=== PATIENT | female | born 1955 | race Caucasian/White ===

== ENCOUNTER 2020-04-09 13:50 | Emergency (ER) | payer MEDICARE, MEDICAID, SELFPAY ==
[2020-04-09 14:11] VITALS: BP 136/81; PULSE 81; RESP 18; TEMP 36.8; O2SAT 98; BMI 33.0
--- NOTE | 2020-04-09 14:24 | CT_ITS ---
EXAMINATION: CT ABDOMEN AND PELVIS WITH CONTRAST CLINICAL INFORMATION: Diarrhea. COMPARISON: CT abdomen and pelvis 01/27/2018 TECHNIQUE: Multidetector volumetric images were obtained from the superior aspect of the liver through the pubic symphysis following administration 85 mL of Omnipaque 350 intravenous contrast. Sagittal and coronal reformatted images were obtained on the technologist's workstation. Oral contrast: No This CT examination was performed using dose optimization techniques as appropriate, variously including the following: *Automated exposure control *Adjustment of mA and/or kV according to patient size (this includes techniques or standardized protocols for targeted exams where dose is matched to indication/reason for exam; i.e. extremities or head) *Use of iterative reconstruction technique DLP: 720 mGy-cm FINDINGS: LUNG BASES: There is minimal atelectatic changes right lung base. The heart size is normal. LIVER, GALLBLADDER, AND BILIARY TREE: The liver is normal in size, shape, and diffuse hypoattenuation. There is a focal area of fatty sparing around the gallbladder. No additional focal or biliary ductal dilatation is present. The gallbladder is unremarkable with no evidence of radiopaque gallstones, gallbladder wall thickening, or obvious pericholecystic inflammatory changes. PANCREAS: Unremarkable. SPLEEN: Unremarkable. ADRENAL GLANDS: Unremarkable. KIDNEYS AND URETERS: The kidneys are normal in size, shape, and attenuation. No hydronephrosis, hydroureter, or calculi seen. No perinephric stranding. Small bilateral extrarenal kidney pelvises noted. BLADDER: Unremarkable. GASTROINTESTINAL TRACT: There is sigmoid diverticulosis with minimal fat stranding and mild mural thickening suspicious for early diverticulitis.. Rest of colon and the small bowel loops are normal caliber. Appendix is not seen with certainty. ABDOMINAL WALL: A small umbilical hernia containing fat is noted. LYMPH NODES: Small shotty lymph nodes are seen in the retroperitoneum. VASCULAR: Unremarkable. PELVIC VISCERA: No free air or free fluid seen. The uterus is anteverted and appears unremarkable. OSSEOUS STRUCTURES: There is grade 1 anterolisthesis L3 over L4. Rest of vertebral alignment is normal. There is loss of L4-L5, L3-L4, L2-L3 and L1-L2 disc heights. No lytic or sclerotic process seen. There is right sacral sclerosis of the SI joint likely hypertrophic degenerative changes. They are stable since previous study. There is old healed left 12th rib fracture CT/CT abdomen pelvis w con IMPRESSION: Sigmoid diverticulosis with mild early sigmoid diverticulitis suspected. No free air or free fluid. No bowel obstruction. Diffuse fatty liver with focal fatty sparing around the gallbladder.
--- NOTE | 2020-04-09 14:45 | ED.ABDPAIN ---
HPI - Abdominal Pain General Chief Complaint: Abdominal Pain Stated Complaint: abd pain Time Seen by Provider: 04/09/20 14:09 Source: patient Mode of arrival: ambulatory Limitations: no limitations History of Present Illness HPI narrative: 64 yo female with past medical history of asthma, bipolar disease, diverticulitis, GERD here with lower abdominal cramping, diarrhea, nausea x 1 week. H/o diverticulitis and feels similar. Multiple episodes of diarrhea daily (non bloody, non mucousy). No recent antibiotic use or travel. No sick contact. Lives alone. MD elicited complaint: abdominal pain Pertinent past history: none Onset (ago): week(s) (1 week ) Pain Consistency: intermittent Location: RLQ and LLQ Severity: moderate Quality: cramping Radiation: none Migration to: no migration Exacerbating factors: nothing Relieving factors: nothing Associated symptoms: nausea and diarrhea Related Data Previous Rx's Medication Instructions Recorded levofloxacin 750 mg PO DAILY 7 Days #7 tab 04/09/20 metronidazole [Flagyl] 500 mg PO Q8H 7 Days #21 tab 04/09/20 Allergies Allergy/AdvReac Type Severity Reaction Status Date / Time oxcarbazepine Allergy Intermediate HIVES/HALLU Unverified 01/20/20 17:45 [From TRILEPTAL] CINATIONS codeine [Codeine] Allergy Mild RASH Unverified 01/20/20 17:45 trazodone [TRAZODONE] Allergy Unknown UNKNOWN Unverified 01/20/20 17:45 Review of Systems Review of Systems Yes all other systems are reviewed and are negative Constitutional: Reports no additional constitutional complaints, Denies body ache(s), Denies chills, Denies fever(s), Denies headache(s) and Denies weakness Eyes: Reports no additional eye complaints and Denies change in vision Reports system reviewed and no additional complaints, except as documented, Denies dizziness, Denies headache(s), Denies nasal congestion, Denies nasal discharge and Denies neck pain Cardiovascular: Reports no additional cardiovascular complaints, Denies chest pain, Denies leg edema and Denies dyspnea Respiratory: Reports no additional respiratory complaints, Denies cough and Denies dyspnea Gastrointestinal: Reports no additional gastrointestinal complaints, Reports abdominal pain, Reports diarrhea, Reports nausea and Denies vomiting Genitourinary: Reports no additional female genitourinary complaints and Denies urinary incontinence Musculoskeletal: Reports no additional musculoskeletal complaints, Denies back pain, Denies arthralgias, Denies joint swelling, Denies neck pain, Denies numbness and Denies tingling Skin/Breast: Reports system reviewed and no additional complaints, except as docu and Denies rash Reports system reviewed and no additional complaints, except as documented, Denies Abnormal speech present, Denies dizziness, Denies headache(s), Denies numbness, Denies tingling and Denies weakness Physical Exam Vital Signs: Vital Signs: Last Vital Signs Temp 98.2 F 04/09/20 14:11 Pulse 75 04/09/20 16:05 Resp 16 04/09/20 16:05 BP 132/76 04/09/20 16:05 Pulse Ox 100 04/09/20 16:05 Body Mass Index 33.0 Const: General: cooperative, healthy appearing, comfortable and no acute distress Orientation/consciousness: patient oriented x3 Limitations: no limitations HENMT: Head: Yes normal to inspection Ears: hearing grossly normal bilaterally General nose exam: Normal external nose present Face and sinus: Yes normal facial exam Mouth: Normal oral and palatal mucosa present Throat: Yes posterior oropharynx normal Eyes: General: appearance normal, both eyes and all related structures Pupils: Equal, round and reactive pupils present Neck: Neck: Yes normal visual inspection Chest: Chest palpation & inspection: normal inspection of the chest Resp: Effort & Inspection: normal respiratory effort Auscultation: clear to auscultation bilaterally Cardio: Rate: regular rate Rhythm: regular rhythm Peripheral pulses: Peripheral pulses 2+ throughout GI: Inspection: Yes normal to inspection Palpation (GI): Soft to palpation and Tenderness to palpation present (GI) (mild LLQ/RLQ) Auscultation: normal bowel sounds Back/Spine/Pelvis: Thoracic/Lumbar Spine: thoracic and lumbar spine normal to inspection Skin: General skin exam: no rashes or lesions noted Neuro: General: patient oriented x3, no focal motor deficits and normal sensation to monofilament Cranial nerves: Yes Equal, round and reactive pupils present Cognition (Neuro): normal cognition Speech: No Abnormal speech present Gait exam (Neuro): Normal gait present Motor exam (neuro): 5/5 motor strength present throughout Extrem: General: Yes normal to inspection Course Course Course Narrative: 64 yo female here with diarrhea, abdominal cramping, nausea x 1 week. On exam has some mild tenderness in lower abdomen, no rebound of guarding. Will need labs, UA, stool samples, Ct A/P. Place PIV and give NSB. 1640-Ct c/w with mild diverticulitis. No leukocytosis, fever and patient did not require any analgesia in the ED. Tolerating PO. She did not have diarrhea while in the emergency department and was unable to provide a stool sample. She does tell me this feels similar to her diverticulitis. She is aware antibiotics may make c diff worse and she will provide outpatient stool studies and follow-up with her PCP. Shared decision to start antibiotics for diverticulitis. Reviewed worrisome signs/symptoms with patient and when to return to ED. Comfortable with discharge home. MDM - Abdominal Pain MDM Narrative Medical decision making narrative: diverticulitis, cdiff, gastroenteritis, appendicitis, infectious diarrhea Medical Records Attestation: I reviewed the patient's medical records. Lab Data Attestation: I reviewed the patient's lab results. Result diagrams: 04/09/20 14:43 04/09/20 14:43 Labs: Lab Results 04/09/20 04/09/20 04/09/20 Range/Units 14:43 14:43 14:43 WBC 7.8 (4.8-10.8) X10*3/uL RBC 3.97 L (4.20-5.50) X10*6/uL Hgb 13.0 (12.0-16.0) g/dl Hct 38.7 (37-47) % MCV 97.5 (80-98) fL MCH 32.7 (27.0-33.0) pg MCHC 33.6 (31.0-35.0) g/dl RDW 11.5 (11.0-16.0) % Plt Count 347 (160-400) X10*3/uL MPV 9.0 L (9.4-12.3) fL Immature Gran % (Auto) 0.4 (0.0-0.4) % Neut % (Auto) 65.3 (45-73) % Lymph % (Auto) 19.4 L (20-40) % [place] % (Auto) 7.7 (2-11) % Eos % (Auto) 6.7 H (0-4) % Baso % (Auto) 0.5 (0-2) % Lymph # (Auto) 1.5 (1.2-4.9) X10*3/uL [place] # (Auto) 0.6 (0.1-1.2) X10*3/uL Eos # (Auto) 0.5 H (0.0-0.4) X10*3/uL Baso # (Auto) 0.0 (0.0-0.2) X10*3/uL Abs Immat Gran (auto) 0.03 (0.00-0.03) X10*3/uL Absolute Neuts (auto) 5.1 (2.0-8.3) X10*3/uL Absolute Nucleated RBC 0.000 (0.0-0.012) X10*3/uL Nucleated RBC % (auto) 0.0 (0.0-0.2) /100WBC Sodium 139 (135-145) mmol/L Potassium 4.1 (3.3-5.1) mmol/l Chloride 104 (96-108) mmol/L Carbon Dioxide 27 (22-29) mmol/L Anion Gap 12 (12-20) BUN 12 (9-16) mg/dL Creatinine 0.71 (0.5-1.4) mg/dL Estim Creat Clear Calc 86.4 Estimated GFR > 60 Random Glucose 86 (60-115) mg/dL Lactic Acid 1.4 (0.5-2.0) mmol/L Calcium 9.2 (8.4-10.2) mg/dL Magnesium 2.0 (1.6-2.6) mg/dL Total Bilirubin 0.3 (0.0-1.0) mg/dL Direct Bilirubin < 0.2 (0.0-0.5) mg/dL AST 17 (5-31) U/L ALT 22 (0-31) U/L Alkaline Phosphatase 83 (39-117) U/L Total Protein 6.7 (6.5-8.0) g/dL Albumin 4.3 (3.5-5.0) g/dL Urine Color Urine Appearance Urine pH (5.0-8.0) Ur Specific [place] (1.005-1.025) Urine Protein (NEG-TRACE) MG/DL Urine Glucose (UA) (NEG) MG/DL Urine Ketones (NEG) MG/DL Urine Blood (NEG) Urine Nitrite (NEG) Ur Leukocyte Esterase (NEG) Urine RBC (0) /HPF Urine WBC (0-4) /HPF Ur Squamous Epith Cells /LPF Urine Bacteria /LPF 04/09/20 Range/Units 16:03 WBC (4.8-10.8) X10*3/uL RBC (4.20-5.50) X10*6/uL Hgb (12.0-16.0) g/dl Hct (37-47) % MCV (80-98) fL MCH (27.0-33.0) pg MCHC (31.0-35.0) g/dl RDW (11.0-16.0) % Plt Count (160-400) X10*3/uL MPV (9.4-12.3) fL Immature Gran % (Auto) (0.0-0.4) % Neut % (Auto) (45-73) % Lymph % (Auto) (20-40) % [place] % (Auto) (2-11) % Eos % (Auto) (0-4) % Baso % (Auto) (0-2) % Lymph # (Auto) (1.2-4.9) X10*3/uL [place] # (Auto) (0.1-1.2) X10*3/uL Eos # (Auto) (0.0-0.4) X10*3/uL Baso # (Auto) (0.0-0.2) X10*3/uL Abs Immat Gran (auto) (0.00-0.03) X10*3/uL Absolute Neuts (auto) (2.0-8.3) X10*3/uL Absolute Nucleated RBC (0.0-0.012) X10*3/uL Nucleated RBC % (auto) (0.0-0.2) /100WBC Sodium (135-145) mmol/L Potassium (3.3-5.1) mmol/l Chloride (96-108) mmol/L Carbon Dioxide (22-29) mmol/L Anion Gap (12-20) BUN (9-16) mg/dL Creatinine (0.5-1.4) mg/dL Estim Creat Clear Calc Estimated GFR Random Glucose (60-115) mg/dL Lactic Acid (0.5-2.0) mmol/L Calcium (8.4-10.2) mg/dL Magnesium (1.6-2.6) mg/dL Total Bilirubin (0.0-1.0) mg/dL Direct Bilirubin (0.0-0.5) mg/dL AST (5-31) U/L ALT (0-31) U/L Alkaline Phosphatase (39-117) U/L Total Protein (6.5-8.0) g/dL Albumin (3.5-5.0) g/dL Urine Color STRAW Urine Appearance CLEAR Urine pH 7.5 (5.0-8.0) Ur Specific [place] 1.010 (1.005-1.025) Urine Protein NEG (NEG-TRACE) MG/DL Urine Glucose (UA) NEG (NEG) MG/DL Urine Ketones NEG (NEG) MG/DL Urine Blood NEG (NEG) Urine Nitrite NEG (NEG) Ur Leukocyte Esterase TRACE H (NEG) Urine RBC 0 (0) /HPF Urine WBC 5-9 H (0-4) /HPF Ur Squamous Epith Cells 2+ /LPF Urine Bacteria NONE /LPF Imaging Data CT scan - abdomen: Attestation: I personally reviewed and interpreted this imaging study as follows: Radiologist's impression: EXAMINATION: CT ABDOMEN AND PELVIS WITH CONTRAST CLINICAL INFORMATION: Diarrhea. COMPARISON: CT abdomen and pelvis 01/27/2018 TECHNIQUE: Multidetector volumetric images were obtained from the superior aspect of the liver through the pubic symphysis following administration 85 mL of Omnipaque 350 intravenous contrast. Sagittal and coronal reformatted images were obtained on the technologist's workstation. Oral contrast: No This CT examination was performed using dose optimization techniques as appropriate, variously including the following: *Automated exposure control *Adjustment of mA and/or kV according to patient size (this includes techniques or standardized protocols for targeted exams where dose is matched to indication/reason for exam; i.e. extremities or head) *Use of iterative reconstruction technique DLP: 720 mGy-cm FINDINGS: LUNG BASES: There is minimal atelectatic changes right lung base. The heart size is normal. LIVER, GALLBLADDER, AND BILIARY TREE: The liver is normal in size, shape, and diffuse hypoattenuation. There is a focal area of fatty sparing around the gallbladder. No additional focal or biliary ductal dilatation is present. The gallbladder is unremarkable with no evidence of radiopaque gallstones, gallbladder wall thickening, or obvious pericholecystic inflammatory changes. PANCREAS: Unremarkable. SPLEEN: Unremarkable. ADRENAL GLANDS: Unremarkable. KIDNEYS AND URETERS: The kidneys are normal in size, shape, and attenuation. No hydronephrosis, hydroureter, or calculi seen. No perinephric stranding. Small bilateral extrarenal kidney pelvises noted. BLADDER: Unremarkable. GASTROINTESTINAL TRACT: There is sigmoid diverticulosis with minimal fat stranding and mild mural thickening suspicious for early diverticulitis.. Rest of colon and the small bowel loops are normal caliber. Appendix is not seen with certainty. ABDOMINAL WALL: A small umbilical hernia containing fat is noted. LYMPH NODES: Small shotty lymph nodes are seen in the retroperitoneum. VASCULAR: Unremarkable. PELVIC VISCERA: No free air or free fluid seen. The uterus is anteverted and appears unremarkable. OSSEOUS STRUCTURES: There is grade 1 anterolisthesis L3 over L4. Rest of vertebral alignment is normal. There is loss of L4-L5, L3-L4, L2-L3 and L1-L2 disc heights. No lytic or sclerotic process seen. There is right sacral sclerosis of the SI joint likely hypertrophic degenerative changes. They are stable since previous study. There is old healed left 12th rib fracture CT/CT abdomen pelvis w con IMPRESSION: Sigmoid diverticulosis with mild early sigmoid diverticulitis suspected. No free air or free fluid. No bowel obstruction. Diffuse fatty liver with focal fatty sparing around the gallbladder. Discharge Plan Discharge Clinical Impression: Diverticulitis, Diarrhea, Acute UTI Patient Disposition: Home, Self-Care Instructions: Diverticulitis (ED) Additional Instructions: See lab slip for stool studies Low residue diet You will be notified if the cdiff is positive Prescriptions: New metronidazole [Flagyl] 500 mg tablet 500 mg PO Q8H 7 Days Qty: 21 RF: 0 levofloxacin 750 mg tablet 750 mg PO DAILY 7 Days Qty: 7 RF: 0 Referrals: Teena Araujo MD [Primary Care Provider] - 2 days Interventions: ED Discharge Assessment Last Done: 04/09/20 16:41 Discharge Date/Time: 04/09/20 16:42 [facility] Past Medical History Attestation statement: The following information was validated with the patient. Source: old records reviewed and nursing notes reviewed Medical History (Updated 04/09/20 @ 16:42 by Poppy Villanueva NP) Asthma Bipolar disorder Diverticulitis GERD (gastroesophageal reflux disease) Surgical History (Updated 04/09/20 @ 14:56 by Leonila Clarke) History of colonoscopy Social History Social History Alcohol intake: current Alcohol intake frequency: holidays/special occasions only Smoked in Last 30 Days: No Use of substances other than those prescribed or required for medical reasons: No Advance Directives: No Advance Directives Information Provided: No
[2020-04-09] MEDS: 0.9 % Sodium Chloride 1,000 ML 999 ML IV (14:46)
[2020-04-09 14:50] LABS: Basophils Percent Auto 0.5 % (0-2); Eosinophils Absolute Auto 0.5 X10*3/uL (0.0-0.4); Eosinophils Percent Auto 6.7 % (0-4); Hematocrit 38.7 % (37-47); Imm Gran Abs Auto 0.03 X10*3/uL (0.00-0.03); Imm Gran Pct Auto 0.4 % (0.0-0.4); Lymphocytes Absolute Auto 1.5 X10*3/uL (1.2-4.9); Lymphocytes Percent Auto 19.4 % (20-40); MANUAL DIFF FLAG NO; Mean Corpuscular HGB Conc 33.6 g/dl (31.0-35.0); Mean Corpuscular Hemoglobin 32.7 pg (27.0-33.0); Mean Corpuscular Volume 97.5 fL (80-98); Monocytes Absolute Auto 0.6 X10*3/uL (0.1-1.2); Monocytes Percent Auto 7.7 % (2-11); Neutrophils Absolute Auto 5.1 X10*3/uL (2.0-8.3); Neutrophils Percent Auto 65.3 % (45-73); Platelet Count 347 X10*3/uL (160-400); Red Blood Count 3.97 X10*6/uL (4.20-5.50); Red Cell Distribution Width 11.5 % (11.0-16.0); White Blood Count 7.8 X10*3/uL (4.8-10.8)
[2020-04-09 15:24] LABS: Lactic Acid 1.4 mmol/L (0.5-2.0)
[2020-04-09 15:26] LABS: Alanine Aminotransferase 22 U/L (0-31); Albumin Level 4.3 g/dL (3.5-5.0); Alkaline Phosphatase 83 U/L (39-117); Anion Gap 12 (12-20); Aspartate Amino Transferase 17 U/L (5-31); Bilirubin Direct < 0.2 mg/dL (0.0-0.5); Bilirubin Total 0.3 mg/dL (0.0-1.0); Blood Urea Nitrogen 12 mg/dL (9-16); Calcium 9.2 mg/dL (8.4-10.2); Carbon Dioxide 27 mmol/L (22-29); Chloride 104 mmol/L (96-108); Creatinine Clr Calc Pharmacy 86.4; Estimated Glomerular Filt Rate > 60; Glucose Random 86 mg/dL (60-115); Potassium 4.1 mmol/l (3.3-5.1); Sodium 139 mmol/L (135-145); Total Protein 6.7 g/dL (6.5-8.0)
[2020-04-09] MEDS: iohexoL 350 MG/ML 100 ML INFUS..BTL IV (15:55)
[2020-04-09 16:05] VITALS: BP 132/76; PULSE 75; RESP 16; O2SAT 100
[2020-04-09 16:15] LABS: Glucose Urine UA NEG (NEG); Leukocyte Esterase Urine TRACE (NEG); Nitrite Urine NEG (NEG); PH 7.5 (5.0-8.0); Urine Blood NEG (NEG); Urine Ketones NEG (NEG); Urine Protein NEG (NEG-TRACE)
[2020-04-09 16:16] LABS: Appearance Urine CLEAR; Color Urine STRAW
[2020-04-09 16:24] LABS: RBC Urine 0 /HPF (0); Squamous Epithelial Cell Urine 2+ /LPF
--- NOTE | 2020-04-09 16:39 | PC.NURSE ---
PT A&O, DENIES SOB OR CHEST PAIN. NO N/V. PT ABLE TO AMBULATE TO BATHROOM WITH A STEADY GAIT. PROVIDER IN TO DISCUSS PLAN OF CARE AND DISCHARGE INSTRUCTIONS.
--- NOTE | 2020-04-09 16:41 | PC.NURSE ---
LAB SLIP GIVEN FOR STOOL COLLECTION OUT PT.
== END 2020-04-09 16:42 | disposition home or self-care (01) ==
PROVIDERS: Nurse Practitioner Family; Emergency Provider Internal Medicine; PCP Internal Medicine
DX: K57.32 Diverticulitis of large intestine without perforation or abscess without bleeding (principal); N39.0 Urinary tract infection, site not specified; R10.32 Left lower quadrant pain; Z79.899 Other long term (current) drug therapy
CPT/HCPCS: 36415; 74177; 80048; 80076; 81001; 83605; 83735; 85025; 87040; 87086; 96360; 99284; Q9967

== ENCOUNTER 2020-04-10 17:02 | Outpatient (REF) | payer MEDICARE, MEDICAID, SELFPAY ==
[2020-04-10 17:51] LABS: Leukocytes Stool Qualitative NEGATIVE (NEGATIVE)
[2020-04-11 09:44] LABS: CDIFF Ag Negative (Negative); CDiff Toxin Negative (Negative)
[2020-04-11 09:45] LABS: CDIFF Internal ctrl Dots and bkg OK (V)
== END 2020-04-10 17:03 | disposition home or self-care (01) ==
LOC: HO.LNP 17:02
PROVIDERS: Visit Provider Nurse Practitioner Family
DX: R19.7 Diarrhea, unspecified (principal)
CPT/HCPCS: 36415; 87324; 87449; 89055

== ENCOUNTER 2020-04-13 17:01 | Outpatient (REF) | payer MEDICARE, MEDICAID, SELFPAY | END 2020-04-13 17:02 | disposition home or self-care (01) | LOC: HO.LNP 17:01 | PROVIDERS: Visit Provider Nurse Practitioner Family | DX: R19.7 Diarrhea, unspecified (principal) | CPT/HCPCS: 87045; 87046; 87177; 87209 ==

== ENCOUNTER → 2020-05-12 11:36 | Outpatient (BNVA) | payer MEDICARE, MEDICAID, SELFPAY | PROVIDERS: PCP Internal Medicine; Visit Provider Internal Medicine Gastroenterology | DX: Z13.89 Encounter for screening for other disorder (principal) | CPT/HCPCS: Q3014 ==

== ENCOUNTER 2020-07-11 14:31 | Outpatient (REF) | payer MEDICARE, MEDICAID, SELFPAY ==
[2020-07-11 15:46] LABS: Lithium 1.14 mmol/L (0.60-1.20)
[2020-07-11 15:50] LABS: Estimated Glomerular Filt Rate > 60
[2020-07-11 16:14] LABS: Thyroid Stimulating Hormone 3.07 uIU/mL (0.32-4.0)
== END 2020-07-11 14:32 | disposition home or self-care (01) ==
LOC: HO.LAB 14:31
PROVIDERS: PCP Internal Medicine; Visit Provider Psychiatry & Neurology Psychiatry
DX: F31.0 Bipolar disorder, current episode hypomanic (principal)
CPT/HCPCS: 36415; 80178; 82565; 84443

== ENCOUNTER 2020-12-03 18:40 | Emergency (ER) | payer MEDICARE, MEDICAID, SELFPAY ==
--- NOTE | ~2020-12-03 | CT_ITS ---
EXAMINATION: CT ABDOMEN AND PELVIS WITH CONTRAST CLINICAL INFORMATION: Left lower quadrant pain COMPARISON: 04/09/2020 TECHNIQUE: Multidetector volumetric images were obtained from the superior aspect of the liver through the pubic symphysis following administration 85 mL of Omnipaque 350 intravenous contrast. Sagittal and coronal reformatted images were obtained on the technologist's workstation. Oral contrast: No This CT examination was performed using dose optimization techniques as appropriate, variously including the following: *Automated exposure control *Adjustment of mA and/or kV according to patient size (this includes techniques or standardized protocols for targeted exams where dose is matched to indication/reason for exam; i.e. extremities or head) *Use of iterative reconstruction technique DLP: 709 mGy-cm FINDINGS: LUNG BASES: The visualized lung bases are unremarkable. LIVER, GALLBLADDER, AND BILIARY TREE: Liver normal in size, contour and morphology. Diffuse hepatic steatosis. No focal liver lesions. No intra or extrahepatic biliary dilatation. Gallbladder unremarkable. PANCREAS: Unremarkable. SPLEEN: Unremarkable. ADRENAL GLANDS: Unremarkable. KIDNEYS AND URETERS: The kidneys are normal in size, shape, and attenuation. No hydronephrosis, hydroureter, or calculi seen. No perinephric stranding. BLADDER: Unremarkable. GASTROINTESTINAL TRACT: There is left colonic diverticulosis, most concentrated within the sigmoid colon. There is segmental edematous wall thickening of the mid sigmoid colon and pericolic fat stranding centered around an inflamed diverticulum. No pericolic fluid collection to suggest abscess formation. No intraperitoneal free air to suggest luc perforation. Normal appendix. ABDOMINAL WALL: No significant hernia is appreciated. LYMPH NODES: Normal. VASCULAR: Aorta is mildly atherosclerotic but normal caliber. PELVIC VISCERA: Uterus and adnexa unremarkable. OSSEOUS STRUCTURES: Degenerative changes present throughout the lower thoracic and lumbar spine. CT/CT abdomen pelvis w con IMPRESSION: Acute uncomplicated sigmoid diverticulitis. Diffuse hepatic steatosis.
[2020-12-03 18:42] VITALS: BP 161/91; PULSE 95; RESP 18; TEMP 37; O2SAT 96; BMI 31.6
[2020-12-03 22:01] LABS: MANUAL DIFF FLAG NO
[2020-12-03 22:06] LABS: Basophils Absolute Auto 0.1 X10*3/uL (0.0-0.2); Basophils Percent Auto 0.4 % (0-2); Eosinophils Absolute Auto 0.5 X10*3/uL (0.0-0.4); Eosinophils Percent Auto 2.7 % (0-4); Hematocrit 39.7 % (37-47); Hemoglobin 13.4 g/dl (12.0-16.0); Imm Gran Abs Auto 0.12 X10*3/uL (0.00-0.03); Imm Gran Pct Auto 0.7 % (0.0-0.4); Lymphocytes Absolute Auto 1.8 X10*3/uL (1.2-4.9); Lymphocytes Percent Auto 11.2 % (20-40); Mean Corpuscular HGB Conc 33.8 g/dl (31.0-35.0); Mean Corpuscular Hemoglobin 32.4 pg (27.0-33.0); Mean Corpuscular Volume 96.1 fL (80-98); Monocytes Absolute Auto 1.2 X10*3/uL (0.1-1.2); Neutrophils Absolute Auto 12.8 X10*3/uL (2.0-8.3); Platelet Count 339 X10*3/uL (160-400); Red Blood Count 4.13 X10*6/uL (4.20-5.50); Red Cell Distribution Width 12.4 % (11.0-16.0); White Blood Count 16.4 X10*3/uL (4.8-10.8)
--- NOTE | 2020-12-03 22:14 | ED_ITS ---
HPI - Abdominal Pain General Chief Complaint: Abdominal Pain Stated Complaint: abd pain Time Seen by Provider: 12/03/20 22:12 Source: patient Mode of arrival: ambulatory History of Present Illness HPI narrative: 65-year-old female with history of asthma and diverticulitis presents with 2 days of left lower quadrant pain that she describes as being sharp in nature without radiation but worsens with standing up and patient reports subjective fevers and some nausea but no vomiting, and she has also had diarrhea. Patient states that today she experience some blood mixed with her stool, but states that she also had 2 weeks of constipation prior to having the diarrhea. She denies any urinary pain/burning/frequency, denies any shortness of breath/chest pain/palpitations. Related Data Previous Rx's Medication Instructions Recorded levofloxacin 750 mg tablet 750 mg PO DAILY 7 Days #7 tab 04/09/20 metronidazole 500 mg tablet 500 mg PO Q8H 7 Days #21 tab 04/09/20 (Flagyl) pantoprazole 40 mg tablet,delayed 40 mg PO DAILY #30 tab 06/22/20 release sucralfate 1 gram tablet 2 g PO DAILY 30 Days #60 tab 07/31/20 amoxicillin 875 mg-potassium 1 tab PO Q12H 10 Days #20 tab 12/04/20 clavulanate 125 mg tablet (Augmentin) Allergies Allergy/AdvReac Type Severity Reaction Status Date / Time oxcarbazepine Allergy Intermediate HIVES/HALLU Verified 05/12/20 11:37 [From TRILEPTAL] CINATIONS codeine [Codeine] Allergy Mild RASH Verified 05/12/20 11:37 trazodone [TRAZODONE] Allergy Unknown UNKNOWN Verified 05/12/20 11:37 Review of Systems Review of Systems Pertinent positives and negatives as stated in HPI 10 point review of systems is otherwise negative. Physical Exam Vital Signs: Vital Signs: Last Vital Signs Temp 98.6 F 12/03/20 18:42 Pulse 88 12/03/20 22:55 Resp 16 12/03/20 22:55 BP 167/79 H 12/03/20 22:55 Pulse Ox 95 12/03/20 22:55 Body Mass Index 31.6 VITAL SIGNS: Reviewed. GENERAL: Well developed, well nourished, in no acute distress. HEAD: Normocephalic/atraumatic EYES: PERRLA, EOMI OROPHARYNX: no oral lesions noted, posterior pharynx clear, moist mucosa NECK: Supple, no adenopathy LUNGS: Normal breath sounds. No adventitious sounds or accessory muscle use. S pO2<96> CARDIOVASCULAR: Regular rate and rhythm without noted murmurs ABDOMEN: Soft, tenderness in the left lower quadrant without rebound non- distended with bowel sounds. SKIN: Inspection of the skin reveals no rashes NEUROLOGIC: Alert and oriented x 4. Strength and sensation to light touch were g rossly intact x 4. Course Course Course Narrative: 65-year-old female with history and clinical presentation suggestive of diverticulitis and less likely renal colic/UTI/SBO. Review of all investigations consistent with uncomplicated diverticulitis and patient is tolerating oral intake and has received initial antibiotics here in the emergency department. In addition, patient also has a UTI MDM - Abdominal Pain Lab Data Result diagrams: 12/03/20 21:53 12/03/20 21:53 Labs: Lab Results 12/03/20 12/03/20 12/03/20 Range/Units 21:53 21:53 22:32 WBC 16.4 H (4.8-10.8) X10*3/uL RBC 4.13 L (4.20-5.50) X10*6/uL Hgb 13.4 (12.0-16.0) g/dl Hct 39.7 (37-47) % MCV 96.1 (80-98) fL MCH 32.4 (27.0-33.0) pg MCHC 33.8 (31.0-35.0) g/dl RDW 12.4 (11.0-16.0) % Plt Count 339 (160-400) X10*3/uL MPV 9.0 L (9.4-12.3) fL Immature Gran % (Auto) 0.7 H (0.0-0.4) % Neut % (Auto) 78.0 H (45-73) % Lymph % (Auto) 11.2 L (20-40) % [place] % (Auto) 7.0 (2-11) % Eos % (Auto) 2.7 (0-4) % Baso % (Auto) 0.4 (0-2) % Lymph # (Auto) 1.8 (1.2-4.9) X10*3/uL [place] # (Auto) 1.2 (0.1-1.2) X10*3/uL Eos # (Auto) 0.5 H (0.0-0.4) X10*3/uL Baso # (Auto) 0.1 (0.0-0.2) X10*3/uL Abs Immat Gran (auto) 0.12 H (0.00-0.03) X10*3/uL Absolute Neuts (auto) 12.8 H (2.0-8.3) X10*3/uL Absolute Nucleated RBC 0.000 (0.0-0.012) X10*3/uL Nucleated RBC % (auto) 0.0 (0.0-0.2) /100WBC Sodium 139 (135-145) mmol/L Potassium 3.9 (3.3-5.1) mmol/L Chloride 106 (96-108) mmol/L Carbon Dioxide 22 (22-29) mmol/L Anion Gap 15 (12-20) BUN 13 (9-16) mg/dL Creatinine 0.71 (0.5-1.4) mg/dL Estim Creat Clear Calc 83.3 Estimated GFR > 60 Random Glucose 103 (60-115) mg/dL Lactic Acid (0.5-2.0) mmol/L Calcium 10.0 D (8.4-10.2) mg/dL Total Bilirubin 1.1 H (0.0-1.0) mg/dL AST 18 (5-31) U/L ALT 21 (0-31) U/L Alkaline Phosphatase 83 (39-117) U/L Total Protein 7.0 (6.5-8.0) g/dL Albumin 4.6 (3.5-5.0) g/dL COVID-19 ([facility]) Negative (Negative) COVID-19 Clin Com See Note 12/03/20 Range/Units 22:40 WBC (4.8-10.8) X10*3/uL RBC (4.20-5.50) X10*6/uL Hgb (12.0-16.0) g/dl Hct (37-47) % MCV (80-98) fL MCH (27.0-33.0) pg MCHC (31.0-35.0) g/dl RDW (11.0-16.0) % Plt Count (160-400) X10*3/uL MPV (9.4-12.3) fL Immature Gran % (Auto) (0.0-0.4) % Neut % (Auto) (45-73) % Lymph % (Auto) (20-40) % [place] % (Auto) (2-11) % Eos % (Auto) (0-4) % Baso % (Auto) (0-2) % Lymph # (Auto) (1.2-4.9) X10*3/uL [place] # (Auto) (0.1-1.2) X10*3/uL Eos # (Auto) (0.0-0.4) X10*3/uL Baso # (Auto) (0.0-0.2) X10*3/uL Abs Immat Gran (auto) (0.00-0.03) X10*3/uL Absolute Neuts (auto) (2.0-8.3) X10*3/uL Absolute Nucleated RBC (0.0-0.012) X10*3/uL Nucleated RBC % (auto) (0.0-0.2) /100WBC Sodium (135-145) mmol/L Potassium (3.3-5.1) mmol/L Chloride (96-108) mmol/L Carbon Dioxide (22-29) mmol/L Anion Gap (12-20) BUN (9-16) mg/dL Creatinine (0.5-1.4) mg/dL Estim Creat Clear Calc Estimated GFR Random Glucose (60-115) mg/dL Lactic Acid 1.4 (0.5-2.0) mmol/L Calcium (8.4-10.2) mg/dL Total Bilirubin (0.0-1.0) mg/dL AST (5-31) U/L ALT (0-31) U/L Alkaline Phosphatase (39-117) U/L Total Protein (6.5-8.0) g/dL Albumin (3.5-5.0) g/dL COVID-19 ([facility]) (Negative) COVID-19 Clin Com Discharge Plan Discharge Clinical Impression: Acute UTI, Diverticulitis Patient Disposition: Home, Self-Care Instructions: Diverticulitis (ED), Urinary Tract Infection in Women (ED), Dive rticulitis Diet (ED) Additional Instructions: 1. Resume all home medications as prescribed. 2. Please follow-up with your primary care provider in the next 1-2 days for re- evaluation further outpatient management, specifically you will need to follow- up with gastroenterology in approximately 6 weeks for colonoscopy. 3. Complete the entire course of antibiotics and do not hesitate to return to the ER for any acute worsening of symptoms. Prescriptions: New amoxicillin-pot clavulanate [Augmentin] 875-125 mg tablet 1 tab PO Q12H 10 Days Qty: 20 RF: 0 No Action pantoprazole 40 mg tablet,delayed release (DR/EC) 40 mg PO DAILY Qty: 30 RF: 6 sucralfate 1 gram tablet 2 g PO DAILY 30 Days Qty: 60 RF: 3 metronidazole [Flagyl] 500 mg tablet 500 mg PO Q8H 7 Days Qty: 21 RF: 0 levofloxacin 750 mg tablet 750 mg PO DAILY 7 Days Qty: 7 RF: 0 Referrals: Germain Gonzalez MD [Primary Care Provider] - 2 days (Re-evaluation after patient diagnosed with both diverticulitis as well as UTI on 12/04.) [facility] Past Medical History Source: nursing notes reviewed Medical History Asthma Bipolar disorder Diverticulitis GERD (gastroesophageal reflux disease) Surgical History History of colonoscopy Social History Social History Alcohol intake: current Alcohol intake frequency: 0-2 drinks per day Patient Tobacco Use Status: Never used Tobacco Use of substances other than those prescribed or required for medical reasons: No Advance Directives: No Advance Directives Information Provided: No
[2020-12-03 22:29] LABS: Alanine Aminotransferase 21 U/L (0-31); Albumin Level 4.6 g/dL (3.5-5.0); Alkaline Phosphatase 83 U/L (39-117); Anion Gap 15 (12-20); Aspartate Amino Transferase 18 U/L (5-31); Bilirubin Total 1.1 mg/dL (0.0-1.0); Blood Urea Nitrogen 13 mg/dL (9-16); Carbon Dioxide 22 mmol/L (22-29); Chloride 106 mmol/L (96-108); Creatinine Clr Calc Pharmacy 83.3; Estimated Glomerular Filt Rate > 60; Glucose Random 103 mg/dL (60-115); Potassium 3.9 mmol/L (3.3-5.1); Sodium 139 mmol/L (135-145)
[2020-12-03 22:55] VITALS: BP 167/79; PULSE 88; RESP 16; O2SAT 95
[2020-12-03] MEDS: Piperacillin Sodium/Tazobactam 3.375 GM in 0.9 % Sodium Chloride 50 ML IV (22:55)
[2020-12-03 23:08] LABS: Lactic Acid 1.4 mmol/L (0.5-2.0)
[2020-12-03 23:21] LABS: COVID-19 Test Negative (Negative)
[2020-12-04] MEDS: iohexoL 350 MG/ML 100 ML INFUS..BTL 85 ML IV (00:03)
== END 2020-12-04 01:26 | disposition home or self-care (01) ==
PROVIDERS: Emergency Provider Student in an Organized Health Care Education/Training Program; PCP Internal Medicine
DX: N39.0 Urinary tract infection, site not specified (principal); K57.32 Diverticulitis of large intestine without perforation or abscess without bleeding; R10.32 Left lower quadrant pain; Z79.899 Other long term (current) drug therapy; Z20.822 Contact with and (suspected) exposure to COVID-19
CPT/HCPCS: 36415; 74177; 80053; 83605; 85025; 87040; 87635; 96360; 99284; J2543; Q9967

== ENCOUNTER → 2021-01-30 15:10 | Outpatient (BNVA) | payer MEDICARE, MEDICAID, SELFPAY | PROVIDERS: PCP Internal Medicine; Visit Provider Internal Medicine Gastroenterology | DX: K57.92 Diverticulitis of intestine, part unspecified, without perforation or abscess without bleeding (principal) | CPT/HCPCS: 99212 ==

== ENCOUNTER → 2021-05-29 13:02 | Outpatient (BNVA) | payer MEDICARE, MEDICAID, SELFPAY | PROVIDERS: PCP Internal Medicine; Visit Provider Internal Medicine Gastroenterology | CPT/HCPCS: Q3014 ==

== ENCOUNTER 2021-06-18 18:19 | Emergency (ER) | payer MEDICARE, MEDICAID, SELFPAY ==
--- NOTE | ~2021-06-18 | XR_ITS ---
EXAMINATION: PORTABLE CHEST 1 VIEW CLINICAL INFORMATION: cough . COMPARISON: 04/06/2019. TECHNIQUE: Portable frontal view of the chest was obtained. FINDINGS: The lungs are well expanded. No focal infiltrate, effusion, edema, or pneumothorax. Cardiac and mediastinal silhouettes are within normal limits for technique. No acute bony abnormality seen. Old healed right-sided rib fractures XR/XR chest 1V IMPRESSION: No evidence of acute disease.
[2021-06-18 18:27] VITALS: BP 153/84; PULSE 86; RESP 18; TEMP 36.6; O2SAT 97; BMI 29.9
[2021-06-18 21:50] LABS: MANUAL DIFF FLAG NO
[2021-06-18 21:52] LABS: Basophils Absolute Auto 0.1 X10*3/uL (0.0-0.2); Basophils Percent Auto 0.5 % (0-2); Eosinophils Absolute Auto 0.8 X10*3/uL (0.0-0.4); Eosinophils Percent Auto 8.4 % (0-4); Hemoglobin 13.9 g/dl (12.0-16.0); Imm Gran Abs Auto 0.03 X10*3/uL (0.00-0.03); Imm Gran Pct Auto 0.3 % (0.0-0.4); Lymphocytes Absolute Auto 2.6 X10*3/uL (1.2-4.9); Lymphocytes Percent Auto 26.8 % (20-40); Mean Corpuscular HGB Conc 33.1 g/dl (31.0-35.0); Mean Corpuscular Hemoglobin 32.7 pg (27.0-33.0); Mean Corpuscular Volume 98.8 fL (80.0-98.0); Monocytes Absolute Auto 0.8 X10*3/uL (0.1-1.2); Monocytes Percent Auto 8.2 % (2-11); Neutrophils Absolute Auto 5.4 x10*3/uL (2.0-8.3); Neutrophils Percent Auto 55.8 % (45-73); Platelet Count 400 X10*3/uL (160-400); Red Blood Count 4.25 X10*6/uL (4.20-5.50); Red Cell Distribution Width 11.4 % (11.0-16.0); White Blood Count 9.7 X10*3/uL (4.8-10.8)
[2021-06-18 22:06] LABS: COVID-19 Test Negative (Negative)
[2021-06-18 22:07] LABS: Alanine Aminotransferase 32 U/L (0-31); Albumin Level 4.5 g/dL (3.5-5.0); Alkaline Phosphatase 91 U/L (39-117); Anion Gap 12 (12-20); Aspartate Amino Transferase 24 U/L (5-31); Bilirubin Total 0.4 mg/dL (0.0-1.0); Blood Urea Nitrogen 16 mg/dL (9-16); Calcium 10.4 mg/dL (8.4-10.2); Carbon Dioxide 28 mmol/L (22-29); Chloride 107 mmol/L (96-108); Creatinine Clr Calc Pharmacy 75.7; Estimated Glomerular Filt Rate > 60; Glucose Random 130 mg/dL (60-115); Potassium 4.3 mmol/L (3.3-5.1); Sodium 143 mmol/L (135-145); Total Protein 7.2 g/dL (6.5-8.0)
[2021-06-18 23:00] VITALS: BP 169/84; PULSE 90; RESP 20; O2SAT 97
--- NOTE | 2021-06-19 01:40 | ED.GENADULT ---
HPI - General Adult General Chief complaint: General Medical Stated complaint: cough diff breathing Time Seen by Provider: 06/19/21 01:39 Source: patient Mode of arrival: ambulatory Limitations: no limitations History of Present Illness HPI narrative: 66-year-old female history of asthma, diverticular disease, GERD. Patient was seen by multiple physicians in the past 4 months for coughing, and difficulty breathing. Patient received 1 dose of COVID vaccination. patient presented today with multiple complaints. 1. Persistent of nonproductive cough which is more at nighttime. 2. Urinary incontinence when she coughs. But patient declined any numbness or weakness. Related Data Home Medications Medication Instructions Recorded Confirmed albuterol sulfate 90 mcg/actuation 2 puff PO Q4H PRN 01/30/21 aerosol inhaler amlodipine 2.5 mg tablet 2.5 mg PO DAILY 01/30/21 citalopram 40 mg tablet 40 mg PO DAILY 01/30/21 clonidine HCl 0.3 mg tablet 0.3 mg PO QPM 01/30/21 lithium carbonate 600 mg capsule 600 mg PO BID 01/30/21 montelukast 10 mg tablet 10 mg PO DAILY 01/30/21 pravastatin 80 mg tablet 80 mg PO DAILY 01/30/21 Previous Rx's Medication Instructions Recorded sucralfate 1 gram tablet 2 g PO DAILY 30 Days #60 tab 05/03/21 famotidine 40 mg tablet 40 mg PO BEDTIME #30 tab 05/29/21 pantoprazole 40 mg tablet,delayed 40 mg PO BID #60 tab 05/29/21 release saliva stimulant comb. no.6 1 adina PO .COMPLEX #40 ea 05/29/21 prednisone 20 mg tablet 20 mg PO BID #10 tab 06/19/21 Allergies Allergy/AdvReac Type Severity Reaction Status Date / Time oxcarbazepine Allergy Intermediate HIVES/HALLU Verified 05/29/21 13:05 [From TRILEPTAL] CINATIONS codeine [Codeine] Allergy Mild RASH Verified 05/29/21 13:05 hydromorphone [From Dilaudid] Allergy Mild unknown Verified 05/29/21 13:05 trazodone [TRAZODONE] Allergy Unknown UNKNOWN Verified 05/29/21 13:05 Review of Systems Review of Systems: All other systems are reviewed and are negative Constitutional: Reports as per HPI and Reports no additional constitutional complaints Eyes: Reports as per HPI and Reports no additional eye complaints Reports system reviewed and no additional complaints, except as documented Cardiovascular: Reports as per HPI and Reports no additional cardiovascular complaints Respiratory: Reports as per HPI and Reports no additional respiratory complaints Gastrointestinal: Reports as per HPI and Reports no additional gastrointestinal complaints Genitourinary: Reports no additional female genitourinary complaints Musculoskeletal: Reports no additional musculoskeletal complaints Skin/Breast: Reports system reviewed and no additional complaints, except as docu Psychiatric: Reports no additional psychiatric complaints Endocrine: Reports no additional endocrine complaints Hematologic/Lymphatic: Reports no additional hematologic/lymphatic complaints Allergic/Immunologic: Reports no additional allergic/immunologic complaints Reports system reviewed and no additional complaints, except as documented and Reports Abnormal speech present [facility] Past Medical History Medical History Asthma Bipolar disorder Diverticulitis GERD (gastroesophageal reflux disease) Surgical History History of colonoscopy History of esophagogastroduodenoscopy (EGD) Social History Social History Alcohol intake: current Alcohol intake frequency: 0-2 drinks per day Patient Tobacco Use Status: Never used Tobacco Advance Directives: No Physical Exam ED Vital Signs: Vital Signs - 24 hr 06/18/21 18:27 06/18/21 23:00 06/19/21 01:50 Temperature 97.9 F Pulse Rate 86 90 80 Respiratory Rate 18 20 16 Blood Pressure 153/84 H 169/84 H Pulse Oximetry 97 97 06/19/21 02:00 Temperature 97.8 F Pulse Rate 89 Respiratory Rate 16 Blood Pressure 141/74 H Pulse Oximetry 93 BMI result Body Mass Index 29.9 vital signs have been reviewed as appeared to be correct. Blood pressure normal. Heart rate normal. Respiration rate normal. Temperature normal. Oxygen saturation normal. Appearance: Alert. Oriented X3. No acute distress. Head: Normal external exam. Normocephalic. Atraumatic. No Camacho signs noted. No raccoon eyes noted Eyes: PERRLA. EOMI. Conjunctiva and sclera normal. Eyelids normal. ENT: TM's Normal. Pharynx normal. Uvula midline. Moist mucous membranes. No trismus noted. No drooling noted. No muffled voice noted. Neck: Normal inspection. Neck supple. FROM. No adenopathy. Thyroid Normal. No meningeal signs. No neck mass noted. CVS: Normal heart rate and rhythm. Heart sound normal. No murmurs noted. Pulses normal throughout. Respiratory: No respiratory distress. Painless inspiration. Breath sounds normal. No wheezes/rales/rhonchi noted. Chest nontender. No accessory muscle usage noted or decreased air movement noted. Abdomen: Soft and nontender. Bowel sounds normal in all 4 quadrants. No distention noted. No organomegaly noted. No visible injury noted. Back: No CVA tenderness. Full range of motion noted. Skin: Skin warm and dry. Normal skin color. Normal skin turgor. No rashes/lesions/lacerations noted. Extremities: No lower extremity edema. Extremities exhibit normal range of motion. Extremities nontender. Neuro: Oriented X 3. Cranial nerve exam: II-XII are grossly intact No motor deficit. No sensory deficit. Reflexes normal. Patient is able to ambulate on both heels and toes with steady gait, intact perianal sensation. Course Course Course Narrative: Assessment and plan. 66-year-old female came in with multiple chronic complaints, patient is known to have herniated disc and spinal stenosis, came in with a complain of urinary incontinence, patient had intact neuro exam including perianal sensation with no weakness or numbness making cauda equina syndrome or spinal cord compression is unfavorable. negative for COVID, negative chest x-ray, coughing secondary to chronic bronchitis is the likely diagnosis. 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 Medical Decision Making Medical Records Medical records reviewed: Yes I reviewed the patient's medical records. Lab Data Lab results reviewed: Yes I reviewed the patient's lab results. Result diagrams: 06/18/21 21:39 06/18/21 21:39 Labs: Lab Results 06/18/21 06/18/21 06/18/21 Range/Units 21:39 21:39 21:39 WBC 9.7 (4.8-10.8) X10*3/uL RBC 4.25 (4.20-5.50) X10*6/uL Hgb 13.9 (12.0-16.0) g/dl Hct 42.0 (37.0-47.0) % MCV 98.8 H (80.0-98.0) fL MCH 32.7 (27.0-33.0) pg MCHC 33.1 (31.0-35.0) g/dl RDW 11.4 (11.0-16.0) % Plt Count 400 (160-400) X10*3/uL MPV 9.0 L (9.4-12.3) fL Immature Gran % (Auto) 0.3 (0.0-0.4) % Neut % (Auto) 55.8 (45-73) % Lymph % (Auto) 26.8 (20-40) % [place] % (Auto) 8.2 (2-11) % Eos % (Auto) 8.4 H (0-4) % Baso % (Auto) 0.5 (0-2) % Lymph # (Auto) 2.6 (1.2-4.9) X10*3/uL [place] # (Auto) 0.8 (0.1-1.2) X10*3/uL Eos # (Auto) 0.8 H (0.0-0.4) X10*3/uL Baso # (Auto) 0.1 (0.0-0.2) X10*3/uL Abs Immat Gran (auto) 0.03 (0.00-0.03) X10*3/uL Absolute Neuts (auto) 5.4 (2.0-8.3) x10*3/uL Absolute Nucleated RBC 0.000 (0.0-0.012) X10*3/uL Nucleated RBC % (auto) 0.0 (0.0-0.2) /100WBC Sodium 143 (135-145) mmol/L Potassium 4.3 (3.3-5.1) mmol/L Chloride 107 (96-108) mmol/L Carbon Dioxide 28 (22-29) mmol/L Anion Gap 12 (12-20) BUN 16 (9-16) mg/dL Creatinine 0.75 (0.5-1.4) mg/dL Estim Creat Clear Calc 75.7 Estimated GFR > 60 Random Glucose 130 H (60-115) mg/dL Calcium 10.4 H (8.4-10.2) mg/dL Total Bilirubin 0.4 (0.0-1.0) mg/dL AST 24 (5-31) U/L ALT 32 H (0-31) U/L Alkaline Phosphatase 91 (39-117) U/L Total Protein 7.2 (6.5-8.0) g/dL Albumin 4.5 (3.5-5.0) g/dL Urine Color Urine Appearance Urine pH (5.0-8.0) Ur Specific [place] (1.005-1.025) Urine Protein (NEG-TRACE) MG/DL Urine Glucose (UA) (NEG) MG/DL Urine Ketones (NEG) MG/DL Urine Blood (NEG) Urine Nitrite (NEG) Ur Leukocyte Esterase (NEG) COVID-19 ([facility]) Negative (Negative) COVID-19 Clin Com See Note 06/19/21 Range/Units 03:36 WBC (4.8-10.8) X10*3/uL RBC (4.20-5.50) X10*6/uL Hgb (12.0-16.0) g/dl Hct (37.0-47.0) % MCV (80.0-98.0) fL MCH (27.0-33.0) pg MCHC (31.0-35.0) g/dl RDW (11.0-16.0) % Plt Count (160-400) X10*3/uL MPV (9.4-12.3) fL Immature Gran % (Auto) (0.0-0.4) % Neut % (Auto) (45-73) % Lymph % (Auto) (20-40) % [place] % (Auto) (2-11) % Eos % (Auto) (0-4) % Baso % (Auto) (0-2) % Lymph # (Auto) (1.2-4.9) X10*3/uL [place] # (Auto) (0.1-1.2) X10*3/uL Eos # (Auto) (0.0-0.4) X10*3/uL Baso # (Auto) (0.0-0.2) X10*3/uL Abs Immat Gran (auto) (0.00-0.03) X10*3/uL Absolute Neuts (auto) (2.0-8.3) x10*3/uL Absolute Nucleated RBC (0.0-0.012) X10*3/uL Nucleated RBC % (auto) (0.0-0.2) /100WBC Sodium (135-145) mmol/L Potassium (3.3-5.1) mmol/L Chloride (96-108) mmol/L Carbon Dioxide (22-29) mmol/L Anion Gap (12-20) BUN (9-16) mg/dL Creatinine (0.5-1.4) mg/dL Estim Creat Clear Calc Estimated GFR Random Glucose (60-115) mg/dL Calcium (8.4-10.2) mg/dL Total Bilirubin (0.0-1.0) mg/dL AST (5-31) U/L ALT (0-31) U/L Alkaline Phosphatase (39-117) U/L Total Protein (6.5-8.0) g/dL Albumin (3.5-5.0) g/dL Urine Color YELLOW Urine Appearance CLEAR Urine pH 6.5 (5.0-8.0) Ur Specific [place] 1.025 (1.005-1.025) Urine Protein NEG (NEG-TRACE) MG/DL Urine Glucose (UA) NEG (NEG) MG/DL Urine Ketones NEG (NEG) MG/DL Urine Blood NEG (NEG) Urine Nitrite NEG (NEG) Ur Leukocyte Esterase NEG (NEG) COVID-19 ([facility]) (Negative) COVID-19 Clin Com Imaging Data Chest x-ray: Attestation: I personally reviewed and interpreted this imaging study as follows: Radiologist's impression: No evidence of acute disease. Discharge Plan Discharge Clinical Impression: Bronchitis Patient Disposition: Home, Self-Care Instructions: Chronic Bronchitis (DC) Prescriptions: New prednisone 20 mg tablet 20 mg PO BID Qty: 10 0RF No Action sucralfate 1 gram tablet 2 g PO DAILY 30 Days Qty: 60 3RF Rx Instructions: Take two tablets by mouth daily, okay to grind and dissolve. montelukast 10 mg tablet 10 mg PO DAILY 0RF amlodipine 2.5 mg tablet 2.5 mg PO DAILY 0RF citalopram 40 mg tablet 40 mg PO DAILY 0RF albuterol sulfate 90 mcg/actuation HFA aerosol inhaler 2 puff PO Q4H PRN (Reason: wheezing) 0RF lithium carbonate 600 mg capsule 600 mg PO BID 0RF clonidine HCl 0.3 mg tablet 0.3 mg PO QPM 0RF pravastatin 80 mg tablet 80 mg PO DAILY 0RF pantoprazole 40 mg tablet,delayed release (DR/EC) 40 mg PO BID Qty: 60 2RF famotidine 40 mg tablet 40 mg PO BEDTIME Qty: 30 2RF saliva stimulant comb. no.6 Lozenge 1 adina PO .COMPLEX Qty: 40 2RF Rx Instructions: 1 adina PO; TID Referrals: Physician,Unknown J [Primary Care Provider] - 2 days Interventions: LWBS Worksheet Last Done: 06/18/21 23:40
[2021-06-19] MEDS: Albuterol/Iprat 2.5/0.5MG 3 ML AMPUL.NEB INHALE (01:49)
[2021-06-19 01:50] VITALS: PULSE 80; RESP 16; O2SAT 98
[2021-06-19 02:00] VITALS: BP 141/74; PULSE 89; RESP 16; TEMP 36.6; O2SAT 93
[2021-06-19] MEDS: methylPREDNISolone Sod Succ 125 MG/2 ML VIAL IVPUSH (02:27)
[2021-06-19 03:43] LABS: Appearance Urine CLEAR; Color Urine YELLOW; Glucose Urine UA NEG (NEG); Leukocyte Esterase Urine NEG (NEG); Nitrite Urine NEG (NEG); PH 6.5 (5.0-8.0); Specific Gravity - Urine 1.025 (1.005-1.025); Urine Blood NEG (NEG); Urine Ketones NEG (NEG); Urine Protein NEG (NEG-TRACE)
[2021-06-19 04:00] VITALS: BP 136/69; PULSE 85; RESP 16; TEMP 36.5; O2SAT 94
== END 2021-06-19 04:46 | disposition home or self-care (01) ==
PROVIDERS: Emergency Provider Emergency Medicine
DX: J42 Unspecified chronic bronchitis (principal); Z20.822 Contact with and (suspected) exposure to COVID-19
CPT/HCPCS: 71045; 80053; 81003; 85025; 87635; 94640; 96374; 99283; 99284; J2930

== ENCOUNTER 2021-07-10 16:57 | Outpatient (REF) | payer MEDICARE, MEDICAID, SELFPAY ==
--- NOTE | ~2021-07-10 | XR_ITS ---
EXAMINATION: XR ABDOMEN KUB CLINICAL INDICATION: Constipation COMPARISON: Previous CT of the abdomen and pelvis December 2020 TECHNIQUE: AP view of the abdomen. FINDINGS: There does not appear to be a large amount of stool the colon. The bowel gas pattern is normal. There is no evidence of free air. No suspicious calcifications. There are degenerative changes of the spine. XR/XR KUB IMPRESSION: Normal bowel gas pattern. No evidence of constipation.
[2021-07-10 18:13] LABS: Lithium 1.07 mmol/L (0.60-1.20)
[2021-07-10 18:19] LABS: Anion Gap 11 (12-20); Blood Urea Nitrogen 15 mg/dL (9-16); Calcium 10.2 mg/dL (8.4-10.2); Carbon Dioxide 28 mmol/L (22-29); Chloride 105 mmol/L (96-108); Estimated Glomerular Filt Rate > 60; Potassium 4.8 mmol/L (3.3-5.1); Sodium 139 mmol/L (135-145)
== END 2021-07-10 16:58 | disposition home or self-care (01) ==
LOC: HO.XRAY 16:57
PROVIDERS: Absent Provider Psychiatry & Neurology Psychiatry; PCP Internal Medicine; Visit Provider Internal Medicine Gastroenterology
DX: K59.00 Constipation, unspecified (principal); F31.0 Bipolar disorder, current episode hypomanic; Z79.899 Other long term (current) drug therapy
CPT/HCPCS: 36415; 74018; 80051; 80178; 82310; 82565; 84520

== ENCOUNTER 2021-07-30 12:33 | Outpatient (REF) | payer MEDICARE, MEDICAID, SELFPAY ==
[2021-07-30 12:42] LABS: MANUAL DIFF FLAG NO
[2021-07-30 12:49] LABS: Basophils Percent Auto 0.3 % (0-2); Eosinophils Absolute Auto 1.1 X10*3/uL (0.0-0.4); Hematocrit 40.5 % (37.0-47.0); Hemoglobin 12.9 g/dl (12.0-16.0); Imm Gran Abs Auto 0.06 X10*3/uL (0.00-0.03); Imm Gran Pct Auto 0.5 % (0.0-0.4); Lymphocytes Absolute Auto 1.8 X10*3/uL (1.2-4.9); Lymphocytes Percent Auto 15.2 % (20-40); Mean Corpuscular HGB Conc 31.9 g/dl (31.0-35.0); Mean Corpuscular Hemoglobin 31.5 pg (27.0-33.0); Mean Corpuscular Volume 98.8 fL (80.0-98.0); Mean Platelet Volume 8.8 fL (9.4-12.3); Monocytes Percent Auto 8.3 % (2-11); Neutrophils Absolute Auto 7.9 x10*3/uL (2.0-8.3); Neutrophils Percent Auto 66.7 % (45-73); Platelet Count 372 X10*3/uL (160-400); Red Cell Distribution Width 11.8 % (11.0-16.0); White Blood Count 11.9 X10*3/uL (4.8-10.8)
[2021-07-30 13:24] LABS: Lithium 1.07 mmol/L (0.60-1.20)
[2021-07-30 13:31] LABS: Anion Gap 10 (12-20); Blood Urea Nitrogen 11 mg/dL (9-16); Calcium 9.6 mg/dL (8.4-10.2); Carbon Dioxide 25 mmol/L (22-29); Chloride 106 mmol/L (96-108); Estimated Glomerular Filt Rate > 60; Glucose Random 102 mg/dL (60-115); Potassium 4.1 mmol/L (3.3-5.1); Sodium 137 mmol/L (135-145)
[2021-07-30 13:48] LABS: Thyroid Stimulating Hormone 0.77 uIU/mL (0.32-4.0)
== END 2021-07-30 12:34 | disposition home or self-care (01) ==
LOC: HO.LAB 12:33
PROVIDERS: Visit Provider Psychiatry & Neurology Neurology
DX: G40.909 Epilepsy, unspecified, not intractable, without status epilepticus (principal); Z79.899 Other long term (current) drug therapy
CPT/HCPCS: 36415; 80048; 80178; 84443; 85025

== ENCOUNTER 2021-09-30 10:03 | Emergency (ER) | payer MEDICARE, MEDICAID, SELFPAY ==
--- NOTE | ~2021-09-30 | CT_ITS ---
EXAMINATION: CT HEAD WITHOUT CONTRAST CLINICAL INFORMATION: Fall. COMPARISON: None TECHNIQUE: Contiguous axial imaging was performed from the skull base to vertex without intravenous administration of contrast. This CT examination was performed using dose optimization techniques as appropriate, variously including the following: *Automated exposure control *Adjustment of mA and/or kV according to patient size (this includes techniques or standardized protocols for targeted exams where dose is matched to indication/reason for exam; i.e. extremities or head) *Use of iterative reconstruction technique DLP: 680 mGy-cm FINDINGS: There is no evidence of acute intracranial hemorrhage or territorial infarction. No abnormal mass effect or midline shift is seen. Joseph to white matter differentiation is well preserved. No extra-axial fluid collections are identified. The ventricles are normal in size. There is no abnormal attenuation within the brain parenchyma. The osseous structures and soft tissues are normal. There is diffuse mucoperiosteal thickening bilateral ethmoid, maxillary and splenic sinuses. The mastoid sinuses are well-aerated and clear. CT/CT head/brain wo con IMPRESSION: No acute intracranial process seen. Chronic pansinusitis
--- NOTE | ~2021-09-30 | XR_ITS ---
EXAMINATION: XR CHEST CLINICAL INFORMATION: Shortness of breath COMPARISON: CXR from 06/18/2021 TECHNIQUE: 2 views of the chest were obtained. FINDINGS: Lungs are well expanded and clear. No pleural effusion or pneumothorax. Cardiac silhouette has normal size and contour. Pulmonary vascular pattern is normal. Old healed fractures of right posterolateral sixth and seventh ribs. Multilevel mild and moderate discovertebral degenerative change of the visualized spine. Prior discectomy, anterior fusion of the partially visualized cervical spine. [id number] osteoarthritis of right glenohumeral joint. XR/XR chest 2V IMPRESSION: No acute cardiopulmonary abnormality.
[2021-09-30 10:08] VITALS: BP 124/90; PULSE 82; O2SAT 95
[2021-09-30 10:41] VITALS: BP 87/40; PULSE 79; RESP 19; TEMP 36.8; O2SAT 96
[2021-09-30 11:18] VITALS: BMI 30.1
--- NOTE | 2021-09-30 11:21 | ECG_ITS ---
Test Reason : FALL Blood Pressure : / mmHG Vent. Rate : 069 BPM Atrial Rate : 069 BPM P-R Int : 190 ms QRS Dur : 084 ms QT Int : 414 ms P-R-T Axes : 053 023 050 degrees QTc Int : 443 ms Normal sinus rhythm Normal ECG When compared with ECG of 06-APR-2019 20:05, Minimal criteria for Inferior infarct are no longer Present Nonspecific T wave abnormality no longer evident in Lateral leads Referred By: Generic ED Physician Electronically Signed By:John Ventura
[2021-09-30 12:05] VITALS: BP 99/63; PULSE 70; RESP 12; O2SAT 96
--- NOTE | 2021-09-30 12:08 | ED.FALL ---
HPI - Fall General Chief Complaint: Fall Stated Complaint: diff breathing-Seasonal allergies Time Seen by Provider: 09/30/21 11:37 Source: patient and EMS Mode of arrival: EMS Limitations: no limitations History of Present Illness HPI Narrative: 66 years old female came in for evaluation after had a mechanical fall. Patient is status post cervical spine stenosis surgery 3 weeks ago and patient has been taking Vicodin as needed for pain that make the patient feels slightly high and disoriented, patient been having chronic cough for few months patient had an evaluation by rehabilitation construction specialist for awaiting for further outpatient bronchoscopy. Patient was in hurry to go to the bathroom (patient get stress urinary incontinence with coughing spells) declined LOC, patient do not remember if she hit her head, complaining of mild headache. Related Data Home Medications Medication Instructions Recorded Confirmed albuterol sulfate 90 mcg/actuation 2 puff PO Q4H PRN 01/30/21 aerosol inhaler amlodipine 2.5 mg tablet 2.5 mg PO DAILY 01/30/21 citalopram 40 mg tablet 40 mg PO DAILY 01/30/21 clonidine HCl 0.3 mg tablet 0.3 mg PO QPM 01/30/21 lithium carbonate 600 mg capsule 600 mg PO BID 01/30/21 montelukast 10 mg tablet 10 mg PO DAILY 01/30/21 pravastatin 80 mg tablet 80 mg PO DAILY 01/30/21 Previous Rx's Medication Instructions Recorded saliva stimulant comb. no.6 1 adina PO .COMPLEX #40 ea 05/29/21 prednisone 20 mg tablet 20 mg PO BID #10 tab 06/19/21 ondansetron HCl 4 mg tablet 4 mg PO Q8H #14 tab 07/04/21 gabapentin 100 mg capsule 100 mg PO BEDTIME #60 cap 07/13/21 benzonatate 100 mg capsule 100 mg PO BID-TID PRN #60 cap 07/22/21 sucralfate 1 gram tablet 2 g PO DAILY 30 Days #60 tab 08/27/21 famotidine 40 mg tablet 40 mg PO BEDTIME #30 tab 09/10/21 pantoprazole 40 mg tablet,delayed 40 mg PO BID #60 tab 09/10/21 release azithromycin 250 mg tablet See Rx Instructions PO .COMPLEX #6 09/21/21 tab guaifenesin 600 mg tablet, 1,200 mg PO BID #30 tab 09/21/21 extended release 12 hr (Mucinex) Allergies Allergy/AdvReac Type Severity Reaction Status Date / Time oxcarbazepine Allergy Intermediate HIVES/HALLU Verified 09/30/21 11:18 [From TRILEPTAL] CINATIONS codeine [Codeine] Allergy Mild RASH Verified 09/30/21 11:18 hydromorphone [From Dilaudid] Allergy Mild unknown Verified 09/30/21 11:18 trazodone [TRAZODONE] Allergy Unknown UNKNOWN Verified 09/30/21 11:18 Review of Systems Review of Systems: All other systems are reviewed and are negative Constitutional: Reports as per HPI and Reports no additional constitutional complaints Eyes: Reports as per HPI and Reports no additional eye complaints Reports system reviewed and no additional complaints, except as documented Cardiovascular: Reports as per HPI and Reports no additional cardiovascular complaints Respiratory: Reports as per HPI and Reports no additional respiratory complaints Gastrointestinal: Reports as per HPI and Reports no additional gastrointestinal complaints Genitourinary: Reports no additional female genitourinary complaints Musculoskeletal: Reports no additional musculoskeletal complaints Skin/Breast: Reports system reviewed and no additional complaints, except as docu Psychiatric: Reports no additional psychiatric complaints Endocrine: Reports no additional endocrine complaints Hematologic/Lymphatic: Reports no additional hematologic/lymphatic complaints Allergic/Immunologic: Reports no additional allergic/immunologic complaints Reports system reviewed and no additional complaints, except as documented and Reports Abnormal speech present [facility] Past Medical History Medical History Asthma Bipolar disorder Diverticulitis GERD (gastroesophageal reflux disease) Surgical History History of colonoscopy History of esophagogastroduodenoscopy (EGD) Social History Social History Alcohol intake: current Alcohol intake frequency: 0-2 drinks per day Patient Tobacco Use Status: Never used Tobacco Advance Directives: Yes Advance Directives Information Provided: No Advance Directives on File: No Physical Exam Vital Signs: Vital Signs: Last Vital Signs Temp 98.2 F 09/30/21 10:41 Pulse 78 09/30/21 13:56 Resp 14 09/30/21 13:56 BP 152/64 H 09/30/21 13:56 Pulse Ox 97 09/30/21 13:56 BMI result Body Mass Index 30.1 Vital signs have been reviewed as appeared to be correct. Blood pressure normal. Heart rate normal. Respiration rate normal. Temperature normal. Oxygen saturation normal. Appearance: Alert. Oriented X3. No acute distress. Head: Normal external exam. Normocephalic. Atraumatic. No Camacho signs noted. No raccoon eyes noted Eyes: PERRLA. EOMI. Conjunctiva and sclera normal. Eyelids normal. ENT: TM's Normal. Pharynx normal. Uvula midline. Moist mucous membranes. No trismus noted. No drooling noted. No muffled voice noted. Neck: Normal inspection. Neck supple. FROM. No adenopathy. Thyroid Normal. No meningeal signs. No neck mass noted. CVS: Normal heart rate and rhythm. Heart sound normal. No murmurs noted. Pulses normal throughout. Respiratory: No respiratory distress. Painless inspiration. Breath sounds normal. No wheezes/rales/rhonchi noted. Chest nontender. No accessory muscle usage noted or decreased air movement noted. Abdomen: Soft and nontender. Bowel sounds normal in all 4 quadrants. No distention noted. No organomegaly noted. No visible injury noted. Back: No CVA tenderness. Full range of motion noted. Skin: Skin warm and dry. Normal skin color. Normal skin turgor. No rashes/lesions/lacerations noted. Extremities: No lower extremity edema. Extremities exhibit normal range of motion. Extremities nontender. Neuro: Oriented X 3. Cranial nerve exam: II-XII are grossly intact No motor deficit. No sensory deficit. Reflexes normal. Course Course Course Narrative: Assessment and plan for 66-year-old female states status post mechanical fall this morning, patient has a normal neuro exam with GCS of [address] for acute trauma. Patient also been having dry cough for over 2 months, chest x-ray is unremarkable patient with stable oxygenation on room air. Patient had 1 reading of relatively low blood pressure. While patient in the ED patient remained stable with stable vital signs workup was unremarkable, no sign infection or sepsis. Serial blood pressure reading in the emergency department is at normal patient's range. Patient has been taking Vicodin for postoperative pain control that cause the patient to feel high and disoriented sometimes which could be the reason of patient's fall today. Patient was instructed to use the Vicodin only at bed time MDM - Fall Lab Data Attestation: I reviewed the patient's lab results. Result diagrams: 09/30/21 12:19 09/30/21 12:19 Labs: Lab Results 09/30/21 09/30/21 09/30/21 Range/Units 12:08 12:19 12:19 WBC 6.2 (4.8-10.8) X10*3/uL RBC 3.93 L (4.20-5.50) X10*6/uL Hgb 12.4 (12.0-16.0) g/dl Hct 37.5 (37.0-47.0) % MCV 95.4 (80.0-98.0) fL MCH 31.6 (27.0-33.0) pg MCHC 33.1 (31.0-35.0) g/dl RDW 12.0 (11.0-16.0) % Plt Count 273 D (160-400) X10*3/uL MPV 9.0 L (9.4-12.3) fL Immature Gran % (Auto) 0.2 (0.0-0.4) % Neut % (Auto) 52.8 (45-73) % Lymph % (Auto) 24.2 (20-40) % [place] % (Auto) 9.4 (2-11) % Eos % (Auto) 12.9 H (0-4) % Baso % (Auto) 0.5 (0-2) % Lymph # (Auto) 1.5 (1.2-4.9) X10*3/uL [place] # (Auto) 0.6 (0.1-1.2) X10*3/uL Eos # (Auto) 0.8 H (0.0-0.4) X10*3/uL Baso # (Auto) 0.0 (0.0-0.2) X10*3/uL Abs Immat Gran (auto) 0.01 (0.00-0.03) X10*3/uL Absolute Neuts (auto) 3.3 (2.0-8.3) x10*3/uL Absolute Nucleated RBC 0.000 (0.0-0.012) X10*3/uL Nucleated RBC % (auto) 0.0 (0.0-0.2) /100WBC Sodium 138 (135-145) mmol/L Potassium 4.1 (3.3-5.1) mmol/L Chloride 105 (96-108) mmol/L Carbon Dioxide 25 (22-29) mmol/L Anion Gap 12 (12-20) BUN 15 (9-16) mg/dL Creatinine 0.72 (0.5-1.4) mg/dL Estim Creat Clear Calc 79.1 Estimated GFR > 60 Random Glucose 108 (60-115) mg/dL Lactic Acid (0.5-2.0) mmol/L Calcium 9.8 (8.4-10.2) mg/dL Total Bilirubin 0.7 (0.0-1.0) mg/dL AST 19 (5-31) U/L ALT 21 (0-31) U/L Alkaline Phosphatase 85 (39-117) U/L Total Protein 6.6 (6.5-8.0) g/dL Albumin 4.1 (3.5-5.0) g/dL Urine Color YELLOW Urine Appearance CLEAR Urine pH 6.0 (5.0-8.0) Ur Specific [place] 1.010 (1.005-1.025) Urine Protein NEG (NEG-TRACE) MG/DL Urine Glucose (UA) NEG (NEG) MG/DL Urine Ketones NEG (NEG) MG/DL Urine Blood NEG (NEG) Urine Nitrite NEG (NEG) Ur Leukocyte Esterase NEG (NEG) Urine Opiates Screen (Not Detect) Urine Fentanyl Screen (Not Detect) Ur Barbiturates Screen (Not Detect) Ur Phencyclidine Scrn (Not Detect) Ur Amphetamines Screen (Not Detect) U Benzodiazepines Scrn (Not Detect) Urine Cocaine Screen (Not Detect) U Marijuana (THC) Screen (Not Detect) Influenza Type A (PCR) (Negative) Influenza Type B (PCR) (Negative) RSV RNA Qual (PCR) (Negative) SARS-CoV-2 RNA (RT-PCR) (Negative) 09/30/21 09/30/21 09/30/21 Range/Units 12:19 12:20 12:22 WBC (4.8-10.8) X10*3/uL RBC (4.20-5.50) X10*6/uL Hgb (12.0-16.0) g/dl Hct (37.0-47.0) % MCV (80.0-98.0) fL MCH (27.0-33.0) pg MCHC (31.0-35.0) g/dl RDW (11.0-16.0) % Plt Count (160-400) X10*3/uL MPV (9.4-12.3) fL Immature Gran % (Auto) (0.0-0.4) % Neut % (Auto) (45-73) % Lymph % (Auto) (20-40) % [place] % (Auto) (2-11) % Eos % (Auto) (0-4) % Baso % (Auto) (0-2) % Lymph # (Auto) (1.2-4.9) X10*3/uL [place] # (Auto) (0.1-1.2) X10*3/uL Eos # (Auto) (0.0-0.4) X10*3/uL Baso # (Auto) (0.0-0.2) X10*3/uL Abs Immat Gran (auto) (0.00-0.03) X10*3/uL Absolute Neuts (auto) (2.0-8.3) x10*3/uL Absolute Nucleated RBC (0.0-0.012) X10*3/uL Nucleated RBC % (auto) (0.0-0.2) /100WBC Sodium (135-145) mmol/L Potassium (3.3-5.1) mmol/L Chloride (96-108) mmol/L Carbon Dioxide (22-29) mmol/L Anion Gap (12-20) BUN (9-16) mg/dL Creatinine (0.5-1.4) mg/dL Estim Creat Clear Calc Estimated GFR Random Glucose (60-115) mg/dL Lactic Acid 1.4 (0.5-2.0) mmol/L Calcium (8.4-10.2) mg/dL Total Bilirubin (0.0-1.0) mg/dL AST (5-31) U/L ALT (0-31) U/L Alkaline Phosphatase (39-117) U/L Total Protein (6.5-8.0) g/dL Albumin (3.5-5.0) g/dL Urine Color Urine Appearance Urine pH (5.0-8.0) Ur Specific [place] (1.005-1.025) Urine Protein (NEG-TRACE) MG/DL Urine Glucose (UA) (NEG) MG/DL Urine Ketones (NEG) MG/DL Urine Blood (NEG) Urine Nitrite (NEG) Ur Leukocyte Esterase (NEG) Urine Opiates Screen POSITIVE H (Not Detect) Urine Fentanyl Screen Not Detected (Not Detect) Ur Barbiturates Screen Not Detected (Not Detect) Ur Phencyclidine Scrn Not Detected (Not Detect) Ur Amphetamines Screen Not Detected (Not Detect) U Benzodiazepines Scrn Not Detected (Not Detect) Urine Cocaine Screen Not Detected (Not Detect) U Marijuana (THC) Screen Not Detected (Not Detect) Influenza Type A (PCR) NEGATIVE (Negative) Influenza Type B (PCR) NEGATIVE (Negative) RSV RNA Qual (PCR) NEGATIVE (Negative) SARS-CoV-2 RNA (RT-PCR) NEGATIVE (Negative) Imaging Data Chest x-ray: Attestation: I personally reviewed and interpreted this imaging study as follows: Radiologist's impression: No acute cardiopulmonary abnormalities. Head CT: Attestation: I personally reviewed and interpreted this imaging study as follows: Radiologist's impression: No acute intracranial process seen. ECG Data Attestation: I personally reviewed and interpreted this ECG as follows: Interpretation: Normal sinus rhythm at 69 beats per minutes, left axis deviation, normal intervals, no ST-T changes. Discharge Plan Discharge Clinical Impression: Closed head injury, Accident due to mechanical fall without injury Patient Disposition: Home, Self-Care Instructions: Head Injury (ED) Prescriptions: No Action ondansetron HCl 4 mg tablet 4 mg PO Q8H Qty: 14 0RF gabapentin 100 mg capsule 100 mg PO BEDTIME Qty: 60 1RF benzonatate 100 mg capsule 100 mg PO BID-TID PRN (Reason: cough) Qty: 60 0RF sucralfate 1 gram tablet 2 g PO DAILY 30 Days Qty: 60 3RF Rx Instructions: Take two tablets by mouth daily, okay to grind and dissolve. pantoprazole 40 mg tablet,delayed release (DR/EC) 40 mg PO BID Qty: 60 2RF famotidine 40 mg tablet 40 mg PO BEDTIME Qty: 30 2RF azithromycin 250 mg tablet See Rx Instructions PO .COMPLEX Qty: 6 0RF Rx Instructions: For 250 mg dose pack: take 500 mg today (day 1), then 250 mg for 4 days (days 2-5) PO guaifenesin [Mucinex] 600 mg tablet extended release 12hr 1,200 mg PO BID Qty: 30 0RF prednisone 20 mg tablet 20 mg PO BID Qty: 10 0RF montelukast 10 mg tablet 10 mg PO DAILY 0RF amlodipine 2.5 mg tablet 2.5 mg PO DAILY 0RF citalopram 40 mg tablet 40 mg PO DAILY 0RF albuterol sulfate 90 mcg/actuation HFA aerosol inhaler 2 puff PO Q4H PRN (Reason: wheezing) 0RF lithium carbonate 600 mg capsule 600 mg PO BID 0RF clonidine HCl 0.3 mg tablet 0.3 mg PO QPM 0RF pravastatin 80 mg tablet 80 mg PO DAILY 0RF saliva stimulant comb. no.6 Lozenge 1 adina PO .COMPLEX Qty: 40 2RF Rx Instructions: 1 adina PO; TID Referrals: Physician,Unknown J [Primary Care Provider] -
[2021-09-30 12:18] LABS: Appearance Urine CLEAR; Color Urine YELLOW; Glucose Urine UA NEG (NEG); Leukocyte Esterase Urine NEG (NEG); Nitrite Urine NEG (NEG); Urine Blood NEG (NEG); Urine Ketones NEG (NEG); Urine Protein NEG (NEG-TRACE)
[2021-09-30] MEDS: 0.9 % Sodium Chloride 1,000 ML 999 ML IV (12:24)
[2021-09-30 12:28] LABS: Basophils Percent Auto 0.5 % (0-2); Eosinophils Absolute Auto 0.8 X10*3/uL (0.0-0.4); Eosinophils Percent Auto 12.9 % (0-4); Hematocrit 37.5 % (37.0-47.0); Hemoglobin 12.4 g/dl (12.0-16.0); Imm Gran Abs Auto 0.01 X10*3/uL (0.00-0.03); Imm Gran Pct Auto 0.2 % (0.0-0.4); Lymphocytes Absolute Auto 1.5 X10*3/uL (1.2-4.9); Lymphocytes Percent Auto 24.2 % (20-40); Mean Corpuscular HGB Conc 33.1 g/dl (31.0-35.0); Mean Corpuscular Hemoglobin 31.6 pg (27.0-33.0); Mean Corpuscular Volume 95.4 fL (80.0-98.0); Monocytes Absolute Auto 0.6 X10*3/uL (0.1-1.2); Monocytes Percent Auto 9.4 % (2-11); Neutrophils Absolute Auto 3.3 x10*3/uL (2.0-8.3); Neutrophils Percent Auto 52.8 % (45-73); Platelet Count 273 X10*3/uL (160-400); Red Blood Count 3.93 X10*6/uL (4.20-5.50); White Blood Count 6.2 X10*3/uL (4.8-10.8)
[2021-09-30 12:29] LABS: MANUAL DIFF FLAG NO
[2021-09-30 12:39] LABS: Lactic Acid 1.4 mmol/L (0.5-2.0)
[2021-09-30 12:44] LABS: Alanine Aminotransferase 21 U/L (0-31); Albumin Level 4.1 g/dL (3.5-5.0); Alkaline Phosphatase 85 U/L (39-117); Anion Gap 12 (12-20); Aspartate Amino Transferase 19 U/L (5-31); Bilirubin Total 0.7 mg/dL (0.0-1.0); Blood Urea Nitrogen 15 mg/dL (9-16); Calcium 9.8 mg/dL (8.4-10.2); Carbon Dioxide 25 mmol/L (22-29); Chloride 105 mmol/L (96-108); Creatinine Clr Calc Pharmacy 79.1; Estimated Glomerular Filt Rate > 60; Glucose Random 108 mg/dL (60-115); Potassium 4.1 mmol/L (3.3-5.1); Sodium 138 mmol/L (135-145); Total Protein 6.6 g/dL (6.5-8.0)
[2021-09-30 12:46] LABS: Amphetamine Screen Urine Not Detected (Not Detect); Barbiturates, Urine Not Detected (Not Detect); Benzodiazepines Screen Urine Not Detected (Not Detect); Cannabinoid Screen Urine Not Detected (Not Detect); Cocaine Screen Urine Not Detected (Not Detect); Fentanyl, urine Not Detected (Not Detect); Opiate Screen Urine POSITIVE (Not Detect); Phencyclidine Screen Urine Not Detected (Not Detect)
[2021-09-30 13:14] LABS: Influenza A PCR NEGATIVE (Negative); Influenza B PCR NEGATIVE (Negative); Resp Syncy Virus RNA Qual PCR NEGATIVE (Negative); SARS COV2 PCR INHOUSE NEGATIVE (Negative)
[2021-09-30 13:56] VITALS: BP 152/64; PULSE 78; RESP 14; O2SAT 97
== END 2021-09-30 15:47 | disposition home or self-care (01) ==
PROVIDERS: Emergency Provider Emergency Medicine
DX: S09.90XA Unspecified injury of head, initial encounter (principal); R51.9 Headache, unspecified; N39.3 Stress incontinence (female) (male); M54.2 Cervicalgia; R06.02 Shortness of breath; W01.0XXA Fall on same level from slipping, tripping and stumbling without subsequent striking against object, initial encounter; Y93.9 Activity, unspecified; Y92.9 Unspecified place or not applicable; Y99.9 Unspecified external cause status; Z20.822 Contact with and (suspected) exposure to COVID-19; Z79.899 Other long term (current) drug therapy
CPT/HCPCS: 0241U; 70450; 71046; 80053; 80307; 81003; 83605; 85025; 87040; 93005; 96360; 99283; 99284

== ENCOUNTER 2021-10-15 08:16 | Outpatient (REF) | payer MEDICARE, MEDICAID, SELFPAY ==
--- NOTE | ~2021-10-15 | FL_ITS ---
EXAMINATION: FL BARIUM SWALLOW CLINICAL INFORMATION: Chronic cough and nausea. COMPARISON: None TECHNIQUE: Barium swallow examination is performed using fluoroscopic evaluation in addition to multiple fluoroscopic spot views. The patient is imaged both upright and prone and using both thick and thin sulfate along with effervescent granules. Fluoroscopy time: 1.8 minutes DAP: 12.115 Gy-cm2 Images: 62 FINDINGS: Following oral administration of thick barium, barium-coated turkey in upright view, there is normal propagation of bolus from the oral cavity through the pharynx, esophagus into stomach without any evidence of obstruction, narrowing or stricture. On placing patient prone and oral administration of thin barium, there is normal propagation of bolus from the oral cavity through the normally distended esophagus into stomach. No gastroesophageal reflux or hiatal hernia seen. Incidental finding of C6-C7 and C7-T1 disc fusion with zero profile prosthesis noted. FL/FL barium swallow IMPRESSION: Unremarkable barium swallow exam.
== END 2021-10-15 08:17 | disposition home or self-care (01) ==
LOC: HO.XRAY 08:16
PROVIDERS: Visit Provider Nurse Practitioner
DX: Z13.89 Encounter for screening for other disorder (principal)
CPT/HCPCS: 74220

== ENCOUNTER 2021-12-05 12:50 | Emergency (ER) | payer MEDICARE, MEDICAID, SELFPAY ==
--- NOTE | ~2021-12-05 | CT_ITS ---
EXAMINATION: CT ABDOMEN AND PELVIS WITHOUT CONTRAST CLINICAL INFORMATION: Left lower quadrant abdominal pain. History of diverticulitis. COMPARISON: CT abdomen pelvis 12/03/2020 TECHNIQUE: Multidetector volumetric imaging was performed from the superior aspect of the liver through the pubic symphysis. Sagittal and coronal reformatted images were obtained on the technologist's workstation. This CT examination was performed using dose optimization techniques as appropriate, variously including the following: *Automated exposure control *Adjustment of mA and/or kV according to patient size (this includes techniques or standardized protocols for targeted exams where dose is matched to indication/reason for exam; i.e. extremities or head) *Use of iterative reconstruction technique DLP: 630 mGy-cm FINDINGS: Visualized lung bases demonstrate some mild lingular atelectasis. The liver is normal in size but demonstrates diffusely decreased attenuation. The gallbladder is normal in appearance. The pancreas, spleen and adrenal glands are unremarkable. Symmetrically sized kidneys. No renal calculi or hydronephrosis bilaterally. Tiny hiatal hernia. The stomach is decompressed. Normal caliber loops of small and large bowel. Normal appendix. There is moderate colonic diverticulosis. There is minimal pericolonic stranding adjacent to the proximal sigmoid colon. No complicating abscess. Tiny fat-containing umbilical hernia. Normal caliber abdominal aorta which demonstrates mild atherosclerotic disease. No retroperitoneal lymphadenopathy. The bladder is decompressed but grossly unremarkable. Unremarkable CT appearance of an atrophic uterus. No gross free pelvic fluid. No inguinal lymphadenopathy. Diffuse osteopenia. Mild to moderate degenerative changes of the spine. CT/CT abdomen pelvis wo con IMPRESSION: -CT findings most suggestive of mild active diverticulitis of the proximal sigmoid colon. No complicating abscess. -Diffusely decreased liver attenuation suggesting hepatic steatosis. Correlation with liver enzymes recommended. Fleischner guidelines were followed.
[2021-12-05 13:31] VITALS: BP 137/68; PULSE 77; RESP 18; TEMP 37; O2SAT 96; BMI 31.0
[2021-12-05 13:46] LABS: MANUAL DIFF FLAG NO
[2021-12-05 13:49] LABS: Basophils Percent Auto 0.3 % (0-2); Eosinophils Absolute Auto 0.3 X10*3/uL (0.0-0.4); Eosinophils Percent Auto 3.7 % (0-4); Hematocrit 37.8 % (37.0-47.0); Hemoglobin 12.6 g/dl (12.0-16.0); Imm Gran Abs Auto 0.04 X10*3/uL (0.00-0.03); Imm Gran Pct Auto 0.4 % (0.0-0.4); Lymphocytes Absolute Auto 1.3 X10*3/uL (1.2-4.9); Lymphocytes Percent Auto 13.8 % (20-40); Mean Corpuscular HGB Conc 33.3 g/dl (31.0-35.0); Mean Corpuscular Hemoglobin 30.7 pg (27.0-33.0); Mean Corpuscular Volume 92.2 fL (80.0-98.0); Mean Platelet Volume 8.8 fL (9.4-12.3); Monocytes Absolute Auto 0.8 X10*3/uL (0.1-1.2); Monocytes Percent Auto 9.1 % (2-11); Neutrophils Absolute Auto 6.6 x10*3/uL (2.0-8.3); Neutrophils Percent Auto 72.7 % (45-73); Platelet Count 373 X10*3/uL (160-400); Red Cell Distribution Width 11.9 % (11.0-16.0); White Blood Count 9.1 X10*3/uL (4.8-10.8)
[2021-12-05 14:05] LABS: Alanine Aminotransferase 22 U/L (0-31); Albumin Level 4.3 g/dL (3.5-5.0); Alkaline Phosphatase 100 U/L (39-117); Anion Gap 14 (12-20); Aspartate Amino Transferase 18 U/L (5-31); Bilirubin Total 0.9 mg/dL (0.0-1.0); Blood Urea Nitrogen 9 mg/dL (9-16); Calcium 9.4 mg/dL (8.4-10.2); Carbon Dioxide 27 mmol/L (22-29); Chloride 104 mmol/L (96-108); Creatinine Clr Calc Pharmacy 74.1; Estimated Glomerular Filt Rate > 60; Glucose Random 108 mg/dL (60-115); Potassium 4.2 mmol/L (3.3-5.1); Sodium 141 mmol/L (135-145); Total Protein 6.9 g/dL (6.5-8.0)
[2021-12-05 14:09] LABS: Appearance Urine HAZY; Color Urine YELLOW; Glucose Urine UA NEG (NEG); Leukocyte Esterase Urine 1+ (NEG); Nitrite Urine NEG (NEG); PH 5.5 (5.0-8.0); Specific Gravity - Urine <= 1.005 (1.005-1.025); UACC Culture Trigger YES; Urine Blood NEG (NEG); Urine Ketones NEG (NEG); Urine Protein NEG (NEG-TRACE)
[2021-12-05 14:28] LABS: Bacteria Urine TRACE /LPF; RBC Urine 0-2 /HPF (0); Squamous Epithelial Cell Urine 2+ /LPF
--- NOTE | 2021-12-05 19:15 | PC.NURSE ---
THIS NURSE HAS [facility] ASSUMED CARE OF PT
[2021-12-05 19:45] VITALS: BP 135/80; PULSE 81; RESP 16; TEMP 36.7; O2SAT 98
--- NOTE | 2021-12-05 19:46 | ED.ABDPAIN ---
HPI - Abdominal Pain General Chief Complaint: Abdominal Pain Stated Complaint: abd pain Source: patient Mode of arrival: ambulatory Limitations: no limitations History of Present Illness HPI narrative: 66-year-old female presents diffuse lower abdominal pain and cramping consistent with her prior episodes of diverticulitis. Patient states that she was constipated and then had several episodes of diarrhea with sharp cramping abdominal pain. The pain is 9/10 at its worst, and currently a 6/10. Patient does not report fevers or chills, denies melena, hematochezia, chest pain or pressure, palpitations, shortness of breath, abdominal distention, inability to pass flatus, dysuria, hematuria, dizziness and weakness. MD elicited complaint: abdominal pain Pertinent past history: diverticulitis Onset (ago): day(s) (3) Pain Consistency: constant and colicky Location: RLQ and LLQ Severity: similar to previous episodes Quality: cramping and aching Exacerbating factors: bowel movement and movement Relieving factors: nothing Context: recent antibiotic use, recent surgery/procedure and history of similar episodes Associated symptoms: diarrhea and constipation Related Data Home Medications Medication Instructions Recorded Confirmed albuterol sulfate 90 mcg/actuation 2 puff PO Q4H PRN wheezing 01/30/21 aerosol inhaler amlodipine 2.5 mg tablet 2.5 mg PO DAILY 01/30/21 citalopram 40 mg tablet 40 mg PO DAILY 01/30/21 clonidine HCl 0.3 mg tablet 0.3 mg PO QPM 01/30/21 lithium carbonate 600 mg capsule 600 mg PO BID 01/30/21 montelukast 10 mg tablet 10 mg PO DAILY 01/30/21 pravastatin 80 mg tablet 80 mg PO DAILY 01/30/21 Previous Rx's Medication Instructions Recorded saliva stimulant comb. no.6 1 adina PO .COMPLEX #40 ea 05/29/21 prednisone 20 mg tablet 20 mg PO BID #10 tabs 06/19/21 ondansetron HCl 4 mg tablet 4 mg PO Q8H nausea #14 tabs 07/04/21 gabapentin 100 mg capsule 100 mg PO BEDTIME #60 caps 07/13/21 benzonatate 100 mg capsule 100 mg PO BID-TID PRN cough #60 07/22/21 caps sucralfate 1 gram tablet 2 g PO DAILY 30 days #60 tabs 08/27/21 famotidine 40 mg tablet 40 mg PO BEDTIME #30 tabs 09/10/21 pantoprazole 40 mg tablet,delayed 40 mg PO BID #60 tabs 09/10/21 release azithromycin 250 mg tablet See Rx Instructions PO .COMPLEX #6 09/21/21 tabs guaifenesin 600 mg tablet, 1,200 mg PO BID #30 tabs 09/21/21 extended release 12 hr (Mucinex) Nebulizer with compressor #1 ea 10/03/21 levofloxacin 750 mg tablet 750 mg PO Q24H 6 days #6 tabs 12/05/21 metronidazole 500 mg tablet 500 mg PO Q8H 7 days #21 tabs 12/05/21 Allergies Allergy/AdvReac Type Severity Reaction Status Date / Time oxcarbazepine Allergy Intermediate HIVES/HALLU Verified 12/05/21 13:31 [From TRILEPTAL] CINATIONS codeine [Codeine] Allergy Mild RASH Verified 12/05/21 13:31 hydromorphone [From Dilaudid] Allergy Mild unknown Verified 12/05/21 13:31 trazodone [TRAZODONE] Allergy Unknown UNKNOWN Verified 12/05/21 13:31 Review of Systems Review of Systems Constitutional: No Weight loss, No Fever, No Chills, No Night Sweats, No Fatigue, No Malaise ENT/Mouth: No Hearing loss, No Ear Pain, No Nasal Congestion, No Sinus Pain, No Hoarseness, No sore throat, No Rhinorrhea, No Swallowing Difficulty Eyes: No Eye Pain, No Swelling, No Redness, No Foreign Body, No Discharge, No Vision Changes Cardiovascular: No Chest Pain, No SOB, No Dyspnea on Exertion, No Orthopnea, No Edema, No Palpitations Respiratory: No Cough, No Sputum, No Wheezing, No Smoke Exposure, No Dyspnea Gastrointestinal: Positive Nausea, no Vomiting, positive Diarrhea, positive abdominal Pain, No Hematochezia, No Melena Genitourinary: no irregular bleeding, No Dysuria, No Urinary Frequency, No Hematuria, No Urinary Incontinence, No Urgency, No Flank Pain, No Urinary Flow Changes, No Hesitancy Musculoskeletal: No joint pain, No Myalgias, No Joint Swelling Skin: Positive surgical incision to the lumbar spine, No Skin Lesions, No rash Neuro: No Weakness, No Numbness, No Paresthesias, No Loss of Consciousness, No Dizziness, No Headache Psych: No Anxiety/Panic, No Depression, No SI/HI/AH/VH, No Social Issues Heme/Lymph: No Bruising, No Bleeding,No Lymphadenopathy Endocrine: No Polyuria, No Polydipsia, No Temperature Intolerance Yes all other systems are reviewed and are negative [facility] Past Medical History Attestation statement: The following information was validated with the patient. Source: old records reviewed Medical History Asthma Bipolar disorder Diverticulitis GERD (gastroesophageal reflux disease) Surgical History History of colonoscopy History of esophagogastroduodenoscopy (EGD) Social History Social History Alcohol intake: unknown Patient Tobacco Use Status: Never used Tobacco Use of substances other than those prescribed or required for medical reasons: Unknown Advance Directives: No Advance Directives Information Provided: No Physical Exam ED Vital Signs: Vital Signs - 24 hr 12/05/21 13:31 12/05/21 19:45 12/05/21 21:54 Temperature 98.6 F 98.1 F 96.8 F Pulse Rate 77 81 82 Respiratory Rate 18 16 20 Blood Pressure 137/68 135/80 183/65 H Pulse Oximetry 96 98 98 Oxygen Delivery Method Room Air Room Air Room Air BMI result Body Mass Index 31.0 Appearance: Alert. Oriented X3. Mild distress. Eyes: Pupils equal, round and reactive to light. Sclera nonicteric. ENT: Pharynx normal. Moist mucous membranes. Neck: Normal inspection. Neck supple. CVS: Normal heart rate and rhythm. Pulses normal. Respiratory: No respiratory distress. Breath sounds normal. Abdomen: Soft and diffusely tender to the lower quadrants, negative rigidity rebound or hepatosplenomegaly. Skin: 5 cm incision well approximated healing no indication of infection to the lumbar spine, Skin warm and dry. Normal skin color. Normal skin turgor. Extremities: No lower extremity edema. Moves all extremities as resistance. Neuro: No motor deficit. No sensory deficit. Cranial nerves 2-12 intact Course Course Course Narrative: Patient in the emergency department waiting room for 6 hours and 58 minutes. 66-year-old female presents with multiple complaints. First, complains of abdominal pain consistent with history of diverticulitis. Labs are drawn while patient was in the emergency department waiting room. Physical exam is consistent with possibility of acute abdomen versus appendicitis versus diverticulitis. Will order CT scan of abdomen and pelvis. Will order Zofran, and morphine for pain management. Second, Recently had lumbar spine surgery with a well-approximated noninfected healing surgical wound to the lumbar spine. No further action required for this complaint. 3rd patient is complaining of right ankle pain, has had this pain for several weeks and has had negative x-rays. Patient is ambulatory, has brisk capillary refill. No further action required for this. Incidental findings with lab workup, patient does have a UTI. Will wait for CT scan of abdomen pelvis to return prior to giving antibiotics. Patient is not febrile, appears nontoxic, and has vital signs that are stable and within normal limits. No sepsis indicated. 21:15 CT scan positive for diverticulitis, plan of care is to discharge home with p.o. antibiotics. Antibiotics will be Levaquin and Flagyl. Patient does have pain management prescribed to her, I will not be giving her any further narcotics for this illness. She does understand that she must follow-up with Dr. Nguyen for chronic pain. Referral given. Patient verbalized understanding of and agrees plan of care discharge home. Verbalized understanding of signs and symptoms indicating need for emergent intervention. MDM - Abdominal Pain Differential Diagnosis Differential diagnosis: Likely abdominal pain, acute appendicitis, bowel perforation, calculus of kidney, constipation, diverticulitis and small bowel obstruction Medical Records Attestation: I reviewed the patient's medical records. Lab Data Attestation: I reviewed the patient's lab results. Result diagrams: 12/05/21 13:39 12/05/21 13:39 Labs: Lab Results 12/05/21 12/05/21 12/05/21 Range/Units 13:39 13:39 13:57 WBC 9.1 (4.8-10.8) X10*3/uL RBC 4.10 L (4.20-5.50) X10*6/uL Hgb 12.6 (12.0-16.0) g/dl Hct 37.8 (37.0-47.0) % MCV 92.2 (80.0-98.0) fL MCH 30.7 (27.0-33.0) pg MCHC 33.3 (31.0-35.0) g/dl RDW 11.9 (11.0-16.0) % Plt Count 373 D (160-400) X10*3/uL MPV 8.8 L (9.4-12.3) fL Immature Gran % (Auto) 0.4 (0.0-0.4) % Neut % (Auto) 72.7 (45-73) % Lymph % (Auto) 13.8 L (20-40) % [place] % (Auto) 9.1 (2-11) % Eos % (Auto) 3.7 (0-4) % Baso % (Auto) 0.3 (0-2) % Lymph # (Auto) 1.3 (1.2-4.9) X10*3/uL [place] # (Auto) 0.8 (0.1-1.2) X10*3/uL Eos # (Auto) 0.3 (0.0-0.4) X10*3/uL Baso # (Auto) 0.0 (0.0-0.2) X10*3/uL Abs Immat Gran (auto) 0.04 H (0.00-0.03) X10*3/uL Absolute Neuts (auto) 6.6 (2.0-8.3) x10*3/uL Absolute Nucleated RBC 0.000 (0.0-0.012) X10*3/uL Nucleated RBC % (auto) 0.0 (0.0-0.2) /100WBC Sodium 141 (135-145) mmol/L Potassium 4.2 (3.3-5.1) mmol/L Chloride 104 (96-108) mmol/L Carbon Dioxide 27 (22-29) mmol/L Anion Gap 14 (12-20) BUN 9 (9-16) mg/dL Creatinine 0.78 (0.5-1.4) mg/dL Estim Creat Clear Calc 74.1 Estimated GFR > 60 Random Glucose 108 (60-115) mg/dL Calcium 9.4 (8.4-10.2) mg/dL Total Bilirubin 0.9 (0.0-1.0) mg/dL AST 18 (5-31) U/L ALT 22 (0-31) U/L Alkaline Phosphatase 100 (39-117) U/L Total Protein 6.9 (6.5-8.0) g/dL Albumin 4.3 (3.5-5.0) g/dL Urine Color YELLOW Urine Appearance HAZY Urine pH 5.5 (5.0-8.0) Ur Specific [place] <= 1.005 (1.005-1.025) Urine Protein NEG (NEG-TRACE) MG/DL Urine Glucose (UA) NEG (NEG) MG/DL Urine Ketones NEG (NEG) MG/DL Urine Blood NEG (NEG) Urine Nitrite NEG (NEG) Ur Leukocyte Esterase 1+ H (NEG) Urine RBC 0-2 (0) /HPF Urine WBC 15-29 H (0-4) /HPF Ur Squamous Epith Cells 2+ /LPF Urine Bacteria TRACE /LPF Imaging Data CT abdomen pelvis: Attestation: I personally reviewed and interpreted this imaging study as follows: Radiologist's impression: EXAMINATION: CT ABDOMEN AND PELVIS WITHOUT CONTRAST? CLINICAL INFORMATION: Left lower quadrant abdominal pain. History of diverticulitis.? COMPARISON: CT abdomen pelvis 12/03/2020? TECHNIQUE: Multidetector volumetric imaging was performed from the superior aspect of the liver through the pubic symphysis. Sagittal and coronal reformatted images were obtained on the technologist's workstation.? This CT examination was performed using dose optimization techniques as appropriate, variously including the following: *Automated exposure control *Adjustment of mA and/or kV according to patient size (this includes techniques or standardized protocols for targeted exams where dose is matched to indication/reason for exam; i.e. extremities or head) *Use of iterative reconstruction technique DLP: 630 mGy-cm FINDINGS: Visualized lung bases demonstrate some mild lingular atelectasis. The liver is normal in size but demonstrates diffusely decreased attenuation. The gallbladder is normal in appearance. The pancreas, spleen and adrenal glands are unremarkable. Symmetrically sized kidneys. No renal calculi or hydronephrosis bilaterally. Tiny hiatal hernia. The stomach is decompressed. Normal caliber loops of small and large bowel. Normal appendix. There is moderate colonic diverticulosis. There is minimal pericolonic stranding adjacent to the proximal sigmoid colon. No complicating abscess. Tiny fat-containing umbilical hernia. Normal caliber abdominal aorta which demonstrates mild atherosclerotic disease. No retroperitoneal lymphadenopathy. The bladder is decompressed but grossly unremarkable. Unremarkable CT appearance of an atrophic uterus. No gross free pelvic fluid. No inguinal lymphadenopathy. Diffuse osteopenia. Mild to moderate degenerative changes of the spine. CT/CT abdomen pelvis wo con IMPRESSION: -CT findings most suggestive of mild active diverticulitis of the proximal sigmoid colon. No complicating abscess. -Diffusely decreased liver attenuation suggesting hepatic steatosis. Correlation with liver enzymes recommended.? ? Fleischner guidelines were followed. Discharge Plan Discharge Clinical Impression: Diverticulitis, Acute UTI Patient Disposition: Home, Self-Care Additional Instructions: You were evaluated for abdominal pain. Your CT scan indicates mild sigmoid diverticulitis. We are treating you with Levaquin 750 mg daily and Flagyl 500 mg 3 times a day for 7 days. Your urinalysis is positive for UTI, Levaquin will cover for UTI. Drink plenty of fluids. Follow up with her prior pain management physician, Dr. Nguyen. Thank you for choosing this emergency department for evaluation. Please follow-up with primary care physician as needed. Return to the emergency department for any new, concerning, or worsening symptoms. Prescriptions: New levofloxacin 750 mg tablet 750 mg PO Q24H 6 Days Qty: 6 0RF Rx Instructions: First dose given 12/05/2021 at 21:30. Next dose due 12/06/2021 at 21:30. metronidazole 500 mg tablet 500 mg PO Q8H 7 Days Qty: 21 0RF No Action ondansetron HCl 4 mg tablet 4 mg PO Q8H Qty: 14 0RF gabapentin 100 mg capsule 100 mg PO BEDTIME Qty: 60 1RF benzonatate 100 mg capsule 100 mg PO BID-TID PRN (Reason: cough) Qty: 60 0RF sucralfate 1 gram tablet 2 g PO DAILY 30 Days Qty: 60 3RF Rx Instructions: Take two tablets by mouth daily, okay to grind and dissolve. pantoprazole 40 mg tablet,delayed release (DR/EC) 40 mg PO BID Qty: 60 2RF famotidine 40 mg tablet 40 mg PO BEDTIME Qty: 30 2RF azithromycin 250 mg tablet See Rx Instructions PO .COMPLEX Qty: 6 0RF Rx Instructions: For 250 mg dose pack: take 500 mg today (day 1), then 250 mg for 4 days (days 2-5) PO guaifenesin [Mucinex] 600 mg tablet extended release 12hr 1,200 mg PO BID Qty: 30 0RF (DME) Nebulizer with compressor See Rx Instructions .Route .MEDSUPPLY Qty: 1 0RF Rx Instructions: As directed prednisone 20 mg tablet 20 mg PO BID Qty: 10 0RF montelukast 10 mg tablet 10 mg PO DAILY amlodipine 2.5 mg tablet 2.5 mg PO DAILY citalopram 40 mg tablet 40 mg PO DAILY albuterol sulfate 90 mcg/actuation HFA aerosol inhaler 2 puff PO Q4H PRN (Reason: wheezing) lithium carbonate 600 mg capsule 600 mg PO BID clonidine HCl 0.3 mg tablet 0.3 mg PO QPM pravastatin 80 mg tablet 80 mg PO DAILY saliva stimulant comb. no.6 Lozenge 1 adina PO .COMPLEX Qty: 40 2RF Rx Instructions: 1 adina PO; TID Referrals: Steven Nguyen MD [Physician] - 2 weeks (pain management) Interventions: ED Discharge Assessment Last Done: 12/05/21 22:10 Discharge Date/Time: 12/05/21 22:10
[2021-12-05] MEDS: Morphine Sulfate 4 MG/ML CARTRIDGE IVPUSH (20:24)
[2021-12-05] MEDS: 0.9 % Sodium Chloride 1,000 ML 999 ML IVCONT (20:25)
[2021-12-05] MEDS: ondansetron HCL 4 MG/2 ML VIAL IVPUSH (20:25)
--- NOTE | 2021-12-05 20:25 | PC.NURSE ---
AT THIS TIME PT HAS AN IV ACCESS PLACED, MEDS GIVEN PER [facility] ORDERS FOR LOWER ABD PAIN 01/12 , PT STATES SHE HAS HAD HER CAT SCAN, WILL CONTINUE TO MONITOR PT AT THIS TIME
[2021-12-05 21:54] VITALS: BP 183/65; PULSE 82; RESP 20; TEMP 36; O2SAT 98
[2021-12-05] MEDS: metroNIDAZOLE 500 MG TABLET PO (22:01)
[2021-12-05] MEDS: levoFLOXacin 750 MG TABLET PO (22:01)
--- NOTE | 2021-12-05 22:07 | PC.NURSE ---
D/ EDUCATION PROVIDED, IV ACCESS REMOVED, QUESTIONS ADDRESSED NO FURTHER CONCERNS AT THIS TIME, PT ABLE TO DRESS HERSELF WITH NO ISSUES, PT MEDICATED PER [facility] ORDERS PRIOR TO DEPARTURE OF ER. PT AWARE OF BP READING AND STS SHE IS DUE FOR HER BP MEDICATION.
== END 2021-12-05 22:10 | disposition home or self-care (01) ==
PROVIDERS: Emergency Provider Internal Medicine; PCP Internal Medicine
DX: K57.32 Diverticulitis of large intestine without perforation or abscess without bleeding (principal); N39.0 Urinary tract infection, site not specified; R10.32 Left lower quadrant pain; Z79.899 Other long term (current) drug therapy
CPT/HCPCS: 36415; 74176; 80053; 81001; 85025; 87086; 96361; 96374; 96375; 99284; J2270; J2405

== ENCOUNTER 2022-03-25 11:56 | Outpatient (REF) | payer MEDICARE, MEDICAID, SELFPAY ==
[2022-03-25 14:23] LABS: Valproate 83.8 mcg/mL (50.0-100.0)
== END 2022-03-25 11:57 | disposition home or self-care (01) ==
LOC: HO.LAB 11:56
PROVIDERS: PCP Internal Medicine; Visit Provider Psychiatry & Neurology Neurology
DX: G40.909 Epilepsy, unspecified, not intractable, without status epilepticus (principal); Z79.899 Other long term (current) drug therapy
CPT/HCPCS: 36415; 80164; 86850; 86900; 86901

== ENCOUNTER → 2022-08-30 09:54 | Outpatient (BNVA) | payer MEDICARE, MEDICAID, SELFPAY | PROVIDERS: PCP Internal Medicine; Visit Provider Internal Medicine Gastroenterology | DX: K20.90 Esophagitis, unspecified without bleeding (principal); K22.70 Barrett's esophagus without dysplasia | CPT/HCPCS: Q3014 ==

== ENCOUNTER → 2022-10-24 13:14 | Outpatient (BNVA) | payer MEDICARE, MEDICAID, SELFPAY | PROVIDERS: PCP Internal Medicine; Visit Provider Physician Assistant | DX: M48.062 Spinal stenosis, lumbar region with neurogenic claudication (principal) | CPT/HCPCS: 99212 ==

== ENCOUNTER 2022-11-15 14:22 | Outpatient (REF) | payer MEDICARE, MEDICAID, SELFPAY ==
--- NOTE | ~2022-11-15 | MR_ITS ---
EXAMINATION: MR LUMBAR SPINE WITHOUT AND WITH CONTRAST CLINICAL INFORMATION: Spinal stenosis. Neurogenic claudication. COMPARISON: Lumbar spine MRI from 10/17/2021. CT abdomen and pelvis from 12/05/2021. TECHNIQUE: MRI of the lumbar spine was obtained using routine sequences without and following the administration of 8 mL of Gadavist intravenous contrast. FINDINGS: Minimal right convex curvature of the lumbar spine. Mild degenerative retrolisthesis of L1 on L2. Degenerative grade 1 anterolisthesis of L3 on L4. Mild degenerative retrolisthesis of L4 on L5. Advanced degenerative disc disease from T9-T11 and L1-L5. Mild degenerative disc disease at all additional levels. Associated mixed Modic type discogenic endplate changes including Modic type I discogenic edema from L1-L5. Moderate marrow edema within the posterior elements of L2-L4 consistent with degenerative stress reaction. No additional suspicious marrow edema. Schmorl's nodes from L1-L3. Otherwise, the vertebral body heights are largely maintained. Left hemilaminectomy changes from L1-L4. Mild edema within the left posterior paraspinal musculature below the level of L2. No additional significant abnormalities of the paraspinal musculature. The conus medullaris terminates at the level of L1-L2. The distal spinal cord is normal in appearance. There is mild epidural engorgement from L2-L5. No additional suspicious enhancement. No abnormal contrast enhancement. Limited evaluation of the intra-abdominal structures without significant abnormalities. The abdominal aorta is of normal contour and caliber. AXIAL SPINAL LEVELS: T12-L1: Shallow diffuse disc bulge. There is moderate right and mild left facet joint arthropathy. There is mild left and no right neural foraminal stenosis. There is no spinal canal stenosis. L1-L2: Moderate diffuse disc bulge with posterior osseous ridging. There is moderate bilateral facet joint arthropathy. There is severe bilateral neural foraminal stenosis. Posterior decompression. There is no spinal canal stenosis. L2-L3: Moderate diffuse disc bulge with posterior osseous ridging. There is severe right and moderate left facet joint arthropathy. There is moderate bilateral neural foraminal stenosis. Posterior decompression. There is stenosis of the subarticular zones with mild spinal canal stenosis centrally. L3-L4: Prominent diffuse disc bulge exacerbated by uncovering from anterolisthesis. There is severe bilateral facet joint arthropathy. There is moderate bilateral neural foraminal stenosis. Posterior decompression. There is stenosis of the subarticular zones with moderate spinal canal stenosis centrally. L4-L5: Moderate diffuse disc bulge with posterior osseous ridging. There is moderate bilateral facet joint arthropathy. There is severe right and moderate left neural foraminal stenosis. There is stenosis of the subarticular zones with mild spinal canal stenosis centrally. L5-S1: Mild diffuse disc bulge. There is moderate bilateral facet joint arthropathy. There is no neural foraminal stenosis. There is narrowing of the subarticular zones with no overt spinal canal stenosis centrally. 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 Left hemilaminectomy changes from L1-L4. Most notably, there is moderate spinal canal stenosis at L3-L4. Mild spinal canal stenoses at L2-L3 and L4-L5. Narrowing/stenoses of the subarticular zones from L2-S1. Moderate to severe neural foraminal stenoses from L1-L5.
== END 2022-11-15 14:23 | disposition home or self-care (01) ==
LOC: HO.MRI 14:22
PROVIDERS: PCP Internal Medicine; Visit Provider Physician Assistant
DX: M48.062 Spinal stenosis, lumbar region with neurogenic claudication (principal)
CPT/HCPCS: 72158; A9585

== ENCOUNTER 2023-04-09 04:07 | Inpatient (IN) | payer MEDICARE, MEDICAID, SELFPAY ==
[2023-04-09] VITALS (11 sets, daily range): BP systolic 97–124; BP diastolic 58–81; PULSE 100–126; RESP 16–22; TEMP 36.3–37.1; O2SAT 88–96; BMI 32.2
--- NOTE | ~2023-04-09 | XR_ITS ---
EXAMINATION: XR CHEST CLINICAL INFORMATION: Cough and dyspnea. COMPARISON: None available. TECHNIQUE: Frontal view of the chest was obtained. FINDINGS: No significant abnormality is noted involving the heart, lungs, mediastinum, bony thorax or soft tissues. XR/XR chest 1V IMPRESSION: No evidence for active cardiopulmonary disease.
--- NOTE | 2023-04-09 04:28 | ECG_ITS ---
Test Reason : sob Blood Pressure : / mmHG Vent. Rate : 099 BPM Atrial Rate : 099 BPM P-R Int : 150 ms QRS Dur : 092 ms QT Int : 344 ms P-R-T Axes : 064 049 074 degrees QTc Int : 441 ms Normal sinus rhythm Normal ECG When compared with ECG of 30-SEP-2021 11:59, No significant change was found Referred By: Iliana Desai Electronically Signed By:REGULO BURDEN
--- NOTE | 2023-04-09 04:33 | ED.SOB ---
HPI - SOB/Dyspnea General Chief Complaint: Dyspnea Stated Complaint: Diff breathing Time Seen by Provider: 04/09/23 04:24 Source: patient and old records reviewed Mode of arrival: ambulatory Limitations: no limitations History of Present Illness HPI Narrative: 67 yo female with PMH of asthma, bipolar disorder, HLD, pneumonia, GERD here with about a month of cough and dyspnea - has been on prednisone as well as zpak (03/08) and augmentin (03/13) without relief. She takes mucinex daily. She has pain in the ribs when she coughs. She has not had a fever. She has inhalers but not a nebulizer machine. She has not been on prednisone in a couple of weeks. She was told by her soil conservationist that on a CT scan in the last few weeks she had mucous plugging . She notes her soil conservationist told her that if she gets worse to go to the ED as they cannot help her in the office and she needs IV treatments. The patient states she has been living on mucinex. MD elicited complaint: shortness of breath and cough Pertinent past history: COPD and pneumonia Onset (ago): month(s) (1) Context: recent illness Timing: intermittent Severity: moderate Exacerbating factors: exertion and coughing Relieving factors: nothing Known history of: COPD Associated symptoms: cough and wheezing Treatment prior to arrival: other (steroids, antibiotics) Related Data Home Medications Medication Instructions Recorded Confirmed albuterol sulfate 90 mcg/actuation 2 puff PO Q4H PRN wheezing 01/30/21 aerosol inhaler amlodipine 2.5 mg tablet 2.5 mg PO DAILY 01/30/21 citalopram 40 mg tablet 40 mg PO DAILY 01/30/21 clonidine HCl 0.3 mg tablet 0.3 mg PO QPM 01/30/21 lithium carbonate 600 mg capsule 600 mg PO BID 01/30/21 montelukast 10 mg tablet 10 mg PO DAILY 01/30/21 pravastatin 80 mg tablet 80 mg PO DAILY 01/30/21 Previous Rx's Medication Instructions Recorded saliva stimulant comb. no.6 1 adina PO .COMPLEX #40 ea 05/29/21 prednisone 20 mg tablet 20 mg PO BID #10 tabs 06/19/21 gabapentin 100 mg capsule 100 mg PO BEDTIME #60 caps 07/13/21 benzonatate 100 mg capsule 100 mg PO BID-TID PRN cough #60 07/22/21 caps guaifenesin 600 mg tablet, 1,200 mg (2 x 600 mg) PO BID #30 09/21/21 extended release 12 hr (Mucinex) tabs Nebulizer with compressor #1 ea 10/03/21 levofloxacin 750 mg tablet 750 mg PO Q24H 6 days #6 tabs 12/05/21 metronidazole 500 mg tablet 500 mg PO Q8H 7 days #21 tabs 12/05/21 ondansetron HCl 4 mg tablet 4 mg PO Q8H nausea #14 tabs 05/31/22 famotidine 40 mg tablet 40 mg PO BEDTIME #30 tabs 01/24/23 pantoprazole 40 mg tablet,delayed 40 mg PO BID #60 tabs 03/17/23 release sucralfate 1 gram tablet 2 g (2 x 1 gram) PO DAILY #60 tabs 03/25/23 Allergies Allergy/AdvReac Type Severity Reaction Status Date / Time oxcarbazepine Allergy Intermediate HIVES/HALLU Verified 04/09/23 04:23 [From TRILEPTAL] CINATIONS codeine [Codeine] Allergy Mild RASH Verified 04/09/23 04:23 hydromorphone [From Dilaudid] Allergy Mild unknown Verified 04/09/23 04:23 trazodone [TRAZODONE] Allergy Unknown UNKNOWN Verified 04/09/23 04:23 Review of Systems Review of Systems: Constitutional : No Fever, No Chills ENT/Mouth : No Hoarseness, No sore throat, No Rhinorrhea Eyes: No Redness, No Discharge, No Vision Changes Cardiovascular : No Chest Pain, positive SOB, positive Dyspnea on Exertion, No Edema Respiratory : positive Cough, No Sputum, positive Wheezing, Gastrointestinal : No Nausea, No Vomiting, No Diarrhea, No abdominal Pain Genitourinary : No Dysuria, No Hematuria Musculoskeletal : No joint pain, No Myalgias Skin : No rash Neuro : No Weakness, No Numbness, No Headache Psych : No anxiety, depression Heme/Lymph: No Bruising, No Bleeding Endocrine : No Polyuria, No Polydipsia All other systems reviewed and are negative [facility] Past Medical History Attestation statement: The following information was validated with the patient. Source: old records reviewed Medical History Asthma Bipolar disorder GERD (gastroesophageal reflux disease) Diverticulitis Surgical History History of esophagogastroduodenoscopy (EGD) History of colonoscopy Social History Social History Alcohol intake: unknown Patient Tobacco Use Status: Never used Tobacco Advance Directives: No Advance Directives Information Provided: Yes Physical Exam Vital Signs: Vital Signs: Last Vital Signs Temp 98.7 F 04/09/23 04:23 Pulse 114 H 04/09/23 06:14 Resp 16 04/09/23 06:14 BP 97/70 04/09/23 06:14 Pulse Ox 92 04/09/23 06:14 O2 Del Method Room Air 04/09/23 06:14 BMI result Body Mass Index 32.2 Appearance: Alert. Oriented X3. No acute distress. Eyes: Pupils equal, round and reactive to light. ENT: Pharynx normal. Neck: Normal inspection. Neck supple. CVS: Normal heart rate and rhythm. Pulses normal. Respiratory: No respiratory distress. Breath sounds diffuse wheezes noted exp Abdomen: Soft and nontender. Skin: Skin warm and dry. Normal skin color. Normal skin turgor. Extremities: No lower extremity edema. No calf ttp Neuro: Oriented X 3. No motor deficit. No sensory deficit. Medications Administered Generic Name Dose Route Start Last Admin Trade Name Freq PRN Reason Stop Dose Admin Magnesium Sulfate 2 gm in 50 mls @ 25 mls/hr 04/09/23 04:28 04/09/23 05:56 Magnesium Sulfate/H2o IV 04/09/23 06:27 25 mls/hr ONCE ONE Administration Discontinued Medications Generic Name Dose Route Start Last Admin Trade Name Freq PRN Reason Stop Dose Admin Albuterol Sulfate 2.5 mg/ 0 mg 04/09/23 04:47 04/09/23 04:57 Albuterol/Ipratropium 3 ml INHALE 04/09/23 04:48 5 dose ONCE ONE Administration Ceftriaxone Sodium 1 gm/ 50 mls @ 100 mls/hr 04/09/23 04:29 04/09/23 05:06 Sodium Chloride IV 04/09/23 04:58 100 mls/hr ONCE ONE Administration Methylprednisolone Sodium Succinate 60 mg 04/09/23 04:28 04/09/23 05:05 Methylprednisolone Sod Succ 125 Mg/2 Ml Vial IVPUSH 04/09/23 04:29 60 mg ONCE ONE Administration Medical Decision Making Medical Decision Making [facility] Narrative: 67 yo female with PMH of asthma, bipolar disorder, HLD, pneumonia, GERD here with 1 month of cough, dyspnea not responding to steroids or two courses of antibiotics. She has diffuse wheezes will obtain basic labs, CXR, EKG, start on nebs, IV steroids and IV magnesium - possible COPD, viral syndrome, pneumonia. attempted to get recent CT scan from [facility] but unable to do so. Differential Diagnosis Differential Diagnoses: The differential diagnosis associated with the presentation includes COPD, viral illness, pneumonia Admission/Observation Consideration of admission/observation: Escalation of care including admission/observation considered will admit failed outpatient desats to 88% Consult Healthcare Provider Management of the patient was discussed with: Hospitalist (will admit) Lab Data [facility] Lab Attestation statement: I reviewed the patient's lab results. 04/09/23 04:53 04/09/23 04:53 Labs: Lab Results 04/09/23 04/09/23 Range/Units 04:53 04:58 WBC 5.6 (4.8-10.8) X10*3/uL RBC 4.17 L (4.20-5.50) X10*6/uL Hgb 13.7 (12.0-16.0) g/dl Hct 40.0 (37.0-47.0) % MCV 95.9 (80.0-98.0) fL MCH 32.9 (27.0-33.0) pg MCHC 34.3 (31.0-35.0) g/dl RDW 12.4 (11.0-16.0) % Plt Count 319 (160-400) X10*3/uL MPV 8.6 L (9.4-12.3) fL Immature Gran % (Auto) 0.7 H (0.0-0.4) % Neut % (Auto) 38.4 L (45-73) % Lymph % (Auto) 33.0 (20-40) % [place] % (Auto) 15.0 H (2-11) % Eos % (Auto) 12.4 H (0-4) % Baso % (Auto) 0.5 (0-2) % Lymph # (Auto) 1.8 (1.2-4.9) X10*3/uL [place] # (Auto) 0.8 (0.1-1.2) X10*3/uL Eos # (Auto) 0.7 H (0.0-0.4) X10*3/uL Baso # (Auto) 0.0 (0.0-0.2) X10*3/uL Abs Immat Gran (auto) 0.04 H (0.00-0.03) X10*3/uL Absolute Neuts (auto) 2.1 (2.0-8.3) x10*3/uL Absolute Nucleated RBC 0.000 (0.0-0.012) X10*3/uL Nucleated RBC % (auto) 0.0 (0.0-0.2) /100WBC VBG pH 7.40 (7.32-7.43) VBG pCO2 43 mmHg VBG pO2 79 mmHg VBG HCO3 27 H (22-26) mmol/L VBG O2 Saturation 98.0 % VBG Base Excess 2.0 mmol/L Sodium 144 (135-145) mmol/L Potassium 3.5 (3.3-5.1) mmol/L Chloride 109 H (96-108) mmol/L Carbon Dioxide 25 (22-29) mmol/L Anion Gap 14 (12-20) BUN 16 (9-16) mg/dL Creatinine 0.83 (0.5-1.4) mg/dL Estim Creat Clear Calc 67.4 Estimated GFR > 60 Random Glucose 134 H (60-115) mg/dL Lactic Acid 1.7 (0.5-2.0) mmol/L Calcium 9.4 (8.4-10.2) mg/dL Magnesium 1.7 (1.6-2.6) mg/dL Total Bilirubin 0.3 (0.0-1.0) mg/dL Direct Bilirubin 0.1 (0.0-0.5) mg/dL AST 15 (5-31) U/L ALT 12 (0-31) U/L Alkaline Phosphatase 86 (39-117) U/L Troponin I High Sens < 2.7 (<3.5-17.0) ng/L B-Natriuretic Peptide < 10 (<100) pg/mL Total Protein 6.8 (6.5-8.0) g/dL Albumin 4.1 (3.5-5.0) g/dL Lipase 15 (8-78) U/L Procalcitonin 0.03 ng/mL Valproic Acid 44.2 L (50.0-100.0) mcg/mL [place] < 0.10 L (0.60-1.20) mmol/L Influenza Type A (PCR) NEGATIVE (Negative) Influenza Type B (PCR) NEGATIVE (Negative) RSV RNA Qual (PCR) NEGATIVE (Negative) SARS-CoV-2 RNA (RT-PCR) NEGATIVE (Negative) Independent Interpretation I performed an independent interpretation of an: EKG and Plain X-Ray (no pneumonia) Interpretation: Rate: 99 Rhythm: NSR [place]: normal Normal P waves. Normal QIANA. Normal QRS complex. ST T wave : normal no ANYA qTC: normal prior studies: no acute ischemia The study has been interpreted contemporaneously by me. . Radiology Impression Discussion of test interpretation with radiology: I have reviewed the radiologist's reading. External Record Review External record reviewed: Inpatient record and Outpatient record Discharge Plan Discharge Clinical Impression: Acute exacerbation of chronic obstructive airways disease Patient Disposition: Admitted As Inpatient
[2023-04-09] MEDS: Albuterol Sulfate 2.5 MG, Albuterol/Iprat 2.5/0.5MG 3 ML 3 ML INHALE (04:57)
[2023-04-09 05:00] LABS: MANUAL DIFF FLAG NO
[2023-04-09 05:01] LABS: Basophils Percent Auto 0.5 % (0-2); Eosinophils Absolute Auto 0.7 X10*3/uL (0.0-0.4); Eosinophils Percent Auto 12.4 % (0-4); Hemoglobin 13.7 g/dl (12.0-16.0); Imm Gran Abs Auto 0.04 X10*3/uL (0.00-0.03); Imm Gran Pct Auto 0.7 % (0.0-0.4); Lymphocytes Absolute Auto 1.8 X10*3/uL (1.2-4.9); Mean Corpuscular HGB Conc 34.3 g/dl (31.0-35.0); Mean Corpuscular Hemoglobin 32.9 pg (27.0-33.0); Mean Corpuscular Volume 95.9 fL (80.0-98.0); Mean Platelet Volume 8.6 fL (9.4-12.3); Monocytes Absolute Auto 0.8 X10*3/uL (0.1-1.2); Neutrophils Absolute Auto 2.1 x10*3/uL (2.0-8.3); Neutrophils Percent Auto 38.4 % (45-73); Platelet Count 319 X10*3/uL (160-400); Red Blood Count 4.17 X10*6/uL (4.20-5.50); Red Cell Distribution Width 12.4 % (11.0-16.0); White Blood Count 5.6 X10*3/uL (4.8-10.8)
[2023-04-09 05:03] LABS: Venous Blood Gas Refer to POC result
[2023-04-09 05:03] LABS: VBG HCO3 27 mmol/L (22-26); VBG pCO2 43 mmHg; VBG pO2 79 mmHg
[2023-04-09] MEDS: methylPREDNISolone Sod Succ 125 MG/2 ML VIAL 60 MG IVPUSH (05:05)
[2023-04-09] MEDS: cefTRIAXone sodium 1 GM in 0.9 % Sodium Chloride 50 ML IV (05:06)
[2023-04-09 05:12] LABS: Lactic Acid 1.7 mmol/L (0.5-2.0)
[2023-04-09 05:21] LABS: B Type Natriuretic Peptide < 10 pg/mL (<100)
[2023-04-09 05:24] LABS: Alanine Aminotransferase 12 U/L (0-31); Albumin Level 4.1 g/dL (3.5-5.0); Alkaline Phosphatase 86 U/L (39-117); Anion Gap 14 (12-20); Aspartate Amino Transferase 15 U/L (5-31); Bilirubin Direct 0.1 mg/dL (0.0-0.5); Bilirubin Total 0.3 mg/dL (0.0-1.0); Blood Urea Nitrogen 16 mg/dL (9-16); Calcium 9.4 mg/dL (8.4-10.2); Carbon Dioxide 25 mmol/L (22-29); Chloride 109 mmol/L (96-108); Creatinine Clr Calc Pharmacy 67.4; Estimated Glomerular Filt Rate > 60; Glucose Random 134 mg/dL (60-115); Lipase 15 U/L (8-78); Magnesium 1.7 mg/dL (1.6-2.6); Potassium 3.5 mmol/L (3.3-5.1); Sodium 144 mmol/L (135-145); Total Protein 6.8 g/dL (6.5-8.0)
[2023-04-09 05:30] LABS: Lithium < 0.10 mmol/L (0.60-1.20)
[2023-04-09 05:34] LABS: Valproate 44.2 mcg/mL (50.0-100.0)
[2023-04-09 05:36] LABS: Influenza A PCR NEGATIVE (Negative); Influenza B PCR NEGATIVE (Negative); Resp Syncy Virus RNA Qual PCR NEGATIVE (Negative); SARS COV2 PCR INHOUSE NEGATIVE (Negative)
[2023-04-09 05:39] LABS: Procalcitonin 0.03 ng/mL
[2023-04-09 05:51] LABS: Troponin-I High Sensitivity < 2.7 ng/L (<3.5-17.0)
[2023-04-09] MEDS: Magnesium Sulfate/H2O 2 GM/50 ML PIGGYBACK IV (05:56)
--- NOTE | 2023-04-09 07:27 | PC.NURSE ---
assumed care of pt at 0700. pt a&o x4, pleasant, calm, and cooperative. pt resting quietly on stretcher in no apparent distress. rr even/unlabored. call yu within pt reach. plan of care ongoing.
--- NOTE | 2023-04-09 08:26 | PHA.MEDREC ---
Pharmacy Consult ? Medication Reconciliation Pharmacy has completed the medication reconciliation. PT STATES THEY ARE NO LONGER ON LITHIUM
[2023-04-09] MEDS: Azithromycin 500 MG in 0.9 % Sodium Chloride 250 ML 125 MG IV (08:54)
[2023-04-09] MEDS: 0.9 % Sodium Chloride 1,000 ML 999 ML IV (08:55)
--- NOTE | 2023-04-09 09:23 | PC.NURSE ---
pt sleeping soundly on stretcher, audible snoring. rr even/unlabored. plan of care ongoing.
--- NOTE | 2023-04-09 10:10 | PM.IMHP ---
History of Present Illness Date of Service: 04/09/23 Chief Complaint: COPD exacerbation A 67 years old lady with PMH of GERD, COPD, HTN, HLD among others who presents to the hospital complaining of difficulty breathing and cough. She reports her symptoms have been worsening for the last couple of weeks. required treatment last month for exacerbation treated with Zpak and Prednisone, she also took Augmentin with no significant improvement. have been using the rescue inhalor at least 5-6 times daily. having night symptoms. Denies any fever, chills, chest pain, palpitations, nausea, vomiting, diarrhea or urinary symptoms. In ED dropped her O2 to 88% on RA but recovered to 90s on RA. Admitted to the hospital for further treatment. Review of Systems Review of Systems: No fever, chills or weakness No chest pain, palpitation Having shortness of breath and coughing No abdominal pain, nausea or vomiting No urinary symptoms No any rash or wounds PMFSH Medical History Asthma Bipolar disorder GERD (gastroesophageal reflux disease) Diverticulitis Surgical History History of esophagogastroduodenoscopy (EGD) History of colonoscopy Social History Household Members: None Housing: Apartment Do you presently have visiting nurse or other home services: No Alcohol intake: unknown Patient Tobacco Use Status: Never used Tobacco service: No Meds Allergies Allergy/AdvReac Type Severity Reaction Status Date / Time oxcarbazepine Allergy Intermediate HIVES/HALLU Verified 04/09/23 04:23 [From TRILEPTAL] CINATIONS codeine [Codeine] Allergy Mild RASH Verified 04/09/23 04:23 hydromorphone [From Dilaudid] Allergy Mild unknown Verified 04/09/23 04:23 trazodone [TRAZODONE] Allergy Unknown UNKNOWN Verified 04/09/23 04:23 Active Medications: Current Medications Acetaminophen (Acetaminophen 325 Mg Tablet) 650 mg PO Q6H PRN PRN Reason: Pain, Mild (Pain Scale 1-3) Albuterol Sulfate (Albuterol Sulfate (0.083%) 2.5 Mg/3 Ml Vial.Neb) 2.5 mg INHALE Q4H PRN PRN Reason: Wheezing Albuterol/Ipratropium (Albuterol/Iprat 2.5/0.5mg 3 Ml Ampul.Neb) 3 ml INHALE RQ4H WHILE AWAKE [facility] Amlodipine Besylate (Amlodipine Besylate 5 Mg Tablet) 5 mg PO DAILY KENJI; Protocol Benzonatate (Benzonatate 100 Mg Capsule) 100 mg PO TID [facility] Divalproex Sodium (Divalproex Sodium 500 Mg Tablet.Dr) 500 mg PO BID [facility] Enoxaparin Sodium (Enoxaparin Sodium 40 Mg/0.4 Ml Syringe) 40 mg SUBCUT Q24H KENJI Famotidine (Famotidine 20 Mg Tablet) 40 mg PO BEDTIME [facility] Guaifenesin (Guaifenesin [place] 600 Mg Tab.Er.12h) 600 mg PO BID [facility] Methylprednisolone Sodium Succinate (Methylprednisolone Sod Succ 40 Mg/Ml Vial) 40 mg IVPUSH Q12H [facility] Minoxidil (Minoxidil 2.5 Mg Tablet) 1.25 mg PO DAILY [facility] Montelukast Sodium (Montelukast Sodium 10 Mg Tablet) 10 mg PO BEDTIME [facility] Non-Formulary Medication (Citalopram) 30 mg PO DAILY [facility] Non-Formulary Medication (Pantoprazole) 40 mg PO BID [facility] Non-Formulary Medication (Umeclidinium-Vilanterol [Anoro Ellipta]) 1 each INHALE DAILY [facility] Ondansetron HCl (Ondansetron Hcl 4 Mg/2 Ml Vial) 4 mg IVPUSH Q8H PRN PRN Reason: Nausea and Vomiting Pravastatin Sodium (Pravastatin Sodium 80 Mg Tablet) 80 mg PO BEDTIME [facility] Senna/Docusate Sodium (Sennosides/Docusate Sodium Tablet) 1 tab PO BID [facility] Sodium Chloride (0.9 % Sodium Chloride Flush 3 Ml Syringe) 3 ml IVFLUSH QSHIFT [facility] Sucralfate (Sucralfate 1 Gm Tablet) 2 gm PO DAILY [facility] Home Medications Medication Instructions Recorded Confirmed Last Taken Type albuterol sulfate 90 mcg/actuation 2 puff PO Q4H PRN wheezing 01/30/21 04/09/23 04/09/23 04:00 History aerosol inhaler montelukast 10 mg tablet 10 mg PO BEDTIME 09/04/09/23 04/08/23 History pravastatin 80 mg tablet 80 mg PO BEDTIME 01/30/21 04/09/23 04/08/23 History amlodipine 5 mg tablet 5 mg PO DAILY 04/09/23 04/09/23 04/09/23 04:00 History budesonide 32 mcg/actuation nasal 2 spray intranasal DAILY 04/09/23 04/09/23 04/09/23 04:00 History spray citalopram 20 mg tablet 30 mg PO DAILY 04/09/23 04/09/23 04/09/23 04:00 History divalproex 500 mg tablet,delayed 500 mg PO BID 04/09/23 04/09/23 04/09/23 04:00 History release minoxidil 2.5 mg tablet 1.25 mg PO DAILY alopecia 04/09/23 04/09/23 Unknown History sennosides 8.6 mg-docusate sodium 1 tab PO BID 04/09/23 04/09/23 04/09/23 04:00 History 50 mg tablet (Senexon-S) umeclidinium 62.5 mcg-vilanterol 1 ea inhalation DAILY 04/09/23 04/09/23 04/09/23 04:00 History 25 mcg/actuation powdr for inhalation (Anoro Ellipta) Physical Exam Vital Signs and Narrative: Vital Signs: Last Vital Signs Temp 98.5 F 04/09/23 08:57 Pulse 118 H 04/09/23 08:57 Resp 16 04/09/23 08:57 BP 119/81 04/09/23 08:57 Pulse Ox 94 04/09/23 08:57 O2 Del Method Room Air 04/09/23 08:57 BMI result Body Mass Index 32.2 Const: Other: Constitutional : Awake, interactive, not in distress Neck : Normal inspection, Supple Cardiovascular : RRR, no JVP, no lower extremity edema Respiratory : decreased bilateral air entry, no crackles, expiratory wheezes Gastrointestinal: soft, lax, Normal bowel sounds, Non tender Skin : Warm, Dry Neurological : Alert & oriented x3, No focal deficit Results Labs 04/09/23 04:53 04/10/23 05:28 Labs: Laboratory Results - last 24 hr 04/09/23 04/09/23 04:53 04:58 MCV 95.9 MCH 32.9 MCHC 34.3 RDW 12.4 Plt Count 319 MPV 8.6 L Immature Gran % (Auto) 0.7 H Neut % (Auto) 38.4 L Lymph % (Auto) 33.0 [place] % (Auto) 15.0 H Eos % (Auto) 12.4 H Baso % (Auto) 0.5 Lymph # (Auto) 1.8 [place] # (Auto) 0.8 Eos # (Auto) 0.7 H Baso # (Auto) 0.0 Abs Immat Gran (auto) 0.04 H Absolute Neuts (auto) 2.1 Absolute Nucleated RBC 0.000 Nucleated RBC % (auto) 0.0 VBG pH 7.40 VBG pCO2 43 VBG pO2 79 VBG HCO3 27 H VBG O2 Saturation 98.0 VBG Base Excess 2.0 Anion Gap 14 Estim Creat Clear Calc 67.4 Estimated GFR > 60 Random Glucose 134 H Lactic Acid 1.7 Calcium 9.4 Magnesium 1.7 Total Bilirubin 0.3 Direct Bilirubin 0.1 AST 15 ALT 12 Alkaline Phosphatase 86 B-Natriuretic Peptide < 10 Total Protein 6.8 Albumin 4.1 Lipase 15 Procalcitonin 0.03 Valproic Acid 44.2 L [place] < 0.10 L Influenza Type A (PCR) NEGATIVE Influenza Type B (PCR) NEGATIVE RSV RNA Qual (PCR) NEGATIVE SARS-CoV-2 RNA (RT-PCR) NEGATIVE Imaging Radiologist's Impressions: Impressions Chest X-Ray 04/09/23 05:04 IMPRESSION: No evidence for active cardiopulmonary disease. Assessment and Plan (1) Acute exacerbation of chronic obstructive airways disease: Status: Acute Plan A 67 years old lady with PMH of GERD, COPD, HTN, HLD among others who presents to the hospital complaining of difficulty breathing and cough. Acute COPD exacerbation No hypoxia at rest Duonebs kenji, Albuterol PRN Methylprednisone Q12 Doxycycline HTN amlodipine, minoxidil HLD statin mood disorder escitalopram, valproate GERD famotidine, sucralfate VTE ppx LMWH In my clinical judgment, the patient requires at least 2 overnight inpatient hospitalization for the following reasons: COPD with unrelieved wheezing Quality Stroke Does the patient have a stroke diagnosis?: No VTE Prior VTE?: No VTE Risk Level:: Medical - moderate - high VTE Device Contraindication: Treatment Not Indicated VTE Drug Contraindication: N/A - Med Ordered
[2023-04-09] MEDS: Enoxaparin Sodium 40 MG/0.4 ML SYRINGE SUBCUT (10:42)
[2023-04-09] MEDS: guaiFENesin LA 600 MG TAB.ER.12H PO ×2 (10:42→21:00)
--- NOTE | 2023-04-09 11:08 | PC.NURSE ---
pt medicated per jul. pleasant, engaging in conversation. call yu within reach. makes needs known.
[2023-04-09] MEDS: Albuterol/Iprat 2.5/0.5MG 3 ML AMPUL.NEB INHALE ×3 (11:57→19:27)
--- NOTE | 2023-04-09 13:17 | PC.NURSE ---
pt requesting food. will check with food services on tray. pt asking if daughter can send door dash and go outside to receive it. pt told to hold on and we will get her a tray that matches her diet order.
--- NOTE | 2023-04-09 13:29 | PC.NURSE ---
pt provided with meal tray. pt very happy. sitting up in bed eating lunch. call yu within reach.
[2023-04-09] MEDS: Doxycycline Monohydrate 100 MG CAPSULE PO (13:44)
[2023-04-09] MEDS: 0.9 % Sodium Chloride Flush 3 ML SYRINGE IVFLUSH ×2 (16:51→21:01)
[2023-04-09] MEDS: Omeprazole 20 MG CAPSULE.DR PO (16:51)
[2023-04-09] MEDS: Benzonatate 100 MG CAPSULE PO ×2 (16:51→21:01)
[2023-04-09] MEDS: Sennosides/Docusate Sodium TABLET 1 TAB PO (21:00)
[2023-04-09] MEDS: methylPREDNISolone Sod Succ 40 MG/ML VIAL IVPUSH (21:00)
[2023-04-09] MEDS: Divalproex Sodium 500 MG TABLET.DR PO (21:00)
[2023-04-09] MEDS: Famotidine 20 MG TABLET 40 MG PO (21:00)
[2023-04-09] MEDS: Pravastatin Sodium 80 MG TABLET PO (21:00)
[2023-04-09] MEDS: Montelukast Sodium 10 MG TABLET PO (21:01)
[2023-04-10] MEDS: Doxycycline Monohydrate 100 MG CAPSULE PO ×2 (01:14→14:08)
--- NOTE | 2023-04-10 02:18 | PC.NURSE ---
Patient states respiratory treatments make her shaky. Elevated pulse, patient coughs a lot, is on scheduled Tessalon and Mucinex.
[2023-04-10 03:07] VITALS: BP 110/61; PULSE 108; RESP 18; TEMP 36.3; O2SAT 94
[2023-04-10] MEDS: Omeprazole 20 MG CAPSULE.DR PO ×2 (05:49→16:04)
[2023-04-10 07:46] VITALS: BP 141/73; PULSE 103; RESP 18; TEMP 36.4; O2SAT 93
[2023-04-10 07:46] LABS: Anion Gap 15 (12-20); Blood Urea Nitrogen 19 mg/dL (9-16); Calcium 9.6 mg/dL (8.4-10.2); Carbon Dioxide 23 mmol/L (22-29); Chloride 109 mmol/L (96-108); Creatinine Clr Calc Pharmacy 77.8; Estimated Glomerular Filt Rate > 60; Glucose Random 149 mg/dL (60-115); Potassium 4.3 mmol/L (3.3-5.1); Sodium 143 mmol/L (135-145)
[2023-04-10] MEDS: Divalproex Sodium 500 MG TABLET.DR PO ×2 (08:45→20:31)
[2023-04-10] MEDS: Escitalopram Oxalate 5 MG TABLET 15 MG PO (08:45)
[2023-04-10] MEDS: Sennosides/Docusate Sodium TABLET 1 TAB PO ×2 (08:45→20:30)
[2023-04-10] MEDS: minoxidiL 2.5 MG TABLET 1.25 MG PO (08:45)
[2023-04-10] MEDS: amLODIPine Besylate 5 MG TABLET PO (08:45)
[2023-04-10] MEDS: Sucralfate 1 GM TABLET 2 GM PO (08:46)
[2023-04-10] MEDS: Benzonatate 100 MG CAPSULE PO ×3 (08:46→20:30)
[2023-04-10] MEDS: methylPREDNISolone Sod Succ 40 MG/ML VIAL IVPUSH ×2 (08:46→20:30)
[2023-04-10] MEDS: guaiFENesin LA 600 MG TAB.ER.12H PO ×2 (08:46→20:31)
[2023-04-10] MEDS: Enoxaparin Sodium 40 MG/0.4 ML SYRINGE SUBCUT (08:48)
[2023-04-10] MEDS: 0.9 % Sodium Chloride Flush 3 ML SYRINGE IVFLUSH ×3 (08:48→20:31)
--- NOTE | 2023-04-10 09:29 | MHC.CM.PN ---
Addendum entered by Malena Sanchez 04/10/23 11:35: IMM DELIVERED. Original Note: RAYA DELIVERED PT LIVES ALONE. INDEPENDENT AT BASELINE. PT HAS A NEBULIZER AT HOME BUT STATES IT IS NOT WORKING. UNSURE IF HAS A HCP, WILL DO ONE WHILE HERE. PCP DR. GOMES. DP: HOME, NO SERVICES ANTICIPATED. PT HAS CARE IN [facility]. CM WILL CONTINUE TO FOLLOW FOR ANY CHANGE IN DC PLAN/NEEDS.
[2023-04-10 11:58] VITALS: PULSE 109; RESP 18; O2SAT 94
[2023-04-10] MEDS: Albuterol/Iprat 2.5/0.5MG 3 ML AMPUL.NEB INHALE ×2 (11:58→18:44)
--- NOTE | 2023-04-10 12:00 | HO.PM.IMPN ---
Subjective Subjective Date of Service: 04/10/23 Interval History: c/o dry cough, dyspnea + ongoing wheezing Review of Systems Review of Systems: Yes all other systems are reviewed and are negative Physical Exam Vital Signs: Vital Signs: Last Vital Signs Temp 97.6 F 04/10/23 07:46 Pulse 103 H 04/10/23 07:46 Resp 18 04/10/23 07:46 BP 141/73 H 04/10/23 07:46 Pulse Ox 93 04/10/23 07:46 O2 Del Method Room Air 04/10/23 07:46 BMI result Body Mass Index 32.2 Gen: in no acute distress HEENT: sclera anicteric, moist mucus membranes Neck: supple Lungs: prolonged expiratory phase with diffuse loud wheezing Heart: regular rate and rhythm, no murmurs Abd: soft, non-tender, non-distended Ext: no edema Skin: warm/well-perfused Neuro: alert and oriented x3, no focal findings Psych: appropriate affect Objective Data Active Medications Acetaminophen (Acetaminophen 325 Mg Tablet) 650 mg PO Q6H PRN PRN Reason: Pain, Mild (Pain Scale 1-3) Albuterol Sulfate (Albuterol Sulfate (0.083%) 2.5 Mg/3 Ml Vial.Neb) 2.5 mg INHALE Q4H PRN PRN Reason: Wheezing Albuterol/Ipratropium (Albuterol/Iprat 2.5/0.5mg 3 Ml Ampul.Neb) 3 ml INHALE RQ4H WHILE AWAKE [facility] Last Admin: 04/10/23 11:58 Dose: 3 ml Documented By: TAMAR Amlodipine Besylate (Amlodipine Besylate 5 Mg Tablet) 5 mg PO DAILY [facility]; Protocol Last Admin: 04/10/23 08:45 Dose: 5 mg Documented By: SRUTHI Benzonatate (Benzonatate 100 Mg Capsule) 100 mg PO TID [facility] Last Admin: 04/10/23 08:46 Dose: 100 mg Documented By: SRUTHI Divalproex Sodium (Divalproex Sodium 500 Mg Tablet.Dr) 500 mg PO BID [facility] Last Admin: 04/10/23 08:45 Dose: 500 mg Documented By: SRUTHI Doxycycline Monohydrate (Doxycycline Monohydrate 100 Mg Capsule) 100 mg PO Q12H [facility] Last Admin: 04/10/23 01:14 Dose: 100 mg Documented By: DOROTHY Enoxaparin Sodium (Enoxaparin Sodium 40 Mg/0.4 Ml Syringe) 40 mg SUBCUT Q24H [facility] Last Admin: 04/10/23 08:48 Dose: 40 mg Documented By: SRUTHI Escitalopram Oxalate (Escitalopram Oxalate 5 Mg Tablet) 15 mg PO DAILY [facility] Last Admin: 04/10/23 08:45 Dose: 15 mg Documented By: SRUTHI Famotidine (Famotidine 20 Mg Tablet) 40 mg PO BEDTIME [facility] Last Admin: 04/09/23 21:00 Dose: 40 mg Documented By: DOROTHY Guaifenesin (Guaifenesin La 600 Mg Tab.Er.12h) 600 mg PO BID [facility] Last Admin: 04/10/23 08:46 Dose: 600 mg Documented By: SRUTHI Methylprednisolone Sodium Succinate (Methylprednisolone Sod Succ 40 Mg/Ml Vial) 40 mg IVPUSH Q12H [facility] Last Admin: 04/10/23 08:46 Dose: 40 mg Documented By: SRUTHI Minoxidil (Minoxidil 2.5 Mg Tablet) 1.25 mg PO DAILY [facility] Last Admin: 04/10/23 08:45 Dose: 1.25 mg Documented By: SRUTHI Montelukast Sodium (Montelukast Sodium 10 Mg Tablet) 10 mg PO BEDTIME [facility] Last Admin: 04/09/23 21:01 Dose: 10 mg Documented By: DOROTHY Non-Formulary Medication (Umeclidinium-Vilanterol [Anoro Ellipta]) 1 each INHALE DAILY [facility] Omeprazole (Omeprazole 20 Mg Capsule.) 20 mg PO BID@0630,1630 [facility] Last Admin: 04/10/23 05:49 Dose: 20 mg Documented By: DOROTHY Ondansetron HCl (Ondansetron Hcl 4 Mg/2 Ml Vial) 4 mg IVPUSH Q8H PRN PRN Reason: Nausea and Vomiting Pravastatin Sodium (Pravastatin Sodium 80 Mg Tablet) 80 mg PO BEDTIME [facility] Last Admin: 04/09/23 21:00 Dose: 80 mg Documented By: DOROTHY Senna/Docusate Sodium (Sennosides/Docusate Sodium Tablet) 1 tab PO BID [facility] Last Admin: 04/10/23 08:45 Dose: 1 tab Documented By: SRUTHI Sodium Chloride (0.9 % Sodium Chloride Flush 3 Ml Syringe) 3 ml IVFLUSH QSHIFT [facility] Last Admin: 04/10/23 08:48 Dose: 3 ml Documented By: SRUTHI Sucralfate (Sucralfate 1 Gm Tablet) 2 gm PO DAILY [facility] Last Admin: 04/10/23 08:46 Dose: 2 gm Documented By: SRUTHI Labs 04/09/23 04:53 04/10/23 05:28 Labs: Laboratory Results - last 24 hr 04/10/23 05:28 Hold Purple Top SEE NOTE Anion Gap 15 Estim Creat Clear Calc 77.8 Estimated GFR > 60 Random Glucose 149 H Calcium 9.6 Microbiology Microbiology Results: Microbiology 04/09/23 05:01 Blood Culture - Preliminary Blood - Venous No growth after 24 hours. 04/09/23 04:53 Blood Culture - Preliminary Blood - Venous No growth after 24 hours. 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 Quality Stroke Does the patient have a stroke diagnosis?: No VTE Prior VTE?: No VTE Risk Level:: Medical - moderate - high VTE Device Contraindication: Treatment Not Indicated VTE Drug Contraindication: N/A - Med Ordered
[2023-04-10 15:41] VITALS: BP 128/62; PULSE 113; RESP 18; TEMP 36.7; O2SAT 93
[2023-04-10 18:45] VITALS: PULSE 113; RESP 18; O2SAT 94
[2023-04-10 19:26] VITALS: BP 155/68; PULSE 125; RESP 14; TEMP 37; O2SAT 95
[2023-04-10] MEDS: Pravastatin Sodium 80 MG TABLET PO (20:31)
[2023-04-10] MEDS: Montelukast Sodium 10 MG TABLET PO (20:31)
[2023-04-10] MEDS: Famotidine 20 MG TABLET 40 MG PO (20:31)
[2023-04-11] MEDS: Doxycycline Monohydrate 100 MG CAPSULE PO ×2 (01:38→14:11)
[2023-04-11 03:00] VITALS: BP 132/76; PULSE 93; RESP 14; TEMP 36.3; O2SAT 94
[2023-04-11] MEDS: Omeprazole 20 MG CAPSULE.DR PO (05:56)
[2023-04-11] MEDS: Albuterol/Iprat 2.5/0.5MG 3 ML AMPUL.NEB INHALE ×2 (07:37→11:28)
[2023-04-11] MEDS: Fluticasone/Umeclidinium/Vilanterol 100/62.5/25 BLST.W.DEV 1 PUFF INHALE (07:37)
[2023-04-11 07:43] VITALS: BP 143/79; PULSE 95; RESP 16; TEMP 36; O2SAT 94
[2023-04-11 07:45] VITALS: PULSE 98; RESP 16; O2SAT 95
[2023-04-11] MEDS: Enoxaparin Sodium 40 MG/0.4 ML SYRINGE SUBCUT (08:54)
[2023-04-11] MEDS: methylPREDNISolone Sod Succ 40 MG/ML VIAL IVPUSH (08:54)
[2023-04-11] MEDS: Divalproex Sodium 500 MG TABLET.DR PO (08:55)
[2023-04-11] MEDS: Sucralfate 1 GM TABLET 2 GM PO (08:55)
[2023-04-11] MEDS: 0.9 % Sodium Chloride Flush 3 ML SYRINGE IVFLUSH (08:55)
[2023-04-11] MEDS: Benzonatate 100 MG CAPSULE PO ×2 (08:55→14:10)
[2023-04-11] MEDS: amLODIPine Besylate 5 MG TABLET PO (08:55)
[2023-04-11] MEDS: guaiFENesin LA 600 MG TAB.ER.12H PO (08:55)
[2023-04-11] MEDS: minoxidiL 2.5 MG TABLET 1.25 MG PO (08:55)
[2023-04-11] MEDS: Sennosides/Docusate Sodium TABLET 1 TAB PO (08:55)
[2023-04-11] MEDS: Escitalopram Oxalate 5 MG TABLET 15 MG PO (08:55)
--- NOTE | 2023-04-11 09:53 | P.DS_ITS ---
DS: Providers Provider Date of Service: 04/11/23 Date of admission: 04/10/23 11:27 Date of discharge: 04/11/23 Primary care physician: Guille Allison MD DS: Diagnosis Discharge Diagnosis (1) Acute exacerbation of chronic obstructive airways disease: Status: Acute DS: Summary Hospital Course Hospital Course: From the history and physical by the admitting hospitalist, Rosa Moser MD, 04/09/23: A 67 years old lady with PMH of GERD, COPD, HTN, HLD among others who presents to the hospital complaining of difficulty breathing and cough. She reports her symptoms have been worsening for the last couple of weeks. required treatment last month for exacerbation treated with Zpak and Prednisone, she also took Augmentin with no significant improvement. have been using the rescue inhalor at least 5-6 times daily. having night symptoms. Denies any fever, chills, chest pain, palpitations, nausea, vomiting, diarrhea or urinary symptoms. In ED dropped her O2 to 88% on RA but recovered to 90s on RA. Admitted to the hospital for further treatment. 67yo F with COPD, HTN, HLD, and GERD presenting with dyspnea + cough was admitted to the hospitalist service for COPD exacerbation, treated with doxycycline and methylprednisolone. She improved symptomatically and was discharged on an 8-day prednisone taper along with 3 more days of doxycycline; Anoro was stepped up to Trelegy. She should follow up with her primary care doctor and her voice data communications engineer upon discharge. Time Attestation Total time managing care of this patient today: 35 mintues. Discharge coordination time: Greater than 30 minutes Quality: Safe Use of Opioids Does Pt have an Active Cancer Diagnosis on the Problem List?: No Quality: Stroke Does the patient have a stroke diagnosis?: No Physical Exam Vital Signs: Vital Signs: Last Vital Signs Temp 96.8 F 04/11/23 07:43 Pulse 98 04/11/23 07:45 Resp 16 04/11/23 07:45 BP 143/79 H 04/11/23 07:43 Pulse Ox 94 04/11/23 07:43 O2 Del Method Room Air 04/11/23 07:43 BMI result Body Mass Index 32.2 Gen: in no acute distress HEENT: sclera anicteric, moist mucus membranes Neck: supple Lungs: a few wheezes that clear with coughing Heart: regular rate and rhythm, no murmurs Abd: soft, non-tender, non-distended Ext: no edema Skin: warm/well-perfused Neuro: alert and oriented x3, no focal findings Psych: appropriate affect DS: Data Data Completed and Pending Completed studies during hospitalization [Text1]: Laboratory Results WBC 5.6 X10*3/uL (4.8-10.8) 04/09/23 04:53 RBC 4.17 X10*6/uL (4.20-5.50) L 04/09/23 04:53 Hgb 13.7 g/dl (12.0-16.0) 04/09/23 04:53 Hct 40.0 % (37.0-47.0) 04/09/23 04:53 MCV 95.9 fL (80.0-98.0) 04/09/23 04:53 MCH 32.9 pg (27.0-33.0) 04/09/23 04:53 MCHC 34.3 g/dl (31.0-35.0) 04/09/23 04:53 RDW 12.4 % (11.0-16.0) 04/09/23 04:53 Plt Count 319 X10*3/uL (160-400) 04/09/23 04:53 MPV 8.6 fL (9.4-12.3) L 04/09/23 04:53 Immature Gran % (Auto) 0.7 % (0.0-0.4) H 04/09/23 04:53 Neut % (Auto) 38.4 % (45-73) L 04/09/23 04:53 Lymph % (Auto) 33.0 % (20-40) 04/09/23 04:53 Boundary % (Auto) 15.0 % (2-11) H 04/09/23 04:53 Eos % (Auto) 12.4 % (0-4) H 04/09/23 04:53 Baso % (Auto) 0.5 % (0-2) 04/09/23 04:53 Lymph # (Auto) 1.8 X10*3/uL (1.2-4.9) 04/09/23 04:53 Boundary # (Auto) 0.8 X10*3/uL (0.1-1.2) 04/09/23 04:53 Eos # (Auto) 0.7 X10*3/uL (0.0-0.4) H 04/09/23 04:53 Baso # (Auto) 0.0 X10*3/uL (0.0-0.2) 04/09/23 04:53 Abs Immat Gran (auto) 0.04 X10*3/uL (0.00-0.03) H 04/09/23 04:53 Absolute Neuts (auto) 2.1 x10*3/uL (2.0-8.3) 04/09/23 04:53 Absolute Nucleated RBC 0.000 X10*3/uL (0.0-0.012) 04/09/23 04:53 Nucleated RBC % (auto) 0.0 /100WBC (0.0-0.2) 04/09/23 04:53 Hold Purple Top SEE NOTE 04/10/23 05:28 VBG pH 7.40 (7.32-7.43) 04/09/23 04:58 VBG pCO2 43 mmHg 04/09/23 04:58 VBG pO2 79 mmHg 04/09/23 04:58 VBG HCO3 27 mmol/L (22-26) H 04/09/23 04:58 VBG O2 Saturation 98.0 % 04/09/23 04:58 VBG Base Excess 2.0 mmol/L 04/09/23 04:58 Sodium 143 mmol/L (135-145) 04/10/23 05:28 Potassium 4.3 mmol/L (3.3-5.1) D 04/10/23 05:28 Chloride 109 mmol/L (96-108) H 04/10/23 05:28 Carbon Dioxide 23 mmol/L (22-29) 04/10/23 05:28 Anion Gap 15 (12-20) 04/10/23 05:28 BUN 19 mg/dL (9-16) H 04/10/23 05:28 Creatinine 0.72 mg/dL (0.5-1.4) 04/10/23 05:28 Estim Creat Clear Calc 77.8 04/10/23 05:28 Estimated GFR > 60 04/10/23 05:28 Random Glucose 149 mg/dL (60-115) H 04/10/23 05:28 Lactic Acid 1.7 mmol/L (0.5-2.0) 04/09/23 04:53 Calcium 9.6 mg/dL (8.4-10.2) 04/10/23 05:28 Magnesium 1.7 mg/dL (1.6-2.6) 04/09/23 04:53 Total Bilirubin 0.3 mg/dL (0.0-1.0) 04/09/23 04:53 Direct Bilirubin 0.1 mg/dL (0.0-0.5) 04/09/23 04:53 AST 15 U/L (5-31) 04/09/23 04:53 ALT 12 U/L (0-31) 04/09/23 04:53 Alkaline Phosphatase 86 U/L (39-117) 04/09/23 04:53 Troponin I High Sens < 2.7 ng/L (<3.5-17.0) 04/09/23 04:53 B-Natriuretic Peptide < 10 pg/mL (<100) 04/09/23 04:53 Total Protein 6.8 g/dL (6.5-8.0) 04/09/23 04:53 Albumin 4.1 g/dL (3.5-5.0) 04/09/23 04:53 Lipase 15 U/L (8-78) 04/09/23 04:53 Procalcitonin 0.03 ng/mL 04/09/23 04:53 Valproic Acid 44.2 mcg/mL (50.0-100.0) L 04/09/23 04:53 Kinta < 0.10 mmol/L (0.60-1.20) L 04/09/23 04:53 Influenza Type A (PCR) NEGATIVE (Negative) 04/09/23 04:53 Influenza Type B (PCR) NEGATIVE (Negative) 04/09/23 04:53 RSV RNA Qual (PCR) NEGATIVE (Negative) 04/09/23 04:53 SARS-CoV-2 RNA (RT-PCR) NEGATIVE (Negative) 04/09/23 04:53 Impressions Chest X-Ray 04/09/23 05:04 IMPRESSION: No evidence for active cardiopulmonary disease. Labs on day of discharge: Preliminary micro results at discharge 04/09/23 05:01 Blood Culture - Preliminary Blood - Venous No growth after 48 hours. 04/09/23 04:53 Blood Culture - Preliminary Blood - Venous No growth after 48 hours. Discharge Plan Discharge Anticipated Discharge Date/Time: 04/11/23 09:47 Patient Disposition: Home, Self-Care Discharge Diagnosis: COPD exacerbation Referrals: Guille Allison MD [Primary Care Provider] - 1 Week Discharge Medications: New doxycycline monohydrate 100 mg Capsule 100 mg PO Q12H Qty: 6 0RF prednisone 10 mg tablet See Rx Instructions .ROUTE .COMPLEX Qty: 20 0RF Rx Instructions: 40 mg daily x 2 days, then 30 mg daily x 2 days, then 20 mg daily x 2 days, then 10 mg daily x 2 days Trelegy Ellipta 100-62.5-25 mcg blister with device 1 inh inhalation DAILY Qty: 28 0RF Continued (DME) Nebulizer with compressor See Rx Instructions .Route .MEDSUPPLY Qty: 1 0RF Rx Instructions: As directed famotidine 40 mg tablet 40 mg PO BEDTIME Qty: 30 2RF pantoprazole 40 mg tablet,delayed release (DR/EC) 40 mg PO BID Qty: 60 2RF sucralfate 1 gram tablet 2 g PO DAILY Qty: 60 3RF budesonide 32 mcg/actuation spray,non-aerosol 2 spray intranasal DAILY sennosides-docusate sodium [Senexon-S] 8.6-50 mg tablet 1 tab PO BID amlodipine 5 mg tablet 5 mg PO DAILY divalproex 500 mg tablet,delayed release (DR/EC) 500 mg PO BID citalopram 20 mg tablet 30 mg PO DAILY Anoro Ellipta 62.5-25 mcg/actuation blister with device 1 ea INHALATION DAILY minoxidil 2.5 mg tablet 1.25 mg PO DAILY montelukast 10 mg tablet 10 mg PO BEDTIME albuterol sulfate 90 mcg/actuation HFA aerosol inhaler 2 puff PO Q4H PRN (Reason: wheezing) pravastatin 80 mg tablet 80 mg PO BEDTIME Discharge Orders: Discharge Order (Routine); Ordered 04/11/23 Ordered By: Deloris Gramajo Diet: Advance to usual diet Activity on Discharge: As tolerated Stand Alone Forms: Patient Portal Discharge page, Work/School Release Care Plan Goals: pulmonary health Health Concerns: COPD exacerbation Plan of Treatment: doxycycline 100 mg twice daily for 3 days prednisone 10 mg tabs, taper as follows: 40 mg (4 tabs) daily x 2 days, then 30 mg (3 tabs) daily x 2 days, then 20 mg (2 tabs) daily x 2 days, then 10 mg (1 tab) daily x 2 days replace Anoro with Trelegy Please follow up with your primary care doctor within 1 week. Return to the hospital if you experience recurrent or worsening symptoms. See you voice data communications engineer in 2 weeks as well. Assessment: See Discharge Summary.
[2023-04-11 11:29] VITALS: PULSE 99; RESP 18; O2SAT 94
== END 2023-04-11 15:25 | disposition home or self-care (01) | DRG 192 ==
LOC: HO.ED 07:41 → HO.EDOVER 10:17 → HO.S3 14:00
PROVIDERS: Emergency Medicine; Admitting Provider Student in an Organized Health Care Education/Training Program; Emergency Provider Emergency Medicine Emergency Medical Services; PCP Internal Medicine; Visit Provider Family Medicine
DX: J44.1 Chronic obstructive pulmonary disease with (acute) exacerbation (principal); F31.9 Bipolar disorder, unspecified; I10 Essential (primary) hypertension; E78.5 Hyperlipidemia, unspecified; K21.9 Gastro-esophageal reflux disease without esophagitis; Z20.822 Contact with and (suspected) exposure to COVID-19; Z79.51 Long term (current) use of inhaled steroids; Z79.899 Other long term (current) drug therapy
CPT/HCPCS: 0241U; 36415; 71045; 80048; 80076; 80164; 80178; 82803; 83605; 83690; 83735; 83880; 84145; 84484; 85025; 87040; 93005; 94640; 99221; 99285; J0456; J0696; J1650; J2920; J2930; J3475

== ENCOUNTER → 2023-04-09 04:28 | Outpatient (BNV) | payer MEDICARE, MEDICAID, SELFPAY | PROVIDERS: Admitting Provider Student in an Organized Health Care Education/Training Program; Emergency Provider Emergency Medicine Emergency Medical Services; PCP Internal Medicine; Visit Provider Internal Medicine | DX: R06.02 Shortness of breath (principal) | CPT/HCPCS: 93010 ==

== ENCOUNTER → 2023-04-10 11:27 | Outpatient (BNV) | payer MEDICARE, MEDICAID, SELFPAY | PROVIDERS: Admitting Provider Student in an Organized Health Care Education/Training Program; Emergency Provider Emergency Medicine Emergency Medical Services; PCP Internal Medicine; Visit Provider Family Medicine | DX: J44.1 Chronic obstructive pulmonary disease with (acute) exacerbation (principal) | CPT/HCPCS: 99222; 99232; 99239 ==

== ENCOUNTER → 2023-06-02 15:08 | Outpatient (BNVA) | payer MEDICARE, MEDICAID, SELFPAY | PROVIDERS: PCP Internal Medicine; Visit Provider Internal Medicine Gastroenterology | DX: K21.00 Gastro-esophageal reflux disease with esophagitis, without bleeding (principal) | CPT/HCPCS: 99212 ==

== ENCOUNTER 2023-06-02 15:10 | Outpatient (AMB) | payer MEDICARE, MEDICAID, SELFPAY ==
--- NOTE | 2023-06-02 15:13 | MHC.OFFVIS ---
Intake Vital Signs 06/02/23 15:15 Height 5 ft 4 in Weight 180 lb BMI 30.9 BP 99/64 Blood Pressure Location Lt brachial Position Sitting Pulse 81 Intake Visit Reasons: medication refill follow up Intake Note: Carolin presents in the office as a follow up. CC: She states she is feeling okay other than broken ribs. Allergies oxcarbazepine [From TRILEPTAL] Allergy (Intermediate, Verified 06/02/23 15:13) HIVES/HALLUCINATIONS codeine [Codeine] Allergy (Mild, Verified 06/02/23 15:13) RASH hydromorphone [From Dilaudid] Allergy (Mild, Verified 06/02/23 15:13) unknown trazodone [TRAZODONE] Allergy (Unknown, Verified 06/02/23 15:13) UNKNOWN HPI medication refill follow up HPI Details 68 yr old f here for f/u RECAP: pt of [place] ? she was having ongoing heartburn and reflux. ? colonoscopy at [facility] 3 yrs ago, normal per her report. ? I ordered h pylori stool ag ? she was also educated on correct way to take PPI as she was taking wrongly ? H pylori breath test was neg ? due to ongoing possible GERD changed to protonix, she was c/o chronic sore throat she had a bout of diverticulitis 12/23-- sigmoid, WCC raised she was taking pantoprazole, carafate prn? CT 01/2018- severe diverticulosis, fatty liver ? UGI 07/218 with thickening of stomach and irregular mucosa, reflux observed ? Had EGD 09/2018 w barretts, esophagitis, and moderate gastritis colonoscopy 11/2019--right sided hyperplastic polyp, rept colon 7 yrs, neg for microscopic colitis CT [facility] 2021- fatty liver, hyperinflated lungs, dege spinal disease ? INTERIM: slipped on ice few weeks ago with broken ribs,l recovering slowly coughing attacks have been much better she has been following a helathy diet which helps no swallowing issues still taking PPI and famotidine which helps no n/v appetite is good ? weight stable. EXAM: GENERAL: The patient is well developed and nontoxic. VITAL SIGNS:see workflow HEENT: Nonicteric sclerae, PERRLA, EOMI. Oropharynx clear. Moist mucous membranes. Conjunctivae appear well perfused. No thyroid mass. CHEST: Chest wall is nontender. HEART: Regular rate and rhythm without murmurs. LUNGS: Clear to auscultation bilaterally. ABDOMEN: Soft, positive bowel sounds, nontender, no organomegaly.no flank tenderness SKIN: No rash, no excessive bruising, petechiae, or purpura. NEUROLOGIC: Cranial nerves II-XII intact without motor/sensory deficit. ?? ? Assessments ? 1. Esophagitis with Barretts esophagus, coughing attacks much better now PLAN: 1/ will need EGD, will call to schedule 2/ refilled on PPI 3/ she is taking MV and vit d supplement 4/ periodic check on Mag, ferritin, b12, vit d PFS Medical History Asthma Bipolar disorder GERD (gastroesophageal reflux disease) Diverticulitis Surgical History (Updated 06/02/23 @ 15:14 by RUFINO Ashley) Hx of spinal surgery History of esophagogastroduodenoscopy (EGD) History of colonoscopy Social History Household Members: None Housing: Apartment Do you presently have visiting nurse or other home services: No Alcohol intake: unknown Patient Tobacco Use Status: Never used Tobacco service: No Physical Exam Vital Signs: Last Vital Signs Pulse 81 06/02/23 15:15 BP 99/64 06/02/23 15:15 BMI result Body Mass Index 30.9 Assessment & Plan Assessment & Plan (1) GERD with esophagitis: Code(s): K21.00 - Gastro-esophageal reflux disease with esophagitis, without bleeding Plan: PLAN: 1/ will need EGD, will call to schedule 2/ refilled on PPI 3/ she is taking MV and vit d supplement 4/ periodic check on Mag, ferritin, b12, vit d Medications: Refilled pantoprazole 40 mg PO BID 60 tabs 2RF famotidine 40 mg PO BEDTIME 30 tabs 2RF Coding Level of Care Code Est Pt Level 3 (99857) Diagnoses GERD with esophagitis K21.00
[2023-06-02 15:15] VITALS: BP 99/64; PULSE 81; BMI 30.9
== END 2023-06-02 15:30 | disposition home or self-care (01) ==
PROVIDERS: PCP Internal Medicine; Visit Provider Internal Medicine Gastroenterology
DX: K21.00 Gastro-esophageal reflux disease with esophagitis, without bleeding (principal)
CPT/HCPCS: 99213

== ENCOUNTER 2024-02-02 14:24 | Outpatient (AMB) | payer MEDICARE, MEDICAID, SELFPAY ==
[2024-02-02 14:29] VITALS: BP 122/71; PULSE 81; BMI 34.7
--- NOTE | 2024-02-02 14:29 | A.OFFVIS_ITS ---
Vital Signs 02/02/24 14:29 Height 5 ft 4 in Weight 202 lb 6.15 oz BMI 34.7 BP 122/71 Blood Pressure Location Lt brachial Position Sitting Pulse 81 Intake Visit Reasons: 8 month f/u GERD Intake Note: Carolin presents to in office follow up of GERD. CC: Patient reports that she was having a lot of heartburn and acid reflux that was very consistent for a few weeks but is now better. Denies other GI concerns. Press Secretary Required: No Accompanied by: Self / Same As Patient Allergies oxcarbazepine [From TRILEPTAL] Allergy (Intermediate, Verified 02/02/24 14:32) HIVES/HALLUCINATIONS codeine [Codeine] Allergy (Mild, Verified 02/02/24 14:32) RASH hydromorphone [From Dilaudid] Allergy (Mild, Verified 02/02/24 14:32) unknown trazodone [TRAZODONE] Allergy (Unknown, Verified 02/02/24 14:32) UNKNOWN HPI HPI 8 month f/u GERD: Details: 68 yr old f here for f/u RECAP: pt of [place] she was having ongoing heartburn and reflux. colonoscopy at [facility] 3 yrs ago, normal per her report. I ordered h pylori stool ag she was also educated on correct way to take PPI as she was taking wrongly H pylori breath test was neg due to ongoing possible GERD changed to protonix, she was c/o chronic sore throat she had a bout of diverticulitis 12/23-- sigmoid, WCC raised she was taking pantoprazole, carafate prn CT 01/2018- severe diverticulosis, fatty liver UGI 07/218 with thickening of stomach and irregular mucosa, reflux observed Had EGD 09/2018 w barretts, esophagitis, and moderate gastritis colonoscopy 11/2019--right sided hyperplastic polyp, rept colon 7 yrs, neg for microscopic colitis [facility] 2021- fatty liver, hyperinflated lungs, dege spinal disease INTERIM: she had worsening heartburn but was taking a lot of juices, cut back and feels better no dysphagia breathing is on and off, seasonal coughing attacks are better she is on trelegy and helps a lot appetite is good she is unsure about her meds overall she is happy with heartburn control EXAM: GENERAL: The patient is well developed and nontoxic. VITAL SIGNS:see workflow HEENT: Nonicteric sclerae, PERRLA, EOMI. Oropharynx clear. Moist mucous membranes. Conjunctivae appear well perfused. No thyroid mass. CHEST: Chest wall is nontender. HEART: Regular rate and rhythm without murmurs. LUNGS: Clear to auscultation bilaterally. ABDOMEN: Soft, positive bowel sounds, nontender, no organomegaly.no flank tenderness SKIN: No rash, no excessive bruising, petechiae, or purpura. NEUROLOGIC: Cranial nerves II-XII intact without motor/sensory deficit. Assessments 1. Esophagitis with Barretts esophagus, coughing attacks much better now PLAN: 1/ will need EGD, will call to schedule 2/ she will check on her meds at home, and let me know what she is taking, reviewed how to take ppi correctly 3/ she is taking MV and vit d supplement 4/ periodic check on Mag, ferritin, b12, vit d PFSH Medical History Asthma Bipolar disorder GERD (gastroesophageal reflux disease) Diverticulitis Surgical History Hx of spinal surgery History of esophagogastroduodenoscopy (EGD) History of colonoscopy Social History Household Members: None Housing: Apartment Do you presently have visiting nurse or other home services: No Alcohol intake: unknown Patient Tobacco Use Status: Never used Tobacco service: No Physical Exam Vital Signs: Last Vital Signs Pulse 81 02/02/24 14:29 BP 122/71 02/02/24 14:29 BMI result Body Mass Index 34.7 Assessment & Plan Assessment & Plan (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
== END 2024-02-02 15:13 | disposition home or self-care (01) ==
LOC: HO.HGI 14:25
PROVIDERS: PCP Internal Medicine; Visit Provider Internal Medicine Gastroenterology
DX: K22.70 Barrett's esophagus without dysplasia (principal)
CPT/HCPCS: 99213

== ENCOUNTER → 2024-02-02 14:24 | Outpatient (BNVA) | payer MEDICARE, MEDICAID, SELFPAY | PROVIDERS: PCP Internal Medicine; Visit Provider Internal Medicine Gastroenterology | DX: K22.70 Barrett's esophagus without dysplasia (principal) | CPT/HCPCS: 99212 ==

== ENCOUNTER 2024-02-20 09:05 | Outpatient (REF) | payer MEDICARE, MEDICAID, SELFPAY ==
--- NOTE | ~2024-02-20 | FL_ITS ---
EXAMINATION: XR FLUOROSCOPY UPPER GI WITH AIR CLINICAL INFORMATION: Reflux, dysphasia. COMPARISON: Barium swallow October 2021 TECHNIQUE: Fluoroscopic air contrast upper GI examination was performed utilizing standard techniques with thin and thick barium and effervescent granules. Numerous spot images were obtained. FINDINGS: Dual and single contrast images of the esophagus demonstrate normal caliber and contour. There is felinization of the distal esophageal mucosa. In addition there are multiple very subtle superficial mucosal wall foci of pooling in the mid and distal distal esophagus, suggestive of subtle mucosal ulcerations (RF1-12, image 102,121). No evidence of strictures or mass. Esophageal peristalsis was mildly disorganized. The patient swallowed a 13 mm barium tablet without any difficulty. The tablet passed freely into the stomach without any evidence of stasis. A small to moderate-sized type I hiatal hernia is present. Significant gastroesophageal reflux is seen up to the thoracic inlet. Dual contrast and single contrast images of the stomach demonstrated a normal contour. The gastric rugal folds have a thickened appearance, suggestive of gastritis. There are multiple small foci of contrast pooling in the fundus of the stomach that likely represent small superficial mucosal erosions. No masses are seen. Contrast freely passed into the gastric antrum and duodenal bulb without delay. Single and air-contrast images of the duodenal bulb demonstrate no abnormality. The duodenal sweep has a normal appearance, course, and mucosal fold appearance. The imaged proximal jejunum has a normal fold pattern and caliber. FLUOROSCOPY TIME: 4 minutes 41 seconds DOSE AREA PRODUCT: 3251 uGy-m2 (microgray-meter squared) FL/FL barium swallow with air IMPRESSION: 1. Felinization of the distal esophageal mucosa. This is a benign finding that is typically associated with chronic gastroesophageal reflux. 2. Multiple mucosal wall abnormalities in the distal esophagus with a small amount contrast pooling that suggests ulcerative esophagitis. 3. Mildly disorganized esophageal peristalsis. 4. Small to moderate-sized type I hiatal hernia with significant gastroesophageal reflux. 5. Thickened appearance of the gastric rugal folds. In addition there are multiple small foci of contrast pooling in the fundus of the stomach. These findings are suggestive of erosive gastritis. Recommend correlation with upcoming EGD. This procedure was performed by Steven France PA-C, and supervised by Dr. Hudson Electronically signed by: Anjum Hudson MD 02/20/2024 01:42 PM EDT
== END 2024-02-20 09:06 | disposition home or self-care (01) ==
LOC: HO.XRAY 09:05
PROVIDERS: PCP Internal Medicine; Visit Provider Internal Medicine Gastroenterology
DX: R13.10 Dysphagia, unspecified (principal)
CPT/HCPCS: 74221

== ENCOUNTER → 2024-02-20 09:17 | Outpatient (BNV) | payer MEDICARE, MEDICAID, SELFPAY | PROVIDERS: PCP Internal Medicine; Visit Provider Radiology Diagnostic Radiology | DX: R13.10 Dysphagia, unspecified (principal) | CPT/HCPCS: 74221 ==

== ENCOUNTER 2024-03-18 11:29 | Day surgery (SDC) | payer MEDICARE, MEDICAID, SELFPAY ==
[2024-03-16 14:13] VITALS: BMI 34.7
--- NOTE | 2024-03-17 09:25 | P.CONAN_ITS ---
Documented by User: Sara Ware NP 03/17/24 09:25 HPI - Anesthesia Eval Consult details Narrative: 68yo F for Upper Endoscopy PMF Active Problems Active Problems: All Active Problems Acute exacerbation of chronic obstructive airways disease (Acute) Lumbar stenosis (Acute) Pneumonia (Acute) GERD with esophagitis (Acute) Arango esophagus (Acute) Past Medical History Medical History Elevated cholesterol HTN (hypertension) PTSD (post-traumatic stress disorder) Seizures COPD (chronic obstructive pulmonary disease) Lumbar stenosis Barretts esophagus Asthma Bipolar disorder GERD (gastroesophageal reflux disease) Diverticulitis Surgical History Surgical History Hx of nasal polypectomy Hx of tubal ligation Hx of spinal surgery History of esophagogastroduodenoscopy (EGD) History of colonoscopy Social History Social History Household Members: None Housing: Apartment Do you presently have visiting nurse or other home services: No Alcohol intake: unknown Patient Tobacco Use Status: Never used Tobacco Use of substances other than those prescribed or required for medical reasons: No Are you DNR?: No Advance Directives: No Advance Directives Information Provided: Yes Recently lost weight without trying: No service: No Meds Allergies Allergy/AdvReac Type Severity Reaction Status Date / Time oxcarbazepine Allergy Intermediate HIVES/HALLU Verified 03/18/24 11:37 [From TRILEPTAL] CINATIONS codeine [Codeine] Allergy Mild RASH Verified 03/18/24 11:37 hydromorphone [From Dilaudid] Allergy Mild unknown Verified 03/18/24 11:37 trazodone [TRAZODONE] Allergy Unknown UNKNOWN Verified 03/18/24 11:37 Home Medications ?Medication ?Instructions ?Recorded ?Confirmed ?Last Taken ?Type albuterol sulfate 90 mcg/actuation 2 puff PO Q4H PRN wheezing 01/30/21 03/16/24 04/09/23 04:00 History aerosol inhaler montelukast 10 mg tablet 10 mg PO BEDTIME 01/30/21 03/16/24 04/08/23 History amlodipine 5 mg tablet 5 mg PO DAILY 04/09/23 03/16/24 03/18/24 10:30 History citalopram 20 mg tablet 30 mg PO DAILY 04/09/23 03/16/24 04/09/23 04:00 History divalproex 500 mg tablet,delayed 500 mg PO BID 04/09/23 03/16/24 03/18/24 10:30 History release sennosides 8.6 mg-docusate sodium 1 tab PO BID 04/09/23 03/16/24 04/09/23 04:00 History 50 mg tablet (Senexon-S) fluticasone propionate 50 2 spray intranasal DAILY 06/02/23 03/16/24 Unknown History mcg/actuation nasal spray,suspension cyclobenzaprine 5 mg tablet 5 mg PO BEDTIME 02/02/24 03/16/24 Unknown History fluticasone fur. 100 mcg-umeclid 1 inh inhalation DAILY 03/16/24 03/16/24 03/18/24 10:30 History 62.5 mcg-vilant 25 mcg inhalat.powder (Trelegy Ellipta) rosuvastatin 10 mg tablet 10 mg PO DAILY 03/16/24 03/16/24 Unknown History Exam Height,Weight and Vital Signs: Height 5 ft 4 in Weight 91.626 kg Assessment and Plan Assessment Anesthesia Assessment: Chart Reviewed Documented by User: Cecilia Alvarado MD 03/18/24 12:07 [facility] Past Medical History Medical History Elevated cholesterol HTN (hypertension) PTSD (post-traumatic stress disorder) Seizures COPD (chronic obstructive pulmonary disease) Lumbar stenosis Barretts esophagus Asthma Bipolar disorder GERD (gastroesophageal reflux disease) Diverticulitis Surgical History Surgical History Hx of nasal polypectomy Hx of tubal ligation Hx of spinal surgery History of esophagogastroduodenoscopy (EGD) History of colonoscopy History of Problems with Anesthesia: No Social History Social History Household Members: None Housing: Apartment Do you presently have visiting nurse or other home services: No Alcohol intake: unknown Patient Tobacco Use Status: Never used Tobacco Use of substances other than those prescribed or required for medical reasons: No Are you DNR?: No Advance Directives: No Advance Directives Information Provided: Yes Recently lost weight without trying: No service: No Meds Allergies Allergy/AdvReac Type Severity Reaction Status Date / Time oxcarbazepine Allergy Intermediate HIVES/HALLU Verified 03/18/24 11:37 [From TRILEPTAL] CINATIONS codeine [Codeine] Allergy Mild RASH Verified 03/18/24 11:37 hydromorphone [From Dilaudid] Allergy Mild unknown Verified 03/18/24 11:37 trazodone [TRAZODONE] Allergy Unknown UNKNOWN Verified 03/18/24 11:37 Home Medications ?Medication ?Instructions ?Recorded ?Confirmed ?Last Taken ?Type albuterol sulfate 90 mcg/actuation 2 puff PO Q4H PRN wheezing 01/30/21 03/16/24 04/09/23 04:00 History aerosol inhaler montelukast 10 mg tablet 10 mg PO BEDTIME 01/30/21 03/16/24 04/08/23 History amlodipine 5 mg tablet 5 mg PO DAILY 04/09/23 03/16/24 03/18/24 10:30 History citalopram 20 mg tablet 30 mg PO DAILY 04/09/23 03/16/24 04/09/23 04:00 History divalproex 500 mg tablet,delayed 500 mg PO BID 04/09/23 03/16/24 03/18/24 10:30 History release sennosides 8.6 mg-docusate sodium 1 tab PO BID 04/09/23 03/16/24 04/09/23 04:00 History 50 mg tablet (Senexon-S) fluticasone propionate 50 2 spray intranasal DAILY 06/02/23 03/16/24 Unknown History mcg/actuation nasal spray,suspension cyclobenzaprine 5 mg tablet 5 mg PO BEDTIME 02/02/24 03/16/24 Unknown History fluticasone fur. 100 mcg-umeclid 1 inh inhalation DAILY 03/16/24 03/16/24 03/18/24 10:30 History 62.5 mcg-vilant 25 mcg inhalat.powder (Trelegy Ellipta) rosuvastatin 10 mg tablet 10 mg PO DAILY 03/16/24 03/16/24 Unknown History Exam Airway Mallampati Class: II TM Dist: >3cm Neck ROM: Full Loose/Missing/Broken Teeth: No Heart: RRR Lungs: CTA Assessment and Plan Assessment Anesthesia Assessment: Anesthesia Plan Discussed Final Anesthetic Review History of Problems with Anesthesia: No NPO: Yes ASA Class: III Final Preanesthetic Review: Meds/Allgs Chart Reviewed, Consent Obtained/Reviewed and Anes Risks/Benef Reviewed Patient Risk: Intermediate Procedure Risk: Intermediate Anesthetic Plan Anesthetic Plan: MAC: Disposition: Standard PACU
[2024-03-18 11:43] VITALS: BMI 32.8
--- NOTE | 2024-03-18 11:51 | MHC.SHP ---
Pre-Procedural Eval Section A - 24 Hr Update-Section A only Date of Service: 03/18/24 Section B - Complete if H&P > 30 days Chief Complaint: barretts Relevant Family History (Specify if Yes): No Relevant Social History: None Present Medications: see Short Stay Collaborative assessment Medical History: Significant History (COPD (chronic obstructive pulmonary disease) Lumbar stenosis Barretts esophagus Asthma Bipolar disorder GERD (gastroesophageal reflux disease) Diverticulitis) History of Previous Operations: Relevant previous surgery/procedure and date(s) (Hx of spinal surgery History of esophagogastroduodenoscopy (EGD) History of colonoscopy) Allergies: Allergies Allergy/AdvReac Type Severity Reaction Status Date / Time oxcarbazepine Allergy Intermediate HIVES/HALLU Verified 03/18/24 11:37 [From TRILEPTAL] CINATIONS codeine [Codeine] Allergy Mild RASH Verified 03/18/24 11:37 hydromorphone [From Dilaudid] Allergy Mild unknown Verified 03/18/24 11:37 trazodone [TRAZODONE] Allergy Unknown UNKNOWN Verified 03/18/24 11:37 Review of Systems Sugical H&P ROS: Negative: Constitution, Cardiovascular, Respiratory, Neurological, Psychiatric, Hem-Onc, Allergic/Immunologic, Gastrointestinal, Genitourinary, Musculoskeletal, Integumentary, Endocrine and Eyes/Ears/Nose/Throat Exam Surgical H&P Exam: Normal: HEENT, Normal: Heart, Normal: Lungs, Normal: Extremities, Normal: Abdomen, Normal: Skin and Normal: Neurological Plan Diagnosis/Plan: Unchanged I have reviewed the history and physical and performed a pertinent physical examination on my patient. No changes have occurred unless specified. Time Spent With Patient Time: Total time managing care of this patient today ____ minutes.
--- NOTE | 2024-03-18 12:28 | W.PM.OPN ---
Operative Note Operative Note Date of Service: 03/18/24 Narrative: Procedure Description: EGD Indication: Barretts Anesthesia: MAC FLEXIBLE TRANSORAL UPPER GASTROINTESTINAL ENDOSCOPY UPPER ENDOSCOPY Consent: Indications for the procedure and potential complications of bleeding, perforation, reaction to medications and missed diagnosis were discussed with the patient and informed consent was obtained. Instrument: Olympus GIF H 190 J mid size upper endoscope Monitoring: Vital signs and clinical assessment, continuous EKG monitoring, Pulse oximetry, Carbon Dioxide monitoring and blood pressure monitoring were done throughout the procedure. Procedure: The patient was placed in the left lateral decubitis position and pre-procedure medications were administered and a bite block was placed. The endoscope was inserted into the mouth and advanced under direct vision to the third part of duodenum. A careful inspection was made as the upper endoscope was withdrawn including a retroflexed examination of the proximal stomach; Findings and interventions are described below. Findings: Larynx:normal Esophagus: GE junction at 35 cm, diaphragm hiatus at 37 cm, schatzki ring noted with irregular Z line and few islands of salmon pink mucosa, bx taken and brushings for WATS Stomach: patchy erythema and few small erosions . Biopsies were obtained. Grade 2 flap valve on retroflexed examination of the cardia. Several fundic gland polyps noted Duodenum: Mild bulbar duodenitis, bx taken Intervention: Biopsies as noted above, brushings Impression/Findings: gastritis duodenitis schatzki ring hiatal hernia fundic gland polyps PLAN: cont with PPI meantime GERD precautions
[2024-03-18 12:35] VITALS: BP 117/63; PULSE 90; RESP 18; TEMP 36.5; O2SAT 98
[2024-03-18 12:50] VITALS: BP 131/80; PULSE 80; RESP 18; TEMP 36.2; O2SAT 97
== END 2024-03-18 14:20 | disposition home or self-care (01) ==
PROVIDERS: PCP Internal Medicine; Visit Provider Internal Medicine Gastroenterology
PROC: 0DJ08ZZ Inspection of Upper Intestinal Tract, Via Natural or Artificial Opening Endoscopic (ICD-10-PCS; CPT 43235; principal; 2024-03-18 12:50)
DX: K22.70 Barrett's esophagus without dysplasia (principal); R13.10 Dysphagia, unspecified; K29.80 Duodenitis without bleeding; K29.60 Other gastritis without bleeding; K22.2 Esophageal obstruction; K31.7 Polyp of stomach and duodenum; K21.9 Gastro-esophageal reflux disease without esophagitis; K44.9 Diaphragmatic hernia without obstruction or gangrene; Z87.19 Personal history of other diseases of the digestive system; J44.9 Chronic obstructive pulmonary disease, unspecified; F31.9 Bipolar disorder, unspecified; I10 Essential (primary) hypertension; E78.5 Hyperlipidemia, unspecified; G40.909 Epilepsy, unspecified, not intractable, without status epilepticus; G93.1 Anoxic brain damage, not elsewhere classified; Z79.51 Long term (current) use of inhaled steroids; Z79.899 Other long term (current) drug therapy; Z88.5 Allergy status to narcotic agent; Z88.8 Allergy status to other drugs, medicaments and biological substances; Z98.890 Other specified postprocedural states
CPT/HCPCS: 43239; 88305; 88313; 88342; J2003; J2704

== ENCOUNTER → 2024-03-18 11:29 | Outpatient (BNV) | payer MEDICARE, MEDICAID, SELFPAY | PROVIDERS: PCP Internal Medicine; Visit Provider Internal Medicine Gastroenterology | DX: K22.70 Barrett's esophagus without dysplasia (principal); K22.2 Esophageal obstruction; K31.7 Polyp of stomach and duodenum; K29.80 Duodenitis without bleeding | CPT/HCPCS: 43239 ==

== ENCOUNTER 2024-04-05 12:24 | Outpatient (AMB) | payer MEDICARE, MEDICAID, SELFPAY ==
[2024-04-05 12:26] VITALS: BP 127/62; PULSE 84; BMI 34.1
--- NOTE | 2024-04-05 12:26 | MHC.OFFVIS ---
Vital Signs 04/05/24 12:26 Height 5 ft 4 in Weight 198 lb 6.656 oz BMI 34.1 BP 127/62 Blood Pressure Location Rt brachial Position Sitting Pulse 84 Intake Visit Reasons: S/P EGD; Dr. Barnes Intake Note: Carolin presents in office in follow up s/p EGD. CC: Patient reports doing well and denies having any GI concerns today. 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 Barnes: Details: 68 yr old f here for f/u RECAP: pt of [place] she was having ongoing heartburn and reflux. colonoscopy at [facility] 3 yrs ago, normal per her report. I ordered h pylori stool ag she was also educated on correct way to take PPI as she was taking wrongly H pylori breath test was neg due to ongoing possible GERD changed to protonix, she was c/o chronic sore throat she had a bout of diverticulitis 12/23-- sigmoid, WCC raised she was taking pantoprazole, carafate prn CT 01/2018- severe diverticulosis, fatty liver UGI 07/218 with thickening of stomach and irregular mucosa, reflux observed Had EGD 09/2018 w barretts, esophagitis, and moderate gastritis colonoscopy 11/2019--right sided hyperplastic polyp, rept colon 7 yrs, neg for microscopic colitis CT [facility] 2021- fatty liver, hyperinflated lungs, dege spinal disease EGD : gastric erosions schatzki fundal gland polyps path: intestinal metaplasia stomach wats pos for barretts, no dysplasia INTERIM: she was taking PPI incorrectly but now taking it and feels much better breathing is better she takes trelegy for her breathing and is v happy with it EXAM: GENERAL: The patient is well developed and nontoxic. VITAL SIGNS:see workflow HEENT: Nonicteric sclerae, PERRLA, EOMI. Oropharynx clear. Moist mucous membranes. Conjunctivae appear well perfused. No thyroid mass. CHEST: Chest wall is nontender. HEART: Regular rate and rhythm without murmurs. LUNGS: Clear to auscultation bilaterally. ABDOMEN: Soft, positive bowel sounds, nontender, no organomegaly.no flank tenderness SKIN: No rash, no excessive bruising, petechiae, or purpura. NEUROLOGIC: Cranial nerves II-XII intact without motor/sensory deficit. Assessments 1. Esophagitis with Barretts esophagus, PLAN: 1/ check h pylori--can use carafate for 2 weeks 2/ if neg cont with PPi as doing as works [facility] Medical History Elevated cholesterol HTN (hypertension) PTSD (post-traumatic stress disorder) Seizures COPD (chronic obstructive pulmonary disease) Lumbar stenosis Barretts esophagus Asthma Bipolar disorder GERD (gastroesophageal reflux disease) Diverticulitis Surgical History Hx of nasal polypectomy Hx of tubal ligation Hx of spinal surgery History of esophagogastroduodenoscopy (EGD) History of colonoscopy Social History Household Members: None Housing: Apartment Do you presently have visiting nurse or other home services: No Alcohol intake: unknown Patient Tobacco Use Status: Never used Tobacco service: No Physical Exam Vital Signs: Last Vital Signs Pulse 84 04/05/24 12:26 BP 127/62 04/05/24 12:26 BMI result Body Mass Index 34.1 Assessment & Plan Assessment & Plan (1) Arango esophagus: Code(s): K22.70 - Arango's esophagus without dysplasia Category: Medical Plan: see above Medications: New sucralfate 10 mL PO BID 1,000 mL 0RF Discontinued sucralfate Discontinued Reason: Doctor's Order 2 grams (2 x 1 gram) PO DAILY 60 tabs 3RF Coding Level of Care Code Est Pt Level 3 (97001) Diagnoses Arango esophagus K22.70
== END 2024-04-05 13:25 | disposition home or self-care (01) ==
PROVIDERS: PCP Internal Medicine; Visit Provider Internal Medicine Gastroenterology
DX: K22.70 Barrett's esophagus without dysplasia (principal)
CPT/HCPCS: 99213

== ENCOUNTER → 2024-04-05 12:24 | Outpatient (BNVA) | payer MEDICARE, MEDICAID, SELFPAY | PROVIDERS: PCP Internal Medicine; Visit Provider Internal Medicine Gastroenterology | DX: K22.70 Barrett's esophagus without dysplasia (principal) | CPT/HCPCS: 99212 ==

== ENCOUNTER 2024-04-14 16:58 | Outpatient (REF) | payer MEDICARE, MEDICAID, SELFPAY ==
[2024-04-14 17:32] LABS: Ammonia 28 umol/L (13-55)
[2024-04-14 17:54] LABS: Valproate 84.4 mcg/mL (50.0-100.0)
[2024-04-14 17:58] LABS: Alanine Aminotransferase 30 U/L (0-31); Albumin Level 4.5 g/dL (3.5-5.0); Alkaline Phosphatase 74 U/L (39-117); Anion Gap 13 (12-20); Aspartate Amino Transferase 30 U/L (5-31); Bilirubin Direct 0.2 mg/dL (0.0-0.5); Bilirubin Total 0.7 mg/dL (0.0-1.0); Blood Urea Nitrogen 14 mg/dL (9-16); Calcium 10.5 mg/dL (8.4-10.2); Carbon Dioxide 29 mmol/L (22-29); Chloride 104 mmol/L (96-108); Estimated Glomerular Filt Rate > 60; Glucose Random 84 mg/dL (60-115); Potassium 4.8 mmol/L (3.3-5.1); Sodium 141 mmol/L (135-145); Total Protein 7.3 g/dL (6.5-8.0)
--- OUTSIDE RECORDS SUMMARY | 2024-04-15 03:14 | XMS_ITS | Clinical Summary ---
Author Organization Unknown Care Team Providers Care Wholesale Buyer Name Role Phone ELISEO CARD, RADHA Unavailable Unavailable SUNI PT, MELODY Unavailable Unavailable JOSE E INTERNAL CONTROLS MANAGER, LYN Unavailable Unavailable Payers Payer Name Policy Type Policy Number Effective Date Expira tion Date MEDICARE.NGS.PDGM [id number] Problems Condition Name Condition Details Condition Category Status Onset Date Resolution Date Last Treatment Date Treating Clinician Comments MULTIPLE FX OF RIBS, RIGHT SIDE, SUBS FOR FX W ROUTN HEAL Active 05-19 00:00: 00 OTHER SPECIFIED CHRONIC OBSTRUCTIVE PULMONARY DISEASE Active 05-19 00:00: 00 ESSENTIAL (PRIMARY) HYPERTENSION Active 05-05 00:00: 00 EPILEPSY, UNSP, NOT INTRACTABLE, WITHOUT STATUS EPILEPTICUS Active 05-05 00:00: 00 DEPRESSION, UNSPECIFIED Active 05-05 00:00: 00 ANXIETY DISORDER, UNSPECIFIED Active 05-05 00:00: 00 OTH TEAR OF MEDIAL MENISCUS, CURRENT INJURY, R KNEE, SUBS Active 2017-05 00:00: 00 MULLEN'S ESOPHAGUS WITHOUT DYSPLASIA Active 05-05 00:00: 00 GASTRO-ESOPH AGEAL REFLUX DISEASE WITHOUT ESOPHAGITIS Active 05-05 00:00: 00 HISTORY OF FALLING Active 05-14 00:00: 00 OTHER [employer] PLAYER (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) DRUG THERAPY Active 05-16 00:00: 00 PERSONAL HISTORY OF TRAUMATIC BRAIN INJURY Active 05-05 00:00: 00 Allergies, Adverse Reactions, Alerts Allergy Name Allergy Type Status Severity Reaction(s) Onset Date Inactive Date Treating Clinician Comments DILAUDID Propensity to adverse reactions Active 05-16 17:37: 46 CODEINE Propensity to adverse reactions Active 05-16 17:37: 51 OXCARBAZEPIN E Propensity to adverse reactions Active 05-16 17:38: 03 OXYCODONE Propensity to adverse reactions Active 05-16 17:38: 12 TRAMADOL Propensity to adverse reactions Active 05-16 17:38: 19 TRAZODONE Propensity to adverse reactions Active 05-16 17:38: 37 Medications Ordered Medication Name Filled Medication Name Start Date Stop Date Current Medication? Ordering Clinician Indication Dosage Frequency Signature (SIG) Comments Components divalproex 500 mg tablet,mikaela yed release 05-13 00:00: 00 Yes [id number] SEIZURE DISORDER Per instruc tions TWICE A DAY DIRECTED Per instructio ns TWICE A DAY DIRECTED (route: oral) Med Classific ation: Central Nervous System Agents oxycodone 5 mg tablet 05-12 00:00: 00 Yes [id number] PAIN Per instruc tions EVERY 6 HOURS Per instructio ns EVERY 6 HOURS (route: oral) Med Classific ation: Analgesic , Anti-infl ammatory or Antipyret ic Trelegy Ellipta 100 mcg-62.5 mcg-25 mcg powder for inhalation 05-12 00:00: 00 Yes [id number] COPD Per instruc tions INTO THE LUNGS ONCE A DAY Per instructio ns INTO THE LUNGS ONCE A DAY (route: inhalation ) Med Classific ation: Respirato ry Therapy Agents IBU 600 mg tablet 05-08 00:00: 00 Yes [id number] PAIN Per instruc tions EVERY 8 HOURS NEEDED Per instructio ns EVERY 8 HOURS NEEDED (route: oral) Med Classific ation: Analgesic , Anti-infl ammatory or Antipyret ic divalproex 500 mg tablet,mikaela yed release 2022-05 00:00: 00 05-19 00:00 :00 No [id number] Per instruc tions TWICE A DAY Per instructio ns TWICE A DAY (route: oral) Med Classific ation: Central Nervous System Agents famotidine 40 mg tablet 2022-05 00:00: 00 Yes [id number] GERD Per instruc tions AT BEDTIME Per instructio ns AT BEDTIME (route: oral) Med Classific ation: Gastroint estinal Therapy Agents sucralfate 1 gram tablet 2022-05 00:00: 00 Yes [id number] ANTACID Per instruc tions EVERY DAY Per instructio ns EVERY DAY (route: oral) Med Classific ation: Gastroint estinal Therapy Agents pantoprazol e 40 mg tablet,mikaela yed release 2022-05 00:00: 00 Yes [id number] GERD Per instruc tions TWICE A DAY Per instructio ns TWICE A DAY (route: oral) Med Classific ation: Gastroint estinal Therapy Agents montelukast 10 mg tablet 2022-05 00:00: 00 Yes [id number] ASTHMA Per instruc tions AT BEDTIME Per instructio ns AT BEDTIME (route: oral) Med Classific ation: Respirato ry Therapy Agents albuterol sulfate HFA 90 mcg/actuati on aerosol inhaler 2022-05 00:00: 00 Yes [id number] SOB/WHEEZIN G 2 puff EVERY 6 HOURS 2 puff EVERY 6 HOURS (route: inhalation ) Med Classific ation: Respirato ry Therapy Agents amlodipine 5 mg tablet 2022-05 00:00: 00 Yes [id number] HTN 1 tablet DAILY 1 tablet DAILY (route: oral) Med Classific ation: Cardiovas cular Therapy Agents Breo Ellipta 100 mcg-25 mcg/dose powder for inhalation 2022-05 00:00: 00 Yes [id number] COPD 1 inhalat ion DAILY 1 inhalation DAILY (route: inhalation ) Med Classific ation: Respirato ry Therapy Agents citalopram 20 mg tablet 2022-05 00:00: 00 Yes [id number] DEPRESSION 1 tablet DAILY 1 tablet DAILY (route: oral) Med Classific ation: Central Nervous System Agents IBU 800 mg tablet 05-14 00:00: 00 Yes [id number] PAIN 1 tablet EVERY 6 HOURS 1 tablet EVERY 6 HOURS (route: oral) Med Classific ation: Analgesic , Anti-infl ammatory or Antipyret ic minoxidil 2.5 mg tablet 2022-05 00:00: 00 Yes [id number] HAIR HEALTH 1 tablet DAILY 1 tablet DAILY (route: oral) Med Classific ation: Cardiovas cular Therapy Agents pravastatin 80 mg tablet 2022-05 00:00: 00 Yes [id number] HLD 1 tablet DAILY 1 tablet DAILY (route: oral) Med Classific ation: Cardiovas cular Therapy Agents temazepam 30 mg capsule 2022-05 00:00: 00 Yes [id number] INSOMNIA 1 capsule BEDTIME 1 capsule BEDTIME (route: oral) Med Classific ation: Central Nervous System Agents Vital Signs Vital Name Observation Time Observation Value Commen ts Temperature 2023-06-09 12:10:00.000 97.7 [degF] Temperature 2023-05-28 12:52:00.000 97 [degF] Temperature 2023-05-19 14:52:00.000 97.2 [degF] BMI (%) 2023-05-19 14:52:00.000 31 kg/m2 Height 2023-05-19 14:52:00.000 64 [in_us] Pulse 2023-06-09 12:10:00.000 77 /min Pulse 2023-05-28 12:52:00.000 88 /min Pulse 2023-05-19 14:52:00.000 81 /min O2 Saturation (%) 2023-05-19 14:53:00.000 97 % Respirations 2023-06-09 12:10:00.000 18 /min Respirations 2023-05-28 12:52:00.000 18 /min Respirations 2023-05-19 14:52:00.000 18 /min Weight (lbs) 2023-05-19 14:52:00.000 182.3 [lb_av] Systolic Blood Pressure 2023-06-09 12:10:00.000 120 mm [Hg] Systolic Blood Pressure 2023-05-28 12:52:00.000 112 mm [Hg] Systolic Blood Pressure 2023-05-19 14:52:00.000 126 mm [Hg] Diastolic Blood Pressure 2023-06-09 12:10:00.000 76 mm [Hg] Diastolic Blood Pressure 2023-05-28 12:52:00.000 62 mm [Hg] Diastolic Blood Pressure 2023-05-19 14:52:00.000 62 mm [Hg] Plan of Treatment Planned Activity Planned Date Details Comments Future Scheduled Test AGENCY MAY PERFORM A RESUMPTION OF CARE VISIT FOLLOWING ANY HOSPITAL ADMISSION. PHYSICAL THERAPY TO EVALUATE, ASSESS AND MONITOR, PROVIDE SKILLED THERAPEUTIC INTERVENTION, ACTIVITY, EDUCATION, AND TRAINING TO ADDRESS: [code = AGENCY MAY PERFORM A RESUMPTION OF CARE VISIT FOLLOWING ANY HOSPITAL ADMISSION. PHYSICAL THERAPY TO EVALUATE, ASSESS AND MONITOR, PROVIDE SKILLED THERAPEUTIC INTERVENTION, ACTIVITY, EDUCATION, AND TRAINING TO ADDRESS:] Future Scheduled Test TRANSFER T RAINING (PT) [code = TRANSFER TRAINING (PT)] Future Scheduled Test GAIT TRAIN ING (PT) [code = GAIT TRAINING (PT)] Future Scheduled Test STAIR JESSICA BHAVANI (PT) [code = STAIR TRAINING (PT)] Future Scheduled Test NEUROMUSCU LAR RE-EDUCATION / BALANCE RETRAINING (PT) [code = NEUROMUSCULAR RE-EDUCATION / BALANCE RETRAINING (PT)] Future Scheduled Test THERAPEUTI C EXERCISES (PT) [code = THERAPEUTIC EXERCISES (PT)] Future Scheduled Test IDENTIFY F ALL RISK FACTORS AND ESTABLISH HOME EXERCISE PROGRAM TO MINIMIZE FALL RISK. MAY TEACH THE PATIENT FLOOR RECOVERY WHEN CLINICALLY APPROPRIATE (PT) [code = IDENTIFY FALL RISK FACTORS AND ESTABLISH HOME EXERCISE PROGRAM TO MINIMIZE FALL RISK. MAY TEACH THE PATIENT FLOOR RECOVERY WHEN CLINICALLY APPROPRIATE (PT)] Future Scheduled Test OXYGEN SAT URATION (PT). NOTIFY MD IF 02SATS BELOW 90% AFTER 10 MIN OF REST. [code = OXYGEN SATURATION (PT). NOTIFY MD IF 02SATS BELOW 90% AFTER 10 MIN OF REST.] Future Scheduled Test PAIN MANAG EMENT (PT) [code = PAIN MANAGEMENT (PT)] Future Scheduled Test PHYSICAL T HERAPY TO INSTRUCT PATIENT/CAREGIVER ON RISK FOR HOSPITALIZATION/EMERGENCY ROOM VISITS, TEACH SIGNS AND SYMPTOMS THAT PUT PATIENT AT RISK, WHEN TO NOTIFY NURSE/PHYSICIAN OF COMPLICATIONS/DECLINE, AND WHEN TO CALL 911. [code = PHYSICAL THERAPY TO INSTRUCT PATIENT/CAREGIVER ON RISK FOR HOSPITALIZATION/EMERGENCY ROOM VISITS, TEACH SIGNS AND SYMPTOMS THAT PUT PATIENT AT RISK, WHEN TO NOTIFY NURSE/PHYSICIAN OF COMPLICATIONS/DECLINE, AND WHEN TO CALL 911.] Goal 2023-06-09 Patient Goal - GET BACK TO NORMAL Goal Provider Goal - Goal Provider Goal - PT STG: PATIENT WILL DEMONSTRATE IMPROVED TRANSFERS FROM SBA TO INDEPENDENT WITH UE ASSIST WITHIN 3 WEEKS Goal Provider Goal - PT LTG: PATIENT WILL DEMONSTRATE IMPROVED AMBULATION FROM SBA TO INDEPENDENT WITHOUT AD WITHIN 9 WEEKS Goal Provider Goal - PT LTG: PATIENT WILL DEMONSTRATE IMPROVED ABILITY TO SAFELY NEGOTIATE STAIRS FROM CGA TO INDEPENDENT WITH RAIL WITHIN 9 WEEKS Goal Provider Goal - PT LTG: PATIENT WILL DEMONSTRATE REDUCED FALL RISK EVIDENCED BY TUG TEST (CUT SCORE >11 SECONDS INDICATES INCREASED FALL RISK) IMPROVING FROM 16 SECONDS TO 11 SECONDS WITHIN 9 WEEKS. Goal Provider Goal - PT STG: PATIENT WILL DEMONSTRATE INDEPENDENCE WITH LOWER EXTREMITY HOME EXERCISE PROGRAM WITHIN 4 WEEKS PT LTG: PATIENT WILL DEMONSTRATE IMPROVED FUNCTIONAL STRENGTH EVIDENCED BY FIVE TIMES SIT TO STAND TEST (CUT SCORE >12 SECONDS INDICATES AN INCREASED FALL RISK) IMPROVING FROM 17 SECONDS TO 12 SECONDS WITHIN 9 WEEKS PT LTG: PATIENT WILL DEMONSTRATE INCREASED STRENGTH OF BILATERAL LES FROM 3+/5 TO 4+/5 WITHIN 9 WEEKS IN ORDER TO IMPROVE SAFETY AND STABILITY WITH GAIT AND STAIRS Goal Provider Goal - PATIENT/CAREGIVER WILL DEMONSTRATE ADHERENCE TO FALL REDUCTION SELF MANAGEMENT TO MINIMIZE FALL BY END OF EPISODE. Goal Provider Goal - PATIENT WILL MAINTAIN OXYGEN SATURATION WITHIN PHYSICIAN ORDERED PARAMETERS THROUGHOUT EPISODE OF CARE Goal Provider Goal - PT GOAL: PATIENT/CAREGIVER WILL VERBALIZE UNDERSTANDING OF PAIN MANAGEMENT BY END OF EPISODE. Goal Provider Goal - PATIENT/CAREGIVER WILL VERBALIZE UNDERSTANDING OF SIGNS AND SYMPTOMS THAT PUT THE PATIENT AT RISK FOR HOSPITALIZATION /EMERGENCY ROOM VISITS, WHEN TO NOTIFY NURSE/PHYSICIAN OF COMPLICATIONS/DECLINE AND WHEN TO CALL 911. Reason for Visit INDEPENDENT IN THE COMMUNITY Encounters Start Date/Time End Date/Time Encounter Type Admission Type Attending Clinicians Care Facility Care Department Encounter ID Discharge Date Discharge Status Discharge Condition Discharge Reason Percent Goals Met 2023-05-19 00:00:00 2023-06-09 00:00:00 Outpatient NEW ADMISSION [facility] [id number] 2023-06-09 00:00:00 DISCHARGE TO HOME OR SELF CARE [facility]DEPENDEN T IN THE COMMUNITY HH OR [facility]- GOALS MET 100.00
== END 2024-04-14 16:59 | disposition home or self-care (01) ==
LOC: HO.LAB 16:58
PROVIDERS: PCP Internal Medicine; Visit Provider Psychiatry & Neurology Neurology
DX: G40.909 Epilepsy, unspecified, not intractable, without status epilepticus (principal)
CPT/HCPCS: 36415; 80048; 80076; 80164; 82140

== ENCOUNTER 2024-05-13 12:44 | Outpatient (AMB) | payer MEDICARE, MEDICAID, SELFPAY ==
[2024-05-13 12:47] VITALS: BP 140/70; PULSE 84; BMI 34.4
--- NOTE | 2024-05-13 12:47 | MHC.OFFVIS ---
Vital Signs 05/13/24 12:47 Height 5 ft 4 in Weight 200 lb 9.93 oz BMI 34.4 BP 140/70 H Blood Pressure Location Rt brachial Position Sitting Pulse 84 Pulse Source Pulse Oximeter Intake Visit Reasons: Joint pain Intake Note: New patient externally referred by PCP, [facility]. Patient presents today for joint pain. Location? Patient c/o pain in all her joints. Knees and hands are worse. How long? She's had the pain over the years but it seems to be progressing. Rx used? Diclofenac gel for pain on knees. Glaucoma Specialist Required: No Accompanied by: Self / Same As Patient Allergies oxcarbazepine [From TRILEPTAL] Allergy (Intermediate, Verified 05/13/24 12:55) HIVES/HALLUCINATIONS codeine [Codeine] Allergy (Mild, Verified 05/13/24 12:55) RASH hydromorphone [From Dilaudid] Allergy (Mild, Verified 05/13/24 12:55) unknown trazodone [TRAZODONE] Allergy (Unknown, Verified 05/13/24 12:55) UNKNOWN HPI Comments Details: Patient is a 69-year-old female with hypertension, hyperlipidemia, depression, GERD and history of degenerative joint disease in the spine s/p surgical intervention who presents for evaluation of polyarthralgias. Noticed polyarticular joint pain for the past 2 years. Sometimes difficult to get up in the morning. Pain involves all joints and is associated with AM stiffness 30mins. Has noted swelling to hands and wrists. Notes the swelling in the AM. This improves as the day goes on. Denies waking up in the middle of the night due to pins and needles with the hands Worse joints are her knees and her hands. She has to drive 45 mins for her commute to work. When she is driving her fingers lock up and she will have to pry them open. 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 Was considering surgery but has delayed. Therapies trialled at home: diclofenac gel - helps the joints. 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 She would wake up with bruises and the room is in dissarray Mom was diagnosed with arthritis. Unsure of the type but it sounds like OA [facility] Medical History Elevated cholesterol HTN (hypertension) PTSD (post-traumatic stress disorder) Seizures COPD (chronic obstructive pulmonary disease) Lumbar stenosis Barretts esophagus Asthma Bipolar disorder GERD (gastroesophageal reflux disease) Diverticulitis Surgical History Hx of nasal polypectomy Hx of tubal ligation Hx of spinal surgery History of esophagogastroduodenoscopy (EGD) History of colonoscopy Social History Household Members: None Housing: Apartment Do you presently have visiting nurse or other home services: No Alcohol intake: unknown Patient Tobacco Use Status: Never used Tobacco service: No Review of Systems Const Details: Review of Systems Constitutional: Denies fever, chills, weight loss ENT: Denies vision changes, eye pain or eye redness, dental caries, dry mouth GI: Denies nausea, vomiting, diarrhea, abdominal pain, change in BM Pulm: Denies SOB, COLON, hemoptysis, wheezing Cards: Denies chest pain, palpitations Skin: Denies Raynaud's, rash, nail changes, photosensitivity, BRANCH SERVICE 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 Well appearing and in no apparent painful distress HEENT Conjunctiva and sclera clear. ?Pupils equal round and reactive to light. ?No lymphadenopathy. ? CHEST/RESPIRATORY SYSTEM Normal respiratory effort and able to speak in complete sentences. ?Clear to auscultation bilaterally. ?No crackles, rales, rhonchi, wheezes heard. CARDIAC SYSTEM Regular rate and rhythm. ?S1 and S2 heard no murmurs. 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 No deformities noted. ?No synovitis noted to the MCPs, PIPs or DIPs. ?No tenderness to palpation of these joints. Wrists: ?Full range of motion at the wrists without pain. ?No tenderness to palpation or synovitis noted to the wrists. Elbows: Full range of motion without pain. No tenderness, weakness, swelling, increased warmth or erythema. Shoulders: Full range of motion without pain. No tenderness, weakness, swelling, increased warmth or erythema. Hips: Full range of motion without pain. Hip bursa: No tenderness to palpation Knees: ?Full range of motion. ?No tenderness, swelling, increased warmth or erythema.?No effusion or crepitations Ankles: Full range of motion. ?No tenderness, swelling, increased warmth or erythema.? Feet: ?Negative squeeze test. ?No tenderness to palpation or swelling of the MTPs. Tender points:?No tenderness to palpation of the bilateral trapezius, supraspinatus, greater trochanters, anterior costochondral junctions, bilateral gluteal areas, bilateral suboccipital muscle insertions SKIN Skin intact without rashes. Results Reviewed Results Reviewed: Laboratory Tests 04/14/24 17:15 Sodium 141 Potassium 4.8 Chloride 104 Carbon Dioxide 29 BUN 14 Creatinine 0.76 AST 30 ALT 30 Alkaline Phosphatase 74 Assessment & Plan Assessment & Plan (1) Polyarthralgia: Code(s): M25.50 - Pain in unspecified joint Category: Medical Plan: #Polyarthralgias Patient is a 69-year-old female who is now presenting with complaints of polyarthralgias. Her main complaints are for her hands and for her bilateral knees. She does have a history of spinal degenerative disease status post surgical intervention. She also currently gets steroid injections in her back 6 months. On examination and history there is no evidence of synovitis or concern for autoimmune or autoinflammatory disease. Her joint pain seems to be consistent with polyarticular osteoarthritis. This is likely primary maybe a little bit secondary to her very active earlier years. 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 For completion I will still check x-rays of her hands and wrists as well as her knees. Also check blood work including RF and CCP to make sure I am not missing a case of rheumatoid arthritis, though my suspicion is low. Plan - CBC, CMP, ESR, CRP, CCP, RF - XR Hands and wrists - XR Knees (2) Osteoarthritis of hands, bilateral: Code(s): M19.041 - Primary osteoarthritis, right hand; M19.042 - Primary osteoarthritis, left hand Category: Medical Qualifiers: Osteoarthritis type: primary Qualified Code(s): M19.041 - Primary osteoarthritis, right hand; M19.042 - Primary osteoarthritis, left hand Plan: #Primary OA to bilateral hands Discuss treatment options for primary OA with patient. These options included topical diclofenac for her to apply up to 4 times a day, cup or gloves for her to wear during the day and during her [address] to and from work and medications. Because of her severe GERD anti-inflammatory such as Motrin and Aleve would not be beneficial and would only cause added GI upset. Plan - Topical diclofenac gel 1% up to 4 times a day - Copper gloves - RTC 3 months (3) Localized osteoarthritis of knees, bilateral: Code(s): M17.0 - Bilateral primary osteoarthritis of knee Category: Medical Plan: #Bilateral primary knee OA Patient with bilateral knee pain likely consistent with primary osteoarthritis of the knees. Discussed treatment options including topical diclofenac, steroid injections, gel injections, replacement. Patient is interested in gel injections. We will get insurance authorization and we will bring her back in 3 months or before if possible. Plan - Topical diclofenac 1% up to 4 times a day - Euflexxa, send for PA Plan I spent 35 minutes reviewing the record and labs, taking a history, examining the patient, discussing the treatment plan and documenting in the medical record Orders: Orders Comprehensive Met. Panel Today M17.0 - Bilateral primary osteoarthritis of knee, M19.041 - Primary osteoarthritis, right hand, M19.042 - Primary osteoarthritis, left hand, M25.50 - Pain in unspecified joint Rheumatoid Factor Today M17.0 - Bilateral primary osteoarthritis of knee, M19.041 - Primary osteoarthritis, right hand, M19.042 - Primary osteoarthritis, left hand, M25.50 - Pain in unspecified joint XR hand wrist RT Today M17.0 - Bilateral primary osteoarthritis of knee, M19.041 - Primary osteoarthritis, right hand, M19.042 - Primary osteoarthritis, left hand, M25.50 - Pain in unspecified joint XR knee standing BI Today M17.0 - Bilateral primary osteoarthritis of knee, M19.041 - Primary osteoarthritis, right hand, M19.042 - Primary osteoarthritis, left hand, M25.50 - Pain in unspecified joint Complete Blood Count Auto Diff Today M17.0 - Bilateral primary osteoarthritis of knee, M19.041 - Primary osteoarthritis, right hand, M19.042 - Primary osteoarthritis, left hand, M25.50 - Pain in unspecified joint C Reactive Protein Today M17.0 - Bilateral primary osteoarthritis of knee, M19.041 - Primary osteoarthritis, right hand, M19.042 - Primary osteoarthritis, left hand, M25.50 - Pain in unspecified joint Erythrocyte Sedimentation Rate Today M17.0 - Bilateral primary osteoarthritis of knee, M19.041 - Primary osteoarthritis, right hand, M19.042 - Primary osteoarthritis, left hand, M25.50 - Pain in unspecified joint Cyclic Citrullinated Peptide Today M17.0 - Bilateral primary osteoarthritis of knee, M19.041 - Primary osteoarthritis, right hand, M19.042 - Primary osteoarthritis, left hand, M25.50 - Pain in unspecified joint XR hand wrist LT Today M17.0 - Bilateral primary osteoarthritis of knee, M19.041 - Primary osteoarthritis, right hand, M19.042 - Primary osteoarthritis, left hand, M25.50 - Pain in unspecified joint XR knee LT 3V Today M17.0 - Bilateral primary osteoarthritis of knee, M19.041 - Primary osteoarthritis, right hand, M19.042 - Primary osteoarthritis, left hand, M25.50 - Pain in unspecified joint XR knee RT 3V Today M17.0 - Bilateral primary osteoarthritis of knee, M19.041 - Primary osteoarthritis, right hand, M19.042 - Primary osteoarthritis, left hand, M25.50 - Pain in unspecified joint XR DEXA axial skeleton Today M81.0 - Age-related osteoporosis without current pathological fracture Coding Level of Care Code New Pt Level 3 (62535) Diagnoses Polyarthralgia M25.50 Primary osteoarthritis of both hands M19.041; M19.042 Osteoarthritis type: primary Localized osteoarthritis of knees, bilateral M17.0
--- OUTSIDE RECORDS SUMMARY | 2024-05-13 13:58 | XMS_ITS | Clinical Summary ---
Author Organization Unknown Care Team Providers Care Body Corporate Manager Name Role Phone ELISEO CARD, RADHA Unavailable Unavailable SUNI PT, MELODY Unavailable Unavailable JOSE E DIRECTOR OF PLACEMENT, LYN Unavailable Unavailable Payers Payer Name Policy Type Policy Number Effective Date Expira tion Date MEDICARE.NGS.PDGM [id number] Problems Condition Name Condition Details Condition Category [...] OF FALLING Active 05-14 00:00: 00 OTHER MANAGER CARGO (CURRENT) DRUG THERAPY Active 05-16 00:00: 00 [...] tablet,mikaela yed release 05-13 00:00: 00 Yes [id number] SEIZURE DISORDER Per instruc tions TWICE A DAY DIRECTED Per instructio ns TWICE A DAY DIRECTED (route: oral) Med Classific ation: Central Nervous System Agents oxycodone 5 mg tablet 05-12 00:00: 00 Yes [id number] PAIN Per instruc tions EVERY 6 HOURS Per instructio ns EVERY 6 HOURS (route: oral) Med Classific ation: Analgesic , Anti-infl ammatory or Antipyret ic Trelegy Ellipta 100 mcg-62.5 mcg-25 mcg powder for inhalation 05-12 00:00: 00 Yes [id number] COPD Per instruc tions INTO THE LUNGS ONCE A DAY Per instructio ns INTO THE LUNGS ONCE A DAY (route: inhalation ) Med Classific ation: Respirato ry Therapy Agents IBU 600 mg tablet 05-08 00:00: 00 Yes [id number] PAIN Per instruc tions EVERY 8 HOURS NEEDED Per instructio ns EVERY 8 HOURS NEEDED (route: oral) Med Classific ation: Analgesic , Anti-infl ammatory or Antipyret ic divalproex 500 mg tablet,mikaela yed release 2022-05 00:00: 00 05-19 00:00 :00 No [id number] Per instruc tions TWICE A DAY Per instructio ns TWICE A DAY (route: oral) Med Classific ation: Central Nervous System Agents famotidine 40 mg tablet 2022-05 00:00: 00 Yes [id number] GERD Per instruc tions AT BEDTIME Per instructio ns AT BEDTIME (route: oral) Med Classific ation: Gastroint estinal Therapy Agents sucralfate 1 gram tablet 2022-05 00:00: 00 Yes [id number] ANTACID Per instruc tions EVERY DAY Per instructio ns EVERY DAY (route: oral) Med Classific ation: Gastroint estinal Therapy Agents pantoprazol e 40 mg tablet,mikaela yed release 2022-05 00:00: 00 Yes [id number] GERD Per instruc tions TWICE A DAY Per instructio ns TWICE A DAY (route: oral) Med Classific ation: Gastroint estinal Therapy Agents montelukast 10 mg tablet 2022-05 00:00: 00 Yes [id number] ASTHMA Per instruc tions AT BEDTIME Per instructio ns AT BEDTIME (route: oral) Med Classific ation: Respirato ry Therapy Agents albuterol sulfate HFA 90 mcg/actuati on aerosol inhaler 2022-05 00:00: 00 Yes [id number] SOB/WHEEZIN G 2 puff EVERY 6 HOURS 2 puff EVERY 6 HOURS (route: inhalation ) Med Classific ation: Respirato ry Therapy Agents amlodipine 5 mg tablet 2022-05 00:00: 00 Yes [id number] HTN 1 tablet DAILY 1 tablet DAILY (route: oral) Med Classific ation: Cardiovas cular Therapy Agents Breo Ellipta 100 mcg-25 mcg/dose powder for inhalation 2022-05 00:00: 00 Yes [id number] COPD 1 inhalat ion DAILY 1 inhalation DAILY (route: inhalation ) Med Classific ation: Respirato ry Therapy Agents citalopram 20 mg tablet 2022-05 00:00: 00 Yes [id number] DEPRESSION 1 tablet DAILY 1 tablet DAILY (route: oral) Med Classific ation: Central Nervous System Agents IBU 800 mg tablet 05-14 00:00: 00 Yes [id number] PAIN 1 tablet EVERY 6 HOURS 1 tablet EVERY 6 HOURS (route: oral) Med Classific ation: Analgesic , Anti-infl ammatory or Antipyret ic minoxidil 2.5 mg tablet 2022-05 00:00: 00 Yes [id number] HAIR HEALTH 1 tablet DAILY 1 tablet DAILY (route: oral) Med Classific ation: Cardiovas cular Therapy Agents pravastatin 80 mg tablet 2022-05 00:00: 00 Yes [id number] HLD 1 tablet DAILY 1 tablet DAILY (route: oral) Med Classific ation: Cardiovas cular Therapy Agents temazepam 30 mg capsule 2022-05 00:00: 00 Yes [id number] INSOMNIA 1 capsule BEDTIME 1 capsule BEDTIME [...] 2023-06-09 00:00:00 Outpatient NEW ADMISSION MELODY [facility]UL[facility] [id number] 2023-06-09 00:00:00 DISCHARGE TO HOME OR SELF CARE INDEPENDEN T IN THE COMMUNITY HH OR PAL- GOALS MET 100.00
--- OUTSIDE RECORDS SUMMARY | 2024-05-13 13:58 | XMS_ITS | Clinical Summary ---
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 SPECIALIST (CURRENT) DRUG THERAPY Active 05-16 00:00: 00 [...] tablet,mikaela yed release 05-13 00:00: 00 Yes [id number] SEIZURE DISORDER Per instruc tions TWICE A DAY DIRECTED Per instructio ns TWICE A DAY DIRECTED (route: oral) Med Classific ation: Central Nervous System Agents oxycodone 5 mg tablet 05-12 00:00: 00 Yes [id number] PAIN Per instruc tions EVERY 6 HOURS Per instructio ns EVERY 6 HOURS (route: oral) Med Classific ation: Analgesic , Anti-infl ammatory or Antipyret ic Trelegy Ellipta 100 mcg-62.5 mcg-25 mcg powder for inhalation 05-12 00:00: 00 Yes [id number] COPD Per instruc tions INTO THE LUNGS ONCE A DAY Per instructio ns INTO THE LUNGS ONCE A DAY (route: inhalation ) Med Classific ation: Respirato ry Therapy Agents IBU 600 mg tablet 05-08 00:00: 00 Yes [id number] PAIN Per instruc tions EVERY 8 HOURS NEEDED Per instructio ns EVERY 8 HOURS NEEDED (route: oral) Med Classific ation: Analgesic , Anti-infl ammatory or Antipyret ic divalproex 500 mg tablet,mikaela yed release 2022-05 00:00: 00 05-19 00:00 :00 No [id number] Per instruc tions TWICE A DAY Per instructio ns TWICE A DAY (route: oral) Med Classific ation: Central Nervous System Agents famotidine 40 mg tablet 2022-05 00:00: 00 Yes [id number] GERD Per instruc tions AT BEDTIME Per instructio ns AT BEDTIME (route: oral) Med Classific ation: Gastroint estinal Therapy Agents sucralfate 1 gram tablet 2022-05 00:00: 00 Yes [id number] ANTACID Per instruc tions EVERY DAY Per instructio ns EVERY DAY (route: oral) Med Classific ation: Gastroint estinal Therapy Agents pantoprazol e 40 mg tablet,mikaela yed release 2022-05 00:00: 00 Yes [id number] GERD Per instruc tions TWICE A DAY Per instructio ns TWICE A DAY (route: oral) Med Classific ation: Gastroint estinal Therapy Agents montelukast 10 mg tablet 2022-05 00:00: 00 Yes [id number] ASTHMA Per instruc tions AT BEDTIME Per instructio ns AT BEDTIME (route: oral) Med Classific ation: Respirato ry Therapy Agents albuterol sulfate HFA 90 mcg/actuati on aerosol inhaler 2022-05 00:00: 00 Yes [id number] SOB/WHEEZIN G 2 puff EVERY 6 HOURS 2 puff EVERY 6 HOURS (route: inhalation ) Med Classific ation: Respirato ry Therapy Agents amlodipine 5 mg tablet 2022-05 00:00: 00 Yes [id number] HTN 1 tablet DAILY 1 tablet DAILY (route: oral) Med Classific ation: Cardiovas cular Therapy Agents Breo Ellipta 100 mcg-25 mcg/dose powder for inhalation 2022-05 00:00: 00 Yes [id number] COPD 1 inhalat ion DAILY 1 inhalation DAILY (route: inhalation ) Med Classific ation: Respirato ry Therapy Agents citalopram 20 mg tablet 2022-05 00:00: 00 Yes [id number] DEPRESSION 1 tablet DAILY 1 tablet DAILY (route: oral) Med Classific ation: Central Nervous System Agents IBU 800 mg tablet 05-14 00:00: 00 Yes [id number] PAIN 1 tablet EVERY 6 HOURS 1 tablet EVERY 6 HOURS (route: oral) Med Classific ation: Analgesic , Anti-infl ammatory or Antipyret ic minoxidil 2.5 mg tablet 2022-05 00:00: 00 Yes [id number] HAIR HEALTH 1 tablet DAILY 1 tablet DAILY (route: oral) Med Classific ation: Cardiovas cular Therapy Agents pravastatin 80 mg tablet 2022-05 00:00: 00 Yes [id number] HLD 1 tablet DAILY 1 tablet DAILY (route: oral) Med Classific ation: Cardiovas cular Therapy Agents temazepam 30 mg capsule 2022-05 00:00: 00 Yes [id number] INSOMNIA 1 capsule BEDTIME 1 capsule BEDTIME [...] 2023-06-09 00:00:00 Outpatient NEW ADMISSION MELODY [facility] [id number] 2023-06-09 00:00:00 DISCHARGE TO HOME OR SELF CARE INDEPENDEN T IN THE COMM[facility] HH OR PAL- GOALS MET 100.00
== END 2024-05-13 13:37 | disposition home or self-care (01) ==
PROVIDERS: PCP Internal Medicine; Visit Provider Student in an Organized Health Care Education/Training Program
DX: M25.50 Pain in unspecified joint (principal); M19.041 Primary osteoarthritis, right hand; M19.042 Primary osteoarthritis, left hand; M17.0 Bilateral primary osteoarthritis of knee
CPT/HCPCS: 99203

== ENCOUNTER → 2024-05-13 12:44 | Outpatient (BNVA) | payer MEDICARE, MEDICAID, SELFPAY | PROVIDERS: PCP Internal Medicine; Visit Provider Student in an Organized Health Care Education/Training Program | DX: M25.50 Pain in unspecified joint (principal); M19.041 Primary osteoarthritis, right hand; M19.042 Primary osteoarthritis, left hand; M17.0 Bilateral primary osteoarthritis of knee | CPT/HCPCS: 99202 ==

== ENCOUNTER 2024-05-27 16:13 | Outpatient (REF) | payer MEDICARE, MEDICAID, SELFPAY ==
--- NOTE | ~2024-05-27 | XR_ITS ---
CLINICAL HISTORY: M25.50 - Pain in unspecified joint 3 view right hand Comparison: None Findings: No fractures or dislocations. No significant loss of joint space or osteophytes. No erosions. No radiopaque foreign body. IMPRESSION: 1. No acute findings This document has been electronically signed by: Poli Garcia MD on 05/29/2024 07:43:05
--- NOTE | ~2024-05-27 | XR_ITS ---
CLINICAL HISTORY: M25.50 - Pain in unspecified joint 3 view left knee Comparison: None Findings: No fractures or dislocations. No significant loss of joint space, osteophytes, or erosions. No joint effusion. No radiopaque foreign body. IMPRESSION: 1. No acute findings. This document has been electronically signed by: Poli Garcia MD on 05/29/2024 07:43:32
--- NOTE | ~2024-05-27 | CT_ITS ---
CLINICAL HISTORY: SEIZURE DISORDER CT head without contrast Comparison: 09/30/2021 12:26 PM EDT: CTSR: CT HEAD/BRAIN WO CON Findings: No intra-axial mass, midline shift, hydrocephalus, or acute hemorrhage. Moderate diffuse atrophy and white matter changes likely related to chronic microvascular ischemia. The visualized paranasal sinuses and mastoid air cells are normal. The orbits are unremarkable. There is no acute fracture. IMPRESSION: 1. No acute intracranial findings. This document has been electronically signed by: Poli Garcia MD on 05/29/2024 07:26:17
--- NOTE | ~2024-05-27 | XR_ITS ---
CLINICAL HISTORY: M25.50 - Pain in unspecified joint 3 view left hand Comparison: None Findings: Bones intact. No dislocations. No significant arthritic change. No erosions. No radiopaque foreign body. IMPRESSION: 1. No acute findings This document has been electronically signed by: Poli Garcia MD on 05/29/2024 07:42:54
--- NOTE | ~2024-05-27 | XR_ITS ---
CLINICAL HISTORY: M25.50 - Pain in unspecified joint 5 view right knee Comparison: None Findings: Bones intact. No dislocations. There are moderate degenerative changes with loss of height of the medial compartment. No joint effusion. No radiopaque foreign body. IMPRESSION: 1. No acute findings. This document has been electronically signed by: Poli Garcia MD on 05/29/2024 07:44:05
== END 2024-05-27 16:14 | disposition home or self-care (01) ==
LOC: HO.CT 16:13
PROVIDERS: PCP Internal Medicine; Visit Provider Psychiatry & Neurology Neurology
DX: M19.041 Primary osteoarthritis, right hand (principal); M19.042 Primary osteoarthritis, left hand; M17.0 Bilateral primary osteoarthritis of knee; G40.909 Epilepsy, unspecified, not intractable, without status epilepticus
CPT/HCPCS: 70450; 73110; 73130; 73564

== ENCOUNTER → 2024-05-27 16:15 | Outpatient (BNV) | payer MEDICARE, MEDICAID, SELFPAY | PROVIDERS: PCP Internal Medicine; Visit Provider Specialist | DX: M17.0 Bilateral primary osteoarthritis of knee (principal); M19.041 Primary osteoarthritis, right hand; G40.909 Epilepsy, unspecified, not intractable, without status epilepticus; M19.042 Primary osteoarthritis, left hand | CPT/HCPCS: 70450; 73130; 73564 ==

== ENCOUNTER 2024-06-04 16:36 | Outpatient (REF) | payer MEDICARE, MEDICAID, SELFPAY ==
--- OUTSIDE RECORDS SUMMARY | 2024-06-04 16:39 | XMS_ITS | Clinical Summary ---
Author Organization [address] Address [address] [place] [id number] Phone Care Team Providers Care Land Development Manager Name Role Phone MorrisTeena Primary Care Provider [phone] Allergies Active Allergy Reactions Criticality Noted Date Comments Codeine 11/08/2018 Tramadol 11/08/2018 Oxcarbazepine 11/08/2018 Medications omeprazole (PRILOSEC) 20 MG capsule Take 20 mg by mouth daily Active sucralfate (CARAFATE) 1 gram tablet Take 1 g by mouth 4 (four) times daily Active citalopram (CELEXA) 10 MG tablet Take 10 mg by mouth daily Active albuterol (PROVENTIL, VENTOLIN) 2.5 mg /3 mL (0.083 %) nebulizer solution Take 1 ampule by nebulization every 6 (six) hours as needed for Wheezing Active lithium 300 mg tablet Take 300 mg by mouth 3 (three) times daily Active ibuprofen (ADVIL,MOTRIN) 800 MG tablet Take 1 tablet (800 mg total) by mouth every 6 (six) hours as needed 15 tablet 9 Active Active Problems No known active problems Social History Tobacco Use Types Packs/Day Years Used Date Smoking Tobacco: Never Smokeless Tobacco: Never Alcohol Use Standard Drinks/Week Comments Yes 0 (1 standard drink = 0.6 oz pur e alcohol) occasionally Comments No Sex and Gender Information Value Date Recorded Sex Assigned at Not on file Legal Sex Female 11:48 PM EDT Gender Identity Not on file Sexual Orientation Not on file Last Filed Vital Signs Vital Sign Reading Time Taken Comments Blood Pressure 143/73 11/08/2018 3:16 AM EDT Pulse 102 11/08/2018 3:16 AM EDT Temperature 36.6 ??C (97.8 ??F) 11/08/2018 3:16 AM ED T Respiratory Rate 16 11/08/2018 3:16 AM EDT Oxygen Saturation 94% 11/08/2018 3:16 AM EDT Inhaled Oxygen Concentration - - Weight 81.6 kg (180 lb) 11/08/2018 12:17 AM EDT Height 165.1 cm (5' 5 ) 11/08/2018 12:17 AM EDT Body Mass Index 29.95 11/08/2018 12:17 AM EDT Plan of Treatment Health Maintenance Due Date Last Done Comments HIV screening 1966 Hepatitis C screening 1971 Tetanus adult (Td q 10,TDAP once) 1973 Breast cancer screening 1993 Lipid disorder screening 1993 Colon cancer screening, Colonoscopy 1998 Diabetes screening 1998 Shingles vaccine (Shingrix) (1 of 2 - Shingrix (RZV) 2 Dose Standard Series) 2003 Osteoporosis screening (bone density) 2018 Pneumo Vaccine 65+ (1 of 1 - PCV) 2018 Influenza vaccine 12/04/2023 Covid-19 vaccine series ( - 2023- season) 2024 RSV Discussion (1 - 1-dose 7 5+ series) 2028 Cervical cancer screening Discontinued Meningococcal Vaccine Aged Out No sylvie ran eligible based on patient's age to complete this topic Insurance [id number] MEDICAID MEDICARE [id number] MEDICAID MEDICARE [id number] MEDICAID MEDICARE MOTOR VEHICLE GENERIC MEDICARE [id number] MEDICAID MOTOR VEHICLE GENERIC MEDICARE [id number] MEDICAID Care Teams Land Development Manager Relationship Specialty Start Date End Date Teena Morris [address] [place] [address] PCP - General 11/08/18
--- OUTSIDE RECORDS SUMMARY | 2024-06-04 16:39 | XMS_ITS | Clinical Summary ---
Author Organization [facility] Address [address] [place], [place] [id number] Care Team Providers Care Public Safety Teacher Name Role Phone Teena Araujo MD Primary Care Provider Allergies Active Allergy Reactions Criticality Noted Date Comments Codeine Rash Low 02/11/2018 Hydromorphone Other (See Comments) 02/12/2021 confusion Trazodone Other (See Comments) 02/11/2018 hallucinations Oxcarbazepine Other (See Comments) 02/11/2018 hallucinations Medications Medication Sig Dispensed Refills Start Date End Date Status citalopram (CeleXA) 20 MG tablet 0 02/07/2018 Active cloNIDine (CATAPRES) 0.2 MG tablet 0 02/09/2018 Active BREO ELLIPTA 100-25 MCG/INH inhaler INHALE 1 PUFF ONCE DAILY DIRECTED 3 12/12/2017 Active lithium carbonate 300 MG capsule 0 02/09/2018 Active montelukast (SINGULAIR) 10 MG tablet 0 01/06/2018 Active omeprazole (PriLOSEC) 20 MG capsule 0 01/16/2018 Active pravastatin (PRAVACHOL) tablet 80 mg 0 01/07/2018 Active albuterol 108 (90 Base) MCG/ACT inhaler Inhale 2 puffs into the lungs every 6 (six) hours as needed for wheezing. 0 Active sucralfate (CARAFATE) 1 g tablet Take 1 g by mouth 4 (four) times a day. 0 Active amLODIPine (NORVASC) tablet 2.5 mg Take 2.5 mg by mouth daily. 0 Active minoxidil (LONITEN) 10 MG tablet Take 10 mg by mouth daily. 0 Active Active Problems Problem Noted Date Diagnosed Date Arthritis of knee, left 10/30/2018 Postop check 07/31/2018 Primary osteoarthritis of right knee 07/07/2018 Chronic pain of right knee 07/07/2018 Acute medial meniscus tear of right knee 018 Family History Medical History Relation Name Comments Cancer Mother Relation Name Status Comments Mother Social History Tobacco Use Types Packs/Day Years Used Date Smoking Tobacco: Passive Smo ke Exposure - Never Smoker Smokeless Tobacco: Never Alcohol Use Standard Drinks/Week Comments Yes 1 (1 standard drink = 0.6 oz pur e alcohol) wine with dinner at night Sex and Gender Information Value Date Recorded Sex Assigned at Not on file Gender Identity Not on file Sexual Orientation Not on file Job Start Date Occupation Industry Not on file Not on file Not on file Last Filed Vital Signs Vital Sign Reading Time Taken Comments Blood Pressure 120/70 08/09/2021 2:05 PM EDT Pulse 95 08/09/2021 2:05 PM EDT Temperature 36.4 ??C (97.5 ??F) 08/09/2021 2:05 PM ED T Respiratory Rate - - Oxygen Saturation 96% 08/09/2021 2:05 PM EDT Inhaled Oxygen Concentration - - Weight 83.9 kg (185 lb) 03/22/2021 2:51 PM EST Height 165.1 cm (5' 5 ) 03/22/2021 2:51 PM EST Body Mass Index 30.79 03/22/2021 2:51 PM EST Plan of Treatment Health Maintenance Due Date Last Done Comments Hepatitis C Screening 1955 COVID-19 Vaccine (#1) 1953 Depression Screening 1965 BMI Counseling 1971 Preventative Health Evaluation 1971 Tobacco Cessation Counseling 1971 DTap / Tdap / Td (1 - Tdap) 1972 Colon Cancer Screening (Colonoscopy) 1998 Breast Cancer Screening (Mammogram) 2003 Shingrix-Zoster Vaccine (1 of 2) 2003 Fall Risk Assessment 2018 Osteoporosis Screening (DEXA Scan) 2018 Pneumococcal Vaccine (1 of 1 - PCV) 2018 Influenza Vaccine (#1) 2024 RSV Adult > 60+ Yrs or Pregn ant (1 - 1-dose 75+ series) 2028 Hepatitis B Vaccines Aged Out No long er eligible based on patient's age to complete this topic RSV Ped < 20 months Aged Out No longe r eligible based on patient's age to complete this topic Care Teams Public Safety Teacher Relationship Specialty Start Date End Date Teena Araujo MD PCP - General Internal Medicine 01/27/18
[2024-06-04 16:53] LABS: MANUAL DIFF FLAG NO
[2024-06-04 17:10] LABS: Basophils Absolute Auto 0.1 X10*3/uL (0.0-0.2); Basophils Percent Auto 0.6 % (0-2); Eosinophils Absolute Auto 0.4 X10*3/uL (0.0-0.4); Eosinophils Percent Auto 4.6 % (0-4); Hemoglobin 14.8 g/dl (12.0-16.0); Imm Gran Abs Auto 0.07 X10*3/uL (0.00-0.03); Imm Gran Pct Auto 0.8 % (0.0-0.4); Lymphocytes Absolute Auto 2.5 X10*3/uL (1.2-4.9); Lymphocytes Percent Auto 29.1 % (20-40); Mean Corpuscular HGB Conc 34.4 g/dl (31.0-35.0); Mean Corpuscular Hemoglobin 33.6 pg (27.0-33.0); Mean Corpuscular Volume 97.7 fL (80.0-98.0); Mean Platelet Volume 8.9 fL (9.4-12.3); Monocytes Absolute Auto 0.8 X10*3/uL (0.1-1.2); Monocytes Percent Auto 9.5 % (2-11); Neutrophils Absolute Auto 4.7 x10*3/uL (2.0-8.3); Neutrophils Percent Auto 55.4 % (45-73); Platelet Count 291 X10*3/uL (160-400); Red Cell Distribution Width 12.5 % (11.0-16.0); White Blood Count 8.5 X10*3/uL (4.8-10.8)
[2024-06-04 17:32] LABS: Rheumatoid Factor < 13.0 IU/mL (<15.0)
[2024-06-04 17:55] LABS: Erythrocyte Sedimentation Rate 2 MM/HR (0-20)
[2024-06-04 18:02] LABS: Alanine Aminotransferase 26 U/L (0-31); Albumin Level 4.5 g/dL (3.5-5.0); Anion Gap 14 (12-20); Aspartate Amino Transferase 30 U/L (5-31); Bilirubin Total 0.6 mg/dL (0.0-1.0); Blood Urea Nitrogen 16 mg/dL (9-16); C Reactive Protein 0.16 mg/dL (< or = 0.50); Calcium 9.9 mg/dL (8.4-10.2); Carbon Dioxide 27 mmol/L (22-29); Chloride 105 mmol/L (96-108); Estimated Glomerular Filt Rate > 60; Glucose Random 76 mg/dL (60-115); Sodium 142 mmol/L (135-145); Total Protein 7.5 g/dL (6.5-8.0)
[2024-06-04 18:09] LABS: Alkaline Phosphatase 83 U/L (39-117)
[2024-06-07 22:08] LABS: Cyclic Citrullinated Peptide <16 UNITS
== END 2024-06-04 16:37 | disposition home or self-care (01) ==
LOC: HO.LAB 16:36
PROVIDERS: PCP Internal Medicine; Visit Provider Student in an Organized Health Care Education/Training Program
DX: M25.50 Pain in unspecified joint (principal); M19.041 Primary osteoarthritis, right hand; M19.042 Primary osteoarthritis, left hand; M17.0 Bilateral primary osteoarthritis of knee
CPT/HCPCS: 36415; 80053; 85025; 85652; 86140; 86200; 86431

== ENCOUNTER → 2024-06-24 11:00 | Outpatient (BNV) | payer MEDICARE, MEDICAID, SELFPAY | PROVIDERS: PCP Internal Medicine; Visit Provider Radiology Diagnostic Radiology | DX: E28.39 Other primary ovarian failure (principal) | CPT/HCPCS: 77080 ==

== ENCOUNTER 2024-06-24 11:10 | Outpatient (REF) | payer MEDICARE, MEDICAID, SELFPAY ==
--- OUTSIDE RECORDS SUMMARY | 2024-06-24 12:32 | XMS_ITS | Clinical Summary ---
Author Organization [facility] [address] [place] [address] [place] [phone] Phone Care Team Providers Care Skin Washer Name Role Phone Guille Allison MD Primary Care Provider Allergies Active Allergy Reactions Criticality Noted Date Comments Codeine Rash Low 10/18/2009 Hydromorphone Other 01/24/2021 ? Oversedation from dialudid confusion Oxcarbazepine Hives,Other 07/12/2010 hallucinations Oxycodone Hcl Hives 02/18/2022 Trazodone Other,Rash Medium 05/20/2017 hallucinations Medications furosemide (LASIX) 20 mg tablet Take 1 tablet (20 mg total) by mouth 1 (one) time each day. 4 Active montelukast (SINGULAIR) 10 mg tablet Take 1 tablet (10 mg total) by mouth. 8 Active albuterol HFA (PROAIR HFA ; PROVENTIL HFA ; VENTOLIN HFA) 90 mcg/actuation inhaler Inhale 2 puffs by mouth. 2 Active pantoprazole (PROTONIX) 40 mg EC tablet Take 1 tablet (40 mg total) by mouth 2 (two) times a day. 4 Active amLODIPine (NORVASC) 5 mg tablet Take 1 tablet (5 mg total) by mouth 1 (one) time each day. 4 Active cyclobenzaprine (FLEXERIL) 5 mg tablet Take 1 tablet (5 mg total) by mouth. 4 Active acetaminophen (TYLENOL 8 HOUR) 650 mg 8 hr tablet Take 1 tablet (650 mg total) by mouth 3 (three) times a day if needed. 4 Active albuterol HFA (PROAIR HFA ; PROVENTIL HFA ; VENTOLIN HFA) 90 mcg/actuation inhaler Inhale 2 puffs by mouth every 6 hours as needed. Active divalproex (DEPAKOTE) [address] tablet Take 1 tablet (500 mg total) by mouth 2 (two) times a day. 2 Active fluticasone propionate (FLONASE) 50 mcg/actuation nasal spray 2 sprays in each nostril daily 2 Active citalopram (CeleXA) 20 mg tablet 1 tablet (20 mg total). 8 Active sucralfate (CARAFATE) 1 gram tablet Take 1 tablet (1 g total) by mouth. Active doxepin (Zonalon) 5 % cream Apply 1 Squirt topically. 8 Active rosuvastatin (CRESTOR) 10 mg tablet Take 1 tablet (10 mg total) by mouth 1 (one) time each day. Active diclofenac (VOLTAREN) 1 % topical gel Apply topically 2 (two) times a day. Active senna-docusate (Senexon-S) 8.6-50 mg per tablet TAKE ONE TABLET BY MOUTH TWICE A DAY 60 tablet 4 Active Trelegy Ellipta 100-62.5-25 mcg inhaler Inhale 1 puff (100 mcg total) by mouth 1 (one) time each day. 1 each 5 5 12/05/19 25 Active Trelegy Ellipta 100-62.5-25 mcg inhaler INHALE ONE PUFF BY MOUTH EVERY DAY 60 each 4 4 06/07/19 25 Discontinu ed(Reorder ) Active Problems Problem Noted Date Diagnosed Date Ataxia 09/24/2023 Nasal polyp 04/21/2023 Lumbar disc disease with radiculopathy 2 Chronic obstructive pulmonary disease 04/25/2022 Laceration of scalp 04/08/2022 Overview (02/09/2024): Last Assessment & Plan: Patient was seen in the office on , 04/04/2022, by Dr. Lux for her second postop visit s/p C7 foraminotomy for right cervical radiculopathy. She states while she was here she meant to asked Dr. Lux to remove sutures on her left scalp, she had had a laceration after a seizure, was in the hospital a few days. She states in the ED at [facility], they put 1 staple and sutured her laceration on 03/17/2021. She has not had any bleeding or drainage from the area since last week, denies fever, sweats chills. She states originally the laceration was bleeding a lot. She tried to make an appointment with her PCP to get the sutures removed, they could not see her for 2 weeks, she tried making an appointment with urgent care but there was long waits. She asked if she could come in and have the sutures removed, which I agreed to. I asked patient to still follow-up with her PCP, call if there is any drainage or signs of infection. She is going to be careful not to brush over the area of laceration. All questions answered. Diverticulitis of large inte katy without perforation or abscess without bleeding 12/20/2021 Urinary incontinence 03/14/2021 Cognitive decline 11/23/2020 Lumbar stenosis with neurogenic claudication Overview (02/09/2024): Follows with [facility] neurology decompression surgery pending Primary hypertension 01/06/2019 C. difficile colitis 05/06/2018 Overview (02/09/2024): Follows with gastroenterology Seizure disorder 12/30/2017 Overview (02/09/2024): Follows with neurology Bipolar 1 disorder 12/30/2017 Mixed hypercholesterolemia and hypertriglyceride adilene 09/05/2017 Gastroesophageal reflux disease without esophagi tis 09/05/2017 Overview (02/09/2024): S/p EGD 09/2018 chronic inflammation no dysplasia seen Pruritic dermatitis 07/09/2017 Overview (02/09/2024): Follows with dermatology CTS (carpal tunnel syndrome) 06/19/2017 Overview (02/09/2024): Right; S/p release 2010. Repeat nerve conduction studies 06/2017 with mild median neuropathy. 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 No stenosis Last Assessment & Plan: Patient is 2 weeks s/p right C6-7 hemilaminectomy and C7 foraminotomy. (She is also s/p C5-6, C6-7 fusion 09/07/2021) she has residual pain in her right arm, rates her current arm pain 7-8/10, preop her pain was 8-9/10. She feels limited in her activities, lives alone, was trying to get some home health care services. She states the right arm pain prevents her from sleeping at night, she has been getting some temporal headaches, the last 2 days some symptoms into the right axilla. She denies any fevers, sweats chills, body aches, wound drainage, redness/swelling in the right arm. Ms. Chambers has a follow-up appointment with Dr. Lux in 4 to 6 weeks, hopefully with time she will note improvement in her right arm pain as the nerve root heals. Dr. Lux did see patient today as well. I asked her to call if she has any questions or concerns, worsening symptoms. All questions answered on today's visit. Anoxic brain injury 02/15/2010 Overview (02/09/2024): CT scan of brain negative 01/15/10, referred neurology Diverticulosis, sigmoid 12/01/2009 Overview (02/09/2024): Incidental finding on colonoscopy 11/2009 Anxiety and depression 10/19/2009 Overview (02/09/2024): Admitted [facility] 01/15/10 following suicide attempt with quart of vodka and sleeping pills, transferred to psych 01/16/10 Moderate persistent asthma 10/19/2009 Overview (02/09/2024): Follows with pulmonary on ICS/LABA, singulair and albuterol PRN Encounters Date Type Department Care Team Description 04/22/2024 Telephone Adult Medicine [address] [phone] Guille Allison MD Provider Call Back from Last 3 Months Immunizations Name Administration Dates Next Due Influenza Quadravalent, 0.5m l (Fluzone High-dose) 65yo and older 01/20/2023 Influenza Quadravalent, MDCK , 0.5ml, preservative free (Flucelvax) 6mo and older 03/16/2019,02/11/2018 Influenza trivalent, 0.5mL ( Fluzone High-dose) 65yo and older 02/18/2022,02/16/2020 Influenza trivalent, with pr eservative (Fluzone; Afluria) 6mo and older 01/23/2017,03/15/2016,03/23/2015,02/07,02/23/2013,01/14/2012,01/16/2011 ,02/05/2010 Influenza, Unspecified 02/11/2018,01/03/2014 [facility] SARS-CoV-2 COVID -19, vector-nr, rS-Ad26, preservative free 03/09/2021 Pneumococcal conjugate 13 va lent (Prevnar 13, PCV13) 2mo and older 02/16/2020 Pneumococcal polysaccharide 23 valent (Pneumovax 23) 2yo and older 02/18/2022,02/16/2020,11/24/2009 Td Tetanus diptheria (Tdvax) 7yo and older 05/05/2007 Zoster Live 05/24/2013 Surgical History Surgery Date Site/Laterality Comments TONSILLECTOMY PROCEDURE: HISTORICAL TONSILLECTOMY TUBAL LIGATION PROCEDURE: HISTORICAL TUBAL LIGATION CARPAL TUNNEL RELEASE -2010 PROCEDURE: HISTORICAL CARPAL TUNNEL REL; COMMENT: right COLONOSCOPY 11/30/09 PROCEDURE: HISTORICAL COLONOSCOPY; COMMENT: Up to cecum, good preparation, small polyp removed:TA, sigmoid diverticulosis COLONOSCOPY W/ BIOPSIES 02/16/15 PROCEDURE: CA COLONOSCOPY STOMA W/BIOPSY SINGLE/MULTIPLE; COMMENT: adenoma and tics; repeat in 5 yrs Medical History Medical History Date Comments Sacroiliac joint somatic dysfunction 04/04/2017 DX:Sacroiliac joint somatic dysfunction; COMMENT: Follows with chiropractor and physiatry Pruritic dermatitis 07/09/2017 DX:Pruritic dermatitis; COMMENT: Follows with dermatology Moderate persistent asthma 10/19/2009 DX:Mo derate persistent asthma; COMMENT: Follows with pulmonary on ICS/LABA, singulair and albuterol PRN Anoxic brain injury (CMS/HCC) 02/15/2010 DX :Anoxic brain injury ([facility]); COMMENT: CT scan of brain negative 01/15/10, referred neurology Depression 10/19/2009 DX:Depression; C OMMENT: Admitted [facility] 01/15/10 following suicide attempt with quart of vodka and sleeping pills, transferred to psych 01/16/10 Diverticulosis, sigmoid 12/01/2009 DX:Diver ticulosis, sigmoid; COMMENT: Incidental finding on colonoscopy 11/2009 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 No stenosis CTS (carpal tunnel syndrome) 06/19/2017 DX: CTS (carpal tunnel syndrome); COMMENT: Right; S/p release 2010. Repeat nerve conduction studies 06/2017 with mild median neuropathy. MRI cervical spine negative for stenosis 06/2017 Mixed hypercholesterolemia a nd hypertriglyceridemia 09/05/2017 DX:Mixed hypercholesterolemi a and hypertriglyceridemia Obesity (BMI 30-39.9) 09/05/2017 DX:Obesity (BMI 30-39.9) Seizure disorder ([facility]) 12/30/2017 DX:Se izure disorder ([facility]); COMMENT: Follows with neurology Bipolar 1 disorder ([facility]/HCC) 12/30/2017 DX: Bipolar 1 disorder ([facility]) Atypical chest pain 01/09/2018 DX:Atypical chest pain; COMMENT: Normal nuclear stress 01/09/2018 C. difficile colitis 05/06/2018 DX:C. diffi cile colitis; COMMENT: Follows with gastroenterology Gastroesophageal reflux dise ase without esophagitis 09/05/2017 DX:Gastroesophageal reflux d isease without esophagitis; COMMENT: S/p EGD 09/2018 chronic inflammation no dysplasia seen Family History Medical History Relation Name Comments Prostate cancer Brother Breast cancer Mother DX'D 53 age 53 Leukemia Paternal Grandfather Other cancer Sister metastatic in o mentum, unknown primary Relation Name Status Comments Brother Alive Father (Age 87) Maternal Grandfather Maternal Grandmother Mother DX'D 53 Paternal Grandfather Paternal Grandmother Sister Social History Tobacco Use Types Packs/Day Years Used Date Smoking Tobacco: Never Smokeless Tobacco: Never Tobacco Cessation:Counseling Given: Not Answered Alcohol Use Standard Drinks/Week Comments Yes 0 (1 standard drink = 0.6 oz pur e alcohol) Comments No Sex and Gender Information Value Date Recorded Sex Assigned at Not on file Legal Sex Female 6:37 PM EST Gender Identity Not on file Sexual Orientation Not on file Obstetrics History Last Filed Vital Signs Vital Sign Reading Time Taken Comments Blood Pressure 126/88 03/08/2024 2:21 PM EST Pulse 66 03/08/2024 2:21 PM EST Temperature 36.8 ??C (98.2 ??F) 03/08/2024 2:21 PM ES T Respiratory Rate 14 03/08/2024 2:21 PM EST Oxygen Saturation - - Inhaled Oxygen Concentration - - Weight 88.5 kg (195 lb) 03/08/2024 2:21 PM EST Height 160 cm (5' 3 ) 03/08/2024 2:21 PM EST Body Mass Index 34.54 03/08/2024 2:21 PM EST Plan of Treatment Upcoming Encounters Date Type Department Care Team (Late st Contact Info) Description 08/16/2024 4:20 PM EDT Appointment Radiology Department - [address] [phone] 10/04/2024 10:45 AM EDT Office Visit Pulmonolgy - [place] [facility] [address] [place] [phone] Lynda Spicer MD [address] [address] Health Maintenance Due Date Last Done Comments DTaP,Tdap,and Td Vaccines (2 - Td or Tdap) 05/05/2017 05/05/2007 Depression Screening 04/12/2022 Medicare Annual Wellness Visit 04/12/2022 Social Influencers of Health Screening 04/12/2022 Cervical Cancer Screening: HPV 07/07/2023 07/06/2018 Hypertension/CHF/CAD Annual BMP Blood Test 11/19/2024 11/20/2023, 11/20/2023 Colorectal Cancer Screening: Colonoscopy 11/22/2024 11/23/2019, 11/23/2019 Falls Risk Assessment 02/04/2025 02/05/2024 Breast Cancer Screening 08/03/2025 08/04/19 24, 03/12/2022, 03/08/2021, Additional history exists Cholesterol Screening (Lipid Panel) 08/27/2028 08/28/2023 Osteoporosis Screening (Bone Density Screening) 03/12/2032 03/12/2022, 09/08/2018 Hepatitis C Screening Completed 09/07/2013 Pneumococcal Vaccine: 50+ Years Completed 02/18/2022, 02/16/2020, 02/16/2020, Additional history exists Zoster Vaccines Completed 04/11/2022, 0712/2021, 05/24/2013 RSV Immunization Patients 60+ Years Old Completed 01/20/2023 COVID-19 Vaccine Completed 01/20/2024, , 06/26/2022, Additional history exists Influenza Vaccine Completed 01/20/2024, , 02/18/2022, Additional history exists HIB Vaccines Aged Out No longer eligi ble based on patient's age to complete this topic HPV Vaccines Aged Out No longer eligi ble based on patient's age to complete this topic Hepatitis A Vaccines Aged Out No long er eligible based on patient's age to complete this topic Hepatitis B Vaccines Aged Out No long er eligible based on patient's age to complete this topic IPV Vaccines Aged Out No longer eligi ble based on patient's age to complete this topic MMR Vaccines Aged Out No longer eligi ble based on patient's age to complete this topic Meningococcal ACWY Vaccine Aged Out N o longer eligible based on patient's age to complete this topic Meningococcal B Vacine Aged Out No lo nger eligible based on patient's age to complete this topic RSV Immunization Patients Under 20 months Aged Out No longer eligible based on patient's age to complete this topic Varicella Vaccines Aged Out No longer eligible based on patient's age to complete this topic Procedures Procedure Name Priority Date/Time Associated Diagnosis Comments ENDOSCOPIC ULTRASOUND (UPPER) Routine 05/04/2024 3:42 PM EST FALLS RISK ASSESSMENT Routine 02/05/2024 ANNUAL BMP BLOOD TEST Routine 11/20/2023 LIPID PANEL Routine 08/28/2023 SCREENING MAMMOGRAPHY BI 2-VIEW BREAST INC CAD Routine 08/04/2023 4:19 PM EDT Encounter for screening mammogram for malignant neoplasm of breast DXA BONE DENSITY STUDY 1+ SITS AXIAL SKEL Routine 03/12/2022 4:20 PM EST Other specified disorders of bone density and structure, other site COLONOSCOPY Routine 11/23/2019 HPV Routine 07/06/2018 HEPATITIS C SCREENING Routine 09/07/2013 from Last 3 Months or Most Recently Relevant to Health Maintenance Results * Endoscopic ultrasonography (Upper) (05/04/2024 3:42 PM EST) Anatomical Region Laterality Modality Endoscopy Historical Provider GI~PROCEDURE ORDERABLES F inal Result * Falls Risk Assessment (02/05/2024) Pathologist [facility] Falls Risk Assessment Abstracted us Historical Provider HEALTH MAINTENANCE Final Result * Annual BMP Blood Test (11/20/2023) Pathologist [facility] Annual BMP Blood Test Abstracted us Historical Provider HEALTH MAINTENANCE Final Result * (ABNORMAL) Lipid panel (08/28/2023) LDL/HDL Ratio 3 0 - 4 Triglycerides 114 0 - 150 mg/dL Cholesterol 199 0 - 200 mg/dL HDL 72 >=40 mg/dL LDL Cholesterol 105(A) 0 - 100 mg/dL Blood Venous blood specimen / Unknown Historical Provider LAB BLOOD ORDERABLES Madhavi neely Result * SCREENING MAMMOGRAPHY BI 2-VIEW BREAST INC CAD (08/04/2023 4:19 PM EDT) Anatomical Region Laterality Modality Radiographic Shyanne ging 03/12/2022 4:14 PM EST Narrative 08/05/2023 6:19 PM EDT This is a summary report. The complete report is available in the patient's medical record. If you cannot access the medical record, please contact the sending organization for a detailed fax or copy. Full field digital screening 2D C views and tomosynthesis mammography, reviewed with CAD and compared to previous. The breasts are composed of fatty and fibroglandular tissue. ??No suspicious mass, architectural distortion or suspicious calcifications are identified. IMPRESSION: : No mammographic evidence of malignancy. BIRADS 1-Negative; N. 5 year breast cancer risk assessment 3.7 % Lifetime breast cancer risk assessment 10.6 % Breast cancer risk category Low (<15%) Procedure Note Kari Hidalgo MD - 12/22/2023 This is a summary report. The complete report is available in thepatient's medical record. If you cannot access the medical record, pleasecontact the sending organization for a detailed fax or copy. Full field digital screening 2D C views and tomosynthesis mammography,reviewed with CAD and compared to previous. The breasts are composed offatty and fibroglandular tissue. No suspicious mass, architecturaldistortion or suspicious calcifications are identified. IMPRESSION: : No mammographic evidence of malignancy. BIRADS 1-Negative; N. 5 year breast cancer risk assessment 3.7 % Lifetime breast cancer risk assessment 10.6 % Breast cancer risk category Low (<15%) Guille Allison MD IMG XR PROCEDURES Final Res ult * DXA BONE DENSITY STUDY 1+ SITS AXIAL SKEL (03/12/2022 4:20 PM EST) Anatomical Region Laterality Modality Bone Densitometr y 01/23/2022 12:1 1 PM EDT Narrative 03/12/2022 7:05 PM EST Clinical history: menopausal/postmenopausal disorder Scans of the lumbar spine and hips were performed on a Gogobot/Ascade fan beam bone densitometer. ? Bone mineral density measurements and associated T and Z scores respectively are as follows: Lumbar Spine: L1-L4 BMD: 1.018 g/cm2 ? T-Score: -0.3 ? Z-Score: 1.8 Compared with the prior study dated 09/08/2018, the BMD reading has increased which is statistically significant Left Proximal Femur: Neck BMD: 0.663 g/cm2 ? T-Score: -1.7 ?? Z-Score: 0 Total BMD: 0.820 g/cm2 ? T-Score: -1.0 ?Z-Score: 0.4 Compared with the prior study the mean BMD reading in the total left hip has decreased which is statistically significant Compared with standards for the young adult, lowest measured bone density places the patient in the W.H.O. osteopenic range. FRAX 10 year probability of major osteoporotic fracture: 16% FRAX 10 year probability of hip fracture: 2.5% Population: [place] () IMPRESSION: IMPRESSION: Osteopenia. The NOF guidelines recommend that FDA approved medical therapies be considered in postmenopausal women and men age >50 years with a: i. Hip or vertebral (clinical or morphometric) fracture ii. T score of < -2.5 at the spine or hip iii. 10 year fracture probability by FRAX of >3% for hip fracture, or >20% for major osteoporotic fracture PLEASE NOTE: ?? W.H.O. classification is based on lowest measured density at the spine, femoral neck, or total hip.This classification has prognostic significance when applied to post menopausal women and older men. 1) ??The World Health Organization defines low BMD as follows: ?T-score ? Normal ? at or > -1 Osteopenia ? < -1 and ??> - 2.5 Osteoporosis ? at or < -2.5 without fractures Established osteoporosis ? < -2.5 with fractures Procedure Note Tamara Rocha MD - 06/09/2023 Clinical history: menopausal/postmenopausal disorder Scans of the lumbar spine and hips were performed on a Gogobot/Ascadefan beam bone densitometer. Bone mineral density measurements and associated T and Z scoresrespectively are as follows: Lumbar Spine: L1-L4 BMD: 1.018 g/cm2 T-Score: -0.3 Z-Score: 1.8 Compared with the prior study dated 09/08/2018, the BMD reading hasincreased which is statistically significant Left Proximal Femur: Neck BMD: 0.663 g/cm2 T-Score: -1.7 Z-Score: 0 Total BMD: 0.820 g/cm2 T-Score: -1.0 Z-Score: 0.4 Compared with the prior study the mean BMD reading in the total left hiphas decreased which is statistically significant Compared with standards for the young adult, lowest measured bone densityplaces the patient in the W.H.O. osteopenic range. FRAX 10 year probability of major osteoporotic fracture: 16% FRAX 10 year probability of hip fracture: 2.5% Population: [place] () IMPRESSION: IMPRESSION: Osteopenia. The NOF guidelines recommend that FDA approved medical therapies beconsidered in postmenopausal women and men age >50 years with a: i. Hip or vertebral (clinical or morphometric) fracture ii. T score of < -2.5 at the spine or hip iii. 10 year fracture probability by FRAX of >3% for hip fracture, or >20%for major osteoporotic fracture PLEASE NOTE: W.H.O. classification is based on lowest measured density at the spine,femoral neck, or total hip.This classification has prognostic significance when applied to postmenopausal women and older men. 1) The World Health Organization defines low BMD as follows: T-score Normal at or > -1 Osteopenia < -1 and > -2.5 Osteoporosis at or < -2.5 withoutfractures Established osteoporosis < -2.5 with fractures Luiza Caputo MD IMG DXA PROCEDURES Final Re sult * Colonoscopy (11/23/2019) [facility] Colonoscopy No interpretation , abstracted Anatomical Region Laterality Modality Other Historical Provider HEALTH MAINTENANCE Final Result * Cervical Cancer Screening: HPV (07/06/2018) [facility] Cervical Cancer Screening: HPV Negative, abstracted Result [facility] Provider HEALTH MAINTENANCE Final Result * Hepatitis C Screening (09/07/2013) [facility] Hepatitis C Screening Abstracted [facility] Provider HEALTH MAINTENANCE Final Result from Last 3 Months or Most Recently Relevant to Health Maintenance Insurance MEDICARE [place]ICA[place] - [place] Advance Directives Documents on File Type Date Recorded Patient Tanning Consultant Expl anation Health Care Decision (hx) 11/23/2021 AD MCCARTHY DIRECTIVE Health Care Decision (hx) 11/23/2021 AD MCCARTHY DIRECTIVE Health Care Decision (hx) 11/23/2021 AD MCCARTHY DIRECTIVE Health Care Decision (hx) 11/23/2021 AD MCCARTHY DIRECTIVE Health Care Decision (hx) 11/23/2021 AD MCCARTHY DIRECTIVE Health Care Decision (hx) 11/23/2021 AD MCCARTHY DIRECTIVE Care Teams Skin Washer Relationship Specialty Start Date End Date Guille Allison MD [address] [place] [address] PCP - General Internal Medicine 11/01/21
--- OUTSIDE RECORDS SUMMARY | 2024-06-24 12:32 | XMS_ITS | Clinical Summary ---
Author Organization [address] Address [address] [place] [phone] Phone Care Team Providers Care Depalletizer Operator Name Role Phone MorrisTeean Primary Care Provider Allergies Active Allergy Reactions [...] Tetanus adult (Td q 10,TDAP once) 1973 Lipid disorder screening 1993 Colon cancer screening, Colonoscopy 1998 Diabetes screening 1998 Shingles vaccine (Shingrix) (1 of 2 - Shingrix (RZV) 2 Dose Standard Series) 2003 Osteoporosis screening (bone density) 2018 Pneumococcal Vaccine (50+ ye ars) (1 of 1 - PCV) 2018 Influenza vaccine 12/04/2023 Covid-19 vaccine series (1 - 2023- season) 2024 RSV Discussion (1 - 1-dose 7 5+ series) 2028 Cervical cancer screening Discontinued Meningococcal Vaccine Aged Out No sylvie ran eligible based on patient's age to complete this topic Insurance RZI-MA-[id number] MEDICAID MEDICARE [id number] MEDICAID MEDICARE [id number] MEDICAID MEDICARE MOTOR VEHICLE GENERIC MEDICARE [id number] MEDICAID MOTOR VEHICLE GENERIC MEDICARE [id number] MEDICAID Care Teams Depalletizer Operator Relationship Specialty Start Date End Date Teena Morris [address] [place] [address] PCP - General 11/08/18
--- OUTSIDE RECORDS SUMMARY | 2024-06-24 12:32 | XMS_ITS | Clinical Summary ---
Author Organization [facility] Address [address] [place], [place] [id number] Care Team Providers Care Roustabout Name Role Phone Teena Araujo MD Primary Care Provider [phone] Allergies Active Allergy Reactions Criticality Noted Date [...] age to complete this topic Care Teams Roustabout Relationship Specialty Start Date End Date Teena Araujo MD PCP - General Internal Medicine 01/27/18
== END 2024-06-24 11:11 | disposition home or self-care (01) ==
LOC: HO.MAMMO 11:10
PROVIDERS: PCP Internal Medicine; Visit Provider Student in an Organized Health Care Education/Training Program
DX: M81.0 Age-related osteoporosis without current pathological fracture (principal)
CPT/HCPCS: 77080

== ENCOUNTER 2024-08-18 16:39 | Outpatient (REF) | payer MEDICARE, MEDICAID, SELFPAY ==
--- OUTSIDE RECORDS SUMMARY | 2024-08-18 18:22 | XMS_ITS | Clinical Summary ---
Author Organization [facility] [address] [place] [address] [place] [phone] Phone Care Team Providers Care Automatic Die Cutting Machine Operator Name Role Phone Guille Allison MD Primary Care Provider [phone] Allergies Active Allergy Reactions Criticality Noted Date Comments Codeine Rash Low 10/18/2009 Hydromorphone Other 01/24/2021 ? Oversedation from dialudid confusion Oxcarbazepine Hives,Other 07/12/2010 hallucinations Oxycodone Hcl Hives 02/18/2022 Trazodone Other,Rash Medium 05/20/2017 hallucinations Medications furosemide (LASIX) 20 mg tablet Take 1 tablet (20 mg total) by mouth 1 (one) time each day. 11/27/19 24 Active montelukast (SINGULAIR) 10 mg tablet Take 1 tablet (10 mg total) by mouth. 01/07/20 18 Active albuterol HFA (PROAIR HFA ; PROVENTIL HFA ; VENTOLIN HFA) 90 mcg/actuation inhaler Inhale 2 puffs by mouth. 04/25/20 22 Active pantoprazole (PROTONIX) 40 mg EC tablet Take 1 tablet (40 mg total) by mouth 2 (two) times a day. 10/31/19 24 Active amLODIPine (NORVASC) 5 mg tablet Take 1 tablet (5 mg total) by mouth 1 (one) time each day. 09/24/19 24 Active cyclobenzaprin e (FLEXERIL) 5 mg tablet Take 1 tablet (5 mg total) by mouth. 09/24/19 24 Active acetaminophen (TYLENOL 8 HOUR) 650 mg 8 hr tablet Take 1 tablet (650 mg total) by mouth 3 (three) times a day if needed. 09/24/19 24 Active albuterol HFA (PROAIR HFA ; PROVENTIL HFA ; VENTOLIN HFA) 90 mcg/actuation inhaler Inhale 2 puffs by mouth every 6 hours as needed. Active divalproex (DEPAKOTE) [address] tablet Take 1 tablet (500 mg total) by mouth 2 (two) times a day. 03/19/20 22 Active fluticasone propionate (FLONASE) 50 mcg/actuation nasal spray 2 sprays in each nostril daily 02/19/20 Active citalopram (CeleXA) 20 mg tablet 1 tablet (20 mg total). 02/08/20 18 Active sucralfate (CARAFATE) 1 gram tablet Take 1 tablet (1 g total) by mouth. Active doxepin (Zonalon) 5 % cream Apply 1 Squirt topically. 07/09/19 18 Active senna-docusate (Senexon-S) 8.6-50 mg per tablet TAKE ONE TABLET BY MOUTH TWICE A DAY 60 tablet 04/12/20 24 Active Trelegy Ellipta 100-62.5-25 mcg inhaler Inhale 1 puff (100 mcg total) by mouth 1 (one) time each day. 1 each 5 06/07/19 25 025 Active diclofenac (VOLTAREN) 1 % topical gel APPLY 2 GRAMS TOPICALLY FOUR TIMES A DAY 100 g 1 08/06/19 25 Active rosuvastatin (CRESTOR) 10 mg tablet TAKE ONE TABLET BY MOUTH EVERY DAY 90 tablet 1 08/19/19 25 Active rosuvastatin (CRESTOR) 10 mg tablet Take 1 tablet (10 mg total) by mouth 1 (one) time each day. 025 Discontinued diclofenac (VOLTAREN) 1 % topical gel Apply topically 2 (two) times a day. 025 Discontinued Active Problems Problem Noted Date Diagnosed Date Ataxia 09/24/2023 Nasal polyp 04/21/2023 Lumbar disc disease with radiculopathy 2 Chronic obstructive pulmonar y disease ([facility] V24, [facility] V28) 04/25/2022 Laceration of scalp 04/08/2022 Overview (02/09/2024): [...] days. She states in the ED at [facility], they put 1 staple and sutured her [...] with neurogenic claudication Overview (02/09/2024): Follows with [facility] [place] neurology decompression surgery pending Primary hypertension 01/06/2019 C. difficile colitis 05/06/2018 Overview (02/09/2024): Follows with gastroenterology Seizure disorder ([facility] V24, [facility] V28) 12/04 Overview (02/09/2024): Follows with neurology Bipolar 1 disorder ([facility] V24, [facility] V28) Mixed hypercholesterolemia and hypertriglyceride adilene 09/05/2017 Gastroesophageal [...] answered on today's visit. Anoxic brain injury (CMS/HCC V24, CMS/HCC V28) 1 Overview (02/09/2024): CT scan of brain negative 01/15/10, referred neurology Diverticulosis, sigmoid 12/01/2009 Overview (02/09/2024): Incidental finding on colonoscopy 11/2009 Anxiety and depression 10/19/2009 Overview (02/09/2024): Admitted [facility] 01/15/10 following suicide attempt with quart of vodka and sleeping pills, transferred to psych 01/16/10 Moderate persistent asthma 10/19/2009 Overview (02/09/2024): Follows with pulmonary on ICS/LABA, singulair and albuterol PRN Encounters Date Type Department Care Team Description 08/16/2024 4:30 PM EDT - 08/16/2024 11:59 PM EDT Hospital Encounter [facility] [address], [place] [phone] Primary osteoarthritis, right shoulder Discharge Disposition: Home or Self Care 07/19/2024 [facility]phone [facility] [address], [place] [phone] Guille Allison MD Sinusitis from Last 3 Months Immunizations Name Administration Dates Next Due Influenza Quadravalent, 0.5m l (Fluzone High-dose) 65yo and older 01/20/2023 Influenza Quadravalent, MDCK , 0.5ml, preservative free (Flucelvax) 6mo and older 03/16/2019,02/11/2018 Influenza trivalent, 0.5mL ( Fluzone High-dose) 65yo and older 02/18/2022,02/16/2020 Influenza trivalent, with pr eservative (Fluzone; Afluria) 6mo and older 01/23/2017,03/15/2016,03/23/2015,02/07,02/23/2013,01/14/2012,01/16/2011 ,02/05/2010 Influenza, Unspecified 02/11/2018,01/03/2014 muzu tv/[employer] SARS-CoV-2 COVID -19, vector-nr, [id number], preservative free [...] sigmoid diverticulosis COLONOSCOPY W/ BIOPSIES 02/16/15 PROCEDURE: [place] COLONOSCOPY STOMA W/BIOPSY SINGLE/MULTIPLE; COMMENT: adenoma and tics; repeat in 5 yrs Medical History Medical History Date Comments Sacroiliac joint somatic dysfunction 04/04/2017 DX:Sacroiliac joint somatic dysfunction; COMMENT: Follows with chiropractor and physiatry Pruritic dermatitis 07/09/2017 DX:Pruritic dermatitis; COMMENT: Follows with dermatology Moderate persistent asthma 10/19/2009 DX:Mo derate persistent asthma; COMMENT: Follows with pulmonary on ICS/LABA, singulair and albuterol PRN Anoxic brain injury (CMS/HCC V24, CMS/HCC V28) 02/15/2010 DX:Anoxic brain injury (HCC) ; COMMENT: CT scan of brain negative 01/15/10, referred neurology Depression 10/19/2009 DX:Depression; C OMMENT: Admitted [facility] 01/15/10 following suicide attempt with quart of [...] 30-39.9) 09/05/2017 DX:Obesity (BMI 30-39.9) Seizure disorder ([facility] V2 4, [facility] V28) 12/30/2017 DX:Seizure disorder (HCC); C OMMENT: Follows with neurology Bipolar 1 disorder ([facility] V24, [facility] V28) 12/30/2017 DX:Bipolar 1 disorder ([facility]) Atypical chest pain 01/09/2018 DX:Atypical chest [...] Care Team (Late st Contact Info) Description 08/30/2024 2:10 PM EDT Appointment Radiology Department - [address] [phone] 10/04/2024 10:45 AM EDT Office Visit Pulmonolgy - [address] [place] [phone] Lynda Spicer MD [address] [facility] [address] [place] [address] Health Maintenance Due Date Last Done Comments DTaP,Tdap,and Td Vaccines (2 - Td or Tdap) 05/05/2017 05/05/2007 Depression Screening 04/12/2022 Medicare Annual Wellness Visit 04/12/2022 Social Influencers of Health Screening 04/12/2022 Cervical Cancer Screening: HPV 07/07/2023 07/06/2018 COVID-19 Vaccine ( season) 2024 01/20/2024, 02/24/2023, 06/26/2022, Additional history exists Hypertension/CHF/CAD Annual BMP Blood Test 11/19/2024 11/20/2023, 11/20/2023 Colorectal Cancer Screening: Colonoscopy 11/22/2024 11/23/2019, 11/23/2019 Falls Risk Assessment 02/04/2025 02/05/2024 Breast Cancer Screening 08/03/2025 08/04/19 24, 03/12/2022, 03/08/2021, Additional history exists Cholesterol Screening (Lipid Panel) 08/27/2028 08/28/2023 Osteoporosis Screening (Bone Density Screening) 06/24/2034 06/24/2024, 06/24/2024, 03/12/2022, Additional history exists Hepatitis C Screening Completed 09/07/2013 Pneumococcal Vaccine: 50+ Years Completed 02/18/2022, 02/16/2020, 02/16/2020, Additional history exists Zoster Vaccines Completed 04/11/2022, 07/0 12/2021, 05/24/2013 RSV Immunization Adult Patients Completed 01/20/2023 Influenza Vaccine Completed 01/20/2024, , 02/18/2022, Additional [...] age to complete this topic Meningococcal B Vaccine Aged Out No l onger eligible based on patient's age to complete this topic RSV Immunization Patients Under 20 months Aged Out No longer eligible based on patient's age to complete this topic Varicella Vaccines Aged Out No longer eligible based on patient's age to complete this topic Procedures Procedure Name Priority Date/Time Associated Diagnosis Comments XR SHOULDER 2+ VIEWS BILAT Routine 08/16/2024 5:00 PM EDT Primary osteoarthritis, right shoulder EXTERNAL DEXA REPORT 06/24/2024 EXTERNAL DEXA REPORT 06/24/2024 FALLS RISK ASSESSMENT Routine 02/05/2024 ANNUAL BMP BLOOD TEST Routine 11/20/2023 LIPID PANEL Routine 08/28/2023 SCREENING MAMMOGRAPHY BI 2-VIEW BREAST INC CAD Routine 08/04/2023 4:19 PM EDT Encounter for screening mammogram for malignant neoplasm of breast COLONOSCOPY Routine 11/23/2019 HPV Routine 07/06/2018 HEPATITIS C SCREENING Routine 09/07/2013 from Last 3 Months or Most Recently Relevant to Health Maintenance Results * XR Shoulder 2+ Views bilat (08/16/2024 5:00 PM EDT) Anatomical Region Laterality Modality Upper Extremities, Shoulder Bilateral Radi ographic Imaging 08/16/2024 8:12 PM EDT Impressions 08/16/2024 8:14 PM EDT Degenerative changes of both shoulders, right greater than left. -------- FINAL REPORT -------- Dictated By: Phyllis Coleman Dictated Date: 08/16/2024 20:12 ET Assigned Physician: Phyllis Coleman Reviewed and Electronically Signed By: Phyllis Coleman Signed Date: 08/16/2024 20:14 ET Workstation ID: [id number] Transcribed By: Self Edit Transcribed Date: 08/16/2024 20:12 ET Narrative 08/16/2024 8:14 PM EDT BILATERAL SHOULDERS, 4 VIEWS EACH HISTORY: Primary osteoarthritis. PRIORS: None. FINDINGS: There is moderate degenerative spurring of the right coracoclavicular joint and advanced degenerative spurring of the right glenohumeral joint. There is mild degenerative spurring of the left acromioclavicular joint and mild to moderate spurring of the left glenohumeral joint. No fracture, malalignment, or foreign body is seen. ??No soft tissue abnormality is seen. There is fusion hardware of the lower cervical spine. There is degenerative change of the thoracic spine. Procedure Note Phyllis Coleman MD - 08/16/2024 BILATERAL SHOULDERS, 4 VIEWS EACH HISTORY: Primary osteoarthritis. PRIORS: None. FINDINGS: There is moderate degenerative spurring of the right coracoclavicularjoint and advanced degenerative spurring of the right glenohumeraljoint. There is mild degenerative spurring of the left acromioclavicular jointand mild to moderate spurring of the left glenohumeral joint. No fracture, malalignment, or foreign body is seen. No soft tissueabnormality is seen. There is fusion hardware of the lower cervical spine. There is degenerative change of the thoracic spine. IMPRESSION: Degenerative changes of both shoulders, right greater than left. -------- FINAL REPORT -------- Dictated By: Phyllis Coleman Dictated Date: 08/16/2024 20:12 ET Assigned Physician: Phyllis Coleman Reviewed and Electronically Signed By: Phyllis Coleman Signed Date: 08/16/2024 20:14 ET Workstation ID: [id number] Transcribed By: Self Edit Transcribed Date: 08/16/2024 20:12 ET Result [facility] Donnie CHOUDHURY IMG XR PROCEDURES Final Result * External Dexa Report (06/24/2024) Only the most recent of2 resultswithin the time period is included. Anatomical Region Laterality Modality Bone Densitometr y Alice Monge Onbase IMG DXA PROCEDURES Final Result * Falls Risk Assessment (02/05/2024) Pathologist [facility] Falls Risk Assessment Abstracted Result [facility] Provider HEALTH MAINTENANCE Final Result * Annual BMP Blood Test (11/20/2023) Pathologist [facility] Annual BMP Blood Test Abstracted Result [facility] HEALTH MAINTENANCE Final Result * (ABNORMAL) Lipid panel (08/28/2023) Pathologist [facility] LDL/HDL Ratio 3 0 - 4 Triglycerides 114 0 - 150 mg/dL Cholesterol 199 0 - 200 mg/dL HDL 72 >=40 mg/dL LDL Cholesterol 105(A) 0 - 100 mg/dL Blood Venous blood specimen / Unknown Result [facility] Provider LAB BLOOD ORDERABLES Madhavi l Result * SCREENING MAMMOGRAPHY BI 2-VIEW BREAST [...] IMG XR PROCEDURES Final Res ult * Colonoscopy (11/23/2019) [facility] Colonoscopy No interpretation , abstracted Anatomical Region Laterality Modality Other Historical Provider HEALTH MAINTENANCE Final Result * Cervical Cancer Screening: HPV (07/06/2018) [facility] Cervical Cancer Screening: HPV Negative, abstracted [facility] Provider HEALTH MAINTENANCE Final Result * Hepatitis C Screening (09/07/2013) 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
--- OUTSIDE RECORDS SUMMARY | 2024-08-18 18:22 | XMS_ITS | Clinical Summary ---
Author Organization [facility] Address [address] [place], [place] [id number] Care Team Providers Care Novelty Maker Name Role Phone Teena Araujo MD Primary Care Provider [phone] Allergies Active Allergy Reactions Criticality Noted Date [...] age to complete this topic Care Teams Novelty Maker Relationship Specialty Start Date End Date Teena Araujo MD PCP - General Internal Medicine 01/27/18
--- OUTSIDE RECORDS SUMMARY | 2024-08-18 18:22 | XMS_ITS | Encounter Summary ---
Author Organization [facility] Address [address] [place] [address] Care Team Providers Care Rn Corrections Name Role Phone Guille Allison MD Primary Care Provider [phone] Encounter Details Date Type Department Care Team (Latest Contact Info) Description 08/16/2024 4:30 PM EDT - 08/16/2024 11:59 PM EDT Hospital Encounter [facility] [address] [place] [address] Primary osteoarthritis, right shoulder Discharge Disposition: Home or Self Care Social History Tobacco Use Types Packs/Day Years Used Date Smoking Tobacco: Never Smokeless Tobacco: Never Alcohol Use Standard Drinks/Week Comments Yes 0 (1 standard drink = 0.6 oz pur e alcohol) Comments No Sex and Gender Information Value Date Recorded Sex Assigned at Not on file Legal Sex Female 6:37 PM EST Gender Identity Not on file Sexual Orientation Not on file documented as of this encounter Medications at Time of Discharge acetaminophen (TYLENOL 8 HOUR) 650 mg 8 hr tablet Take 1 tablet (650 mg total) by mouth 3 (three) times a day if needed. 09/24/2023 albuterol HFA (PROAIR HFA ; PROVENTIL HFA ; VENTOLIN HFA) 90 mcg/actuation inhaler Inhale 2 puffs by mouth every 6 hours as needed. amLODIPine (NORVASC) 5 mg tablet Take 1 tablet (5 mg total) by mouth 1 (one) time each day. 09/24/2023 citalopram (CeleXA) 20 mg tablet 1 tablet (20 mg total). 02/07/2018 cyclobenzaprine (FLEXERIL) 5 mg tablet Take 1 tablet (5 mg total) by mouth. 09/24/2023 diclofenac (VOLTAREN) 1 % topical gel APPLY 2 GRAMS TOPICALLY FOUR TIMES A DAY 100 g 1 08/05/2024 divalproex (DEPAKOTE) [address] tablet Take 1 tablet (500 mg total) by mouth 2 (two) times a day. 03/19/2022 doxepin (Zonalon) 5 % cream Apply 1 Squirt topically. 07/08/2017 fluticasone propionate (FLONASE) 50 mcg/actuation nasal spray 2 sprays in each nostril daily 02/18/2022 furosemide (LASIX) 20 mg tablet Take 1 tablet (20 mg total) by mouth 1 (one) time each day. 11/27/2023 montelukast (SINGULAIR) 10 mg tablet Take 1 tablet (10 mg total) by mouth. 01/06/2018 pantoprazole (PROTONIX) 40 mg EC tablet Take 1 tablet (40 mg total) by mouth 2 (two) times a day. 10/31/2023 senna-docusate (Senexon-S) 8.6-50 mg per tablet TAKE ONE TABLET BY MOUTH TWICE A DAY 60 tablet 04/12/2024 sucralfate (CARAFATE) 1 gram tablet Take 1 tablet (1 g total) by mouth. Trelegy Ellipta 100-62.5-25 mcg inhaler Inhale 1 puff (100 mcg total) by mouth 1 (one) time each day. 1 each 5 06/07/2024 rosuvastatin (CRESTOR) 10 mg tablet Take 1 tablet (10 mg total) by mouth 1 (one) time each day. 5 documented as of this encounter Discharge Disposition Disposition Code Departure Means Destination Home or Self Care documented in this encounter Plan of Treatment Upcoming Encounters Date Type Department Care Team ([facility] st Contact Info) Description 08/30/2024 2:10 PM EDT Appointment Radiology Department [address] [phone] 10/04/2024 10:45 AM EDT Office Visit Pulmonolgy - [address] [place] [phone] Lynda Spicer MD [address] [place] [phone] documented as of this encounter Procedures Procedure Name Priority Date/Time Associated Diagnosis Comments XR SHOULDER 2+ VIEWS BILAT Routine 08/16/2024 5:00 PM EDT Primary osteoarthritis, right shoulder documented in this encounter Results * XR Shoulder 2+ Views bilat [...] Signed Date: 08/16/2024 20:14 ET Workstation ID: [id number] Transcribed By: Self Edit Transcribed Date: 08/16/2024 [...] Signed Date: 08/16/2024 20:14 ET Workstation ID: [id number] Transcribed By: Self Edit Transcribed Date: 08/16/2024 20:12 ET Donnie CHOUDHURY IMG XR PROCEDURES Final Result documented in this encounter Visit Diagnoses Diagnosis Primary osteoarthritis, right shoulder documented in this encounter Care Teams Rn Corrections Relationship Specialty Start Date End Date Guille Allison MD [address] [place] [address] PCP - General Internal Medicine 11/01/21 documented as of this encounter
--- OUTSIDE RECORDS SUMMARY | 2024-08-18 18:22 | XMS_ITS | Clinical Summary ---
Author Organization [address] Address [address] [place] [phone] Phone Care Team Providers Care Plaster Form Maker Name Role Phone MorrisTeena Primary Care Provider [phone] Allergies Active Allergy Reactions Criticality Noted Date [...] cancer screening, Colonoscopy 1998 Diabetes screening 1998 Pneumococcal Vaccine (50+ ye ars) (1 of 1 - PCV) 2003 Shingles vaccine (Shingrix) (1 of 2 - Shingrix (RZV) 2 Dose Standard Series) 2003 Osteoporosis screening (bone density) 2018 Covid-19 vaccine series ( - 2023- season) 2024 Influenza vaccine 01/03/2025 RSV Immunization (1 - 1-dose 75+ series) 2028 Cervical cancer screening Discontinued Meningococcal Vaccine Aged Out No sylvie ran eligible based on patient's age to complete this topic Insurance [id number] MEDICAID MEDICARE [id number] MEDICAID MEDICARE [id number] MEDICAID MEDICARE MOTOR VEHICLE GENERIC MEDICARE [id number] MEDICAID MOTOR VEHICLE GENERIC MEDICARE [id number] MEDICAID Care Teams Plaster Form Maker Relationship Specialty Start Date End Date Teena Morris [address] [place] [address] PCP - General 11/08/18
[2024-08-18 19:18] LABS: Phenytoin Dilantin 5.4 ug/mL (10.0-20.0)
== END 2024-08-18 16:40 | disposition home or self-care (01) ==
LOC: HO.LAB 16:39
PROVIDERS: PCP Internal Medicine; Visit Provider Psychiatry & Neurology Neurology
DX: G40.909 Epilepsy, unspecified, not intractable, without status epilepticus (principal); Z79.899 Other long term (current) drug therapy
CPT/HCPCS: 36415; 80185

== ENCOUNTER 2024-09-02 09:08 | Outpatient (AMB) | payer MEDICARE, MEDICAID, SELFPAY ==
[2024-09-02 09:09] VITALS: BP 130/70; PULSE 77; O2SAT 98; BMI 33.0
--- NOTE | 2024-09-02 09:09 | A.OFFVIS_ITS ---
Vital Signs 09/02/24 09:09 Height 5 ft 4 in Weight 192 lb 7.417 oz BMI 33.0 BP 130/70 Blood Pressure Location Lt brachial Position Sitting Pulse 77 Pulse Source Pulse Oximeter Pulse Oximetry (%) 98 Oxygen Delivery Method Room Air Intake Visit Reasons: euflexxa Intake Note: Patient is here for Euflexxa injection in both knees today. Allergies oxcarbazepine [From TRILEPTAL] Allergy (Intermediate, Verified 09/02/24 09:13) HIVES/HALLUCINATIONS codeine [Codeine] Allergy (Mild, Verified 09/02/24 09:13) RASH hydromorphone [From Dilaudid] Allergy (Mild, Verified 09/02/24 09:13) unknown trazodone [TRAZODONE] Allergy (Unknown, Verified 09/02/24 09:13) UNKNOWN Medication List - Last Reconciled 09/02/24 by Bria Butler MD amlodipine 5 mg PO DAILY betamethasone dipropionate 0.05% 1 appl topical BID citalopram 30 mg PO DAILY coenzyme Q10 (CoQ-10) 100 mg PO DAILY diclofenac sodium 1% 2 grams topical QID dqcweinybyn-rwqlpabfz-zoacoovc 200-62.5-25 mcg (Trelegy Ellipta) 1 inh inhalation DAILY lorazepam mg PO magnesium 250 mg PO DAILY meloxicam 7.5 mg PO DAILY multivitamin 1 tab PO DAILY ycdflzclunyl-pbuw-jsamf acid 18-400 mg-mcg (Centrum Complete) 1 tab PO DAILY [Nebulizer with compressor As directed] pantoprazole 40 mg PO BID phenytoin sodium extended mg PO rosuvastatin 10 mg PO DAILY sennosides-docusate sodium 8.6-50 mg (Senexon-S) 1 tab PO BID sucralfate 10 mL PO BID sucralfate 2 grams (2 x 1 gram) PO DAILY vit B complex 100 combo no.2 ER (B-100 Complex ER) tabs PO HPI Comments Details: Patient is a 69-year-old female with hypertension, hyperlipidemia, depression, GERD and 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 That time she was establishing care management of polyarthralgias. History and exam is consistent with polyarticular osteoarthritis. Her main complaint was her bilateral knee pain has had steroid injections in the past but there were losing efficacy. Discussed trialing Euflexxa injections and patient was on board. 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 Noticed polyarticular joint pain for the past 2 years. Sometimes difficult to get up in the morning. Pain involves all joints and is associated with AM stiffness 30mins. Has noted swelling to hands and wrists. Notes the swelling in the AM. This improves as the day goes on. Denies waking up in the middle of the night due to pins and needles with the hands Worse joints are her knees and her hands. She has to drive 45 mins for her commute to work. When she is driving her fingers lock up and she will have to pry them open. 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 Was considering surgery but has delayed. Therapies trialled at home: diclofenac gel - helps the joints. 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 She would wake up with bruises and the room is in dissarray Mom was diagnosed with arthritis. Unsure of the type, (it sounds like OA) Current Rheumatology Medication(s): Topical diclofenac 1% [facility] Medical History (Updated 05/13/24 @ 13:52 by Bria Butler MD) Localized osteoarthritis of knees, bilateral Osteoarthritis of hands, bilateral Polyarthralgia Elevated cholesterol HTN (hypertension) PTSD (post-traumatic stress disorder) Seizures COPD (chronic obstructive pulmonary disease) Lumbar stenosis Barretts esophagus Asthma Bipolar disorder GERD (gastroesophageal reflux disease) Diverticulitis Surgical History Hx of nasal polypectomy Hx of tubal ligation Hx of spinal surgery History of esophagogastroduodenoscopy (EGD) History of colonoscopy Social History Household Members: None Housing: Apartment Do you presently have visiting nurse or other home services: No Alcohol intake: unknown Patient Tobacco Use Status: Never used Tobacco service: No Review of Systems Const Details: Review of Systems Constitutional: Denies fever, chills, weight loss ENT: Denies vision changes, eye pain or eye redness, dental caries, dry mouth GI: Denies nausea, vomiting, diarrhea, abdominal pain, change in BM Pulm: Denies SOB, COLON, hemoptysis, wheezing Cards: Denies chest pain, palpitations Skin: Denies Raynaud's, rash, nail changes, photosensitivity, SYSTEMS 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 Well appearing and in no apparent painful distress HEENT Conjunctiva and sclera clear. ?Pupils equal round and reactive to light. ?No lymphadenopathy. ? CHEST/RESPIRATORY SYSTEM Normal respiratory effort and able to speak in complete sentences. ?Clear to auscultation bilaterally. ?No crackles, rales, rhonchi, wheezes heard. CARDIAC SYSTEM Regular rate and rhythm. ?S1 and S2 heard no murmurs. ?Radial pulses intact bilaterally MSK Hands: ?Able to make a fist. No synovitis noted to the MCPs, PIPs or DIPs. ?No tenderness to palpation of these joints. No deformities noted. ? Wrists: ?Full range of motion at the wrists without pain. ?No tenderness to palpation or synovitis noted to the wrists. Elbows: Full range of motion without pain. No tenderness, weakness, swelling, increased warmth or erythema. Shoulders: Full range of active range of motion without pain. No tenderness, weakness, swelling, increased warmth or erythema. Hips: Full range of motion without pain. Hip bursa: No tenderness to palpation Knees: ?Full range of motion. ?No tenderness, swelling, increased warmth or erythema.?No effusion or crepitations Ankles: Full range of motion. ?No tenderness, swelling, increased warmth or erythema.? Feet: ?Negative squeeze test. ?No tenderness to palpation or swelling of the MTPs. Tender points:?No tenderness to palpation of the bilateral trapezius, supraspinatus, greater trochanters, anterior costochondral junctions, bilateral gluteal areas, bilateral suboccipital muscle insertions SKIN Skin intact without rashes. Office Procedures AMB Joint Injection/Aspiration Joint Injection/Aspiration Details: Procedure was explained to the patient and consent was obtained. ? The area of interest was identified and confirmed with patient. ?This was subsequently cleaned with chlorhexidine x3. ? The area was then anesthetized using ethyl chloride spray. 2cc Euflexxa was injected without issue. ?Minimal to no bleeding. ?Patient tolerated procedure. Primary Site: right knee Prep: site was prepped using aseptic technique and ethochloride spray was applied Injected: other (2cc Euflexxa) Approach Used: anterior Procedure: The patient tolerated the procedure well Coding 83888 - Large joint Procedure code (CPT) selection complete AMB Joint Injection/Aspiration Joint Injection/Aspiration Details: Procedure was explained to the patient and consent was obtained. ? The area of interest was identified and confirmed with patient. ?This was subsequently cleaned with chlorhexidine x3. ? The area was then anesthetized using ethyl chloride spray. 2cc Euflexxa was injected without issue. ?Minimal to no bleeding. ?Patient tolerated procedure. Primary Site: left knee Prep: site was prepped using aseptic technique, ethochloride spray was applied and other Injected: other (2cc Euflexxa) Approach Used: anterior Procedure: The patient tolerated the procedure well Coding 20833 - Large joint Procedure code (CPT) selection complete Office Meds Euflexxa 10 mg/mL (mw 2.4-3.6 million) intra-articular syringe Performing Provider: Bria Butler MD Performing [place] [facility] Administered by: Bria Butler MD on 09/02/24 10:07 Dose Route Admin Location Dispensed Lot Number Expiration Date ND [employer] 20 mg intra-articular right knee 2 mL [id number] 04/17/25 [address]-2 [employer] Euflexxa 10 mg/mL (mw 2.4-3.6 million) intra-articular syringe Performing Provider: Bria Butler MD Performing Location: [facility] Administered by: Bria Butler MD on 09/02/24 10:07 Dose Route Admin Location Dispensed Lot Number Expiration Date NDC [employer] 20 mg intra-articular left knee 2 mL [id number] 04/17/25 [address]-6 [facility] Results Reviewed Results Reviewed: XR Bilateral Knees 05/2024 Findings (Right knee): Bones intact. No dislocations. There are moderate degenerative changes with loss of height of the medial compartment. No joint effusion. No radiopaque foreign body Findings (Left knee): No fractures or dislocations. No significant loss of joint space, osteophytes, or erosions. No joint effusion. No radiopaque foreign body. Assessment & Plan Assessment & Plan (1) Localized osteoarthritis of knees, bilateral: Code(s): M17.0 - Bilateral primary osteoarthritis of knee Category: Medical Plan: #Bilateral Knee OA Patient with bilateral knee osteoarthritis here today for her 1st Euflexxa injection Plan - S/p bilateral knee Euflexxa injection - RTC 1 week Plan I spent 20 minutes reviewing the record and labs, taking a history, examining the patient, discussing the treatment plan, ordering diagnostic work up and documenting in the medical record Orders: Orders AMB Joint Injection/Aspiration Today M17.0 - Bilateral primary osteoarthritis of knee AMB Joint Injection/Aspiration Today M17.0 - Bilateral primary osteoarthritis of knee Medications: New Euflexxa (sodium hyaluronate (viscosup)) 20 mg (2 mL) intra-articular ONCE 2 mL 0RF NS M17.0 - Bilateral primary osteoarthritis of knee Euflexxa (sodium hyaluronate (viscosup)) 20 mg (2 mL) intra-articular ONCE 2 mL 0RF NS M17.0 - Bilateral primary osteoarthritis of knee Coding Level of Care Code Est Pt Level 3 (79143) Diagnoses Localized osteoarthritis of knees, bilateral M17.0 CPT Codes Coding - 39092 Large joint: 48410 - Large joint ([id number]) Coding - 98434 Large joint: 38490 - Large joint ([id number])
--- OUTSIDE RECORDS SUMMARY | 2024-09-02 09:51 | XMS_ITS | Encounter Summary ---
Author Organization [facility] Address [address] [place] [address] Care Team Providers Care Auto Painter Helper Name Role Phone Guille Allison MD Primary Care Provider [phone] Reason for Referral * Imaging (Routine) - Authorized Specialty Diagnoses / Procedures Referred By Susan reid Referred To Contact Radiology Diagnoses Encounter for screening mammogram for breast cancer Procedures MG Mammo Digital Screening w Benny bilat MG Mammo Digital Screening w Benny Guille Laureano MD [address] [place] [phone] Phone: tel: fax: [facility] Referral ID Status Reason Start Date Expiration Date V isits Requested Visits Authorized [id number] Authorized 02/19/2024 02/18/2025 1 1 Reason for Visit * Imaging (Routine) - Authorized Specialty Diagnoses / Procedures Referred By uSsan reid Referred To Contact Radiology Diagnoses Encounter for screening mammogram for breast cancer Procedures MG Mammo Digital Screening w Benny bilat MG Mammo Digital Screening w Guille Edwards MD [address] [place] [phone] Phone: tel: fax: [facility] Referral ID Status Reason Start Date Expiration Date V isits Requested Visits Authorized [id number] Authorized 02/19/2024 02/18/2025 1 1 Encounter Details Date Type Department Care Team (Latest Contact Info) Description 08/30/2024 2:08 PM EDT - 08/30/2024 11:59 PM EDT Hospital Encounter Radiology Department - [address] [phone] Encounter for screening mammogram for breast cancer Discharge Disposition: Home or Self Care Social [...] this encounter Medications at Time of Discharge rosuvastatin (CRESTOR) 10 mg tablet TAKE ONE TABLET BY MOUTH EVERY DAY 90 tablet 1 08/18/2024 acetaminophen (TYLENOL 8 HOUR) 650 mg 8 [...] time each day. 1 each 5 06/07/2024 documented as of this encounter Discharge Disposition Disposition Code Departure Means Destination Home or Self Care documented in this encounter Plan of Treatment Upcoming Encounters Date Type Department Care Team (Late st Contact Info) Description 10/04/2024 10:45 AM EDT [facility] [place] [address] [phone] Lynda Spicer MD [address] [place] [phone] documented as of this encounter Procedures Procedure Name Priority Date/Time Associated Diagnosis Comments MG MAMMO DIGITAL SCREENING W BENNY BILAT Routine 08/30/2024 2:18 PM EDT Encounter for screening mammogram for breast cancer documented in this encounter Results * MG Mammo Digital Screening w Benny bilat (08/30/2024 2:18 PM EDT) Anatomical Region Laterality Modality Breast Bilateral Mammography 08/31/2024 3:24 PM EDT Impressions 08/31/2024 3:32 PM EDT 1. No mammographic evidence of malignancy 2. Scattered fibroglandular tissue BI-RADS CATEGORY: 2 - BENIGN RECOMMENDATION: Screening bilateral mammogram is recommended in 1 year. Mammo Location: [facility], [address] [place] [address], [address], . -------- FINAL REPORT -------- Dictated By: Tamara Rocha Dictated Date: 08/31/2024 15:24 ET Assigned Physician: Tamara Rocha Reviewed and Electronically Signed By: Tamara Rocha Signed Date: 08/31/2024 15:32 ET Workstation ID: [id number] Transcribed By: Self Edit Transcribed Date: 08/31/2024 15:24 ET Narrative 08/31/2024 3:32 PM EDT A BILATERAL DIGITAL 3D SCREENING MAMMOGRAPHY HISTORY: Routine screening. ??Family history of breast cancer in mother. COMPARISON: Multiple priors dating back to 02/26/2020 Technique: Bilateral full field digital mammography (3D) was performed using standard CC and MLO projections , bilateral exaggerated CC views CAD ??was used to evaluate this mammogram. FINDINGS: Right: No suspicious masses, groups of microcalcification or areas of architectural distortion identified. Stable typically benign parenchymal asymmetries. ??Typical benign lesly calcifications are present throughout the breast. Left: No suspicious masses, groups of microcalcification or areas of architectural distortion identified. Stable typically benign parenchymal asymmetries. BREAST DENSITY: B - There are scattered areas of fibroglandular density. Procedure Note Tamara Rocha MD - 08/31/2024 A BILATERAL DIGITAL 3D SCREENING MAMMOGRAPHY HISTORY: Routine screening. Family history of breast cancer in mother. COMPARISON: Multiple priors dating back to 02/26/2020 Technique: Bilateral full field digital mammography (3D) was performedusing standard CC and MLO projections , bilateral exaggerated CC views CAD was used to evaluate this mammogram. FINDINGS: Right: No suspicious masses, groups of microcalcification or areas ofarchitectural distortion identified. Stable typically benign parenchymalasymmetries. Typical benign lesly calcifications are present throughout thebreast. Left: No suspicious masses, groups of microcalcification or areas ofarchitectural distortion identified. Stable typically benign parenchymalasymmetries. BREAST DENSITY: B - There are scattered areas of fibroglandular density. IMPRESSION: 1. No mammographic evidence of malignancy 2. Scattered fibroglandular tissue BI-RADS CATEGORY: 2 - BENIGN RECOMMENDATION: Screening bilateral mammogram is recommended in 1 year. Mammo Location: [facility], [address] [place] [address], [address], . -------- FINAL REPORT -------- Dictated By: Tamara Rocha Dictated Date: 08/31/2024 15:24 ET Assigned Physician: Tamara Rocha Reviewed and Electronically Signed By: Tamara Rocha Signed Date: 08/31/2024 15:32 ET Workstation ID: [id number] Transcribed By: Self Edit Transcribed Date: 08/31/2024 15:24 ET Guille Allison MD IMG BI PROCEDURES Final Res ult documented in this encounter Visit Diagnoses Diagnosis Encounter for screening mammogram for breast cancer documented in this encounter Care Teams Auto Painter Helper Relationship Specialty Start Date End Date Guille Allison MD [address] [place] [address] PCP - General Internal Medicine 11/01/21 documented as of this encounter
--- OUTSIDE RECORDS SUMMARY | 2024-09-02 09:51 | XMS_ITS | Clinical Summary ---
Author Organization [address] Address [address] [place] [phone] Phone Care Team Providers Care Slicing Machine Operator Name Role Phone MorrisTeena Primary Care Provider [phone] Allergies Active Allergy Reactions Criticality Noted Date [...] patient's age to complete this topic [place] [id number] MEDICAID MEDICARE [id number] MEDICAID MEDICARE MOTOR VEHICLE GENERIC MEDICARE [id number] MEDICAID MOTOR VEHICLE GENERIC MEDICARE [id number] MEDICAID Care Teams Slicing Machine Operator Relationship Specialty Start Date End Date Teena Morris [address] [place] [address] PCP - General 11/08/18
--- OUTSIDE RECORDS SUMMARY | 2024-09-02 09:51 | XMS_ITS | Clinical Summary ---
Author Organization [facility] [address] [place] [address] [place] [phone] Phone Care Team Providers Care Chain Hoist Operator Name Role Phone Guille Allison MD Primary Care Provider [phone] Allergies Active Allergy Reactions Criticality Noted Date [...] radiculopathy 2 Chronic obstructive pulmonar y disease ([facility] V24, [facility] V28) 04/25/2022 Laceration of scalp 04/08/2022 Overview [...] days. She states in the ED at [facility], they put 1 staple and sutured her [...] with neurogenic claudication Overview (02/09/2024): Follows with [facility] neurology decompression surgery pending Primary hypertension 01/06/2019 C. difficile colitis 05/06/2018 Overview (02/09/2024): Follows with gastroenterology Seizure disorder ([facility] V24, [facility] V28) 12/04 Overview (02/09/2024): Follows with neurology Bipolar 1 disorder ([facility] V24, [facility] V28) Mixed hypercholesterolemia and hypertriglyceride adilene 09/05/2017 [...] Anxiety and depression 10/19/2009 Overview (02/09/2024): Admitted [facility] 01/15/10 following suicide attempt with quart of vodka and sleeping pills, transferred to psych 01/16/10 Moderate persistent asthma 10/19/2009 Overview (02/09/2024): Follows with pulmonary on ICS/LABA, singulair and albuterol PRN Encounters Date Type Department Care Team Description 08/30/2024 2:08 PM EDT - 08/30/2024 11:59 PM EDT Hospital Encounter Radiology Department - [address] [phone] Encounter for screening mammogram for breast cancer Discharge Disposition: Home or Self Care 08/16/2024 4:30 PM EDT - 08/16/2024 11:59 PM EDT Hospital Encounter XRAY [address] [address] Primary osteoarthritis, right shoulder Discharge Disposition: Home or Self Care 07/19/2024 Telephone Adult Medicine [address] [phone] Guilel Allison MD Sinusitis from Last 3 Months Immunizations Name Administration Dates Next Due Influenza Quadravalent, 0.5m l (Fluzone High-dose) 65yo and older 01/20/2023 Influenza Quadravalent, MDCK , 0.5ml, preservative free (Flucelvax) 6mo and older 03/16/2019,02/11/2018 Influenza trivalent, 0.5mL ( Fluzone High-dose) 65yo and older 02/18/2022,02/16/2020 Influenza trivalent, with pr eservative (Fluzone; Afluria) 6mo and older 01/23/2017,03/15/2016,03/23/2015,02/07,02/23/2013,01/14/2012,01/16/2011 ,02/05/2010 Influenza, Unspecified 02/11/2018,01/03/2014 [employer] [place]/BLOVES SARS-CoV-2 COVID -19, vector-nr, [id number], preservative free [...] sigmoid diverticulosis COLONOSCOPY W/ BIOPSIES 02/16/15 PROCEDURE: HI COLONOSCOPY STOMA W/BIOPSY SINGLE/MULTIPLE; COMMENT: adenoma and [...] neurology Depression 10/19/2009 DX:Depression; C OMMENT: Admitted [facility] 01/[facility]/10 following suicide attempt with quart of [...] 30-39.9) 09/05/2017 DX:Obesity (BMI 30-39.9) Seizure disorder ([facility] V2 4, [facility] V28) 12/30/2017 DX:Seizure disorder ([facility]); C OMMENT: Follows with neurology Bipolar 1 disorder ([facility] V24, [facility] V28) 12/30/2017 DX:Bipolar 1 disorder ([facility]) Atypical chest pain 01/09/2018 DX:Atypical chest pain; [...] Sexual Orientation Not on file Obstetrics History Para Term AB IAB SAB Ectopic Multiple Livin g Live Births 1 1 1 1 Date Outcome GA Total Labor Labor/2nd/3rd Weight Sex Type Anes PTL Kellen A1 A5 Name Clin Term Last Filed Vital Signs Vital Sign Reading [...] Description 10/04/2024 10:45 AM EDT Office Visit Pulmonolgy - [place] [address] [facility] [address] [place] [address] Lynda Spicer MD [address] [facility] [address] [place] [address] Health Maintenance Due Date Last Done Comments [...] Risk Assessment 02/04/2025 02/05/2024 Breast Cancer Screening 08/30/2026 08/31/19, 08/04/2023, 03/12/2022, Additional history exists Cholesterol Screening (Lipid Panel) [...] Encounter for screening mammogram for breast cancer XR SHOULDER 2+ VIEWS BILAT Routine 08/16/2024 5:00 PM EDT Primary osteoarthritis, right shoulder EXTERNAL DEXA REPORT 06/24/2024 EXTERNAL DEXA REPORT 06/24/2024 FALLS RISK ASSESSMENT Routine 02/05/2024 ANNUAL BMP BLOOD TEST Routine 11/20/2023 LIPID PANEL Routine 08/28/2023 COLONOSCOPY Routine 11/23/2019 HPV Routine 07/06/2018 HEPATITIS C SCREENING Routine 09/07/2013 from Last 3 Months or Most Recently Relevant to Health Maintenance Results * MG Mammo Digital Screening w Benny bilat (08/30/2024 2:18 PM EDT) Anatomical Region Laterality Modality Breast Bilateral Mammography 08/31/2024 3:24 PM EDT Impressions 08/31/2024 3:32 PM EDT 1. No mammographic evidence of malignancy 2. Scattered fibroglandular tissue BI-RADS CATEGORY: 2 - BENIGN RECOMMENDATION: Screening bilateral mammogram is recommended in 1 year. Mammo Location: [facility], [address] [place] [address], [address], . -------- FINAL REPORT -------- Dictated By: Tamara Rocha Dictated Date: 08/31/2024 15:24 ET Assigned Physician: Tamara Rocha Reviewed and Electronically Signed By: Tamara Rocha Signed Date: 08/31/2024 15:32 ET Workstation ID: [id number] Transcribed By: Self Edit Transcribed Date: 08/31/2024 [...] is recommended in 1 year. Mammo Location: [facility], [address] [place] [address], [id number], . -------- FINAL REPORT -------- Dictated By: Tamara Rocha Dictated Date: 08/31/2024 15:24 ET Assigned Physician: Tamara Rocha Reviewed and Electronically Signed By: Tamara Rocha Signed Date: 08/31/2024 15:32 ET Workstation ID: [id number] Transcribed By: Self Edit Transcribed Date: 08/31/2024 15:24 ET Guille Allison MD IMG BI PROCEDURES Final Res ult * XR Shoulder 2+ Views bilat (08/16/2024 [...] Signed Date: 08/16/2024 20:14 ET Workstation ID: [id number] Transcribed By: Self Edit Transcribed Date: 08/16/2024 [...] Signed Date: 08/16/2024 20:14 ET Workstation ID: [id number] Transcribed By: Self Edit Transcribed Date: 08/16/2024 20:12 ET Donnie CHOUDHURY IMG XR PROCEDURES Final Result * External Dexa Report (06/24/2024) Only the most recent of2 resultswithin the time period is included. Anatomical Region Laterality Modality Bone Densitometr y Provider [facility] IMG DXA PROCEDURES Final Result * Falls Risk Assessment (02/05/2024) [facility] Falls Risk Assessment Abstracted Result [facility] Provider HEALTH MAINTENANCE Final Result * Annual BMP Blood Test (11/20/2023) [facility] Annual BMP Blood Test Abstracted Result [facility] Provider HEALTH MAINTENANCE Final Result * (ABNORMAL) Lipid panel (08/28/2023) [facility] LDL/HDL Ratio 3 0 - 4 Triglycerides 114 0 - 150 mg/dL Cholesterol 199 0 - 200 mg/dL HDL 72 >=40 mg/dL LDL Cholesterol 105(A) 0 - 100 mg/dL Blood Venous blood specimen / Unknown Result [facility] Provider LAB BLOOD ORDERABLES Madhavi l Result * Colonoscopy (11/23/2019) [facility] Colonoscopy No interpretation , abstracted Anatomical Region Laterality Modality Other Result [facility] Provider HEALTH MAINTENANCE Final Result * Cervical Cancer Screening: HPV (07/06/2018) [facility] Cervical Cancer Screening: HPV Negative, abstracted Result [facility] Provider HEALTH MAINTENANCE Final Result * Hepatitis C Screening (09/07/2013) [facility] Hepatitis C Screening Abstracted Result [facility] Provider HEALTH MAINTENANCE Final Result from Last 3 Months or Most Recently Relevant to Health Maintenance Insurance [place] [id number] MEDICARE MEDICAID - [place] Advance Directives Documents on File Type Date Recorded 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
--- OUTSIDE RECORDS SUMMARY | 2024-09-02 09:51 | XMS_ITS | Clinical Summary ---
Author Organization [facility] Address [address] [place], [place] [id number] Care Team Providers Care Reference Data Expert Name Role Phone Teena Araujo MD Primary Care Provider [phone] Allergies Active Allergy Reactions Criticality Noted Date [...] age to complete this topic Care Teams Reference Data Expert Relationship Specialty Start Date End Date Teena Araujo MD PCP - General Internal Medicine 01/27/18
== END 2024-09-02 09:50 | disposition home or self-care (01) ==
LOC: HO.RHE 09:08
PROVIDERS: PCP Internal Medicine; Visit Provider Student in an Organized Health Care Education/Training Program
DX: M17.0 Bilateral primary osteoarthritis of knee (principal)
CPT/HCPCS: 20610; 99213

== ENCOUNTER → 2024-09-02 09:08 | Outpatient (BNVA) | payer MEDICARE, MEDICAID, SELFPAY | PROVIDERS: PCP Internal Medicine; Visit Provider Student in an Organized Health Care Education/Training Program | DX: M17.0 Bilateral primary osteoarthritis of knee (principal) | CPT/HCPCS: 20610; 99212; J7323 ==

== ENCOUNTER 2024-09-09 15:38 | Outpatient (AMB) | payer MEDICARE, MEDICAID, SELFPAY ==
--- NOTE | 2024-09-09 15:47 | A.OFFVIS_ITS ---
Vital Signs 09/09/24 15:48 Height 5 ft 4 in Weight 190 lb BMI 32.6 BP 128/78 Blood Pressure Location Lt brachial Position Sitting Pulse 93 Pulse Source Pulse Oximeter Pulse Oximetry (%) 97 Oxygen Delivery Method Room Air Intake Visit Reasons: Joint pain/ euflexxa Intake Note: Patient presents for follow up on bilateral knee pain. 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 Noticed polyarticular joint pain for the past 2 years. Sometimes difficult to get up in the morning. Pain involves all joints and is associated with AM stiffness 30mins. Has noted swelling to hands and wrists. Notes the swelling in the AM. This improves as the day goes on. Denies waking up in the middle of the night due to pins and needles with the hands Worse joints are her knees and her hands. She has to drive 45 mins for her commu te to work. When she is driving her fingers lock up and she will have to pry them open. 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 Was considering surgery but has delayed. Therapies trialled at home: diclofenac gel - helps the joints. 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 She would wake up with bruises and the room is in dissarray Mom was diagnosed with arthritis. Unsure of the type, (it sounds like OA) Current Rheumatology Medication(s): Topical diclofenac 1% [facility] Medical History (Updated 05/13/24 @ 13:52 by Bria Butler MD) Localized osteoarthritis of knees, bilateral Osteoarthritis of hands, bilateral Polyarthralgia Elevated cholesterol HTN (hypertension) PTSD (post-traumatic stress disorder) Seizures COPD (chronic obstructive pulmonary disease) Lumbar stenosis Barretts esophagus Asthma Bipolar disorder GERD (gastroesophageal reflux disease) Diverticulitis Surgical History Hx of nasal polypectomy Hx of tubal ligation Hx of spinal surgery History of esophagogastroduodenoscopy (EGD) History of colonoscopy Social History Household Members: None Housing: Apartment Do you presently have visiting nurse or other home services: No Alcohol intake: unknown Patient Tobacco Use Status: Never used Tobacco service: No Review of Systems Const Details: Review of Systems Constitutional: Denies fever, chills, weight loss ENT: Denies vision changes, eye pain or eye redness, dental caries, dry mouth GI: Denies nausea, vomiting, diarrhea, abdominal pain, change in BM Pulm: Denies SOB, COLON, hemoptysis, wheezing Cards: Denies chest pain, palpitations Skin: Denies Raynaud's, rash, nail changes, photosensitivity, STE[employer] 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 Well appearing and in no apparent painful distress HEENT Conjunctiva and sclera clear. ?Pupils equal round and reactive to light. ?No lymphadenopathy. ? CHEST/RESPIRATORY SYSTEM Normal respiratory effort and able to speak in complete sentences. ?Clear to auscultation bilaterally. ?No crackles, rales, rhonchi, wheezes heard. CARDIAC SYSTEM Regular rate and rhythm. ?S1 and S2 heard no murmurs. ?Radial pulses intact bilaterally MSK Hands: ?Able to make a fist. No synovitis noted to the MCPs, PIPs or DIPs. ?No tenderness to palpation of these joints. No deformities noted. ? Wrists: ?Full range of motion at the wrists without pain. ?No tenderness to palpation or synovitis noted to the wrists. Elbows: Full range of motion without pain. No tenderness, weakness, swelling, increased warmth or erythema. Shoulders: Full range of active range of motion without pain. No tenderness, weakness, swelling, increased warmth or erythema. Hips: Full range of motion without pain. Hip bursa: No tenderness to palpation Knees: ?Full range of motion. ?No tenderness, swelling, increased warmth or erythema.?No effusion or crepitations Ankles: Full range of motion. ?No tenderness, swelling, increased warmth or erythema.? Feet: ?Negative squeeze test. ?No tenderness to palpation or swelling of the MTPs. Tender points:?No tenderness to palpation of the bilateral trapezius, supraspinatus, greater trochanters, anterior costochondral junctions, bilateral gluteal areas, bilateral suboccipital muscle insertions SKIN Skin intact without rashes. Office Procedures AMB Joint Injection/Aspiration Joint Injection/Aspiration Details: Procedure was explained to the patient and consent was obtained. The area of interest was identified and confirmed with patient. This was subsequently cleaned with chlorhexidine x3. The area was then anesthetized using ethyl chloride spray. 2cc Euflexxa was injected without issue. Minimal to no bleeding. Patient tolerated procedure. Primary Site: right knee Prep: site was prepped using aseptic technique and ethochloride spray was applied Injected: other (2cc Euflexxa) Approach Used: anterior Procedure: The patient tolerated the procedure well Coding 14192 - Large joint Procedure code (CPT) selection complete AMB Joint Injection/Aspiration Joint Injection/Aspiration Details: Procedure was explained to the patient and consent was obtained. The area of interest was identified and confirmed with patient. This was subsequently cleaned with chlorhexidine x3. The area was then anesthetized using ethyl chloride spray. 2cc Euflexxa was injected without issue. Minimal to no bleeding. Patient tolerated procedure. Primary Site: left knee Prep: site was prepped using aseptic technique and ethochloride spray was appli ed Injected: other (2cc Euflexxa) Approach Used: anterior Procedure: The patient tolerated the procedure well Coding 61376 - Large joint Procedure code (CPT) selection complete Office Meds Euflexxa 10 mg/mL (mw 2.4-3.6 million) intra-articular syringe Performing Provider: Bria Butler MD Performing Location: [facility] Administered by: Bria Butler MD on 09/09/24 16:08 Dose Route Admin Location Dispensed Lot Number Expiration Date [facility] Roving Department End Finder 20 mg intra-articular right knee 2 mL [id number] 04/17/25 [address]-6 [employer] Euflexxa 10 mg/mL (mw 2.4-3.6 million) intra-articular syringe Performing Provider: Bria Butler MD Performing Location: [facility] Rheumatology Administered by: Bria Butler MD on 09/09/24 16:08 Dose Route Admin Location Dispensed Lot Number Expiration Date [facility] Roving Department End Finder 20 mg intra-articular left knee 2 mL [id number] 04/17/25 [address]-3 [employer] Results Reviewed Results Reviewed: XR Bilateral Knees 05/2024 Findings (Right knee): Bones intact. No dislocations. There are moderate degenerative changes with loss of height of the medial compartment. No joint effusion. No radiopaque foreign body Findings (Left knee): No fractures or dislocations. No significant loss of joint space, osteophytes, or erosions. No joint effusion. No radiopaque foreign body. Assessment & Plan Assessment & Plan (1) Localized osteoarthritis of knees, bilateral: Code(s): M17.0 - Bilateral primary osteoarthritis of knee Category: Medical Plan: #Bilateral Knee OA Patient with bilateral knee osteoarthritis here today for her 2nd Euflexxa injection Plan - S/p bilateral knee Euflexxa injection - RTC 1 week Plan I spent 20 minutes reviewing the record and labs, taking a history, examining the patient, discussing the treatment plan, ordering diagnostic work up and d ocumenting in the medical record Orders: Orders AMB Joint Injection/Aspiration Today M17.0 - Bilateral primary osteoarthritis of knee AMB Joint Injection/Aspiration Today M17.0 - Bilateral primary osteoarthritis of knee Medications: New Euflexxa (sodium hyaluronate (viscosup)) 20 mg (2 mL) intra-articular ONCE 2 mL 0RF NS M17.0 - Bilateral primary osteoarthritis of knee Euflexxa (sodium hyaluronate (viscosup)) 20 mg (2 mL) intra-articular ONCE 2 mL 0RF NS M17.0 - Bilateral primary osteoarthritis of knee Coding Level of Care Code Est Pt Level 3 (08906) Diagnoses Localized osteoarthritis of knees, bilateral M17.0 CPT Codes Coding - 00497 Large joint: 56538 - Large joint ([id number]) Coding - 72721 Large joint: 99857 - Large joint ([id number])
[2024-09-09 15:48] VITALS: BP 128/78; PULSE 93; O2SAT 97; BMI 32.6
--- OUTSIDE RECORDS SUMMARY | 2024-09-09 16:05 | XMS_ITS | Clinical Summary ---
Author Organization [address] Address [address] [place] [phone] Phone Care Team Providers Care Divorce Mediator Name Role Phone MorrisTeena Primary Care Provider [phone] Allergies Active Allergy Reactions Criticality Noted Date [...] patient's age to complete this topic Insurance [id number] MEDICAID MEDICARE [id number] MEDICAID MEDICARE [id number] MEDICAID MEDICARE MOTOR VEHICLE GENERIC MEDICARE [id number] MEDICAID MOTOR VEHICLE GENERIC MEDICARE [id number] MEDICAID Care Teams Divorce Mediator Relationship Specialty Start Date End Date Teena Morris [address] [place] [address] PCP - General 11/08/18
--- OUTSIDE RECORDS SUMMARY | 2024-09-09 16:05 | XMS_ITS | Clinical Summary ---
Author Organization [facility] Address [address] [place], [place] [id number] Care Team Providers Care Knot Tier Name Role Phone Teena Araujo MD Primary [...] age to complete this topic Care Teams Knot Tier Relationship Specialty Start Date End Date Teena Araujo MD PCP - General Internal Medicine 01/27/18
--- OUTSIDE RECORDS SUMMARY | 2024-09-09 16:05 | XMS_ITS | Clinical Summary ---
Author Organization [facility] [address] [place] [address] [place] [phone] Phone Care Team Providers Care Customer Professional Name Role Phone Guille Allison MD Primary Care Provider [phone] Allergies Active Allergy Reactions Criticality Noted Date [...] (two) times a day. 10/31/19 24 Active cyclobenzaprin e (FLEXERIL) 5 mg [...] mouth 2 (two) times a day. 03/19/20 Active fluticasone propionate (FLONASE) 50 mcg/actuation nasal [...] DAY 90 tablet 1 08/19/19 25 Active amLODIPine (NORVASC) 5 mg tablet TAKE ONE TABLET BY MOUTH EVERY DAY 90 tablet 09/08/19 25 Active amLODIPine (NORVASC) 5 mg tablet Take 1 tablet (5 mg total) by mouth 1 (one) time each day. 09/24/19 24 025 Discontinued rosuvastatin (CRESTOR) 10 mg tablet Take 1 tablet (10 mg total) by mouth 1 (one) time each day. 025 Discontinued Active Problems Problem Noted Date Diagnosed Date Ataxia 09/24/2023 Nasal polyp 04/21/2023 Lumbar disc disease with radiculopathy 2 Chronic obstructive pulmonar y disease (CMS/HCC V24, CMS/HCC V28) 04/25/2022 Laceration of scalp 04/08/2022 Overview [...] with neurogenic claudication Overview (02/09/2024): Follows with [facility] neurology decompression surgery pending Primary hypertension 01/06/2019 C. difficile colitis 05/06/2018 Overview (02/09/2024): Follows with gastroenterology Seizure disorder ([facility] V24, [facility] V28) 12/04 Overview (02/09/2024): Follows with neurology Bipolar 1 disorder ([facility] V24, [facility] V28) Mixed hypercholesterolemia and hypertriglyceride adilene [...] Anxiety and depression 10/19/2009 Overview (02/09/2024): Admitted [place] 01/15/10 following suicide attempt with quart of vodka and sleeping pills, transferred to psych 01/16/10 Moderate persistent asthma 10/19/2009 Overview (02/09/2024): Follows with pulmonary on ICS/LABA, singulair and albuterol PRN Encounters Date Type Department Care Team Description 08/30/2024 2:08 PM EDT - 08/30/2024 11:59 PM EDT Hospital Encounter Radiology Department - [address] [phone] Encounter for screening mammogram for breast cancer Discharge Disposition: Home or Self Care 08/16/2024 4:30 PM EDT - 08/16/2024 11:59 PM EDT Hospital Encounter XRAY - [address] [phone] Primary osteoarthritis, right shoulder Discharge Disposition: Home or Self Care 07/19/2024 Telephone Adult Medicine [address] [phone] Guille Allison MD Sinusitis from Last 3 Months Immunizations Name Administration Dates Next Due Influenza Quadravalent, 0.5m l (Fluzone High-dose) 65yo and older 01/20/2023 Influenza Quadravalent, MDCK , 0.5ml, preservative free (Flucelvax) 6mo and older 03/16/2019,02/11/2018 Influenza trivalent, 0.5mL ( Fluzone High-dose) 65yo and older 02/18/2022,02/16/2020 Influenza trivalent, with pr eservative (Fluzone; Afluria) 6mo and older 01/23/2017,03/15/2016,03/23/2015,02/07,02/23/2013,01/14/2012,01/16/2011 ,02/05/2010 Influenza, Unspecified 02/11/2018,01/03/2014 [employer]/Perceptis SARS-CoV-2 COVID -19, vector-nr, [id number], preservative free [...] sigmoid diverticulosis COLONOSCOPY W/ BIOPSIES 02/16/15 PROCEDURE: [place] COLONOSCOPY STOMA W/BIOPSY SINGLE/MULTIPLE; COMMENT: adenoma and tics; repeat in 5 yrs Medical History Medical History Date Comments Sacroiliac joint somatic dysfunction 04/04/2017 DX:Sacroiliac joint somatic dysfunction; COMMENT: Follows with chiropractor and physiatry Pruritic dermatitis 07/09/2017 DX:Pruritic dermatitis; COMMENT: Follows with dermatology Moderate persistent asthma 10/19/2009 DX:Mo derate persistent asthma; COMMENT: Follows with pulmonary on ICS/LABA, singulair and albuterol PRN Anoxic brain injury ([facility] V24, CMS/HCC V28) 02/15/2010 DX:Anoxic brain injury (HCC) ; COMMENT: CT scan of brain negative 01/15/10, referred neurology Depression 10/19/2009 DX:Depression; C OMMENT: Admitted [place] 01/15/10 following suicide attempt with quart of [...] 30-39.9) 09/05/2017 DX:Obesity (BMI 30-39.9) Seizure disorder ([facility] V2 4, [facility] V28) 12/30/2017 DX:Seizure disorder ([facility]); C OMMENT: Follows with neurology Bipolar 1 disorder (CMS/[facility] V24, [facility] V28) 12/30/2017 DX:Bipolar 1 disorder ([facility]) Atypical chest pain 01/09/2018 DX:Atypical chest [...] 10:45 AM EDT Office Visit Pulmonolgy - [place] [address] [phone] Lynda Spicer MD [address] [address] 10/18/2024 2:00 PM EDT Office Visit Adult Medicine [facility] [address] [place] [address] Guille Allison MD [address] [place] [address] Health Maintenance Due Date Last Done Comments [...] Assessment 02/04/2025 02/05/2024 Breast Cancer Screening 08/30/2026 08/31/19 25, 08/04/2023, 03/12/2022, Additional history exists Cholesterol Screening [...] is recommended in 1 year. Mammo Location: [facility], [address] [place] [address], [phone], . -------- FINAL REPORT -------- Dictated By: Tamara Rocha Dictated Date: 08/31/2024 15:24 ET Assigned Physician: Tamara Rocha Reviewed and Electronically Signed By: Tamara Rocha Signed Date: 08/31/2024 15:32 ET Workstation ID: [id number] Transcribed By: Self Edit Transcribed Date: 08/31/2024 [...] is recommended in 1 year. Mammo Location: [facility], [address] [place] [address], [id number], . -------- FINAL REPORT -------- Dictated By: Tamara Rocha Dictated Date: 08/31/2024 15:24 ET Assigned Physician: Tamara Rocha Reviewed and Electronically Signed By: Tamara Rocha Signed Date: 08/31/2024 15:32 ET Workstation ID: [id number] Transcribed By: Self Edit Transcribed Date: 08/31/2024 15:24 ET us Guille Allison MD IMG BI PROCEDURES Final [...] Signed Date: 08/16/2024 20:14 ET Workstation ID: [id number] Transcribed By: Self Edit Transcribed Date: 08/16/2024 [...] Signed Date: 08/16/2024 20:14 ET Workstation ID: [id number] Transcribed By: Self Edit Transcribed Date: 08/16/2024 20:12 ET Result [facility] Donnie CHOUDHURY IMG XR PROCEDURES Final Result * External Dexa Report (06/24/2024) Only the most recent of2 resultswithin the time period is included. Anatomical Region Laterality Modality Bone Densitometr y Provider [place] Onbase IMG DXA PROCEDURES Final Result * Falls Risk Assessment (02/05/2024) [facility] Falls Risk Assessment Abstracted Result [facility] Provider HEALTH MAINTENANCE Final Result * Annual BMP Blood Test (11/20/2023) [facility] Annual BMP Blood Test Abstracted Result [facility] Provider HEALTH MAINTENANCE Final Result * (ABNORMAL) Lipid panel (08/28/2023) [facility] LDL/HDL Ratio 3 0 - 4 Triglycerides 114 0 - 150 mg/dL Cholesterol 199 0 - 200 mg/dL HDL 72 >=40 mg/dL LDL Cholesterol 105(A) 0 - 100 mg/dL Blood Venous blood specimen / Unknown Result [facility] Provider LAB BLOOD ORDERABLES Madhavi l Result * Colonoscopy (11/23/2019) [facility] Colonoscopy No interpretation , abstracted Anatomical Region Laterality Modality Other Result [facility] Provider HEALTH MAINTENANCE Final Result * Cervical Cancer Screening: HPV (07/06/2018) [facility] Cervical Cancer Screening: HPV Negative, abstracted Result [facility] Provider HEALTH MAINTENANCE Final Result * Hepatitis C Screening (09/07/2013) [facility] Hepatitis C Screening Abstracted Result [facility] Provider HEALTH MAINTENANCE Final Result from Last 3 Months or Most Recently Relevant to Health Maintenance Insurance MEDICARE [place]ICA[place] - [place] Advance Directives Documents on File Type Date Recorded 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
== END 2024-09-09 16:04 | disposition home or self-care (01) ==
LOC: HO.RHE 15:38
PROVIDERS: PCP Internal Medicine; Visit Provider Student in an Organized Health Care Education/Training Program
DX: M17.0 Bilateral primary osteoarthritis of knee (principal)
CPT/HCPCS: 20610; 99213

== ENCOUNTER → 2024-09-09 15:38 | Outpatient (BNVA) | payer MEDICARE, MEDICAID, SELFPAY | PROVIDERS: PCP Internal Medicine; Visit Provider Student in an Organized Health Care Education/Training Program | DX: M17.0 Bilateral primary osteoarthritis of knee (principal) | CPT/HCPCS: 20610; 99212; J7323 ==

== ENCOUNTER 2024-09-13 14:26 | Outpatient (AMB) | payer MEDICARE, MEDICAID, SELFPAY ==
--- NOTE | 2024-09-13 14:30 | MHC.OFFVIS ---
Vital Signs 09/13/24 14:31 Height 5 ft 4 in Weight 190 lb BMI 32.6 BP 132/76 Blood Pressure Location Lt brachial Position Sitting Pulse 74 Pulse Source Pulse Oximeter Pulse Oximetry (%) 97 Oxygen Delivery Method Room Air Intake Visit Reasons: euflexxa x3 Intake Note: Patient presents for 3rd Euflexxa injection. 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 Noticed polyarticular joint pain for the past 2 years. Sometimes difficult to get up in the morning. Pain involves all joints and is associated with AM stiffness 30mins. Has noted swelling to hands and wrists. Notes the swelling in the AM. This improves as the day goes on. Denies waking up in the middle of the night due to pins and needles with the hands Worse joints are her knees and her hands. She has to drive 45 mins for her commute to work. When she is driving her fingers lock up and she will have to pry them open. 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 Was considering surgery but has delayed. Therapies trialled at home: diclofenac gel - helps the joints. 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 She would wake up with bruises and the room is in dissarray Mom was diagnosed with arthritis. Unsure of the type, (it sounds like OA) Current Rheumatology Medication(s): Topical diclofenac 1% [facility] Medical History (Updated 05/13/24 @ 13:52 by Bria Butler MD) Localized osteoarthritis of knees, bilateral Osteoarthritis of hands, bilateral Polyarthralgia Elevated cholesterol HTN (hypertension) PTSD (post-traumatic stress disorder) Seizures COPD (chronic obstructive pulmonary disease) Lumbar stenosis Barretts esophagus Asthma Bipolar disorder GERD (gastroesophageal reflux disease) Diverticulitis Surgical History Hx of nasal polypectomy Hx of tubal ligation Hx of spinal surgery History of esophagogastroduodenoscopy (EGD) History of colonoscopy Social History Household Members: None Housing: Apartment Do you presently have visiting nurse or other home services: No Alcohol intake: unknown Patient Tobacco Use Status: Never used Tobacco service: No Review of Systems Const Details: Review of Systems Constitutional: Denies fever, chills, weight loss ENT: Denies vision changes, eye pain or eye redness, dental caries, dry mouth GI: Denies nausea, vomiting, diarrhea, abdominal pain, change in BM Pulm: Denies SOB, COLON, hemoptysis, wheezing Cards: Denies chest pain, palpitations Skin: Denies Raynaud's, rash, nail changes, photosensitivity, [employer]: Denies headaches, weakness, paresthesias, recurrent falls MSK: as per HPI All other systems reviewed and are unremarkable except noted above Physical Exam Vital Signs: Last Vital Signs Pulse 74 09/13/24 14:31 BP 132/76 09/13/24 14:31 Pulse Ox 97 09/13/24 14:31 Oxygen Delivery Method Room Air 09/13/24 14:31 BMI result Body Mass Index 32.6 Vital signs reviewed Physical Examination CONSTITUITIONAL Patient alert and cooperative. Well appearing and in no apparent painful distress HEENT Conjunctiva and sclera clear. ?Pupils equal round and reactive to light. ?No lymphadenopathy. ? CHEST/RESPIRATORY SYSTEM Normal respiratory effort and able to speak in complete sentences. ?Clear to auscultation bilaterally. ?No crackles, rales, rhonchi, wheezes heard. CARDIAC SYSTEM Regular rate and rhythm. ?S1 and S2 heard no murmurs. ?Radial pulses intact bilaterally MSK Hands: ?Able to make a fist. No synovitis noted to the MCPs, PIPs or DIPs. ?No tenderness to palpation of these joints. No deformities noted. ? Wrists: ?Full range of motion at the wrists without pain. ?No tenderness to palpation or synovitis noted to the wrists. Elbows: Full range of motion without pain. No tenderness, weakness, swelling, increased warmth or erythema. Shoulders: Full range of active range of motion without pain. No tenderness, weakness, swelling, increased warmth or erythema. Hips: Full range of motion without pain. Hip bursa: No tenderness to palpation Knees: ?Full range of motion. ?No tenderness, swelling, increased warmth or erythema.?No effusion or crepitations Ankles: Full range of motion. ?No tenderness, swelling, increased warmth or erythema.? Feet: ?Negative squeeze test. ?No tenderness to palpation or swelling of the MTPs. Tender points:?No tenderness to palpation of the bilateral trapezius, supraspinatus, greater trochanters, anterior costochondral junctions, bilateral gluteal areas, bilateral suboccipital muscle insertions SKIN Skin intact without rashes. Office Procedures AMB Joint Injection/Aspiration Joint Injection/Aspiration Details: Procedure was explained to the patient and consent was obtained. ? The area of interest was identified and confirmed with patient. ?This was subsequently cleaned with chlorhexidine x3. ? The area was then anesthetized using ethyl chloride spray. 40 mg Kenalog with 1 cc 1% lidocaine was injected without issue. ?Minimal to no bleeding. ?Patient tolerated procedure. Primary Site: left knee Prep: site was prepped using aseptic technique and ethochloride spray was applied Injected: other (2cc Euflexxa) Procedure: The patient tolerated the procedure well Coding 93035 - Large joint Procedure code (CPT) selection complete AMB Joint Injection/Aspiration Joint Injection/Aspiration Details: Procedure was explained to the patient and consent was obtained. ? The area of interest was identified and confirmed with patient. ?This was subsequently cleaned with chlorhexidine x3. ? The area was then anesthetized using ethyl chloride spray. 40 mg Kenalog with 1 cc 1% lidocaine was injected without issue. ?Minimal to no bleeding. ?Patient tolerated procedure. Primary Site: right knee Prep: site was prepped using aseptic technique and ethochloride spray was applied Injected: other (2cc Euflexxa) Procedure: The patient tolerated the procedure well Coding 49297 - Large joint Procedure code (CPT) selection complete Office Meds Euflexxa 10 mg/mL (mw 2.4-3.6 million) intra-articular syringe Performing Provider: Bria Butler MD Performing Location: [facility] Rheumatology Administered by: Bria Butler MD on 09/13/24 16:08 Dose Route Admin Location Dispensed Lot Number Expiration Date [facility] Crystallography Teacher 20 mg intra-articular left knee 2 mL [id number] 04/17/25 [address]-0 [employer] Euflexxa 10 mg/mL (mw 2.4-3.6 million) intra-articular syringe Performing Provider: Bria Butler MD Performing Location: [facility] Rheumatology Administered by: Bria Butler MD on 09/13/24 16:08 Dose Route Admin Location Dispensed Lot Number Expiration Date [facility] Crystallography Teacher 20 mg intra-articular right knee 2 mL [id number] 04/17/27 [address]-9 [employer] Results Reviewed Results Reviewed: XR Bilateral Knees 05/2024 Findings (Right knee): Bones intact. No dislocations. There are moderate degenerative changes with loss of height of the medial compartment. No joint effusion. No radiopaque foreign body Findings (Left knee): No fractures or dislocations. No significant loss of joint space, osteophytes, or erosions. No joint effusion. No radiopaque foreign body. Assessment & Plan Assessment & Plan (1) Localized osteoarthritis of knees, bilateral: Code(s): M17.0 - Bilateral primary osteoarthritis of knee Category: Medical Plan: #Bilateral Knee OA Patient with bilateral knee osteoarthritis here today for her 3rd Euflexxa injection Plan - S/p bilateral knee Euflexxa injection - RTC 6 months Plan I spent 20 minutes reviewing the record and labs, taking a history, examining the patient, discussing the treatment plan, ordering diagnostic work up and documenting in the medical record Orders: Orders AMB Joint Injection/Aspiration Today M17.0 - Bilateral primary osteoarthritis of knee AMB Joint Injection/Aspiration Today M17.0 - Bilateral primary osteoarthritis of knee Medications: New Euflexxa (sodium hyaluronate (viscosup)) 20 mg (2 mL) intra-articular ONCE 2 mL 0RF NS M17.0 - Bilateral primary osteoarthritis of knee Euflexxa (sodium hyaluronate (viscosup)) 20 mg (2 mL) intra-articular ONCE 2 mL 0RF NS M17.0 - Bilateral primary osteoarthritis of knee Coding Level of Care Code Est Pt Level 3 (34299) Diagnoses Localized osteoarthritis of knees, bilateral M17.0 CPT Codes Coding - 89704 Large joint: 32649 - Large joint ([id number]) Coding - 27504 Large joint: 84547 - Large joint ([id number])
[2024-09-13 14:31] VITALS: BP 132/76; PULSE 74; O2SAT 97; BMI 32.6
--- OUTSIDE RECORDS SUMMARY | 2024-09-13 14:37 | XMS_ITS | Clinical Summary ---
Author Organization [facility] [address] [place] [address] [place] [phone] Phone Care Team Providers Care Business Support Manager Name Role Phone Guille Allison MD Primary Care Provider [phone] Allergies Active Allergy Reactions Criticality Noted Date [...] days. She states in the ED at [facility], they put 1 staple [...] with neurogenic claudication Overview (02/09/2024): Follows with [facility] neurology decompression surgery pending Primary hypertension 01/06/2019 C. difficile colitis 05/06/2018 Overview (02/09/2024): Follows with gastroenterology Seizure disorder ([facility] V24, [facility] V28) 12/04 Overview (02/09/2024): Follows with neurology Bipolar 1 disorder ([facility] V24, [facility] V28) Mixed hypercholesterolemia and hypertriglyceride [...] Anxiety and depression 10/19/2009 Overview (02/09/2024): Admitted [place] 01/15/10 following suicide attempt with quart of vodka and sleeping pills, transferred to psych 01/16/10 Moderate persistent asthma 10/19/2009 Overview (02/09/2024): Follows with pulmonary on ICS/LABA, singulair and albuterol PRN Encounters Date Type Department Care Team Description 08/30/2024 2:08 PM EDT - 08/30/2024 11:59 PM EDT Hospital Encounter Radiology Department - [address] [phone] Encounter for screening mammogram for breast cancer Discharge Disposition: Home or Self Care 08/16/2024 4:30 PM EDT - 08/16/2024 11:59 PM EDT Hospital Encounter XRAY - [address] [phone] Primary osteoarthritis, right shoulder Discharge Disposition: Home or Self Care 07/19/2024 Telephone Adult Medicine [address] [phone] Guille Allison MD Sinusitis from Last 3 Months Immunizations Name Administration Dates Next Due Influenza Quadravalent, 0.5m l (Fluzone High-dose) 65yo and older 01/20/2023 Influenza Quadravalent, MDCK , 0.5ml, preservative free (Flucelvax) 6mo and older 03/16/2019,02/11/2018 Influenza trivalent, 0.5mL ( Fluzone High-dose) 65yo and older 02/18/2022,02/16/2020 Influenza trivalent, with pr eservative (Fluzone; Afluria) 6mo and older 01/23/2017,03/15/2016,03/23/2015,02/07,02/23/2013,01/14/2012,01/16/2011 ,02/05/2010 Influenza, Unspecified 02/11/2018,01/03/2014 [employer] SARS-CoV-2 COVID -19, vector-nr, [id number], preservative free [...] sigmoid diverticulosis COLONOSCOPY W/ BIOPSIES 02/16/15 PROCEDURE: AL COLONOSCOPY STOMA W/BIOPSY SINGLE/MULTIPLE; COMMENT: adenoma and tics; repeat in 5 yrs Medical History Medical History Date Comments Sacroiliac joint somatic dysfunction 04/04/2017 DX:Sacroiliac joint somatic dysfunction; COMMENT: Follows with chiropractor and physiatry Pruritic dermatitis 07/09/2017 DX:Pruritic dermatitis; COMMENT: Follows with dermatology Moderate persistent asthma 10/19/2009 DX:Mo derate persistent asthma; COMMENT: Follows with pulmonary on ICS/LABA, singulair and albuterol PRN Anoxic brain injury ([facility] V24, CMS/HCC V28) 02/15/2010 DX:Anoxic brain injury (HCC) ; COMMENT: CT scan of brain negative 01/15/10, referred neurology Depression 10/19/2009 DX:Depression; C OMMENT: Admitted [place] 01/15/10 following suicide attempt with quart of [...] 30-39.9) 09/05/2017 DX:Obesity (BMI 30-39.9) Seizure disorder ([facility] V2 4, [facility] V28) 12/30/2017 DX:Seizure disorder ([facility]); C OMMENT: Follows with neurology Bipolar 1 disorder (CMS/[facility] V24, [facility] V28) 12/30/2017 DX:Bipolar 1 disorder ([facility]) Atypical chest pain 01/09/2018 DX:Atypical [...] 10:45 AM EDT Office Visit Pulmonolgy - [place] [address] [phone] Lynda Spicer MD [address] [address] 10/18/2024 2:00 PM EDT Office Visit Adult Medicine [facility] [address] [place] [address] Guille Allison MD [address] [place] [address] Health Maintenance Due Date Last Done Comments [...] is recommended in 1 year. Mammo Location: [facility], [address] [place] [address], [address], . -------- FINAL REPORT -------- Dictated By: Tamara Rocha Dictated Date: 08/31/2024 15:24 ET Assigned Physician: Tamara Rocha Reviewed and Electronically Signed By: Tamara Rocha Signed Date: 08/31/2024 15:32 ET Workstation ID: [id number] Transcribed By: Self Edit Transcribed Date: 08/31/2024 [...] is recommended in 1 year. Mammo Location: [facility], [address] [place] [address], [address], . -------- FINAL REPORT -------- Dictated By: Tamara Rocha Dictated Date: 08/31/2024 15:24 ET Assigned Physician: Tamara Rocha Reviewed and Electronically Signed By: Tamara Rocha Signed Date: 08/31/2024 15:32 ET Workstation ID: [id number] Transcribed By: Self Edit Transcribed Date: 08/31/2024 [...] Signed Date: 08/16/2024 20:14 ET Workstation ID: [id number] Transcribed By: Self Edit Transcribed Date: 08/16/2024 [...] Signed Date: 08/16/2024 20:14 ET Workstation ID: [id number] Transcribed By: Self Edit Transcribed Date: 08/16/2024 20:12 ET Result [facility] Donnie CHOUDHURY IMG XR PROCEDURES Final Result * External Dexa Report (06/24/2024) Only the most recent of2 resultswithin the time period is included. Anatomical Region Laterality Modality Bone Densitometr y Provider Mariposa Onbase IMG DXA PROCEDURES Final Result * Falls Risk Assessment (02/05/2024) [facility] Falls Risk Assessment Abstracted Result [facility] Provider HEALTH MAINTENANCE Final Result * Annual BMP Blood Test (11/20/2023) [facility] Annual BMP Blood Test Abstracted Result [facility] Provider HEALTH MAINTENANCE Final Result * (ABNORMAL) Lipid panel (08/28/2023) [facility] LDL/HDL Ratio 3 0 - 4 Triglycerides 114 0 - 150 mg/dL Cholesterol 199 0 - 200 mg/dL HDL 72 >=40 mg/dL LDL Cholesterol 105(A) 0 - 100 mg/dL Blood Venous blood specimen / Unknown Result [facility] Provider LAB BLOOD ORDERABLES Madhavi l Result * Colonoscopy (11/23/2019) [facility] Colonoscopy No interpretation , abstracted Anatomical Region Laterality Modality Other Result [facility] Provider HEALTH MAINTENANCE Final Result * Cervical Cancer Screening: HPV (07/06/2018) [facility] Cervical Cancer Screening: HPV Negative, abstracted Result [facility] Provider HEALTH MAINTENANCE Final Result * Hepatitis C Screening (09/07/2013) [facility] Hepatitis C Screening Abstracted Result [facility] Provider HEALTH MAINTENANCE Final Result from Last 3 Months or Most Recently Relevant to Health Maintenance Insurance MEDICARE MEDICAID - [place] Advance Directives Documents on File Type Date Recorded Patient Medical Records Tech Expl anation Health Care Decision (hx) 11/23/2021 AD MCCARTHY DIRECTIVE Health Care Decision (hx) 11/23/2021 AD MCCARTHY DIRECTIVE Health Care Decision (hx) 11/23/2021 AD MCCARTHY DIRECTIVE Health Care Decision (hx) 11/23/2021 AD MCCARTHY DIRECTIVE Health Care Decision (hx) 11/23/2021 AD MCCARTHY DIRECTIVE Health Care Decision (hx) 11/23/2021 AD MCCARTHY DIRECTIVE Care Teams Business Support Manager Relationship Specialty Start Date End Date Guille Allison MD [address] [place] [address] PCP - General Internal Medicine 11/01/21
--- OUTSIDE RECORDS SUMMARY | 2024-09-13 14:37 | XMS_ITS | Clinical Summary ---
Author Organization [facility] Address [address] [place], [place] [id number] Care Team Providers Care Core Cutter And Reamer Name Role Phone Teena Araujo MD Primary Care Provider [phone] Allergies Active Allergy Reactions Criticality Noted Date [...] age to complete this topic Care Teams Core Cutter And Reamer Relationship Specialty Start Date End Date Teena Araujo MD PCP - General Internal Medicine 01/27/18
--- OUTSIDE RECORDS SUMMARY | 2024-09-13 14:37 | XMS_ITS | Clinical Summary ---
Author Organization [address] Address [address] [place] [phone] Phone Care Team Providers Care Web Software Engineer Name Role Phone MorrisTeena Primary Care Provider [phone] Allergies Active Allergy Reactions Criticality Noted Date [...] patient's age to complete this topic Insurance [id number] MEDICAID MEDICARE [id number] MEDICAID MEDICARE [id number] MEDICAID MEDICARE MOTOR VEHICLE GENERIC MEDICARE [id number] MEDICAID MOTOR VEHICLE GENERIC MEDICARE [id number] MEDICAID Care Teams Web Software Engineer Relationship Specialty Start Date End Date Teena Morris [address] [place] [address] PCP - General 11/08/18
== END 2024-09-13 15:02 | disposition home or self-care (01) ==
LOC: HO.RHE 14:26
PROVIDERS: PCP Internal Medicine; Visit Provider Student in an Organized Health Care Education/Training Program
DX: M17.0 Bilateral primary osteoarthritis of knee (principal)
CPT/HCPCS: 20610

== ENCOUNTER → 2024-09-13 14:26 | Outpatient (BNVA) | payer MEDICARE, MEDICAID, SELFPAY | PROVIDERS: PCP Internal Medicine; Visit Provider Student in an Organized Health Care Education/Training Program | DX: M17.0 Bilateral primary osteoarthritis of knee (principal) | CPT/HCPCS: 20610; J7323 ==

== ENCOUNTER 2024-10-11 11:37 | Outpatient (AMB) | payer MEDICARE, MEDICAID, SELFPAY ==
--- NOTE | 2024-10-11 11:37 | A.OFFVIS_ITS ---
Intake Visit Reasons: 6 months follow up Intake Note: Carolin presents as a telehealth today. CC: states that she was on a meal plan for her antiinflamatory disease. She states she ate bad and had stomach pains and since she went back to eating better it has since gone away. Concrete Mixer Operator Helper Required: No Allergies oxcarbazepine [From TRILEPTAL] Allergy (Intermediate, Verified 10/11/24 11:37) HIVES/HALLUCINATIONS codeine [Codeine] Allergy (Mild, Verified 10/11/24 11:37) RASH hydromorphone [From Dilaudid] Allergy (Mild, Verified 10/11/24 11:37) unknown trazodone [TRAZODONE] Allergy (Unknown, Verified 10/11/24 11:37) UNKNOWN HPI HPI 6 months follow up: Details: 69 yr old f here for f/u RECAP: pt of [place] she was having ongoing heartburn and reflux. colonoscopy at [facility] 3 yrs ago, normal per her report. I ordered h pylori stool ag she was also educated on correct way to take PPI as she was taking wrongly H pylori breath test was neg due to ongoing possible GERD changed to protonix, she was c/o chronic sore throat she had a bout of diverticulitis 12/23-- sigmoid, WCC raised she was taking pantoprazole, carafate prn CT 01/2018- severe diverticulosis, fatty liver UGI 07/218 with thickening of stomach and irregular mucosa, reflux observed Had EGD 09/2018 w barretts, esophagitis, and moderate gastritis colonoscopy 11/2019--right sided hyperplastic polyp, rept colon 7 yrs, neg for microscopic colitis CT [facility] 2021- fatty liver, hyperinflated lungs, dege spinal disease EGD : 03/28 gastric erosions schatzki fundal gland polyps path: intestinal metaplasia stomach wats pos for barretts, no dysplasia INTERIM: SHe had diet indiscretion and upset stomach but now avodiing triggers and back to normal no abn stool habit no blood in the stools appetite is good no dysphagia she takes pantoprazole as advised Assessments 1. Esophagitis with Barretts esophagus, PLAN: 1/ cont with PPI, advised to take MV and Vit D supplement which she is doing--if sx worsen then consider repeat imaging or endoscopy [facility] Medical History (Updated 05/13/24 @ 13:52 by Bria Butler MD) Localized osteoarthritis of knees, bilateral Osteoarthritis of hands, bilateral Polyarthralgia Elevated cholesterol HTN (hypertension) PTSD (post-traumatic stress disorder) Seizures COPD (chronic obstructive pulmonary disease) Lumbar stenosis Barretts esophagus Asthma Bipolar disorder GERD (gastroesophageal reflux disease) Diverticulitis Surgical History Hx of nasal polypectomy Hx of tubal ligation Hx of spinal surgery History of esophagogastroduodenoscopy (EGD) History of colonoscopy Social History Household Members: None Housing: Apartment Do you presently have visiting nurse or other home services: No Alcohol intake: unknown Patient Tobacco Use Status: Never used Tobacco service: No Telehealth Telehealth Telehealth Platform: Telephone Location of provider rendering services: practice address Location of patient: address on file Patient Identification confirmed using: Name, : Yes Telehealth method: voice only Patient verbally consented to treatment: Yes Patient verbally consented to billing insurance company: Yes Patient informed of any privacy concerns related to visit: Yes Minutes spent on Phone/Video with Pt.: 8 Assessment & Plan Assessment & Plan (1) Arango esophagus: Code(s): K22.70 - Arango's esophagus without dysplasia Category: Medical Plan: as above Coding Level of Care Code Tele Est Pt Level 3 (79861) Diagnoses Arango esophagus K22.70
== END 2024-10-11 13:16 | disposition home or self-care (01) ==
LOC: HO.HGI 11:37
PROVIDERS: PCP Internal Medicine; Visit Provider Internal Medicine Gastroenterology
DX: K22.70 Barrett's esophagus without dysplasia (principal)
CPT/HCPCS: 99213

== ENCOUNTER → 2024-10-11 11:37 | Outpatient (BNVA) | payer MEDICARE, MEDICAID, SELFPAY | PROVIDERS: PCP Internal Medicine; Visit Provider Internal Medicine Gastroenterology ==

== ENCOUNTER → 2025-02-17 15:52 | Outpatient (AMB) | payer MEDICARE, MEDICAID, SELFPAY ==
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
--- OUTSIDE RECORDS SUMMARY | 2025-02-17 19:33 | XMS_ITS | Encounter Summary ---
Author Organization [facility] Address [address] [place] [address] Care Team Providers Care Dry Pan Operator Name Role Phone Guille Bates MD Primary Care Provider [phone] Reason for Visit * Reason Onset Date Comments [facility] 02/01/2025 Encounter Details Date Type Department Care Team (Late st Contact Info) Description 02/01/2025 Telephone Adult Medicine [address] [phone] Guille Bates MD [address] [place], [place] Social History Tobacco Use Types Packs/Day Years [...] on file documented as of this encounter Progress Notes * Dianna Thakkar RN - 02/17/2025 9:21 AM EDT Spoke to Mckay he was set with her account/chart no further information needed * Genevieve Delgado RN - 02/02/2025 11:02 AM EDT Called [facility] Left message with Mckay on A/M to call the office regarding this pt. * Shameka Kimbrough - 02/02/2025 10:22 AM EDT Mckay from [facility] is calling back on patient status * Guille Bates MD - 02/01/2025 12:29 PM EDT She has poorly controlled bipolar disorder. She follows with a psychiatrist/therapist but she is not happy with the current psychiatrist. I referred her to BENEFITS PROCESSOR, Trace Paulino and I have also given information about CHD. She follows with [facility] neurology for seizure disorder and no d ocumented dementia. She also has chronic neck pain, low backache, osteoarthritis of multiple joints and she follows with shirt cleaner Dr. Vann * Alice Davalos RN - 02/01/2025 10:55 AM EDT Pt was seen yesterday by dr bates . Do you have any concerns about this pt ability to care for herself , or her compliance with med plan ? * Ann Baugh - 02/01/2025 10:11 AM EDT Mckay is calling in to inquire about the patients Does the elder have capacity, if there are questions about her capacity has MOCA been completed and/or a referral to neuro been submitted? When was she last seen? Does she have any upcoming appointments? Does she have a history of UTI's? Is she medical and medication compliant? Is she able to manage her medications independently? What's her level of care? Does patient have a HCP on file and if so is there a secondary? Is the HCP invoked? Does the PCP have any concerns regarding the patient? documented in this encounter Plan of Treatment Upcoming Encounters Date Type Department Care Team (Late st Contact Info) Description 03/07/2025 2:30 PM EST Office Visit Adult Medicine [facility] [address] [place], [place] [phone] Guille Bates MD [address] [place] [address] 04/07/2025 3:45 PM EST Office Visit Pulmonology - [place] [address] [phone] Lynda Spicer MD [address] [address] documented as of this encounter Visit Diagnoses Not on filedocumented in this encounter Additional Health Concerns Assessment Noted Time PHQ-9 Depression Total Score: 2 02/01/20 25 9:47 AM EDT documented as of this encounter Care Teams Dry Pan Operator Relationship Specialty Start Date End Date Guille Bates MD [address] [place] [address] PCP - General Internal Medicine 11/01/21 documented as of this encounter
--- OUTSIDE RECORDS SUMMARY | 2025-02-17 19:33 | XMS_ITS | Encounter Summary ---
Author Organization [facility] Address [address] [place] [address] Care Team Providers Care Sr Solutions Consultant Name Role Phone Guille Allison MD Primary Care Provider [phone] Encounter Details Date Type Department Care Team (Late st Contact Info) Description 01/31/2025 Results Follow-Up Adult Medicine [address] [phone] Guille Allison MD [address] [place] [address] Social History Tobacco Use Types Packs/Day Years [...] as of this encounter Progress Notes * Guille Allison MD - 01/31/2025 7:32 PM EDT Lab results are discussed with the patient over the phone. Cholesterol level is elevated, patient is counseled for low calorie, low-fat diet. Other labs including electrolytes, kidney function, liverfunction, blood cell counts, hemoglobin level, thyroid function test results are within acceptable range. documented in this encounter Plan of Treatment Upcoming Encounters Date Type Department Care Team (Late st Contact Info) Description 03/07/2025 2:30 PM EST Office Visit Adult Medicine [facility] [address] [place], [place] [phone] Guille Allison MD [address] [place], [place] 04/07/2025 3:45 PM EST Office Visit Pulmonology - [place] [address] [phone] Lynda Spicer MD [address] [address] documented as of this encounter Visit Diagnoses Not on filedocumented in this encounter Additional Health Concerns Assessment Noted Time PHQ-9 Depression Total Score: 2 02/01/20 25 9:47 AM EDT documented as of this encounter Care Teams Sr Solutions Consultant Relationship Specialty Start Date End Date Guille Allison MD [address] [place] [address] PCP - General Internal Medicine 11/01/21 documented as of this encounter
--- OUTSIDE RECORDS SUMMARY | 2025-02-17 19:33 | XMS_ITS | Clinical Summary ---
Author Organization [address] Address [address] [place] [phone] Phone Care Team Providers Care Supervisory Investigative Specialist Name Role Phone MorrisTeena Primary Care Provider [phone] Allergies Active Allergy Reactions Criticality Noted Date [...] 102 11/08/2018 3:16 AM EDT Temperature 36.6 C (97.8 F) 11/08/2018 3:16 AM EDT Respiratory Rate 16 11/08/2018 3:16 AM EDT [...] Series) 2003 Osteoporosis screening (bone density) 2018 Influenza vaccine 12/03/2024 Covid-19 vaccine series ( - season) 2025 RSV Immunization (1 - 1-dose 75+ series) 2028 Cervical cancer screening Discontinued Meningococcal B Vaccine Aged Out No l onger eligible based on patient's age to complete this topic Meningococcal Vaccine Aged Out No sylvie ran eligible based on patient's age to complete this topic Insurance [id number] MEDICAID MEDICARE Member Subscriber Plan / Payer (Ef fective 2012-Present) Name:Carolin Chambers Member ID:[id number] Relation to Subscriber:Self Name:Carolin Chambers Subscriber ID:[id number] Payer ID:[id number] Group ID:Not on file Type:Not on file Address: [address] [id number] MEDICAID MEDICARE [id number] MEDICAID MEDICARE [employer] GENERIC MEDICARE [id number] MEDICAID [employer] GENERIC MEDICARE [id number] MEDICAID Care Teams Supervisory Investigative Specialist Relationship Specialty Start Date End Date Teena Morris [address] [place] [address] PCP - General 11/08/18
--- OUTSIDE RECORDS SUMMARY | 2025-02-17 19:33 | XMS_ITS | Clinical Summary ---
Author Organization [facility] [address] [place] [address] [place] [phone] Phone Care Team Providers Care Inside Sales Consultant Name Role Phone Guille Allison MD Primary Care Provider [phone] Allergies Active Allergy Reactions Criticality Noted Date Comments Codeine Rash Low 10/18/2009 Hydromorphone Other 01/24/2021 ? Oversedation from dialudid confusion Oxcarbazepine Hives,Other 07/12/2010 hallucinations Oxycodone Hcl Hives 02/18/2022 Trazodone Other,Rash Medium 05/20/2017 hallucinations Medications pantoprazole (PROTONIX) 40 mg EC tablet Take 1 tablet (40 mg total) by mouth 2 (two) times a day. 10/31/19 24 Active acetaminophen (TYLENOL 8 HOUR) 650 mg 8 hr tablet Take 1 tablet (650 mg total) by mouth 3 (three) times a day if needed. 09/24/19 24 Active fluticasone propionate (FLONASE) 50 mcg/actuation nasal spray 2 sprays in each nostril daily 02/19/20 22 Active citalopram (CeleXA) 20 mg tablet 1 tablet (20 mg total). 02/08/20 18 Active sucralfate (CARAFATE) 1 gram tablet Take 1 tablet (1 g total) by mouth. Active doxepin (Zonalon) 5 % cream Apply 1 Squirt topically. 07/09/19 18 Active senna-docusate (Senexon-S) 8.6-50 mg per tablet TAKE ONE TABLET BY MOUTH TWICE A DAY 60 tablet 04/12/20 24 Active diclofenac (VOLTAREN) 1 % topical gel APPLY 2 GRAMS TOPICALLY FOUR TIMES A DAY 100 g 1 08/06/19 25 Active Bacillus coagulans/B. subtilis (PROBIOTIC DUO ORAL) Take by mouth. Active cholecalciferol (Vitamin D3) 25 mcg (1,000 unit) capsule Take 1 capsule (1,000 Units total) by mouth 1 (one) time each day. Active phenytoin (DILANTIN) 100 mg ER capsule Take 1 capsule (100 mg total) by mouth. 1 capsule every morning and 2 capsules at bedtime Active betamethasone dipropionate (DIPROSONE) 0.05 % ointment Apply topically 2 (two) times a day. Active ubidecarenone (COQ-10 ORAL) Take by mouth. Active vitamin B complex (B COMPLEX 1 ORAL) Take by mouth. Active Trelegy Ellipta 100-62.5-25 mcg inhaler INHALE ONE PUFF BY MOUTH EVERY DAY 60 each 4 11/30/19 25 Active amLODIPine (NORVASC) 5 mg tablet TAKE ONE TABLET BY MOUTH EVERY DAY 90 tablet 1 12/08/19 25 Active albuterol HFA (Ventolin HFA) 90 mcg/actuation inhaler Inhale 2 puffs by mouth every 6 (six) hours if needed for wheezing. 3 each 3 12/31/19 25 026 Active MAGNESIUM CHLORIDE ORAL Take by mouth. Active COQ10, UBIQUINOL, ORAL Take by mouth. Active TURMERIC ORAL Take 2,000 mg by mouth 1 (one) time each day. Active lithium (LITHOBID) 300 mg CR tablet Take 1 tablet (300 mg total) by mouth 1 (one) time each day. Do not crush, chew, or split. Active furosemide (LASIX) 20 mg tablet Take 1 tablet (20 mg total) by mouth 1 (one) time each day. 11/27/19 24 025 Discontinued(Th erapy completed) albuterol HFA (PROAIR HFA ; PROVENTIL HFA ; VENTOLIN HFA) 90 mcg/actuation inhaler Inhale 2 puffs by mouth. 04/25/20 22 025 Discontinued(Du plicate order) albuterol HFA (PROAIR HFA ; PROVENTIL HFA ; VENTOLIN HFA) 90 mcg/actuation inhaler Inhale 2 puffs by mouth every 6 hours as needed. 025 Discontinued(Du plicate order) cephalexin (KEFLEX) 500 mg capsule Take 1 capsule (500 mg total) by mouth 3 (three) times a day. 025 Discontinued predniSONE (DELTASONE) 20 mg tablet Take 1 tablet (20 mg total) by mouth 1 (one) time each day. 025 Discontinued( erapy completed) cyclobenzaprine (FLEXERIL) 5 mg tablet Take 1 tablet (5 mg total) by mouth at bedtime as needed for muscle spasms. 30 tablet 1 10/19/19 25 025 Discontinued( erapy completed) albuterol HFA (Ventolin HFA) 90 mcg/actuation inhalerIndicati ons:COPD with asthma ([facility] V24, [facility] V28) Inhale 2 puffs by mouth every 6 (six) hours if needed for wheezing. 3 each 3 12/31/19 25 025 Discontinued( erapy completed) lamoTRIgine (LaMICtal XR) 300 mg tablet extended release 24hr 24 hr tablet Take 1 tablet (300 mg total) by mouth 1 (one) time each day. 025 Discontinued Active Problems Problem Noted Date Diagnosed Date Arango's esophagus without dysplasia 10/17/2024 Ataxia 09/24/2023 Nasal polyp 04/21/2023 Lumbar disc disease with radiculopathy 2 Chronic obstructive pulmonar y disease ([facility] V24, [facility] V28) 04/25/2022 Laceration of scalp 04/08/2022 Overview [...] days. She states in the ED at [facility], they put 1 [...] with neurogenic claudication Overview (02/09/2024): Follows with [facility] neurology decompression surgery pending Primary hypertension 01/06/2019 C. difficile colitis 05/06/2018 Overview (02/09/2024): Follows with gastroenterology Seizure disorder ([facility] V24, [facility] V28) 12/04 Overview (02/09/2024): Follows with neurology Bipolar 1 disorder ([facility] V24, [facility] V28) Mixed hyperlipidemia 09/05/2017 Gastroesophageal reflux disease without esophagi tis [...] drainage, redness/swelling in the right arm. Ms. Burch has a follow-up appointment with Dr. Lux in 4 to 6 weeks, hopefully with time she will note improvement in her right arm pain as the nerve root heals. Dr. Lux did see patient today as well. I asked her to call if she has any questions or concerns, worsening symptoms. All questions answered on today's visit. Anoxic brain injury ([facility] V24, [facility] V28) 1 Overview (02/09/2024): CT scan of brain negative 01/15/10, referred neurology Diverticulosis, sigmoid 12/01/2009 Overview (02/09/2024): Incidental finding on colonoscopy 11/2009 Anxiety and depression 10/19/2009 Overview (02/09/2024): Admitted [facility] 01/15/10 following suicide attempt with quart of vodka and sleeping pills, transferred to psych 01/16/10 Moderate persistent asthma 10/19/2009 Overview (02/09/2024): Follows with pulmonary on ICS/LABA, singulair and albuterol PRN Encounters Date Type Department Care Team Description 02/01/2025 Telephone Adult [address] [phone] Guille Allison MD 01/31/2025 9:30 AM EDT Office Visit Adult [address] [phone] Guille Allison MD Diverticulosis of colon with hemorrhage (Primary Dx); Arango's esophagus without dysplasia; Bipolar 2 disorder ([facility]/HCC V24, [facility] V28); Anxiety and depression; Chronic bilateral low back pain without sciatica; Primary osteoarthritis involving multiple joints; Primary hypertension; Chronic obstructive pulmonary disease, unspecified COPD type ([facility] V24, [facility] V28); Mixed hyperlipidemia; Seizure disorder ([facility] V24, [facility] V28); Screening for thyroid disorder; Encounter for osteoporosis screening in asymptomatic postmenopausal patient 01/31/2025 Results Follow-Up Adult [address] [phone] Guille Allison MD 01/31/2025 Telephone Adult [address] [phone] Guille Allison MD 01/10/2025 Telephone Adult [address] [phone] Guille Allison MD 12/31/2024 Telephone Adult [address] [phone] Guille Allison MD 12/17/2024 4:30 PM EDT - 12/17/2024 11:59 PM EDT Hospital Encounter [address] [phone] Cough, unspecified type Discharge Disposition: Home or Self Care from Last 3 Months Immunizations Immunization Administration Dates Next Due Influenza Quadravalent, 0.5m l (Fluzone High-dose) 65yo and older 01/20/2023 Influenza Quadravalent, MDCK , 0.5ml, preservative free (Flucelvax) 6mo and older 03/16/2019,02/11/2018 Influenza trivalent, 0.5mL ( Fluzone High-dose) 65yo and older 02/18/2022,02/16/2020 Influenza trivalent, with pr eservative (Fluzone; Afluria) 6mo and older 01/23/2017,03/15/2016,03/23/2015,02/07,02/23/2013,01/14/2012,01/16/2011 ,02/05/2010 Influenza, Unspecified 02/11/2018,01/03/2014 SAM/Liquidnet SARS-CoV-2 COVID -19, vector-nr, [id number], preservative free [...] sigmoid diverticulosis COLONOSCOPY W/ BIOPSIES 02/16/15 PROCEDURE: TX COLONOSCOPY STOMA W/BIOPSY SINGLE/MULTIPLE; COMMENT: adenoma and tics; repeat in 5 yrs Medical History Medical History Date Comments Sacroiliac joint somatic dysfunction 04/04/2017 DX:Sacroiliac joint somatic dysfunction; COMMENT: Follows with chiropractor and physiatry Pruritic dermatitis 07/09/2017 DX:Pruritic dermatitis; COMMENT: Follows with dermatology Moderate persistent asthma 10/19/2009 DX:Mo derate persistent asthma; COMMENT: Follows with pulmonary on ICS/LABA, singulair and albuterol PRN Anoxic brain injury ([facility] V24, [facility] V28) 02/15/2010 DX:Anoxic brain injury (HCC) ; COMMENT: CT scan of brain negative 01/15/10, referred neurology Depression 10/19/2009 DX:Depression; C OMMENT: Admitted [facility] 01/15/10 following suicide attempt with quart of [...] 30-39.9) 09/05/2017 DX:Obesity (BMI 30-39.9) Seizure disorder (CMS/HCC V2 4, CMS/HCC V28) 12/30/2017 DX:Seizure disorder (HCC); C OMMENT: Follows with neurology Bipolar 1 disorder (CMS/HCC V24, CMS/HCC V28) 12/30/2017 DX:Bipolar 1 disorder (HCC) Atypical chest pain 01/09/2018 DX:Atypical chest pain; [...] Sign Reading Time Taken Comments Blood Pressure 154/96 01/31/2025 9:39 AM EDT provider will recheck Pulse 82 01/31/2025 9:39 AM EDT Temperature 35.7 C (96.2 F) 01/31/2025 9:39 AM EDT Respiratory Rate 18 10/18/2024 2:12 PM EDT Oxygen Saturation 93% 10/04/2024 12: 07 PM EDT Inhaled Oxygen Concentration - - Weight 84.8 kg (187 lb) 01/31/2025 9:39 AM EDT Height 160 cm (5' 3 ) 01/31/2025 9:39 AM EDT Body Mass Index 33.13 01/31/2025 9:39 AM EDT Plan of Treatment Upcoming Encounters Date Type Department Care Team (Late st Contact Info) Description 03/07/2025 2:30 PM EST Office Visit Adult Medicine [address] [phone] Guille Allison MD [address], [place] 04/07/2025 3:45 PM EST Office Visit Pulmonology - [place] [address] [facility] [address] [place] [phone] Lynda Spicer MD [address] [facility] [address] [place] [address] Health Maintenance Due Date Last Done Comments DTaP,Tdap,and Td Vaccines (2 - Td or Tdap) 05/05/2017 05/05/2007 Medicare Annual Wellness Visit 04/12/2022 Social Influencers of Health Screening 04/12/2022 Cervical Cancer Screening: HPV 07/07/2023 07/06/2018 Colorectal Cancer Screening: Colonoscopy 11/22/2024 11/23/2019, 11/23/2019 Influenza Vaccine (#1) 2025 , 01/20/2023, 02/18/2022, Additional history exists Falls Risk Assessment 02/04/2025 02/05/2024 Hypertension/CHF/CAD Annual BMP Blood Test 01/31/2026 01/31/2025, 11/20/2023, 11/20/2023 Breast Cancer Screening 08/30/2026 08/31/19, 08/04/2023, 03/12/2022, Additional history exists Cholesterol Screening (Lipid Panel) 01/31/2030 01/31/2025, 08/28/2023 Osteoporosis Screening (Bone Density Screening) 06/24/2034 06/24/2024, 06/24/2024, 03/12/2022, Additional history exists Hepatitis C Screening Completed 09/07/2013 Pneumococcal Vaccine: 50+ Years Completed 02/18/2022, 02/16/2020, 02/16/2020, Additional history exists Zoster Vaccines Completed 04/11/2022, 07/0 12/2021, 05/24/2013 RSV Immunization Adult Patients Completed 01/20/2023 COVID-19 Vaccine Completed 09/13/2024, , 02/24/2023, Additional history exists Depression Screening Completed 01/31/2025 HIB Vaccines Aged Out No longer eligi [...] Procedure Name Priority Date/Time Associated Diagnosis Comments CBC WITH AUTO DIFFERENTIAL Routine 01/31/2025 10:47 AM EDT Chronic obstructive pulmonary disease, unspecified COPD type (CMS/HCC V24, CMS/HCC V28) Primary hypertension Mixed hyperlipidemia Seizure disorder (CMS/HCC V24, CMS/HCC V28) Anxiety and depression Arango's esophagus without dysplasia Chronic bilateral low back pain without sciatica Screening for diabetes mellitus (DM) Screening for hyperlipidemia HEMOGLOBIN A1C Routine 01/31/2025 10:47 AM EDT Chronic obstructive pulmonary disease, unspecified COPD type (CMS/HCC V24, CMS/HCC V28) Primary hypertension Mixed hyperlipidemia Seizure disorder (CMS/HCC V24, CMS/HCC V28) Anxiety and depression Arango's esophagus without dysplasia Chronic bilateral low back pain without sciatica Screening for diabetes mellitus (DM) Screening for hyperlipidemia CBC AND DIFFERENTIAL Routine 01/31/2025 10:47 AM EDT Chronic obstructive pulmonary disease, unspecified COPD type (CMS/HCC V24, CMS/HCC V28) Primary hypertension Mixed hyperlipidemia Seizure disorder (CMS/HCC V24, CMS/HCC V28) Anxiety and depression Arango's esophagus without dysplasia Chronic bilateral low back pain without sciatica Screening for diabetes mellitus (DM) Screening for hyperlipidemia COMPREHENSIVE METABOLIC PANEL Routine 01/31/2025 10:47 AM EDT Chronic obstructive pulmonary disease, unspecified COPD type (CMS/HCC V24, CMS/HCC V28) Primary hypertension Mixed hyperlipidemia Seizure disorder (CMS/HCC V24, CMS/HCC V28) Anxiety and depression Arango's esophagus without dysplasia Chronic bilateral low back pain without sciatica Screening for diabetes mellitus (DM) Screening for hyperlipidemia LIPID PANEL WITH REFLEX TO DIRECT LDL Routine 01/31/2025 10:47 AM EDT Chronic obstructive pulmonary disease, unspecified COPD type (CMS/HCC V24, CMS/HCC V28) Primary hypertension Mixed hyperlipidemia Seizure disorder (CMS/HCC V24, CMS/HCC V28) Anxiety and depression Arango's esophagus without dysplasia Chronic bilateral low back pain without sciatica Screening for diabetes mellitus (DM) Screening for hyperlipidemia THYROID STIMULATING HORMONE WITH REFLEX TO FREE T4 AND FREE T3 Routine 01/31/2025 10:47 AM EDT Screening for thyroid disorder XR CHEST 2 VIEWS Routine 12/17/2024 4:42 PM EDT Cough, unspecified type MG MAMMO DIGITAL SCREENING W MELISSA BILAT Routine 08/30/2024 2:18 PM EDT Encounter for screening mammogram for breast cancer EXTERNAL DEXA REPORT 06/24/2024 FALLS RISK ASSESSMENT Routine 02/05/2024 COLONOSCOPY Routine 11/23/2019 HPV Routine 07/06/2018 HEPATITIS C SCREENING Routine 09/07/2013 from Last 3 Months or Most Recently Relevant to Health Maintenance Results * Thyroid stimulating hormone with reflex to free t4 and free t3 (01/31/2025 10:47 AM EDT) TSH 0.92 0.40 - 4.00 mcIU/mL LAB CHEMISTRY METHOD 01/31/2025 6:22 PM EDT [facility] Blood Venous blood specimen / Unknown Venipuncture / Unknown 01/31/2025 10:47 AM EDT 01/31/2025 10:47 AM EDT us Guille Allison MD LAB BLOOD ORDERABLES Final Result [facility] [address] [place] [address], [place] [phone] * (ABNORMAL) Lipid panel with reflex to direct LDL (01/31/2025 10:47 AM EDT) Cholesterol 259(H) 0 - 200 mg/dL LAB CHEMISTRY METHOD 01/31/2025 5:38 PM EDT [facility] Triglycerides 202(H) 0 - 150 mg/dL LAB CHEMISTRY METHOD 01/31/2025 5:38 PM EDT [facility] HDL 66 >=40 mg/dL LAB CHEMISTRY METHOD 01/31/2025 5:38 PM EDT [facility] LDL Calculated 153(H) 0 - 100 mg/dL LAB CHEMISTRY METHOD 01/31/2025 5:38 PM EDT [facility] Comment:Estimated LDL Calcul ated using equation: Total cholesterol - HDL cholesterol - (Triglycerides/5) VLDL Cholesterol [place] 40.4 mg/dL LAB CHEMISTRY METHOD 01/31/2025 5:38 PM EDT [facility] Non HDL Chol. (LDL+VLDL) 193(H) <145 mg/dL LAB CHEMISTRY METHOD 01/31/2025 5:38 PM EDT [facility] Chol/HDL Ratio 3.9 0.0 - 4.4 LAB CHEMISTRY METHOD 01/31/2025 5:38 PM EDT [facility] Blood Venous blood specimen / Unknown Venipuncture / Unknown 01/31/2025 10:47 AM EDT 01/31/2025 10:47 AM EDT us Guille Allison MD LAB BLOOD ORDERABLES Final Result [facility] [address] [place] [address], * (ABNORMAL) CBC auto differential (01/31/2025 10:47 AM EDT) WBC 8.3 4.8 - 10.8 K/mcL LAB HEMETOLOGY METHOD 01/31/2025 2:02 PM EDT [facility] RBC 4.10 3.80 - 4.80 M/mcL LAB HEMETOLOGY METHOD 01/31/2025 2:02 PM EDT [facility] Hemoglobin 14.0 11.5 - 16.0 g/dL LAB HEMETOLOGY METHOD 01/31/2025 2:[address] [facility] Hematocrit 40.5 35.0 - 47.0 % LAB HEMETOLOGY METHOD 01/31/2025 2:[address] [facility] MCV 99.5(H) 79.0 - 98.0 FL LAB HEMETOLOGY METHOD 01/31/2025 2:[address] [facility] MCH 34.4(H) 27.0 - 32.0 pcg LAB HEMETOLOGY METHOD 01/31/2025 2:[address] [facility] MCHC 34.6 32.0 - 37.0 g/dL LAB HEMETOLOGY METHOD 01/31/2025 2:[address] [facility] RDW 11.7 11.0 - 15.0 % LAB HEMETOLOGY METHOD 01/31/2025 2:[address] [facility] Platelets 350 130 - 400 K/mcL LAB HEMETOLOGY METHOD 01/31/2025 2:[address] [facility] MPV 9.7 7.0 - 11.0 FL LAB HEMETOLOGY METHOD 01/31/2025 2:[address] [facility] NRBC 0.0 <1.0 % LAB HEMETOLOGY METHOD 01/31/2025 2:[address] [facility] NRBC Absolute 0.00 <0.10 K/mcL LAB HEMETOLOGY METHOD 01/31/2025 2:[address] [facility] Neutrophils Relative 64.1 % LAB HEMETOLOGY METHOD 01/31/2025 2:[address] [facility] Lymphocytes Relative 22.0 % LAB HEMETOLOGY METHOD 01/31/2025 2:[address] [facility] Monocytes Relative 8.1 % LAB HEMETOLOGY METHOD 01/31/2025 2:02 PM EDT [facility] Eosinophils Relative 4.2 % LAB HEMETOLOGY METHOD 01/31/2025 2:02 PM EDT [facility] Basophils Relative 0.6 % LAB HEMETOLOGY METHOD 01/31/2025 2:02 PM EDT [facility] Immature Granulocytes Relative 1.0 % LAB HEMETOLOGY METHOD 01/31/2025 2:02 PM EDT [facility] Neutrophils Absolute 5.30 1.50 - 7.00 K/mcL LAB HEMETOLOGY METHOD 01/31/2025 2:02 PM EDT [facility] Lymphocytes Absolute 1.82 1.00 - 5.00 K/mcL LAB HEMETOLOGY METHOD 01/31/2025 2:02 PM EDT [facility] Monocytes Absolute 0.67 0.20 - 1.00 K/mcL LAB HEMETOLOGY METHOD 01/31/2025 2:02 PM EDT [facility] Eosinophils Absolute 0.35 0.00 - 0.50 K/mcL LAB HEMETOLOGY METHOD 01/31/2025 2:02 PM EDT [facility] Basophils Absolute 0.05 0.00 - 0.20 K/mcL LAB HEMETOLOGY METHOD 01/31/2025 2:02 PM EDT [facility] Immature Granulocytes Absolute 0.08(H) 0.00 - 0.03 K/mcL LAB HEMETOLOGY METHOD 01/31/2025 2:02 PM EDT [facility] Blood Venous blood specimen / Unknown Venipuncture / Unknown 01/31/2025 10:47 AM EDT 01/31/2025 10:47 AM EDT us Guille Allison MD LAB BLOOD ORDERABLES Final Result [facility] [address] [place] [address], [place] [phone] * Hemoglobin A1c (01/31/2025 10:47 AM EDT) [facility] Hemoglobin A1C 5.3 <6.5 % LAB CHEMISTRY METHOD 02/01/2025 10:10 AM EDT [facility] Mean Bld Glu Estim. 105 mg/dL LAB CHEMISTRY METHOD 02/01/2025 10:10 AM EDT [facility] Blood Venous blood specimen / Unknown Venipuncture / Unknown 01/31/2025 10:47 AM EDT 01/31/2025 10:47 AM EDT Guille Allison MD LAB BLOOD ORDERABLES Final Result [facility] [address] [place] [address], [place] [phone] * (ABNORMAL) Comprehensive metabolic panel (01/31/2025 10:47 AM EDT) [facility] Sodium 139 133 - 145 mmol/L LAB CHEMISTRY METHOD 01/31/2025 5:[address] [facility] Potassium 4.6 3.5 - 5.5 mmol/L LAB CHEMISTRY METHOD 01/31/2025 5:[address] [facility] Chloride 106 96 - 110 mmol/L LAB CHEMISTRY METHOD 01/31/2025 5:[address] [facility] CO2 26 21 - 32 mmol/L LAB CHEMISTRY METHOD 01/31/2025 5:[address] [facility] Anion Gap 7 3 - 11 LAB CHEMISTRY METHOD 01/31/2025 5:[address] [facility] Glucose 92 70 - 100 mg/dL LAB CHEMISTRY METHOD 01/31/2025 5:[address] [facility] BUN 15 5 - 25 mg/dL LAB CHEMISTRY METHOD [facility] Creatinine 0.48(L) 0.50 - 1.10 mg/dL LAB CHEMISTRY METHOD 01/31/2025 5:[address] [facility] eGFR 101 >=60 mL/min/1. 73m2 LAB CHEMISTRY METHOD 01/31/2025 5:[address] [facility] Comment:Calculation based on the Chronic Kidney Disease Epidemiology Collaboration (CKD-EPI) equation refit without adjustment for race. BUN/Creatinine Ratio 31.3 LAB CHEMISTRY METHOD 01/31/2025 5:[address] [facility] Calcium 9.2 8.5 - 10.5 mg/dL LAB CHEMISTRY METHOD 01/31/2025 5:[address] [facility] AST (SGOT) 19 10 - 42 unit/L LAB CHEMISTRY METHOD 01/31/2025 5:[address] [facility] ALT (SGPT) 35 10 - 60 unit/L LAB CHEMISTRY METHOD 01/31/2025 5:[address] [facility] Alkaline Phosphatase 105 42 - 121 unit/L LAB CHEMISTRY METHOD 01/31/2025 5:[address] [facility] Total Protein 6.8 6.0 - 8.0 g/dL LAB CHEMISTRY METHOD 01/31/2025 5:[address] [facility] Albumin 4.1 3.2 - 5.0 g/dL LAB CHEMISTRY METHOD 01/31/2025 5:[address] [facility] Total Bilirubin 0.2 0.0 - 1.4 mg/dL LAB CHEMISTRY METHOD 01/31/2025 5:[address] [facility] Blood Venous blood specimen / Unknown Venipuncture / Unknown 01/31/2025 10:47 AM EDT 01/31/2025 10:47 AM EDT us Guille Allison MD LAB BLOOD ORDERABLES Final Result [facility] [address] [place] [address], [place] [phone] * XR Chest 2 Views (12/17/2024 4:42 PM EDT) Anatomical Region Laterality Modality Body Radiographic Shyanne ging 12/17/2024 7:16 PM EDT Impressions 12/17/2024 7:19 PM EDT No evidence of an acute chest process. POS - [id number] -------- FINAL REPORT -------- Dictated By: Hoa Erazo Dictated Date: 12/17/2024 19:16 ET Assigned Physician: Hoa Erazo Reviewed and Electronically Signed By: Hoa Erazo Signed Date: 12/17/2024 19:19 ET Workstation ID: [id number] Transcribed By: Self Edit Transcribed Date: 12/17/2024 19:16 ET Narrative 12/17/2024 7:19 PM EDT EXAM: Chest x-ray HISTORY: Cough. COMPARISON: 11/05/2023, 02/08/2021, and 12/20/2019 FINDINGS: PA and lateral views of the chest were performed. No focal infiltrate, pleural effusion, or evidence of pulmonary edema. Chronic minimal scarring at the left lung base. Heart is not enlarged. Mediastinal contours are stable. Multilevel degenerative changes in the spine. Old healed right rib fracture deformities. Postsurgical changes in the lower cervical spine. Procedure Note Hoa Erazo MD - 12/17/2024 EXAM: Chest x-ray HISTORY: Cough. COMPARISON: 11/05/2023, 02/08/2021, and 12/20/2019 FINDINGS: PA and lateral views of the chest were performed. No focal infiltrate, pleural effusion, or evidence of pulmonary edema.Chronic minimal scarring at the left lung base. Heart is not enlarged.Mediastinal contours are stable. Multilevel degenerative changes in thespine. Old healed right rib fracture deformities. Postsurgical changes inthe lower cervical spine. IMPRESSION: No evidence of an acute chest process. POS - [id number] -------- FINAL REPORT -------- Dictated By: Hoa Erazo Dictated Date: 12/17/2024 19:16 ET Assigned Physician: Hoa Erazo Reviewed and Electronically Signed By: Hoa Erazo Signed Date: 12/17/2024 19:19 ET Workstation ID: [id number] Transcribed By: Self Edit Transcribed Date: 12/17/2024 19:16 ET Lynda Spicer MD IMG XR PROCEDURES Final Result * [facility] Mammo Digital Screening w Melissa bilat (08/30/2024 2:18 PM EDT) Anatomical Region Laterality Modality Breast Bilateral Mammography 08/31/2024 3:24 PM EDT Impressions 08/31/2024 3:32 PM EDT 1. No mammographic evidence of malignancy 2. Scattered fibroglandular tissue BI-RADS CATEGORY: 2 - BENIGN RECOMMENDATION: Screening bilateral mammogram is recommended in 1 year. Mammo Location: [facility], [address] [place] [address], [id number], . -------- FINAL REPORT -------- Dictated By: Tamara Rocha Dictated Date: 08/31/2024 15:24 ET Assigned Physician: Tamara Rocha Reviewed and Electronically Signed By: Tamara Rocha Signed Date: 08/31/2024 15:32 ET Workstation ID: [id number] Transcribed By: Self Edit Transcribed Date: 08/31/2024 [...] distortion identified. Stable typically benign parenchymal asymmetries. Typical benign lesly calcifications are present throughout the [...] is recommended in 1 year. Mammo Location: [facility], [address] [place] [address], [id number], . -------- FINAL REPORT -------- Dictated By: Tamara Rocha Dictated Date: 08/31/2024 15:24 ET Assigned Physician: Tamara Rocha Reviewed and Electronically Signed By: Tamara Rocha Signed Date: 08/31/2024 15:32 ET Workstation ID: [id number] Transcribed By: Self Edit Transcribed Date: 08/31/2024 15:24 ET Guille Allison MD IMG BI PROCEDURES Final Res ult * External Dexa Report (06/24/2024) Anatomical Region Laterality Modality Bone Densitometr y Provider [facility] IMG DXA PROCEDURES Final Result * Falls Risk Assessment (02/05/2024) Falls Risk Assessment Abstracted Historical Provider HEALTH MAINTENANCE Final Result * Colonoscopy (11/23/2019) [facility] Colonoscopy No interpretation , abstracted Anatomical Region Laterality Modality Other Historical Provider HEALTH MAINTENANCE Final Result * Cervical Cancer Screening: HPV (07/06/2018) [facility] Cervical Cancer Screening: HPV Negative, abstracted Historical Provider HEALTH MAINTENANCE Final Result * Hepatitis C Screening (09/07/2013) [facility] Hepatitis C Screening Abstracted Historical Provider HEALTH MAINTENANCE Final Result from Last 3 Months or Most Recently Relevant to Health Maintenance Insurance MEDICARE MEDICAID - [place] Advance Directives Documents on File Type Date Recorded Patient Ship Washer Expl anation Health Care Decision (hx) 11/23/2021 AD MCCARTHY DIRECTIVE Health Care Decision (hx) 11/23/2021 AD MCCARTHY DIRECTIVE Health Care Decision (hx) 11/23/2021 AD MCCARTHY DIRECTIVE Health Care Decision (hx) 11/23/2021 AD MCCARTHY DIRECTIVE Health Care Decision (hx) 11/23/2021 AD MCCARTHY DIRECTIVE Health Care Decision (hx) 11/23/2021 AD MCCARTHY DIRECTIVE Care Teams Inside Sales Consultant Relationship Specialty Start Date End Date Guille Allison MD [address] [place] [address] PCP - General Internal Medicine 11/01/21
--- OUTSIDE RECORDS SUMMARY | 2025-02-17 19:33 | XMS_ITS | Encounter Summary ---
Author Organization [facility] Address [address] [place] [address] [place] [id number] Phone Care Team Providers Care Heel Sander Name Role Phone Teena Morris MD Primary Care Provider [phone] Guille Allison MD Primary Care Provider Encounter Details Date Type Department Care Team (Late st Contact Info) Description 09/12/2021 Procedure Pass [facility] Endoscopy Admitting Dept Virtual Department [address] [place] [address] Social History Tobacco Use Types Packs/Day Years Used Date Smoking Tobacco: Never Smokeless Tobacco: Never Alcohol Use Standard Drinks/Week Comments Yes 0 (1 standard drink = 0.6 oz pur e alcohol) Comments Unknown Sex and Gender Information Value Date Recorded Sex Assigned at Not on file Legal Sex Female 1:38 PM EDT Gender Identity Not on file Sexual Orientation Not on file documented as of this encounter Plan of Treatment Not on file documented as of this encounter Visit Diagnoses Not on filedocumented in this encounter Additional Health Concerns Infection Onset Date Last Indicated Resolved Time CoV-Risk Comment:Per note documentation 05/14/2023 05/14/2023 1:18 PM EST CoV-Risk 11/04/2023 11/04/2023 11/15/2023 1:22 AM EDT documented as of this encounter Care Teams Heel Sander Relationship Specialty Start Date End Date Teena Morris MD [address] [place] [phone] PCP - General Internal Medicine 01/08/19 09/26/22 Guille Allison MD [address] [place] [id number] PCP - General Internal Medicine 09/27/22 documented as of this encounter Additional Source Comments The information contained in this document represents components of the legal health record. It is not the complete legal health record.[facility]
--- OUTSIDE RECORDS SUMMARY | 2025-02-17 19:33 | XMS_ITS | Clinical Summary ---
Author Organization [facility] Address [address] [place], [place] [id number] Care Team Providers Care Haul Truck Driver Name Role Phone Teena Araujo MD Primary Care Provider [phone] Allergies Active Allergy Reactions Criticality Noted Date [...] 95 08/09/2021 2:05 PM EDT Temperature 36.4 C (97.5 F) 08/09/2021 2:05 PM EDT Respiratory Rate - - Oxygen Saturation 96% [...] 1 - PCV) 2018 Influenza Vaccine (#1) 2025 RSV Adult > 60+ Yrs or Pregn ant (1 - 1-dose 75+ series) 2028 Hepatitis B Vaccines Aged Out No long er eligible based on patient's age to complete this topic RSV Ped < 20 months Aged Out No longe r eligible based on patient's age to complete this topic Care Teams Haul Truck Driver Relationship Specialty Start Date End Date Teena Araujo MD PCP - General Internal Medicine 01/27/18
--- OUTSIDE RECORDS SUMMARY | 2025-02-17 19:33 | XMS_ITS | Clinical Summary ---
Author Organization [facility] Address [address] [address] Phone Care Team Providers Care Proteomics Scientist Name Role Phone Guille Allison MD Primary Care Provider Allergies Active Allergy Reactions Criticality Noted Date Comments Codeine 02/11/2018 Hydromorphone Hallucinations High 09/27/2022 Oxcarbazepine 02/11/2018 Oxycodone 09/27/2022 Tramadol 11/08/2018 Trazodone 02/11/2018 Medications citalopram (CELEXA) 20 MG tablet Take 20 mg by mouth daily. 8 Active fluticasone furoate-vilante rol (BREO ELLIPTA) 100-25 mcg/dose inhaler Take by mouth daily as needed. 8 Active ibuprofen (ADVIL,MOTRIN) 800 MG tablet Take 800 mg by mouth every 6 (six) hours as needed. 9 Active montelukast (SINGULAIR) 10 mg tablet Take 10 mg by mouth daily. 8 Active pravastatin (PRAVACHOL) 80 MG tablet Take 80 mg by mouth daily. 8 Active sucralfate (CARAFATE) 1 gram tablet Take 2 tablets by mouth daily. Active amLODIPine (NORVASC) 5 MG tablet Take 5 mg by mouth daily. Active temazepam (RESTORIL) 30 mg capsule Take 30 mg by mouth nightly at bedtime as needed. 3 Active albuterol 90 mcg/actuation inhaler Inhale 2 puffs into the lungs every 6 (six) hours as needed. Active oxyCODONE 5 MG immediate release tablet Take 5 mg by mouth every 6 (six) months. 4 Active IBU 600 mg tablet Take 600 mg by mouth every 8 (eight) hours as needed for pain (specific location in comments). 4 Active divalproex (DEPAKOTE) [address] tablet Take 500 mg by mouth 2 (two) times a day. 4 Active TRELEGY ELLIPTA 100-62.5-25 mcg inhalation powder Inhale 1 puff into the lungs daily. 4 Active pantoprazole (PROTONIX) 40 MG tablet Take 40 mg by mouth 2 (two) times a day. 3 Active famotidine (PEPCID) 40 MG tablet Take 40 mg by mouth nightly at bedtime. 3 Active minoxidiL (LONITEN) 2.5 MG tablet Take 2.5 mg by mouth daily. Active budesonide (RHINOCORT AQUA) 32 mcg/actuation nasal spray INHALE TWO SPRAYS IN EACH NOSTRIL EVERY DAY 4 Active diclofenac sodium (VOLTAREN) 1 % Gel APPLY 4 GRAMS TOPICALLY TWICE A DAY 4 Active SENEXON-S 8.6-50 mg Take 1 tablet by mouth 2 (two) times a day. 4 Active cyclobenzaprine (FLEXERIL) 5 MG tablet Take 5 mg by mouth nightly at bedtime. 4 Active gabapentin (NEURONTIN) 100 MG capsule Take 100 mg by mouth 3 (three) times a day. 4 Active famotidine (PEPCID) 40 MG tablet Per instructions AT BEDTIME (route: oral) 3 Active montelukast (SINGULAIR) 10 mg tablet Per instructions AT BEDTIME (route: oral) 3 Active Active Problems Problem Noted Date Diagnosed Date Closed fracture of multiple ribs of right side, initial encounter 05/15/2023 Hypoxia 05/14/2023 Assessment & Plan (05/15/2023 1:33 PM EST): Improving, mild -05/11 sustained a fall ?seizure. right side rib pain followed up with PCP -x-ray which showed 2 right-sided rib fractures she was prescribed oxycodone. she continued to have significant pain while moving and was feeling lightheaded- these symptoms have improved slightly -Chest x-ray here shows no pneumothorax/hemothorax, rib fractures were seen -Oxycodone and morphine as I believe these are contributing to some of her symptoms, we will try to control her pain with Tylenol and breakthrough tramadol as she will be in some pain for an extended period of time and I would not want her on prolonged narcotics -Oxygen supplementation prn, O2 monitoring -Incentive spirometry, redemonstrated how to use this this morning and she was blowing volumes in excess of 1500 mL -PT eval HTN (hypertension) 05/14/2023 Assessment & Plan (05/14/2023 5:50 PM EST): -Blood pressure is currently controlled, continue Norvasc Seizure disorder 05/14/2023 Assessment & Plan (05/15/2023 1:33 PM EST): No active seizures. Follows with neuro seen 05/13 after this incident in question. -Continue Depakote 500 mg twice daily -Level was therapeutic -Seizure precautions Asthma-COPD overlap syndrome 05/14/2023 Assessment & Plan (05/14/2023 5:50 PM EST): -Currently no wheezing -Continue Trelegy, patient has her inhaler from home -Continue Singulair -prn albuterol Acute medial meniscus tear of right knee 018 Family History Medical History Relation Comments Leukemia Paternal Grandfather Brain tumor Paternal Uncle Relation Status Comments Paternal Grandfather Paternal Uncle Social History Tobacco Use Types Packs/Day Years Used Date Smoking Tobacco: Never Smokeless Tobacco: Never Tobacco Cessation:Counseling Given: Not Answered Alcohol Use Standard Drinks/Week Comments Yes 0 (1 standard drink = 0.6 oz pur e alcohol) Education Answer Date Recorded Are you interested in more education? Not on filiberto e 08/30/2022 Are you concerned about learning? Not on file 08/30/2022 No 08/30/2022 No 08/30/2022 Digital Access Answer Date Recorded No 09/27/2022 No 09/27/2022 Reliable internet access at home? Not on file 09/27/2022 Device with a working camera? Not on file Intimate Partner Violence Answer Date R ecorded Are you denied basic needs s uch as food, clothing, or medical care? No 05/14/2023 In the past 12 months have y ou been in a relationship with a person who hurts, threatens, or tries to control you? No 05/14/2023 Are you denied basic needs s uch as food, clothing, or medical care? No 05/14/2023 In the past 12 months have y ou been in a relationship with a person who hurts, threatens, or tries to control you? No 05/14/2023 Comments Unknown Sex and Gender Information Value Date Recorded Sex Assigned at Not on file Legal Sex Female 1:38 PM EDT Gender Identity Not on file Sexual Orientation Not on file Last Filed Vital Signs Vital Sign Reading Time Taken Comments Blood Pressure 123/79 11/04/2023 4:48 PM EDT Pulse 96 11/04/2023 4:48 PM EDT Temperature 37 C (98.6 F) 11/04/2023 4:48 PM EDT Respiratory Rate 20 11/04/2023 4:48 PM EDT Oxygen Saturation 99% 11/04/2023 4:48 PM EDT Inhaled Oxygen Concentration - - Weight 86.2 kg (190 lb) 11/04/2023 4:48 PM EDT Height 162.6 cm (5' 4 ) 11/04/2023 4:48 PM EDT Body Mass Index 32.61 11/04/2023 4:48 PM EDT Plan of Treatment Health Maintenance Due Date Last Done Comments LIPID PANEL 1953 DEPRESSION SCREENING 1965 HEPATITIS C SCREENING 1971 MAMMOGRAM 1993 COLOGUARD 1998 COLONOSCOPY 1998 COLORECTAL CANCER SCREENING 1998 FIT TEST 1998 FOBT 1998 SIGMOIDOSCOPY 1998 VIRTUAL COLONOSCOPY 1998 Adult Td,Tdap Booster 05/05/2017 05/05/2007 OSTEOPOROSIS SCREENING INITIAL (ONE-TIME) 2018 BLOOD PRESSURE 05/06/2024 11/04/2023 VALPROIC ACID (DEPAKENE) LEVEL 05/14/2024 05/14/2023 INFLUENZA VACCINE (#1) 2024 3, 02/18/2022, 02/16/2020, Additional history exists COVID-19 VACCINE (2024- season) 2025 02/24/2023, 06/26/2022, 03/09/2021 PNEUMOCOCCAL VACCINES (50+ years) Completed 02/18/2022, 02/16/2020, 11/24/2009 ZOSTER VACCINES Completed 04/11/2022, 12/2021, 05/24/2013 RSV VACCINE Completed 01/20/2023 SMOKING STATUS SCREENING (Once After 26 Yrs) Completed 11/04/2023 HEPATITIS A VACCINES Aged Out No long er eligible based on patient's age to complete this topic HIB VACCINES Aged Out No longer eligi ble based on patient's age to complete this topic MENINGOCOCCAL VACCINES (ACWY) Aged Out No longer eligible based on patient's age to complete this topic MENINGOCOCCAL VACCINES (B) Aged Out N o longer eligible based on patient's age to complete this topic Medical Devices Not on file Procedures Procedure Name Priority Date/Time Associated Diagnosis Comments VALPROIC ACID STAT 05/14/2023 1:44 PM EST from Last 3 Months or Most Recently Relevant to Health Maintenance Results * Valproic acid (05/14/2023 1:44 PM EST) VALPROIC ACID 97.3 50.0 - 100.0 ug/mL [facility] Blood 05/14/2023 1:44 PM EST 05/14/2023 1:48 PM EST us Kevin Gill MD LAB BLOOD ORDERABLES Final Resu lt [facility] [address] [place] [address] from Last 3 Months or Most Recently Relevant to Health Maintenance [place] [address] MEDICARE PART A & B [place] SUSY VELÁ[place]QUEZDO[place] [id number] MED[address]ARE PART A & B [facility] MEDICARE PART A & B [id number] [place] [address] MEDICARE PART A & B [facility] [place] [id number] MEDICARE PART A [place] [phone] MEDICARE PART A [place] [id number] MEDICARE PART A & B [facility] MEDICARE PART A & B [facility] MEDICARE PART A & B [facility] [place] MEDICARE PART A & B [facility] Advance Directives For more information, please contact: [phone] (9AM - 5PM [facility], Friday-Friday) * Full Code (Latest Code Status on File) Date Activated Date Inactivated Comments 05/14/2023 5:37 PM Question Answer Comments Code Status Confirmed With: Patient Care Teams Proteomics Scientist Relationship Specialty Start Date End Date Guille Allison MD [address] [place] [phone] PCP - General Internal Medicine 09/27/22 Additional Source Comments The information contained in this document represents components of the legal health record. It is not the complete legal health record.[facility]
--- OUTSIDE RECORDS SUMMARY | 2025-02-17 19:33 | XMS_ITS ---
Author Name [facility] Organization Unknown Encounters Encounter Type Encounter Reason Primary Diagnosis Location Date Ambulatory [facility] 02/13/2024 Care Team Organization Name Specialty Phone Email Start Date End Da te [facility] 12/22/2024 [facility] 08/28/2024 [facility] Michelle Peres Primary Care 01/09/2023 12/22/2023 [facility] Tara Primary Care 10/11/2022 12/22/2023 [facility] Germain Gonzalez Primary Care 03/12/2022 12/22/19 24
== END ==
LOC: HO.HSM 15:53
PROVIDERS: PCP Internal Medicine; Referring Provider Internal Medicine; Visit Provider Registered Nurse
DX: G40.909 Epilepsy, unspecified, not intractable, without status epilepticus (principal); M47.812 Spondylosis without myelopathy or radiculopathy, cervical region; R25.1 Tremor, unspecified; G47.00 Insomnia, unspecified
CPT/HCPCS: 99214

== ENCOUNTER → 2025-02-17 15:52 | Outpatient (BNVA) | payer MEDICARE, MEDICAID, SELFPAY | PROVIDERS: PCP Internal Medicine; Referring Provider Internal Medicine; Visit Provider Registered Nurse | DX: G40.909 Epilepsy, unspecified, not intractable, without status epilepticus (principal); G47.00 Insomnia, unspecified; M47.812 Spondylosis without myelopathy or radiculopathy, cervical region; R25.1 Tremor, unspecified; Z79.899 Other long term (current) drug therapy | CPT/HCPCS: 99212 ==

== ENCOUNTER 2025-03-17 16:00 | Outpatient (AMB) | payer MEDICARE, MEDICAID, SELFPAY ==
--- NOTE | 2025-03-17 16:01 | A.OFFVIS_ITS ---
Vital Signs 03/17/25 16:06 Height 5 ft 4 in Weight 183 lb 6.793 oz BMI 31.5 BP 132/90 H Blood Pressure Location Lt brachial Position Sitting Pulse 85 Pulse Source Pulse Oximeter Pulse Oximetry (%) 96 Oxygen Delivery Method Room Air Intake Visit Reasons: follow up Intake Note: Patient presents for Osteoarthritis follow up. 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 Noticed polyarticular joint pain for the past 2 years. Sometimes difficult to get up in the morning. Pain involves all joints and is associated with AM stiffness 30mins. Has noted swelling to hands and wrists. Notes the swelling in the AM. This improves as the day goes on. Denies waking up in the middle of the night due to pins and needles with the hands Worse joints are her knees and her hands. She has to drive 45 mins for her commute to work. When she is driving her fingers lock up and she will have to pry them open. 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 Was considering surgery but has delayed. Therapies trialled at home: diclofenac gel - helps the joints. 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 She would wake up with bruises and the room is in dissarray Mom was diagnosed with arthritis. Unsure of the type, (it sounds like OA) Current Rheumatology Medication(s): Topical diclofenac 1% [facility] Medical History (Updated 03/15/25 @ 11:42 by Amparo Barnes MD) Diarrhea Localized osteoarthritis of knees, bilateral Osteoarthritis of hands, bilateral Polyarthralgia Elevated cholesterol HTN (hypertension) PTSD (post-traumatic stress disorder) Seizures COPD (chronic obstructive pulmonary disease) Lumbar stenosis Barretts esophagus Asthma Bipolar disorder GERD (gastroesophageal reflux disease) Diverticulitis Surgical History Hx of nasal polypectomy Hx of tubal ligation Hx of spinal surgery History of esophagogastroduodenoscopy (EGD) History of colonoscopy Social History Household Members: None Housing: Apartment Do you presently have visiting nurse or other home services: No Alcohol intake: unknown Patient Tobacco Use Status: Never used Tobacco service: No Review of Systems Narrative Review of Systems Constitutional: Denies fever, chills, weight loss ENT: Denies vision changes, eye pain or eye redness, dental caries, dry mouth GI: Denies nausea, vomiting, diarrhea, abdominal pain, change in BM Pulm: Denies SOB, COLON, hemoptysis, wheezing Cards: Denies chest pain, palpitations Skin: Denies Raynaud's, rash, nail changes, photosensitivity, CHILD ADOLESCENT CARE: Denies headaches, weakness, paresthesias, recurrent falls MSK: as per HPI All other systems reviewed and are unremarkable except noted above Physical Exam Exam Exam: Vital signs reviewed Physical Examination CONSTITUITIONAL Patient alert and cooperative. Well appearing and in no apparent painful distress MSK Hands * Right Hand: Able to make a fist. No swelling or tenderness to palpation of the MCPs, PIPs or DIPs. * Left Hand: Able to make a fist. No swelling or tenderness to palpation of the MCPs, PIPs or DIPs. * Herbedens nodes noted bilaterally Wrists * Right Wrist: Full ROM to flexion and extension. No swelling or TTP * Left Wrist: Full ROM to flexion and extension. No swelling or TTP Elbows * Right Elbow: Full ROM. No swelling or TTP. No TTP of the medial epicondyle. No TTP of the lateral epicondyle * Left Elbow: Full ROM. No swelling or TTP. No TTP of the medial epicondyle. No TTP of the lateral epicondyle Shoulders * Right shoulder: Good ROM. No swelling noted. No TTP of the AC joint. No TTP of the subacromial bursa. No TTP of the posterior shoulder * Left shoulder: Good ROM. No swelling noted. No TTP of the AC joint. No TTP of the subacromial bursa. No TTP of the posterior shoulder Knees * Right knee: Full ROM. No swelling noted. No TTP of the knee joint line. No TTP of pes anserine bursa * Left knee: Full ROM. No swelling noted. No TTP of the knee joint line. No TTP of pes anserine bursa. * Crepitations felt bilaterally Ankles * Right ankle: Good ankle dorsiflexion and plantar flexion. No swelling. No TTP of the ankle joint * Left ankle: Good ankle dorsiflexion and plantar flexion. No swelling. No TTP of the ankle joint Feet * Right foot: Negative squeeze test * Left foot: Negative squeeze test Tender points? * No tenderness to palpation of the bilateral trapezius, supraspinatus, anterior costochondral junctions, bilateral suboccipital muscle insertions SKIN No rashes Vital Signs: Last Vital Signs Pulse 85 03/17/25 16:06 BP 132/90 H 03/17/25 16:06 Pulse Ox 96 03/17/25 16:06 Oxygen Delivery Method Room Air 03/17/25 16:06 BMI result Body Mass Index 31.5 Results Reviewed Results Reviewed: Laboratory Tests 06/04/24 16:47 WBC 8.5 RBC 4.40 Hgb 14.8 Hct 43.0 Plt Count 291 ESR 2 Sodium 142 Potassium 4.0 Chloride 105 Carbon Dioxide 27 BUN 16 Creatinine 0.72 AST 30 ALT 26 C-Reactive Protein 0.16 Laboratory Tests 06/04/24 16:47 Rheumatoid Factor < 13.0 Cycl Citrul Peptide IgG <16 XR Bilateral Knees 05/2024 Findings (Right knee): Bones intact. No dislocations. There are moderate degenerative changes with loss of height of the medial compartment. No joint effusion. No radiopaque foreign body Findings (Left knee): No fractures or dislocations. No significant loss of joint space, osteophytes, or erosions. No joint effusion. No radiopaque foreign body. Assessment & Plan Assessment & Plan (1) Polyarticular osteoarthritis: Code(s): M15.9 - Polyosteoarthritis, unspecified Plan: #Polyarticular OA Patient is a 69-year-old female with polyarticular osteoarthritis here today for follow up. Good results on Euflexxa No need to repeat injections today. Discussed with patient that if there is increasing pain she can contact the office for a repeat series of injections Continue topical diclofenac for her bilateral hands Plan - Topical diclofenac 1%qid - Euflexxa in the future as needed - RTC 6 months Plan I spent 20 minutes reviewing the record and labs, taking a history, examining the patient, discussing the treatment plan, ordering diagnostic work up and documenting in the medical record Coding Level of Care Code Est Pt Level 3 (60463) Diagnoses Polyarticular osteoarthritis M15.9
[2025-03-17 16:06] VITALS: BP 132/90; PULSE 85; O2SAT 96; BMI 31.5
--- OUTSIDE RECORDS SUMMARY | 2025-03-17 18:42 | XMS_ITS | Clinical Summary ---
Author Organization [facility] [address] [place] [address] [place] [phone] Phone Care Team Providers Care Shoder Filler Name Role Phone Guille Allison MD Primary Care Provider [phone] Allergies Active Allergy Reactions Criticality Noted Date Comments Codeine Rash Low 10/18/2009 Hydromorphone Other 01/24/2021 ? Oversedation from dialudid confusion Oxcarbazepine Hives,Other 07/12/2010 hallucinations Oxycodone Hcl Hives 02/18/2022 Trazodone Other,Rash Medium 05/20/2017 hallucinations Medications pantoprazole (PROTONIX) 40 mg EC tablet Take 1 tablet (40 mg total) by mouth 2 (two) times a day. 4 Active acetaminophen (TYLENOL 8 HOUR) 650 mg 8 hr tablet Take 1 tablet (650 mg total) by mouth 3 (three) times a day if needed. 4 Active fluticasone propionate (FLONASE) 50 mcg/actuation nasal spray 2 sprays in each nostril daily 2 Active citalopram (CeleXA) 20 mg tablet 1 tablet (20 mg total). 8 Active sucralfate (CARAFATE) 1 gram tablet Take 1 tablet (1 g total) by mouth. Active doxepin (Zonalon) 5 % cream Apply 1 Squirt topically. 8 Active senna-docusate (Senexon-S) 8.6-50 mg per tablet TAKE ONE TABLET BY MOUTH TWICE A DAY 60 tablet 4 Active diclofenac (VOLTAREN) 1 % topical gel APPLY 2 GRAMS TOPICALLY FOUR TIMES A DAY 100 g 1 5 Active Bacillus coagulans/B. subtilis (PROBIOTIC DUO ORAL) [...] BY MOUTH EVERY DAY 60 each 4 5 Active albuterol HFA (Ventolin HFA) 90 mcg/actuation inhaler Inhale 2 puffs by mouth every 6 (six) hours if needed for wheezing. 3 each 3 5 12/31/19 26 Active MAGNESIUM CHLORIDE ORAL Take by mouth. Active COQ10, UBIQUINOL, ORAL Take by mouth. Active TURMERIC ORAL Take 2,000 mg by mouth 1 (one) time each day. Active lithium (ESKALITH) 450 mg CR tablet Take 1 tablet (450 mg total) by mouth 1 (one) time each day in the morning. 5 Active amphetamine-dext roamphetamine (ADDERALL) 10 mg tablet TAKE 1/2 TABLET BY MOUTH TWO TIMES A DAY. START WITH ONE TIME PER DAY FOR THE FIRST 2 WEEKS 5 Active amLODIPine (NORVASC) 5 mg tablet Take 1.5 tablets (7.5 mg total) by mouth 1 (one) time each day. 135 tablet 1 5 Active amLODIPine (NORVASC) 5 mg tablet TAKE ONE TABLET BY MOUTH EVERY DAY 90 tablet 1 5 03/07/20 25 Discontin ued(Reord er) lithium (LITHOBID) 300 mg CR tablet Take 1 tablet (300 mg total) by mouth 1 (one) time each day. Do not crush, chew, or split. 03/07/20 25 Discontin ued(Dose adjustmen t) Active Problems Problem Noted Date Diagnosed Date Arango's esophagus without dysplasia 10/17/2024 Ataxia 09/24/2023 Nasal polyp 04/21/2023 Lumbar disc disease with radiculopathy 2 Chronic obstructive pulmonar y disease ([facility]/HCC V24, [facility]/HCC V28) 04/25/2022 Laceration of scalp [...] days. [place] [facility] [place] put 1 staple and sutured her [...] with neurogenic claudication Overview (02/09/2024): Follows with [facility] neurology decompression surgery pending Primary hypertension 01/06/2019 C. difficile colitis 05/06/2018 Overview (02/09/2024): Follows with gastroenterology Seizure disorder ([facility] V24, [facility] V28) 12/04 Overview (02/09/2024): Follows with neurology Bipolar 1 disorder ([facility] V24, [facility] V28) Mixed hyperlipidemia 09/05/2017 Gastroesophageal reflux disease [...] answered on today's visit. Anoxic brain injury ([facility] V24, [facility] V28) 1 Overview (02/09/2024): CT scan of brain negative 01/15/10, referred neurology Diverticulosis, sigmoid 12/01/2009 Overview (02/09/2024): Incidental finding on colonoscopy 11/2009 Anxiety and depression 10/19/2009 Overview (02/09/2024): Admitted [facility] 01/15/10 following suicide attempt with quart of vodka and sleeping pills, transferred to psych 01/16/10 Moderate persistent asthma 10/19/2009 Overview (02/09/2024): Follows with pulmonary on ICS/LABA, singulair and albuterol PRN Encounters Date Type Department Care Team Description 03/07/2025 2:30 PM EST Office Visit Adult Medicine [address] [phone] Guille Allison MD Poorly-controlled hypertension (Primary Dx) 02/01/2025 Telephone Adult Medicine [address] [phone] Guille Allison MD 01/31/2025 9:30 AM EDT Office Visit Adult Medicine [address] [phone] Guille Allison MD Diverticulosis of colon with hemorrhage (Primary Dx); Arango's esophagus without dysplasia; Bipolar 2 disorder ([facility] V24, [facility] V28); Anxiety and depression; Chronic bilateral low back pain without sciatica; Primary osteoarthritis involving multiple joints; Primary hypertension; Chronic obstructive pulmonary disease, unspecified COPD type ([facility]/HCC V24, [facility] V28); Mixed hyperlipidemia; Seizure disorder ([facility] V24, [facility] V28); Screening for thyroid disorder; Encounter for osteoporosis screening in asymptomatic postmenopausal patient 01/31/2025 Results Follow-Up Adult Medicine [address] [phone] Guille Allison MD 01/31/2025 Telephone Adult [address] [phone] Guille Allison MD 01/10/2025 Telephone Adult [address] [phone] Guille Allison MD 12/31/2024 Telephone Adult [address] [phone] Guille Allison MD 12/17/2024 4:30 PM EDT - 12/17/2024 11:59 PM EDT Hospital Encounter [address] [phone] Cough, unspecified type Discharge Disposition: Home or [...] and older 01/23/2017,03/15/2016,03/23/2015,02/07,02/23/2013,01/14/2012,01/16/2011 ,02/05/2010 Influenza, Unspecified 02/11/2018,01/03/2014 [employer] SARS-CoV-2 COVID -19, vector-nr, [id number], preservative free [...] sigmoid diverticulosis COLONOSCOPY W/ BIOPSIES 02/16/15 PROCEDURE: VT COLONOSCOPY STOMA W/BIOPSY SINGLE/MULTIPLE; COMMENT: adenoma and [...] neurology Depression 10/19/2009 DX:Depression; C OMMENT: Admitted [facility] 01/15/10 following suicide attempt with quart of [...] 30-39.9) 09/05/2017 DX:Obesity (BMI 30-39.9) Seizure disorder ([facility] V2 4, [facility] V28) 12/30/2017 DX:Seizure disorder ([facility]); C OMMENT: Follows with neurology Bipolar 1 disorder ([facility] V24, [facility] V28) 12/30/2017 DX:Bipolar 1 disorder ([facility]) Atypical chest pain 01/09/2018 DX:Atypical chest [...] Sign Reading Time Taken Comments Blood Pressure 137/87 03/07/2025 2:58 PM EST Pulse 85 03/07/2025 2:43 PM EST Temperature 35.8 C (96.4 F) 03/07/2025 2:43 PM EST Respiratory Rate 18 10/18/2024 2:12 PM EDT Oxygen Saturation 93% 10/04/2024 12:07 PM EDT Inhaled Oxygen Concentration - - Weight 83 kg (183 lb) 03/07/2025 2:43 PM EST Height 160 cm (5' 3 ) 03/07/2025 2:43 PM EST Body Mass Index 32.42 03/07/2025 2:43 PM EST Plan of Treatment Upcoming Encounters Date Type Department Care Team (Late st Contact Info) Description 04/07/2025 3:45 PM EST Office Visit Pulmonology - [place] [address] [place] [phone] Lynda Spicer MD [address] [place] [phone] 07/11/2025 1:00 PM EDT Office Visit Adult Medicine [facility] [address] [place] [phone] Natalya Hopkins PA [address] [place] [phone] Health Maintenance Due Date Last Done Comments DTaP,Tdap,and Td Vaccines (2 - Td or Tdap) 05/05/2017 05/05/2007 Medicare Annual Wellness Visit 04/12/2022 Social Influencers of Health Screening 04/12/2022 Cervical Cancer Screening: HPV 07/07/2023 07/06/2018 Colorectal Cancer Screening: Colonoscopy 11/22/2024 11/23/2019, 11/23/2019 Falls Risk Assessment 02/04/2025 02/05/2024 COVID-19 Vaccine ( season) 2025 01/10/2025, 09/13/2024, 01/20/2024, Additional history exists Hypertension/CHF/CAD Annual BMP Blood Test 01/31/2026 01/31/2025, [...] Adult Patients Completed 01/20/2023 Influenza Vaccine Completed 12/31/2024, , 01/20/2023, Additional history exists Depression Screening Completed 01/31/2025 [...] Chronic obstructive pulmonary disease, unspecified COPD type ([facility]/HCC V24, [facility] V28) Primary hypertension Mixed hyperlipidemia Seizure disorder ([facility] V24, [facility] V28) Anxiety and depression Arango's esophagus without dysplasia Chronic bilateral low back pain without sciatica Screening for diabetes mellitus (DM) Screening for hyperlipidemia HEMOGLOBIN A1C Routine 01/31/2025 10:47 AM EDT Chronic obstructive pulmonary disease, unspecified COPD type ([facility]/HCC V24, [facility] V28) Primary hypertension Mixed hyperlipidemia Seizure disorder ([facility] V24, [facility] V28) Anxiety and depression Arango's esophagus without [...] unspecified type MG MAMMO DIGITAL SCREENING W BENNY BILAT [...] and free t3 (01/31/2025 10:47 AM EDT) Pathologist [facility] TSH 0.92 0.40 - 4.00 mcIU/mL LAB CHEMISTRY METHOD 01/31/2025 6:22 PM EDT [facility] Blood Venous blood specimen / Unknown Venipuncture / Unknown 01/31/2025 10:47 AM EDT 01/31/2025 10:47 AM EDT us Guille Allison MD LAB BLOOD ORDERABLES Final Result [facility] [address] [place] [address], * (ABNORMAL) Lipid panel with reflex to direct LDL (01/31/2025 10:47 AM EDT) Pathologist [facility] Cholesterol 259(H) 0 - 200 mg/dL LAB CHEMISTRY METHOD 01/31/2025 5:38 PM EDT [facility] Triglycerides 202(H) 0 - 150 mg/dL LAB CHEMISTRY METHOD 01/31/2025 5:38 PM EDT [facility] HDL 66 >=40 mg/dL LAB CHEMISTRY METHOD 01/31/2025 5:38 PM EDT [facility] LDL Calculated 153(H) 0 - 100 mg/dL LAB CHEMISTRY METHOD 01/31/2025 5:38 PM EDT [facility] Comment:Estimated LDL Calcul ated using equation: Total cholesterol - HDL cholesterol - (Triglycerides/5) VLDL Cholesterol [place] 40.4 mg/dL LAB CHEMISTRY METHOD 01/31/2025 5:38 PM EDT [facility] Non HDL Chol. (LDL+VLDL) 193(H) <145 mg/dL LAB CHEMISTRY METHOD 01/31/2025 5:38 PM EDT [facility] Chol/HDL Ratio 3.9 0.0 - 4.4 LAB CHEMISTRY METHOD 01/31/2025 5:38 PM EDT [facility] Blood Venous blood specimen / Unknown Venipuncture / Unknown 01/31/2025 10:47 AM EDT 01/31/2025 10:47 AM EDT us Guille Allison MD LAB BLOOD ORDERABLES Final Result [facility] [address] [place] [address], * (ABNORMAL) CBC auto differential (01/31/2025 10:47 AM EDT) WBC 8.3 4.8 - 10.8 K/mcL LAB HEMETOLOGY METHOD 01/31/2025 2:[facility] RBC 4.10 3.80 - 4.80 M/mcL LAB HEMETOLOGY METHOD 01/31/2025 2:02 [facility] Hemoglobin 14.0 11.5 - 16.0 g/dL LAB HEMETOLOGY METHOD 01/31/2025 2:02 [facility] Hematocrit 40.5 35.0 - 47.0 % LAB HEMETOLOGY METHOD 01/31/2025 2:02 PM EDT [facility] MCV 99.5(H) 79.0 - 98.0 FL LAB HEMETOLOGY METHOD 01/31/2025 2:02 [facility] MCH 34.4(H) 27.0 - 32.0 pcg LAB HEMETOLOGY METHOD 01/31/2025 2:02 PM [facility] MCHC 34.6 32.0 - 37.0 g/dL LAB HEMETOLOGY METHOD 01/31/2025 2:02 PM [facility] RDW 11.7 11.0 - 15.0 % LAB HEMETOLOGY METHOD 01/31/2025 2:02 PM [facility] Platelets 350 130 - 400 K/mcL LAB HEMETOLOGY METHOD 01/31/2025 2:02 PM [facility] MPV 9.7 7.0 - 11.0 FL LAB HEMETOLOGY METHOD 01/31/2025 2:02 PM [facility] NRBC 0.0 <1.0 % LAB HEMETOLOGY METHOD 01/31/2025 2:02 PM [facility] NRBC Absolute 0.00 <0.10 K/mcL LAB HEMETOLOGY METHOD 01/31/2025 2:02 PM [facility] Neutrophils Relative 64.1 % LAB HEMETOLOGY METHOD 01/31/2025 2:02 PM [facility] Lymphocytes Relative 22.0 % LAB HEMETOLOGY METHOD 01/31/2025 2:02 PM [facility] Monocytes Relative 8.1 % LAB HEMETOLOGY METHOD 01/31/2025 2:02 PM [facility] Eosinophils Relative 4.2 % LAB HEMETOLOGY METHOD 01/31/2025 2:02 PM [facility] Basophils Relative 0.6 % LAB HEMETOLOGY METHOD 01/31/2025 2:02 PM [facility] Immature Granulocytes Relative 1.0 % LAB HEMETOLOGY METHOD 01/31/2025 2:02 PM [facility] Neutrophils Absolute 5.30 1.50 - 7.00 K/mcL LAB HEMETOLOGY METHOD 01/31/2025 2:02 PM [facility] Lymphocytes Absolute 1.82 1.00 - 5.00 K/mcL LAB HEMETOLOGY METHOD 01/31/2025 2:02 PM EDT [facility] Monocytes Absolute 0.67 0.20 - 1.00 K/mcL LAB HEMETOLOGY METHOD 01/31/2025 2:02 PM EDT [facility] Eosinophils Absolute 0.35 0.00 - 0.50 K/mcL LAB HEMETOLOGY METHOD 01/31/2025 2:02 PM EDT [facility] Basophils Absolute 0.05 0.00 - 0.20 K/mcL LAB HEMETOLOGY METHOD 01/31/2025 2:02 PM EDT [facility] Immature Granulocytes Absolute 0.08(H) 0.00 - 0.03 K/mcL LAB HEMETOLOGY METHOD 01/31/2025 2:02 PM EDT [facility] Blood Venous blood specimen / Unknown Venipuncture / Unknown 01/31/2025 10:47 AM EDT 01/31/2025 10:47 AM EDT Guille Allison MD LAB BLOOD ORDERABLES Final Result [facility] [address] [place] [address], * Hemoglobin A1c (01/31/2025 10:47 AM EDT) Hemoglobin A1C 5.3 <6.5 % LAB CHEMISTRY METHOD 02/01/2025 10:10 AM EDT [facility] Mean Bld Glu Estim. 105 mg/dL LAB CHEMISTRY METHOD 02/01/2025 10:10 AM EDT [facility] Blood Venous blood specimen / Unknown Venipuncture / Unknown 01/31/2025 10:47 AM EDT 01/31/2025 10:47 AM EDT Guille Allison MD LAB BLOOD ORDERABLES Final Result [facility] [address] [place] [address], [place] [phone] * (ABNORMAL) Comprehensive metabolic panel (01/31/2025 10:47 AM EDT) Sodium 139 133 - 145 mmol/L LAB CHEMISTRY METHOD 01/31/2025 5:38 PM [facility] Potassium 4.6 3.5 - 5.5 mmol/L LAB CHEMISTRY METHOD 01/31/2025 5:38 PM [facility] Chloride 106 96 - 110 mmol/L LAB CHEMISTRY METHOD 01/31/2025 5:38 PM [facility] CO2 26 21 - 32 mmol/L LAB CHEMISTRY METHOD 01/31/2025 5:38 PM [facility] Anion Gap 7 3 - 11 LAB CHEMISTRY METHOD 01/31/2025 5:38 PM [facility] Glucose 92 70 - 100 mg/dL LAB CHEMISTRY METHOD 01/31/2025 5:38 PM [facility] BUN 15 5 - 25 mg/dL LAB CHEMISTRY METHOD 01/31/2025 5:38 PM [facility] Creatinine 0.48(L) 0.50 - 1.10 mg/dL LAB CHEMISTRY METHOD 01/31/2025 5:38 PM [facility] eGFR 101 >=60 mL/min/1. 73m2 LAB CHEMISTRY METHOD 01/31/2025 5:38 PM [facility] Comment:Calculation based on the Chronic Kidney Disease Epidemiology Collaboration (CKD-EPI) equation refit without adjustment for race. BUN/Creatinine Ratio 31.3 LAB CHEMISTRY METHOD 01/31/2025 5:38 PM [facility] Calcium 9.2 8.5 - 10.5 mg/dL LAB CHEMISTRY METHOD 01/31/2025 5:38 PM [facility] AST (SGOT) 19 10 - 42 unit/L LAB CHEMISTRY METHOD 01/31/2025 5:38 PM EDT [facility] ALT (SGPT) 35 10 - 60 unit/L LAB CHEMISTRY METHOD 01/31/2025 5:38 PM EDT [facility] Alkaline Phosphatase 105 42 - 121 unit/L LAB CHEMISTRY METHOD 01/31/2025 5:38 PM EDT [facility] Total Protein 6.8 6.0 - 8.0 g/dL LAB CHEMISTRY METHOD 01/31/2025 5:38 PM EDT [facility] Albumin 4.1 3.2 - 5.0 g/dL LAB CHEMISTRY METHOD 01/31/2025 5:38 PM EDT [facility] Total Bilirubin 0.2 0.0 - 1.4 mg/dL LAB CHEMISTRY METHOD 01/31/2025 5:38 PM EDT [facility] Blood Venous blood specimen / Unknown Venipuncture / Unknown 01/31/2025 10:47 AM EDT 01/31/2025 10:47 AM EDT us Guille Allison MD LAB BLOOD ORDERABLES Final Result [facility] [address] [place] [address], * XR Chest 2 Views (12/17/2024 4:42 PM EDT) Anatomical Region Laterality Modality Body Radiographic Shyanne ging 12/17/2024 7:16 PM EDT Impressions 12/17/2024 7:19 PM EDT No evidence of an acute chest process. POS - [id number] -------- FINAL REPORT -------- Dictated By: Hoa Erazo Dictated Date: 12/17/2024 19:16 ET Assigned Physician: Hoa Erazo Reviewed and Electronically Signed By: Hoa Erazo Signed Date: 12/17/2024 19:19 ET Workstation ID: [id number] Transcribed By: Self Edit Transcribed Date: 12/17/2024 [...] of an acute chest process. POS - [id number] -------- FINAL REPORT -------- Dictated By: Hoa Erazo Dictated Date: 12/17/2024 19:16 ET Assigned Physician: Hoa Erazo Reviewed and Electronically Signed By: Hoa Erazo Signed Date: 12/17/2024 19:19 ET Workstation ID: [id number] Transcribed By: Self Edit Transcribed Date: 12/17/2024 19:16 ET Lynda Spicer MD IMG XR PROCEDURES Final Result * MG Mammo Digital Screening w Benny bilat (08/30/2024 2:18 PM EDT) Anatomical Region Laterality Modality Breast Bilateral Mammography 08/31/2024 3:24 PM EDT Impressions 08/31/2024 3:32 PM EDT 1. No mammographic evidence of malignancy 2. Scattered fibroglandular tissue BI-RADS CATEGORY: 2 - BENIGN RECOMMENDATION: Screening bilateral mammogram is recommended in 1 year. Mammo Location: [facility], [address] [place] [address], [address], . -------- FINAL REPORT -------- Dictated By: Tamara Rocha Dictated Date: 08/31/2024 15:24 ET Assigned Physician: Tamara Rocha Reviewed and Electronically Signed By: Tamara Rocha Signed Date: 08/31/2024 15:32 ET Workstation ID: [id number] Transcribed By: Self Edit Transcribed Date: 08/31/2024 [...] is recommended in 1 year. Mammo Location: [facility], [address] [place] [address], [address], . -------- FINAL REPORT -------- Dictated By: Tamara Rocha Dictated Date: 08/31/2024 15:24 ET Assigned Physician: Tamara Rocha Reviewed and Electronically Signed By: Tamara Rocha Signed Date: 08/31/2024 15:32 ET Workstation ID: [id number] Transcribed By: Self Edit Transcribed Date: 08/31/2024 15:24 ET Guille Allison MD IMG BI PROCEDURES Final Res ult * External Dexa Report (06/24/2024) Anatomical Region Laterality Modality Bone Densitometr y Provider [place] Onbase IMG DXA PROCEDURES Final Result * Falls Risk Assessment (02/05/2024) [facility] Falls Risk Assessment Abstracted Historical Provider HEALTH MAINTENANCE Final Result * Colonoscopy (11/23/2019) [facility] Colonoscopy No interpretation , abstracted Anatomical Region Laterality Modality Other [facility] Provider HEALTH MAINTENANCE Final Result * Cervical Cancer Screening: HPV (07/06/2018) [facility] Cervical Cancer Screening: HPV Negative, abstracted Historical Provider HEALTH MAINTENANCE Final Result * Hepatitis C Screening (09/07/2013) [facility] Hepatitis C Screening Abstracted Historical Provider HEALTH MAINTENANCE Final Result from Last 3 Months or Most Recently Relevant to Health Maintenance [place] [phone] MEDICARE MEDICAID - [place] Advance Directives Documents on File Type Date Recorded Patient [employer] Instruments Inspector Expl anation Health Care Decision (hx) 11/23/2021 AD MCCARTHY DIRECTIVE Health Care Decision (hx) 11/23/2021 AD MCCARTHY DIRECTIVE Health Care Decision (hx) 11/23/2021 AD MCCARTHY DIRECTIVE Health Care Decision (hx) 11/23/2021 AD MCCARTHY DIRECTIVE Health Care Decision (hx) 11/23/2021 AD MCCARTHY DIRECTIVE Health Care Decision (hx) 11/23/2021 AD MCCARTHY DIRECTIVE Care Teams Shoder Filler Relationship Specialty Start Date End Date Guille Allison MD [address] [place] [address] PCP - General Internal Medicine 11/01/21
--- OUTSIDE RECORDS SUMMARY | 2025-03-17 18:42 | XMS_ITS | Clinical Summary ---
Author Organization [facility] Address [address] [place], [place] [id number] Care Team Providers Care Cyber Ops Planner Name Role Phone Teena Araujo MD Primary Care Provider [phone] Allergies Active Allergy Reactions Criticality Noted Date [...] age to complete this topic Care Teams Cyber Ops Planner Relationship Specialty Start Date End Date Teena Araujo MD PCP - General Internal Medicine 01/27/18
--- OUTSIDE RECORDS SUMMARY | 2025-03-17 18:42 | XMS_ITS | Clinical Summary ---
Author Organization [facility] Address [address] [address] Phone Care Team Providers Care Fishing Tool Operator Name Role Phone Guille Allison MD [...] patient's age to complete this topic IPV VACCINES Aged Out No longer eligi ble [...] VALPROIC ACID 97.3 50.0 - 100.0 ug/mL [facility] Blood 05/14/2023 1:44 PM EST 05/14/2023 1:48 PM EST us Kevin Gill MD LAB BLOOD BKR ORDERABLES Final Result [facility] [address] [place] [address] from Last 3 Months or Most Recently Relevant to Health Maintenance Insurance MEDICARE PART A & [place]IC[place] & B [facility] [place] [place] [address] MEDICARE PART A & B [facility] MEDICARE PART A & B [facility] MEDICARE PART A & B [facility] MEDICARE PART A & B [facility] B [facility] Advance Directives For more information, please contact: [phone] (9AM - 5PM [facility], Friday-Friday) * Full Code (Latest Code Status on File) Date Activated Date Inactivated Comments 05/14/2023 5:37 PM Question Answer Comments Code Status Confirmed With: Patient Care Teams Fishing Tool Operator Relationship Specialty Start Date End Date Guille Allison MD [address] [place] [address] PCP - General Internal Medicine 09/27/22 Additional Source Comments The information contained in this document represents components of the legal health record. It is not the complete legal health record.[facility]
--- OUTSIDE RECORDS SUMMARY | 2025-03-17 18:42 | XMS_ITS | Clinical Summary ---
Author Organization [address] Address [address] [place] [phone] Phone Care Team Providers Care Medicare Nurse Name Role Phone MorrisTeena Primary Care Provider [phone] Allergies Active Allergy Reactions Criticality Noted Date [...] vaccine 12/03/2024 Covid-19 vaccine series ( - 2024- season) 2025 RSV Immunization (1 - 1-dose 75+ series) 2028 Cervical cancer screening Discontinued Meningococcal B Vaccine Aged Out No l onger eligible based on patient's age to complete this topic Meningococcal Vaccine Aged Out No sylvie ran eligible based on patient's age to complete this topic Insurance [id number] MEDICAID MEDICARE Member Subscriber Plan / Payer (Ef fective 2012-Present) Name:Carolin Chambers Member ID:[id number] Relation to Subscriber:Self Name:Carolin Chambers Subscriber ID:[id number] Payer ID:[id number] Group ID:Not on file Type:Not on file Address: [address] [id number] MEDICAID MEDICARE [id number] MEDICAID MEDICARE [employer] GENERIC MEDICARE [id number] MEDICAID [employer] GENERIC MEDICARE [id number] MEDICAID Care Teams Medicare Nurse Relationship Specialty Start Date End Date Teena Morris [address] [place] [address] PCP - General 11/08/18
--- OUTSIDE RECORDS SUMMARY | 2025-03-17 18:43 | XMS_ITS | Encounter Summary ---
Author Organization [facility] Address [address] [place] [address] Care Team Providers Care Medical Technologist Clinical Name Role Phone Guille Allison MD Primary Care Provider [phone] Encounter Details Date Type Department Care Team (Late st Contact Info) Description 01/31/2025 Results Follow-Up Adult Medicine [address] [phone] Guille Allison MD [address] [place] [address] Social History Tobacco Use Types Packs/Day Years [...] 3:45 PM EST Office Visit Pulmonology - Central [address] [facility] [place] [phone] Lynda Spicer MD [address] [place] [address] 07/11/2025 1:00 PM EDT Office Visit Adult Medicine [address] [phone] Natalya Hopkins PA [address] [place], [place] documented as of this encounter Visit Diagnoses Not on filedocumented in this encounter Additional Health Concerns Assessment Noted Time PHQ-9 Depression Total Score: 2 02/01/20 25 9:47 AM EDT documented as of this encounter Care Teams Medical Technologist Clinical Relationship Specialty Start Date End Date Guille Allison MD [address] [place], [place] PCP - General Internal Medicine 11/01/21 documented as of this encounter
--- OUTSIDE RECORDS SUMMARY | 2025-03-17 18:43 | XMS_ITS | Encounter Summary ---
Author Organization [facility] Address [address] [place] [address] [place] [address] Phone Care Team Providers Care Production Potter Name Role Phone Teena Morris MD Primary Care Provider [phone] Guille Allison MD Primary Care Provider Encounter Details Date Type Department Care Team (Late st Contact Info) Description 09/12/2021 Procedure Pass [facility] Endoscopy Admitting Dept Virtual Department [address] [place] [address] Social History Tobacco Use Types Packs/Day Years [...] documented as of this encounter Care Teams Production Potter Relationship Specialty Start Date End Date Teena Morris MD [address] [place] [address] PCP - General Internal Medicine 01/08/19 09/26/22 Guille Allison MD [address] [place] [address] PCP - General Internal Medicine 09/27/22 documented as of this encounter Additional Source Comments The information contained in this document represents components of the legal health record. It is not the complete legal health record.[facility]
== END 2025-03-17 16:23 | disposition home or self-care (01) ==
LOC: HO.RHES 16:00
PROVIDERS: PCP Internal Medicine; Visit Provider Student in an Organized Health Care Education/Training Program
DX: M15.9 Polyosteoarthritis, unspecified (principal)
CPT/HCPCS: 99213

== ENCOUNTER → 2025-03-17 16:00 | Outpatient (BNVA) | payer MEDICARE, MEDICAID, SELFPAY | PROVIDERS: PCP Internal Medicine; Visit Provider Student in an Organized Health Care Education/Training Program | DX: M17.0 Bilateral primary osteoarthritis of knee (principal); M19.042 Primary osteoarthritis, left hand; M19.041 Primary osteoarthritis, right hand | CPT/HCPCS: 99212 ==

== ENCOUNTER → 2025-04-11 11:36 | Outpatient (AMB) | payer MEDICARE, MEDICAID, SELFPAY ==
--- NOTE | 2025-04-11 11:38 | MHC.OFFVIS ---
Intake Visit Reasons: 6m Arango esophagus Intake Note: Patient follow up for 6 month Arango esophagus Patient cc: diarrhea on and off, heartburn and occasiuonal abdominal pain with bloating. Chicken Sexer Required: No Allergies cariprazine (From Vraylar) Allergy (Severe, Verified 03/17/25 16:05) Vomiting oxcarbazepine (From TRILEPTAL) Allergy (Intermediate, Verified 03/17/25 16:04) HIVES/HALLUCINATIONS codeine (Codeine) Allergy (Mild, Verified 03/17/25 16:04) RASH hydromorphone (From Dilaudid) Allergy (Mild, Verified 03/17/25 16:04) unknown trazodone (TRAZODONE) Allergy (Unknown, Verified 03/17/25 16:04) UNKNOWN HPI HPI 6m Arango esophagus: Details: 69 yr old f being called for f/u RECAP: pt of [place] she was having ongoing heartburn and reflux. colonoscopy at [facility] 3 yrs ago, normal per her report. I ordered h pylori stool ag she was also educated on correct way to take PPI as she was taking wrongly H pylori breath test was neg due to ongoing possible GERD changed to protonix, she was c/o chronic sore throat she had a bout of diverticulitis 12/23-- sigmoid, WCC raised she was taking pantoprazole, carafate prn CT 01/2018- severe diverticulosis, fatty liver UGI 07/218 with thickening of stomach and irregular mucosa, reflux observed Had EGD 09/2018 w barretts, esophagitis, and moderate gastritis colonoscopy 11/2019--right sided hyperplastic polyp, rept colon 7 yrs, neg for microscopic colitis CT [facility] 2021- fatty liver, hyperinflated lungs, dege spinal disease EGD : 03/28 gastric erosions schatzki fundal gland polyps path: intestinal metaplasia stomach wats pos for barretts, no dysplasia INTERIM: she had been trying high dose tumeric for OA but noticed she was getting stomahc upset and diarrhea she stopped it and is now much better she would like to go back on sucralfate for breakthru reflux -she was taking daily before once a day and was helping no abdominal pain no blood in stools Assessments 1. Esophagitis with Barretts esophagus, PLAN: 1/ cont with PPI, can take sucralfate once a day or prn for breakthuru [facility] Medical History (Updated 03/15/25 @ 11:42 by Amparo Barnes MD) Diarrhea Localized osteoarthritis of knees, bilateral Osteoarthritis of hands, bilateral Polyarthralgia Elevated cholesterol HTN (hypertension) PTSD (post-traumatic stress disorder) Seizures COPD (chronic obstructive pulmonary disease) Lumbar stenosis Barretts esophagus Asthma Bipolar disorder GERD (gastroesophageal reflux disease) Diverticulitis Surgical History Hx of nasal polypectomy Hx of tubal ligation Hx of spinal surgery History of esophagogastroduodenoscopy (EGD) History of colonoscopy Social History Household Members: None Housing: Apartment Do you presently have visiting nurse or other home services: No Alcohol intake: unknown Patient Tobacco Use Status: Never used Tobacco service: No Assessment & Plan Assessment & Plan (1) Arango esophagus: Code(s): K22.70 - Arango's esophagus without dysplasia Category: Medical Plan: as above Medications: Refilled sucralfate 2 grams (2 x 1 gram) PO DAILY 60 tabs 3RF Coding Level of Care Code Est Pt Level 3 (22039) Diagnoses Arango esophagus K22.70
== END ==
LOC: HO.HGI 11:36
PROVIDERS: PCP Internal Medicine; Visit Provider Internal Medicine Gastroenterology
DX: K22.70 Barrett's esophagus without dysplasia (principal)
CPT/HCPCS: 99213

== ENCOUNTER → 2025-04-11 11:36 | Outpatient (BNVA) | payer MEDICARE, MEDICAID, SELFPAY | PROVIDERS: PCP Internal Medicine; Visit Provider Internal Medicine Gastroenterology | DX: K22.70 Barrett's esophagus without dysplasia (principal) | CPT/HCPCS: 99212 ==

== ENCOUNTER 2025-05-03 16:38 | Emergency (ER) | payer MEDICARE, MEDICAID, SELFPAY ==
--- NOTE | 2025-05-03 | ECG_ITS ---
Test Reason : chest pain Blood Pressure : */* mmHG Vent. Rate : 88 BPM Atrial Rate : 88 BPM P-R Int : 158 ms QRS Dur : 90 ms QT Int : 380 ms P-R-T Axes : 59 21 59 degrees QTcB Int : 459 ms Normal sinus rhythm Normal ECG When compared with ECG of 09-Apr-2023 04:40, No significant change was found Referred By: Generic ED Physician Electronically Signed By: REGULO BURDEN
[2025-05-03 17:02] VITALS: BP 172/81; PULSE 88; RESP 16; TEMP 36.8; O2SAT 97; BMI 32.2
[2025-05-03 18:59] LABS: MANUAL DIFF FLAG NO
[2025-05-03 19:13] LABS: Alanine Aminotransferase 26 U/L (0-31); Albumin Level 4.6 g/dL (3.5-5.0); Alkaline Phosphatase 86 U/L (39-117); Anion Gap 11 (12-20); Aspartate Amino Transferase 23 U/L (5-31); Blood Urea Nitrogen 19 mg/dL (9-16); Calcium 9.9 mg/dL (8.4-10.2); Carbon Dioxide 26 mmol/L (22-29); Chloride 109 mmol/L (96-108); Creatinine Clr Calc Pharmacy 74.9; Estimated Glomerular Filt Rate > 60; Lipase 27 U/L (8-78); Magnesium 2.0 mg/dL (1.6-2.6); Potassium 5.0 mmol/L (3.3-5.1); Sodium 141 mmol/L (135-145); Total Protein 6.9 g/dL (6.5-8.0)
--- OUTSIDE RECORDS SUMMARY | 2025-05-03 19:13 | XMS_ITS | Encounter Summary ---
Author Organization [facility] Address [address] [place] [address] [place] [address] Phone Care Team Providers Care Load Blocker Name Role Phone Teena Morris MD Primary Care Provider [phone] Guille Allison MD Primary Care Provider Encounter Details Date Type Department Care Team (Late st Contact Info) Description 09/12/2021 Procedure Pass [facility] Endoscopy Admitting Dept Virtual Department [address] [place] [address] Social History Tobacco Use Types Packs/Day Years [...] documented as of this encounter Care Teams Load Blocker Relationship Specialty Start Date End Date Teena Morris MD [address] [place] [address] PCP - General Internal Medicine 01/08/19 09/26/22 Guille Allison MD [address] [place] [address] PCP - General Internal Medicine 09/27/22 documented as of this encounter Additional Source Comments The information contained in this document represents components of the legal health record. It is not the complete legal health record.[facility]
--- OUTSIDE RECORDS SUMMARY | 2025-05-03 19:13 | XMS_ITS | Clinical Summary ---
Author Organization [facility] Prior to 10/02/[address] [place] [address] Care Team Providers Care Sign Erector Name Role Phone Teena Araujo MD Primary Care Provider [phone] Allergies Active Allergy Reactions Criticality Noted Date [...] age to complete this topic Care Teams Sign Erector Relationship Specialty Start Date End Date Teena Araujo MD PCP - General Internal Medicine 01/27/18
--- OUTSIDE RECORDS SUMMARY | 2025-05-03 19:13 | XMS_ITS | Clinical Summary ---
Author Organization [facility] [address] [place] [address] [place] [phone] Phone Care Team Providers Care Coat Finisher Name Role Phone Guille Allison MD Primary [...] subtilis (PROBIOTIC DUO ORAL) Take by mouth. Activ e cholecalciferol (Vitamin D3) 25 mcg (1,000 unit) [...] Active ubidecarenone (COQ-10 ORAL) Take by mouth. A ctive vitamin B complex (B COMPLEX 1 ORAL) Take by mouth. Activ e Trelegy Ellipta 100-62.5-25 mcg inhaler INHALE ONE PUFF BY MOUTH EVERY DAY 60 each 4 5 Active albuterol HFA (Ventolin HFA) 90 mcg/actuation inhaler Inhale 2 puffs by mouth every 6 (six) hours if needed for wheezing. 3 each 3 5 12/31/19 26 Active MAGNESIUM CHLORIDE ORAL Take by mouth. A ctive COQ10, UBIQUINOL, ORAL Take by mouth. Activ e TURMERIC ORAL Take 2,000 mg by mouth 1 (one) time each day. Active lithium (ESKALITH) 450 mg CR tablet Take 1 tablet (450 mg total) by mouth 1 (one) time each day in the morning. 5 Active amphetamine-dextr oamphetamine (ADDERALL) 10 mg tablet TAKE 1/2 TABLET BY MOUTH TWO TIMES A DAY. START WITH ONE TIME PER DAY FOR THE FIRST 2 WEEKS 5 Active amLODIPine (NORVASC) 5 mg tablet Take 1.5 tablets (7.5 mg total) by mouth 1 (one) time each day. 135 tablet 1 5 Active fluticasone-umecl idinium-vilantero l (Trelegy Ellipta) 100-62.5-25 mcg inhaler Inhale 1 puff (100 mcg total) by mouth 1 (one) time each day. Rinse mouth with water after use to reduce aftertaste and incidence of candidiasis. Do not swallow. 3 each 3 6 05/20/19 27 Active albuterol HFA (Ventolin HFA) 90 mcg/actuation inhaler Inhale 2 puffs by mouth every 6 (six) hours if needed for wheezing. 1 each 11 5 04/19/20 26 Active Active Problems Problem Noted Date Diagnosed [...] days. She states in the ED at [facility], they put 1 staple and sutured her [...] with neurogenic claudication Overview (02/09/2024): Follows with [facility] neurology decompression surgery pending Primary hypertension 01/06/2019 C. difficile colitis 05/06/2018 Overview (02/09/2024): Follows with gastroenterology Seizure disorder 12/30/2017 Overview (02/09/2024): Follows with neurology Bipolar 1 disorder 12/30/2017 Mixed hyperlipidemia 09/05/2017 Gastroesophageal reflux disease without [...] Anxiety and depression 10/19/2009 Overview (02/09/2024): Admitted [facility] 01/15/10 following suicide attempt with quart of vodka and sleeping pills, transferred to psych 01/16/10 Moderate persistent asthma 10/19/2009 Overview (02/09/2024): Follows with pulmonary on ICS/LABA, singulair and albuterol PRN Encounters Date Type Department Care Team Description 05/03/2025 Telephone Adult Medicine [address] [phone] Guille lAlison MD 04/19/2025 4:00 PM EST Office Visit Pulmonology - [address] [place] [address] Lynda Spicer MD COPD with asthma (CMS/HCC V24, CMS/HCC V28) (Primary Dx); Chronic cough 04/01/2025 Telephone Adult Medicine [address] [phone] Guille Allison MD 03/07/2025 2:30 PM EST Office Visit Adult Medicine [address] [phone] Guille Allison MD Poorly-controlled hypertension (Primary Dx) 02/01/2025 Telephone Adult Medicine [address] [phone] Guille Allison MD from Last 3 Months Immunizations Immunization Administration Dates Next Due Influenza Quadravalent, 0.5m l (Fluzone High-dose) 65yo and older 01/20/2023 Influenza Quadravalent, MDCK , 0.5ml, preservative free (Flucelvax) 6mo and older 03/16/2019,02/11/2018 Influenza trivalent, 0.5mL ( Fluzone High-dose) 65yo and older 02/18/2022,02/16/2020 Influenza trivalent, with pr eservative (Fluzone; Afluria) 6mo and older 01/23/2017,03/15/2016,03/23/2015,02/07,02/23/2013,01/14/2012,01/16/2011 ,02/05/2010 Influenza, Unspecified 02/11/2018,01/03/2014 [employer] SARS-CoV-2 COVID -19, vector-nr, rS-Ad26, preservative free [...] sigmoid diverticulosis COLONOSCOPY W/ BIOPSIES 02/16/15 PROCEDURE: FL COLONOSCOPY STOMA W/BIOPSY SINGLE/MULTIPLE; COMMENT: adenoma and tics; repeat in 5 yrs Medical History Medical History Date Comments Sacroiliac joint somatic dysfunction 04/04/2017 DX:Sacroiliac joint somatic dysfunction; COMMENT: Follows with chiropractor and physiatry Pruritic dermatitis 07/09/2017 DX:Pruritic dermatitis; COMMENT: Follows with dermatology Moderate persistent asthma 10/19/2009 DX:Mo derate persistent asthma; COMMENT: Follows with pulmonary on ICS/LABA, singulair and albuterol PRN Anoxic brain injury ([facility] V24, [facility] V28) 02/15/2010 DX:Anoxic brain injury (HCC) ; COMMENT: CT scan of brain negative 01/15/10, referred neurology Depression 10/19/2009 DX:Depression; C OMMENT: Admitted [facility] 01/15/10 following suicide attempt with quart of [...] 30-39.9) 09/05/2017 DX:Obesity (BMI 30-39.9) Seizure disorder ([facility] V2 4, [facility] V28) 12/30/2017 DX:Seizure disorder ([facility]); C OMMENT: Follows with neurology Bipolar 1 disorder ([facility] V24, [facility] V28) 12/30/2017 DX:Bipolar 1 disorder ([facility]) Atypical chest pain 01/09/2018 DX:Atypical [...] Sign Reading Time Taken Comments Blood Pressure 136/77 04/19/2025 4:07 PM EST Pulse 93 04/19/2025 4:07 PM EST Temperature 35.8 C (96.4 F) 03/07/2025 2:43 PM EST Respiratory Rate 18 10/18/2024 2:12 PM EDT Oxygen Saturation 98% 04/19/2025 4:07 PM EST Inhaled Oxygen Concentration - - Weight 83 kg (183 lb) 04/19/2025 4:07 PM EST Height 160 cm (5' 3 ) 03/07/2025 2:43 PM EST Body Mass Index 32.42 03/07/2025 2:43 PM EST Plan of Treatment Upcoming Encounters Date Type Department Care Team (Late st Contact Info) Description 07/11/2025 1:00 PM EDT Office Visit Adult Medicine [facility] [address] [place] [address] Natalya Hopkins PA [address] [place], [place] 10/19/2025 3:30 PM EDT Office Visit Pulmonology - [address] [place] [address] Lynda Spicer MD [address] [place] [phone] Health Maintenance Due Date Last Done Comments Drug Screen 1955 Non-Opioid Controlled Substance Agreement 1955 DTaP,Tdap,and Td Vaccines (2 - Td or [...] Procedure Name Priority Date/Time Associated Diagnosis Comments COMPREHENSIVE METABOLIC PANEL Routine 01/31/2025 10:47 AM [...] for diabetes mellitus (DM) Screening for hyperlipidemia MG MAMMO DIGITAL SCREENING W BENNY BILAT Routine 08/30/2024 2:18 PM EDT Encounter for screening mammogram for breast cancer EXTERNAL DEXA REPORT 06/24/2024 FALLS RISK ASSESSMENT Routine 02/05/2024 COLONOSCOPY Routine 11/23/2019 HPV Routine 07/06/2018 HEPATITIS C SCREENING Routine 09/07/2013 from Last 3 Months or Most Recently Relevant to Health Maintenance Results * (ABNORMAL) Lipid panel with reflex to direct LDL (01/31/2025 10:47 AM EDT) Cholesterol 259(H) 0 - 200 mg/dL LAB CHEMISTRY METHOD 01/31/2025 5:[address] [facility] Triglycerides 202(H) 0 - 150 mg/dL LAB CHEMISTRY METHOD 01/31/2025 5:[address] [facility] HDL 66 >=40 mg/dL LAB CHEMISTRY METHOD 01/31/2025 5:[address] [facility] LDL Calculated 153(H) 0 - 100 mg/dL LAB CHEMISTRY METHOD 01/31/2025 5:[address] [facility] Comment:Estimated LDL Calcul ated using equation: Total cholesterol - HDL cholesterol - (Triglycerides/5) VLDL Cholesterol Colten 40.4 mg/dL LAB CHEMISTRY METHOD 01/31/2025 5:[address] [facility] Non HDL Chol. (LDL+VLDL) 193(H) <145 mg/dL LAB CHEMISTRY METHOD 01/31/2025 5:[address] [facility] Chol/HDL Ratio 3.9 0.0 - 4.4 LAB CHEMISTRY METHOD 01/31/2025 5:[address] [facility] Blood Venous blood specimen / Unknown Venipuncture / Unknown 01/31/2025 10:47 AM EDT 01/31/2025 10:47 AM EDT us Guille Allison MD LAB BLOOD ORDERABLES Final Result [facility] [address] [place] [address], * (ABNORMAL) Comprehensive metabolic panel (01/31/2025 10:47 AM EDT) Sodium 139 133 - 145 mmol/L LAB CHEMISTRY METHOD 01/31/2025 5:[address] [facility] Potassium 4.6 3.5 - 5.5 mmol/L LAB CHEMISTRY [facility] Chloride 106 96 - 110 mmol/L LAB CHEMISTRY METHOD 01/31/2025 5:38 PM [facility] CO2 26 21 - 32 mmol/L LAB CHEMISTRY METHOD 01/31/2025 5:38 PM [facility] Anion Gap 7 3 - 11 LAB CHEMISTRY METHOD 01/31/2025 5:38 PM [facility] Glucose 92 70 - 100 mg/dL LAB CHEMISTRY METHOD 01/31/2025 5:38 PM [facility] BUN 15 5 - 25 mg/dL LAB CHEMISTRY METHOD 01/31/2025 5:38 PM [facility] Creatinine 0.48(L) 0.50 - 1.10 mg/dL LAB CHEMISTRY METHOD 01/31/2025 5:38 PM [facility] eGFR 101 >=60 mL/min/1. 73m2 LAB CHEMISTRY METHOD 01/31/2025 5:38 PM [facility] Comment:Calculation based on the Chronic Kidney Disease Epidemiology Collaboration (CKD-EPI) equation refit without adjustment for race. BUN/Creatinine Ratio 31.3 LAB CHEMISTRY METHOD 01/31/2025 5:38 PM [facility] Calcium 9.2 8.5 - 10.5 mg/dL LAB CHEMISTRY METHOD 01/31/2025 5:38 PM [facility] AST (SGOT) 19 10 - 42 unit/L LAB CHEMISTRY METHOD 01/31/2025 5:38 PM [facility] ALT (SGPT) 35 10 - 60 unit/L LAB CHEMISTRY METHOD 01/31/2025 5:38 PM [facility] Alkaline Phosphatase 105 42 - 121 unit/L LAB CHEMISTRY METHOD 01/31/2025 5:38 PM [facility] Total Protein 6.8 6.0 - 8.0 g/dL LAB CHEMISTRY METHOD 01/31/2025 5:38 PM [facility] Albumin 4.1 3.2 - 5.0 g/dL LAB CHEMISTRY METHOD 01/31/2025 5:[address] [facility] Total Bilirubin 0.2 0.0 - 1.4 mg/dL LAB CHEMISTRY METHOD 01/31/2025 5:[address] [facility] Blood Venous blood specimen / Unknown Venipuncture / Unknown 01/31/2025 10:47 AM EDT 01/31/2025 10:47 AM EDT us Guille Allison MD LAB BLOOD ORDERABLES Final Result [facility] [address] [place] [address], [place] [phone] * MG Mammo Digital Screening w Benny bilat (08/30/2024 2:18 PM EDT) Anatomical Region Laterality Modality Breast Bilateral Mammography 08/31/2024 3:24 PM EDT Impressions 08/31/2024 3:32 PM EDT 1. No mammographic evidence of malignancy 2. Scattered fibroglandular tissue BI-RADS CATEGORY: 2 - BENIGN RECOMMENDATION: Screening bilateral mammogram is recommended in 1 year. Mammo Location: [facility], [address] [place] [address], [address], . -------- FINAL REPORT -------- Dictated By: Tamara Rocha Dictated Date: 08/31/2024 15:24 ET Assigned Physician: Tamara Rocha Reviewed and Electronically Signed By: Tamara Rocha Signed Date: 08/31/2024 15:32 ET Workstation ID: [id number] Transcribed By: Self Edit Transcribed Date: 08/31/2024 [...] is recommended in 1 year. Mammo Location: [facility], [address] [place] [address], [address], . -------- FINAL REPORT -------- Dictated By: Tamara Rocha Dictated Date: 08/31/2024 15:24 ET Assigned Physician: Tamara Rocha Reviewed and Electronically Signed By: Tamara Rocha Signed Date: 08/31/2024 15:32 ET Workstation ID: [id number] Transcribed By: Self Edit Transcribed Date: 08/31/2024 15:24 ET us Guille Allison MD IMG BI PROCEDURES Final Res ult * External Dexa Report (06/24/2024) Anatomical Region Laterality Modality Bone Densitometr y Provider [facility] IMG DXA PROCEDURES Final Result * Falls Risk Assessment (02/05/2024) Pathologist [facility] Falls Risk Assessment Abstracted Historical Provider HEALTH MAINTENANCE Final Result * Colonoscopy (11/23/2019) Pathologist [facility] Colonoscopy No interpretation , abstracted Anatomical Region Laterality Modality Other [facility] Provider HEALTH MAINTENANCE Final Result * Cervical Cancer Screening: HPV (07/06/2018) Pathologist [facility] Cervical Cancer Screening: HPV Negative, abstracted [facility] Provider HEALTH MAINTENANCE Final Result * Hepatitis C Screening (09/07/2013) Pathologist [facility] Hepatitis C Screening Abstracted [facility] Provider HEALTH MAINTENANCE Final Result from Last 3 Months or Most Recently Relevant to Health Maintenance Insurance MEDICARE [place]ICAID - [place] Advance Directives Documents on File Type Date Recorded Patient Box Toe Cutter Expl anation Health Care Decision (hx) 11/23/2021 AD MCCARTHY DIRECTIVE Health Care Decision (hx) 11/23/2021 AD MCCARTHY DIRECTIVE Health Care Decision (hx) 11/23/2021 AD MCCARTHY DIRECTIVE Health Care Decision (hx) 11/23/2021 AD MCCARTHY DIRECTIVE Health Care Decision (hx) 11/23/2021 AD MCCARTHY DIRECTIVE Health Care Decision (hx) 11/23/2021 AD MCCARTHY DIRECTIVE Care Teams Coat Finisher Relationship Specialty Start Date End Date Guille Allison MD [address] [place] [address] PCP - General Internal Medicine 11/01/21
--- OUTSIDE RECORDS SUMMARY | 2025-05-03 19:13 | XMS_ITS | Clinical Summary ---
Author Organization [facility] Address [address] [address] Phone Care Team Providers Care Preparation Room Manager Name Role Phone Guille Allison MD [...] VALPROIC ACID 97.3 50.0 - 100.0 ug/mL [facility] Blood 05/14/2023 1:44 PM EST 05/14/2023 1:48 PM EST us Kevin Gill MD LAB BLOOD BKR ORDERABLES Final Result [facility] [address] [place] [address] from Last 3 Months or Most Recently Relevant to Health Maintenance [place] [address] MEDICARE PART A & B [place] SUSY VELÁZQUEZDOLLYMatt VELÁZQUEZTHAIS [place] [id number] MEDICARE PART A & [facility] A & B [id number] [place] [address] MEDICARE PART A & B [facility] [place] [id number] MEDICARE PART A & [place] [phone] MEDIC[place] [id number] MEDICARE PART A & B [facility] MEDICARE PART A & B [facility] MEDICARE PART A & B [facility] [employer] MEDICARE PART A & B [facility] Advance Directives For more information, please contact: [phone] (9AM - 5PM [facility], Friday-Friday) * Full Code (Latest Code Status on File) Date Activated Date Inactivated Comments 05/14/2023 5:37 PM Question Answer Comments Code Status Confirmed With: Patient Care Teams Preparation Room Manager Relationship Specialty Start Date End Date Guille Allison MD [address] [place] [id number] PCP - General Internal Medicine 09/27/22 Additional Source Comments The information contained in this document represents components of the legal health record. It is not the complete legal health record.[facility]
--- OUTSIDE RECORDS SUMMARY | 2025-05-03 19:13 | XMS_ITS | Clinical Summary ---
Author Organization [address] Address [address] [place] [phone] Phone Care Team Providers Care Transition Teacher Name Role Phone MorrisTeena Primary Care Provider [phone] Allergies Active Allergy Reactions Criticality Noted Date [...] patient's age to complete this topic Insurance [id number] MEDICAID MEDICARE Member Subscriber Plan / Payer (Ef fective 2012-Present) Name:Carolin Chambers Member ID:[id number] Relation to Subscriber:Self Name:Carolin Chambers Subscriber ID:[id number] Payer ID:[id number] Group ID:Not on file Type:Not on file Address: [address] [id number] MEDICAID MEDICARE [id number] MEDICAID MEDICARE MOTOR VEHICLE GENERIC MEDICARE [id number] MEDICAID MOTOR VE[employer]ICLE GENERIC MEDICARE [id number] MEDICAID Care Teams Transition Teacher Relationship Specialty Start Date End Date Teena Morris [address] [place] [address] PCP - General 11/08/18
--- OUTSIDE RECORDS SUMMARY | 2025-05-03 19:14 | XMS_ITS | Encounter Summary ---
Author Organization [facility] Address [address] [place] [address] Care Team Providers Care Design Assembler Name Role Phone Guille Allison MD Primary Care Provider [phone] Reason for Visit * Reason Onset Date Comments Palpitations 05/03/2025 Encounter Details Date Type Department Care Team (Late st Contact Info) Description 05/03/2025 Telephone Adult Medicine [address] [phone] Guille Allison MD [address] [place], [place] Social History Tobacco Use Types Packs/Day [...] as of this encounter Progress Notes * Genevieve Delgado RN - 05/03/2025 1:46 PM EST Started on and off x 3 weeks . Sometimes more active then other times Pt. States she is usually more active and now feels more fatigued . At present time she denies chest pain, she state she does have COPD and is normally sob at times , no left sided neck pain but has neck pain at times being onthe rt. Side . Her palpitations are more like a racing feeling and it stops her, it makes her hold her breath. She has had a lot of diarrhea on and off for several weeks . Hx of c-diff and increase in her lithium dose No headache, no fever , no chills, no cp or weakness . I advised pt. With her freq. Palpitations, changes in lithium and diarrhea to be evaluated in the ER. Pt. Agrees and I advised to have some one take her * Steven Gaston - 05/03/2025 1:37 PM EST Patient call requires triage: Symptoms patient is presenting: Patient called stating that she has been having heart palpitations on and off , is unsure what is it related to , would like to speak to nurse to get advice on what todo How long has patient had these symptoms?: on and off for the past a few weeks - 3 weeks For ALL patients calling to schedule any appointment (routine, sick visit, follow up, consult, etc.) in the outpatient setting please ask the following questions: Do you have fever of higher than 101, sore throat with difficulty swallowing or severe shortness ofbreath? no If YES to any of these above symptoms, send a message to triage and do not book. Red dot. If no, an audio or video visit should be booked. Have you had close contact with someone with Coronavirus in the last 14 days? no Have you traveled abroad? no Have you traveled recently to another state outside of [place], [place], [place], [place], [place], [place], [place]? no o If yes, did you quarantine for 14 days or have a negative covid test? no If yes to any of the above, patient is not to be scheduled in office until after 14 day quarantine or negative covid test. If pain or injury related was it due to an accident at work or from a motor vehicle accident? If yes, date of accident/Injury: No If yes, gather 3rd democrat insurance information Third Green Party Information: not applicable PCP: Guille Allison MD Payor: MEDICARE / Plan: MEDICARE PART A & B / Product Type: Medicare / documented in this encounter Plan of Treatment Upcoming Encounters Date Type Department Care Team (Late st Contact Info) Description 07/11/2025 1:00 PM EDT Office Visit Adult Medicine [facility] [place] [address], [place] [phone] Natalya Hopkins PA [address] [place], [place] 10/19/2025 3:30 PM EDT Office Visit Pulmonology - [place] [address] [facility] [address] [place] [id number] Lynda Spicer MD [address] [place] [phone] documented as of this encounter Visit Diagnoses Not on filedocumented in this encounter Additional Health Concerns Assessment Noted Time PHQ-9 Depression Total Score: 2 02/01/20 25 9:47 AM EDT documented as of this encounter Care Teams Design Assembler Relationship Specialty Start Date End Date Guille Allison MD [address] [place], [place] PCP - General Internal Medicine 11/01/21 documented as of this encounter
[2025-05-03 19:16] LABS: Hematocrit 41.7 % (37.0-47.0); Hemoglobin 14.3 g/dl (12.0-16.0); Imm Gran Abs Auto 0.06 X10*3/uL (0.00-0.03); Imm Gran Pct Auto 0.6 % (0.0-0.4); Lymphocytes Absolute Auto 2.8 X10*3/uL (1.2-4.9); Mean Corpuscular HGB Conc 34.3 g/dl (31.0-35.0); Mean Corpuscular Hemoglobin 34.5 pg (27.0-33.0); Mean Corpuscular Volume 100.5 fL (80.0-98.0); NRBC Abs Auto 0.000 X10*3/uL (0.0-0.012); NRBC Pct Auto 0.0 /100WBC (0.0-0.2); Platelet Count 338 X10*3/uL (160-400); Red Blood Count 4.15 X10*6/uL (4.20-5.50); White Blood Count 10.5 X10*3/uL (4.8-10.8)
[2025-05-03 19:20] LABS: Troponin-I High Sensitivity < 2.7 ng/L (<3.5-17.0)
[2025-05-03 22:06] VITALS: BP 155/69; PULSE 85; RESP 16; TEMP 36.7; O2SAT 93
[2025-05-04 02:37] VITALS: BP 138/71; PULSE 80; RESP 12; TEMP 36.8; O2SAT 96
--- NOTE | 2025-05-04 02:48 | ED.NAVMDI ---
HPI - Nausea/Vomiting/Diarrhea General Chief complaint: Nausea/Vomiting/Diarrhea Stated complaint: racing heart palpatations Time Seen by Provider: 05/04/25 02:21 Source: patient Mode of arrival: ambulatory Limitations: no limitations History of Present Illness ED Provider: Dr. Angelica Harvey HPI Narrative: Patient comes to the emergency room complaining of palpitations. Patient states that she does not have any chest pain but occasionally feels her heart beating fast for a few sec and then slows down. Patient states that for a few weeks she has been having intermittent diarrhea, taking Pepto-Bismol, no diarrhea since almost 20 hours ago. Patient states that she called her PCP to let him know about the palpitations and they advised her to come to the emergency room to rule out electrolyte imbalance. Patient states that she has never been diagnosed with an arrhythmia. At this time, patient denies palpitations chest pain or shortness of breath, no nausea vomiting diarrhea or abdominal pain. Patient denies any syncopal or near syncopal episodes Related Data Home Medications ?Medication ?Instructions ?Recorded ?Confirmed amlodipine 5 mg tablet 5 mg PO DAILY 04/09/23 03/17/25 citalopram 20 mg tablet 30 mg PO DAILY 04/09/23 03/17/25 sennosides 8.6 mg-docusate sodium 1 tab PO BID 04/09/23 03/17/25 50 mg tablet (Senexon-S) rosuvastatin 10 mg tablet 10 mg PO DAILY 03/16/24 03/17/25 betamethasone dipropionate 0.05 % 1 appl topical BID 09/02/24 03/17/25 topical ointment coenzyme Q10 100 mg capsule 100 mg PO DAILY 09/02/24 03/17/25 (CoQ-10) diclofenac sodium 1 % topical gel 2 g topical QID 09/02/24 03/17/25 lorazepam 0.5 mg tablet mg PO 09/02/24 03/17/25 magnesium 250 mg tablet 250 mg PO DAILY 09/02/24 03/17/25 multivitamin 1 tab PO DAILY 09/02/24 03/17/25 multivitamin-ferrous 1 tab PO DAILY 09/02/24 03/17/25 fumarate-folic acid 18 mg-400 mcg tablet (Centrum Complete) vit B complex 100 combo no.2 100 tab PO 09/02/24 03/17/25 mg tablet,extended release (B-100 Complex ER) fluticasone fur. 100 mcg-umeclid 1 ea inhalation DAILY 10/11/24 03/17/25 62.5 mcg-vilant 25 mcg inhalat.powder (Trelegy Ellipta) lithium carbonate 300 mg 300 mg PO BEDTIME 02/17/25 03/17/25 tablet,extended release lithium carbonate 450 mg 450 mg PO QAM 04/11/25 tablet,extended release Previous Rx's ?Medication ?Instructions ?Recorded Nebulizer with compressor #1 ea 10/03/21 phenytoin sodium extended 100 mg 100 mg PO .COMPLEX 30 days #90 caps 12/07/24 capsule sucralfate 1 gram tablet 2 g (2 x 1 gram) PO DAILY #60 tabs 04/11/25 pantoprazole 40 mg tablet,delayed 40 mg PO BID #60 tabs 04/14/25 release loperamide 2 mg capsule 2 mg PO Q4H PRN loose stool #20 05/04/25 caps Allergies Allergy/AdvReac Type Severity Reaction Status Date / Time cariprazine (From Vraylar) Allergy Severe Vomiting Verified 05/03/25 17:05 oxcarbazepine (From Allergy Intermediate HIVES/HALLU Verified 05/03/25 17:05 TRILEPTAL) CINATIONS codeine (Codeine) Allergy Mild RASH Verified 05/03/25 17:05 hydromorphone (From Dilaudid) Allergy Mild unknown Verified 05/03/25 17:05 trazodone (TRAZODONE) Allergy Unknown UNKNOWN Verified 05/03/25 17:05 Review of Systems Review of Systems: Constitutional : No Weight loss, No Fever, No Chills, No Night Sweats, No Fatigue, No Malaise ENT/Mouth : No Hearing loss, No Ear Pain, No Nasal Congestion, No Sinus Pain, No Hoarseness, No sore throat, No Rhinorrhea, No Swallowing Difficulty Eyes: No Eye Pain, No Swelling, No Redness, No Foreign Body, No Discharge, No Vision Changes Cardiovascular : No Chest Pain, No SOB, No Dyspnea on Exertion, No Orthopnea, No Edema, complaining of intermittent Palpitations Respiratory : No Cough, No Sputum, No Wheezing, No Smoke Exposure, No Dyspnea Gastrointestinal : No Nausea, No Vomiting, complaining of weeks of intermittent Diarrhea, No Constipation, No abdominal Pain, No Hematochezia, No Melena Genitourinary : no irregular bleeding, No Dysuria, No Urinary Frequency, No Hematuria, No Urinary Incontinence, No Urgency, No Flank Pain, No Urinary Flow Changes, No Hesitancy Musculoskeletal : No joint pain, No Myalgias, No Joint Swelling Skin : No Skin Lesions, No rash Neuro : No Weakness, No Numbness, No Paresthesias, No Loss of Consciousness, No Dizziness, No Headache Psych : No Anxiety/Panic, No Depression, No SI/HI/AH/VH, No Social Issues, Heme/Lymph: No Bruising, No Bleeding,No Lymphadenopathy Endocrine : No Polyuria, No Polydipsia, No Temperature Intolerance [facility] Past Medical History Medical History Diarrhea Localized osteoarthritis of knees, bilateral Osteoarthritis of hands, bilateral Polyarthralgia Elevated cholesterol HTN (hypertension) PTSD (post-traumatic stress disorder) Seizures COPD (chronic obstructive pulmonary disease) Lumbar stenosis Barretts esophagus Asthma Bipolar disorder GERD (gastroesophageal reflux disease) Diverticulitis Surgical History Hx of nasal polypectomy Hx of tubal ligation Hx of spinal surgery History of esophagogastroduodenoscopy (EGD) History of colonoscopy Social History Social History Household Members: None Housing: Apartment Do you presently have visiting nurse or other home services: No Alcohol intake: unknown Patient Tobacco Use Status: Never used Tobacco Advance Directives: Yes Advance Directives on File: Yes Advance Directives Date on File: 05/02/23 Do you have a plan to hurt others: No Plan service: No Physical Exam Exam: Exam: Appearance: Alert. Oriented X3. No acute distress. Well-appearing Eyes: Pupils equal, round and reactive to light. ENT: Pharynx normal. Neck: Normal inspection. Neck supple. No lymph nodes noted. No crepitus CVS: Normal heart rate and rhythm. Pulses normal. Normal S1 and S2 Respiratory: No respiratory distress. Breath sounds normal. No Wheezing. No rales Abdomen: Soft and nontender. No rigidity. No distention. Skin: Skin warm and dry. Normal skin color. Normal skin turgor. Extremities: No lower extremity edema. No Lacerations. No Rash Neuro: Oriented X 3. No motor deficit. No sensory deficit. Moving all extremities. No slurred speech. CN 2 through 12 grossly intact Psych: calm, cooperative, normal affect Vital Signs: Vital Signs: Last Vital Signs Temp 98.2 F 05/04/25 02:37 Pulse 80 05/04/25 02:37 Resp 12 05/04/25 02:37 BP 138/71 05/04/25 02:37 Pulse Ox 96 05/04/25 02:37 O2 Del Method Room Air 05/04/25 02:37 BMI result Body Mass Index 32.2 Course Course Course Narrative: Patient reports intermittent palpitations. At this time, patient states that she has not palpitations chest pain or shortness of breath. Also, patient reports intermittent episodes of diarrhea for a few weeks. Patient states that for almost 20 hours now she has not had any diarrhea. Does not have any abdominal pain at this time, no hematuria or dysuria We will observe the patient, patient will be on telemetry and we will assess for any arrhythmias Medical Decision Making Medical Decision Making [facility] Narrative: My interpretation of EKG: Normal sinus rhythm, heart rate 88, no ST segment depression or elevation, no T-wave inversion, QTC 459 My interpretation of labs: No significant abnormality in patient's hematology and chemistry, normal LFTs, troponin normal, lipase normal. TSH within normal limits. Patient was observed, patient was not telemetry, we did not see any obvious arrhythmias. Discussed with the patient that she may be a good candidate for a Holter monitor. Patient will follow-up with the primary care physician. No electrolyte imbalance Differential Diagnosis Differential Diagnoses: The differential diagnosis associated with the presentation includes (Hyper/hypothyroidism, palpitations, arrhythmias, AFib/a flutter, PVCs) Admission/Observation Consideration of admission/observation: Escalation of care including admission/observation considered (Given patient's age and symptoms, observation was considered) Lab Data [facility] Lab Attestation statement: I reviewed the patient's lab results. 05/03/25 18:53 05/03/25 18:53 Labs: Lab Results 05/03/25 Range/Units 18:53 WBC 10.5 (4.8-10.8) X10*3/uL RBC 4.15 L (4.20-5.50) X10*6/uL Hgb 14.3 (12.0-16.0) g/dl Hct 41.7 (37.0-47.0) % MCV 100.5 H (80.0-98.0) fL MCH 34.5 H (27.0-33.0) pg MCHC 34.3 (31.0-35.0) g/dl RDW 11.9 (11.0-16.0) % Plt Count 338 (160-400) X10*3/uL MPV 9.0 L (9.4-12.3) fL Immature Gran % (Auto) 0.6 H (0.0-0.4) % Neut % (Auto) 58.4 (45-73) % Lymph % (Auto) 26.9 (20-40) % [place] % (Auto) 8.2 (2-11) % Eos % (Auto) 5.2 H (0-4) % Baso % (Auto) 0.7 (0-2) % Lymph # (Auto) 2.8 (1.2-4.9) X10*3/uL [place] # (Auto) 0.9 (0.1-1.2) X10*3/uL Eos # (Auto) 0.5 H (0.0-0.4) X10*3/uL Baso # (Auto) 0.1 (0.0-0.2) X10*3/uL Abs Immat Gran (auto) 0.06 H (0.00-0.03) X10*3/uL Absolute Neuts (auto) 6.1 (2.0-8.3) x10*3/uL Absolute Nucleated RBC 0.000 (0.0-0.012) X10*3/uL Nucleated RBC % (auto) 0.0 (0.0-0.2) /100WBC Sodium 141 (135-145) mmol/L Potassium 5.0 D (3.3-5.1) mmol/L Chloride 109 H (96-108) mmol/L Carbon Dioxide 26 (22-29) mmol/L Anion Gap 11 L (12-20) BUN 19 H (9-16) mg/dL Creatinine 0.69 (0.5-1.4) mg/dL Estim Creat Clear Calc 74.9 Estimated GFR > 60 Random Glucose 84 (60-115) mg/dL Calcium 9.9 (8.4-10.2) mg/dL Magnesium 2.0 (1.6-2.6) mg/dL Total Bilirubin 0.2 (0.0-1.0) mg/dL AST 23 (5-31) U/L ALT 26 (0-31) U/L Alkaline Phosphatase 86 (39-117) U/L Troponin I High Sens < 2.7 (<3.5-17.0) ng/L Total Protein 6.9 (6.5-8.0) g/dL Albumin 4.6 (3.5-5.0) g/dL Lipase 27 (8-78) U/L TSH 1.96 (0.32-4.0) uIU/mL Independent Interpretation I performed an independent interpretation of an: EKG Critical Care Time Critical Care Time Critical Care Time: Yes Total Critical Care Time: 35 Attestation: I have personally provided critical care time. Time includes review of lab data, radiology results, discussion with consultants, and monitoring for potential decompensation. Intervention performed as documented. Discharge Plan Discharge Clinical Impression: Palpitations, Intermittent diarrhea Patient Disposition: Home, Self-Care Instructions: Heart Palpitations (ED) Additional Instructions: Please follow-up with your primary care physician tomorrow. If you have any worsening or new symptoms, please return to the emergency room or call 911 Prescriptions: New loperamide 2 mg capsule 2 mg PO Q4H PRN (Reason: loose stool) Qty: 20 0RF Rx Instructions: administer after each loose stool until symptoms controlled; do not exceed 8 mg per 24 hrs No Action (DME) Nebulizer with compressor See Rx Instructions .Route .MEDSUPPLY Qty: 1 0RF Rx Instructions: As directed phenytoin sodium extended 100 mg capsule 100 mg PO .COMPLEX 30 Days Qty: 90 5RF Rx Instructions: 100 mg orally 1 cap in AM and 2 caps at bedtime; pantoprazole 40 mg tablet,delayed release (DR/EC) 40 mg PO BID Qty: 60 2RF sennosides-docusate sodium [Senexon-S] 8.6-50 mg tablet 1 tab PO BID amlodipine 5 mg tablet 5 mg PO DAILY citalopram 20 mg tablet 30 mg PO DAILY rosuvastatin 10 mg Tablet 10 mg PO DAILY lithium carbonate 450 mg tablet extended release 450 mg PO QAM sucralfate 1 gram tablet 2 g PO DAILY Qty: 60 3RF Trelegy Ellipta 100-62.5-25 mcg blister with device 1 ea inhalation DAILY betamethasone dipropionate 0.05 % ointment 1 appl topical BID diclofenac sodium 1 % gel 2 g topical QID lorazepam 0.5 mg tablet PO B-100 Complex 100 mg tablet extended release PO coenzyme Q10 [CoQ-10] 100 mg capsule 100 mg PO DAILY magnesium 250 mg tablet 250 mg PO DAILY multivitamin Tablet 1 tab PO DAILY Centrum Complete 18-400 mg-mcg tablet 1 tab PO DAILY lithium carbonate 300 mg tablet extended release 300 mg PO BEDTIME Print Language: Vietnamese
[2025-05-04 04:33] VITALS: BP 132/80; PULSE 79; RESP 12; TEMP 36.9; O2SAT 95
[2025-05-04 04:39] VITALS: BP 132/80; PULSE 79; RESP 12; TEMP 36.9; O2SAT 95
== END 2025-05-04 04:40 | disposition home or self-care (01) ==
PROVIDERS: Emergency Provider Emergency Medicine; PCP Internal Medicine
DX: R00.2 Palpitations (principal); R19.7 Diarrhea, unspecified; I10 Essential (primary) hypertension; E78.00 Pure hypercholesterolemia, unspecified; J44.9 Chronic obstructive pulmonary disease, unspecified; Z79.02 Long term (current) use of antithrombotics/antiplatelets; Z79.899 Other long term (current) drug therapy
CPT/HCPCS: 36415; 80053; 83690; 83735; 84443; 84484; 85025; 93005; 99283; 99284

== ENCOUNTER → 2025-05-03 16:46 | Outpatient (BNV) | payer MEDICARE, MEDICAID, SELFPAY | PROVIDERS: Emergency Provider Emergency Medicine; PCP Internal Medicine; Visit Provider Internal Medicine | DX: R07.9 Chest pain, unspecified (principal) | CPT/HCPCS: 93010 ==